=== PATIENT | female | born 1965 | race Hispanic/Latino ===

== ENCOUNTER 2016-10-19 06:14 | Day surgery (SDC) | payer MEDICARE, MEDICAID ==
[2016-10-13 07:22] VITALS: BMI 37.2
[2016-10-19 06:38] LABS: ADD MANUAL DIFF? NO
[2016-10-19 06:52] LABS: INR 1.01 (0.93-1.08); PARTIAL THROMBOPLASTIN TIME 30.6 Seconds (23.7-30.8)
[2016-10-19 06:56] LABS: CALCIUM 9.5 mg/dL (8.4-10.5); POTASSIUM 4.2 mmol/L (3.6-5.0)
[2016-10-19 07:03] LABS: BASO # 0.11 K/mm3 (0.0-2.0); BASO % 0.7 % (0.0-3.0); EOS # 0.4 (0.0-0.7); EOS % 2.7 % (1.5-5.0); GRAN # 8.74 (1.4-6.5); GRAN % 58.5 % (50.0-68.0); HEMATOCRIT 36.3 % (36.0-48.0); LYMPH # 4.7 (1.2-3.4); LYMPH % 31.7 % (22.0-35.0); MEAN CELL VOLUME 91.9 fL (80.0-105.0); MEAN CORPUSCULAR HEMOGLOBIN 30.9 pg (25.0-35.0); MEAN CORPUSCULAR HGB CONC 33.6 g/dl (31.0-37.0); MEAN PLATELET VOLUME 10.4 fl (7.0-11.0); MONO % 6.4 % (1.0-6.0); PLATELET COUNT 351 10^3/uL (120.0-450.0); RED CELL DISTRIBUTION WIDTH 14.1 % (11.5-14.5); WHITE BLOOD COUNT 14.9 10^3/ul (4.5-11.0)
[2016-10-19] MEDS ORDERED: Midazolam 2 MG/2 ML VIAL ONE (08:14)
[2016-10-19] MEDS ORDERED: Propofol 10 mg/ml Inj (20 ML) ONE ×3 (08:14→08:54)
[2016-10-19] MEDS ORDERED: Morphine 4 mg/ml ISec ONE ×2 (08:15→08:31)
[2016-10-19] MEDS ORDERED: Succinylcholine 200 mg/10 ml Inj IV ONE (08:15)
[2016-10-19] MEDS ORDERED: Rocuronium 10 mg/ml (5 ml) ONE (08:15)
[2016-10-19] MEDS ORDERED: Phenylephrine 10 mg/ml Inj ONE (08:28)
[2016-10-19] MEDS ORDERED: HYDROmorphone 2 mg/ml ISec ONE (08:46)
[2016-10-19] MEDS ORDERED: Metoprolol 1 mg/ml Inj IVP ONE (08:51)
[2016-10-19] MEDS ORDERED: Labetalol 5 mg/ml Inj 20ML ONE (09:04)
[2016-10-19] MEDS ORDERED: Neostigmine Methylsulfate 3mg/3ml Syringe IV ONE (09:30)
[2016-10-19] MEDS ORDERED: metroNIDAZOLE IV 500 mg/100 ml 100 ML ONE (09:30)
[2016-10-19] MEDS ORDERED: Ciprofloxacin 400mg/200ml D5W 200 ML IVPB ONE (09:31)
[2016-10-19] MEDS ORDERED: Naloxone 0.4 mg/ml Inj (Adult) ONE (09:46)
[2016-10-19] MEDS ORDERED: HYDROmorphone 0.5 mg/0.5 ml ISec IVP PRN (09:59)
[2016-10-19] MEDS ORDERED: Lactated Ringer's 1,000 ML IV SCH (10:00)
--- NOTE | 2016-10-19 10:13 | PCM.SURG1 ---
Surgeon's Initial Post Op Note - Surgeon's Notes Surgeon: Tez Twister Hand: Sushma PGY2 Type of Anesthesia: General Endo, Local Pre-Operative Diagnosis: Incisional hernia Operative Findings: incarcerated hernia Post-Operative Diagnosis: same Operation Performed: laparoscopic incisional hernia w. mesh Specimen/Specimens Removed: none Estimated Blood Loss: EBL {In ML}: 5 Blood Products Given: N/A Drains Used: No Drains Post-Op Condition: Good Date of Surgery/Procedure: 10/19/16 Time of Surgery/Procedure: 10:22
[2016-10-19 11:14] VITALS: RESP 18; TEMP 97.3
[2016-10-19 11:57] VITALS: BP 122/69; PULSE 84; O2SAT 97
--- NOTE | 2016-10-20 09:11 | OP ---
PROCEDURE DATE: 10/19/2016 PREOPERATIVE DIAGNOSIS: Incarcerated incisional hernia. POSTOPERATIVE DIAGNOSES: Incarcerated incisional hernia and dense intraabdominal adhesions. PROCEDURES PERFORMED: 1. Laparoscopic repair of the incarcerated incisional hernia. 2. Laparoscopic lysis of dense intraabdominal adhesions. SURGEON: Dr. Reagan BUTCHER APPRENTICE: ODETTE Aronld, and Dr. Ordaz. ANESTHESIOLOGIST: Dr. Driver. ANESTHESIA: General endotracheal anesthesia. ESTIMATED BLOOD LOSS: Minimal. SPECIMEN: None. INDICATION: The patient is a 51-year-old female with multiple medical problems including obesity, hy pogammaglobulinemia, and hypertension. The patient had previous abdominal surgery with midline incis ion, and over the past year or so started complaining of a bulge in the midline associated with tende rness and discomfort, and after a few months they noted that the bulge would no longer reduce itself. The patient was examined in the office and was noted to have an incarcerated incisional hernia. Reveles d a CT scan confirming the findings, including the finding that the hernia contained bowel incarcerat ed within it, and was scheduled for the laparoscopic repair of the hernia. DESCRIPTION OF PROCEDURE: The patient was brought to the operating room and placed on the operating table in supine position. The patient was connected to EKG, blood pressure and pulse oximeter monito rs. The patient then underwent general endotracheal anesthesia, and was prepped and draped in the [facility] sterile fashion. First, a timeout procedure took place when everybody in the room agreed as to the patient's identity, diagnosis and procedure to be performed. Becca Enriquez, who was the surgical first assistant, was present during the entire procedure and was active ly involved in all the aspects of the surgery including the access to the abdominal cavity, assist wi th retraction and camera positioning as well as through the closure of the wounds. First, lidocaine with Marcaine was used in order to anesthetize an area inferior to the left costal m argin in the anterior axillary line. A 10-12 mm scope was placed through that incision under direct vision with the camera within the Visiport. Once access to the abdominal cavity was obtained, pneumo peritoneum was obtained and the trocar was now positioned in place. Careful evaluation of abdominal cavity revealed the presence of omentum adhering to the anterior abdominal wall as well as multiple l oops of small bowel attached to the abdominal wall as well. Two areas of opening were identified on the lateral aspect of the left abdomen and two 5 mm ports were placed through those incisions. Now, careful dissection began where, using one port for retraction and a second port for the Harmonic scal pel, the abdominal wall adhesions of the small bowel were carefully and tediously taken down. There was adhesion extending all the way down to the pelvis. Once all these adhesions were taken down, I ashwin gottlieb proceeded with clearing the adhesions of the omentum surrounding the area of the hernia defect. Once this was done, I then carefully teased down the omentum as well as the colon from the hernia def ect. It was noted the defect itself was about 3 cm in diameter, and adjacent to it was another defec t measuring about 2 cm as well. Both of those were cleared from the fat tissue within it. Once the fascia surrounding the defect was clean, I then proceeded with placing a 12 cm patch and attached a s titch to the center of this patch. Next, a closure needle was used in order to grab the stitch and p ull the patch against the abdominal wall. The rough portion of the patch was turned towards the abdo julito wall, and the smooth covered nonadherent side of the patch was turned towards the bowel. Once this was in place, I then proceeded with placing AbsorbaTacks in order to affix the patch to the abdo julito wall. Two rows of tacks were used in order to keep the patch stretched out nicely. Once this was completed, I then carefully reevaluated the abdominal cavity. I looked at the exit sites of all the trocars and noted no evidence of any bleeding. I next proceeded with removal of the 5 mm trocars , releasing the pneumoperitoneum, and eventually taking out the 12 mm trocar under direct visualizati on. Once this was done, the wounds were closed using 0 Vicryl for the fascia, 3-0 Vicryl for subcuta neous tissue and 4-0 Monocryl for skin. A sterile Dermabond dressing was applied to the wound. The patient was awakened, extubated and transferred to the recovery room for further observation. In add ition, I would like to note that the lysis of adhesions, both the pelvic and the abdominal, took abou t 65 minutes in its entirety prior to be able to expose the hernia defect. Tee Reagan MD cc: [id number] TT: 10/20/2016 09:11:05 mn
== END 2016-10-19 13:25 | disposition home or self-care (01) ==
LOC: SDS 06:14
PROVIDERS: ATTEND General Practice
DX: K43.0 Incisional hernia with obstruction, without gangrene (principal); K66.0 Peritoneal adhesions (postprocedural) (postinfection); I10 Essential (primary) hypertension; I25.10 Atherosclerotic heart disease of native coronary artery without angina pectoris; E11.9 Type 2 diabetes mellitus without complications; E78.5 Hyperlipidemia, unspecified; G40.909 Epilepsy, unspecified, not intractable, without status epilepticus
CPT/HCPCS: 36415; 49329; 49655; 80048; 85025; 85610; 85730; C1781; J0330; J0744; J1170 ×2; J2250; J2270; J2310; J2370; J2405; J2704; J2710; J3010; J7120 ×2

== ENCOUNTER 2016-10-25 08:31 | Inpatient (IN) | payer MEDICARE, MEDICAID ==
[2016-10-25 08:43] VITALS: BMI 29.0
--- NOTE | 2016-10-25 08:46 | ED PDOC ---
Arrival/HPI - General Time Seen by Provider: 10/25/16 08:43 Historian: Patient, EMS - History of Present Illness Narrative History of Present Illness (Text): 10/25/16 12:13 A 51 year old female, whose past medical history includes diabetes, is presented to the Emergency department by EMS because of AMS and respiratory distress earlier today. EMS reported that patient was alert to name and place, but is currently only alert to name. HPI limited due to patient's condition. Time/Duration: 1-3 hours Symptom Onset: Sudden Symptom Course: Unchanged Activities at Onset: Rest Modifying Factors (Text): none Context: Home Past Medical History - Provider Review Nursing Documentation Reviewed: Yes - Infectious Disease Hx of Infectious Diseases: None - Tetanus Immunization Tetanus Immunization: Unknown - Cardiac Hx Pacemaker: No - Pulmonary Hx Asthma: Yes - Neurological Hx Paralysis: No - Hematological/Oncological Hx Blood Transfusions: No Hx Blood Transfusion Reaction: No - Musculoskeletal/Rheumatological Hx Musculoskeletal Disorders: Yes - Gastrointestinal Other/Comment: Colon CA - Psychiatric Hx Emotional Abuse: No Hx Physical Abuse: No Hx Substance Use: No - Surgical History Other/Comment: multiple nose couterization, ovary surgery, breast surgery ( tumor removal), stent. - Anesthesia Hx Anesthesia Reactions: Yes (HEADACHES) Hx Malignant Hyperthermia: No - Suicidal Assessment Feels Threatened In Home Enviroment: No Family/Social History - Physician Review Nursing Documentation Reviewed: Yes Family/Social History: No Known Family HX Smoking Status: Current Some Days Smoker Hx Alcohol Use: No Hx Substance Use: No Allergies/Home Meds Allergies/Adverse Reactions: Allergies diazepam [From Valium] Allergy (Intermediate, Verified 10/25/16 08:43) AGITATION diphenhydramine HCl [From Benadryl] Allergy (Intermediate, Verified 10/25/16 08: 43) AGITATION meperidine HCl [From Demerol] Allergy (Intermediate, Verified 10/25/16 08:43) AGITATION Sulfa (Sulfonamide Antibiotics) Allergy (Intermediate, Verified 10/25/16 08:43) RASH fentanyl Adverse Reaction (Severe, Verified 10/25/16 08:43) HEADACHE Home Medications: Home Meds Medication Instructions Recorded Confirmed Aspirin 81 mg PO QAM 02/01/13 10/13/16 Ranitidine HCl 300 mg PO QAM 02/01/13 10/19/16 Atorvastatin [Lipitor] 10 mg PO QAM 10/31/13 10/19/16 Meclizine [Meclizine*] 25 mg PO QAM PRN 10/01/14 10/19/16 Gabapentin [Neurontin] 800 mg PO TID 07/29/15 10/19/16 Immun Glob G/Sorb/Gly/Iga 0-50 5 gm IV Q21D 07/29/15 10/19/16 [Gammaplex] Levetiracetam [Keppra] 1,000 mg PO BID 07/29/15 10/19/16 Metoprolol Tartrate [Lopressor] 100 mg PO QAM 07/29/15 10/19/16 Nortriptyline HCl [Nortriptyline] 75 mg PO HS 07/29/15 10/19/16 Prochlorperazine Maleate 10 mg PO QAM PRN 07/29/15 10/19/16 [Compazine] Spironolactone [Aldactone] 100 mg PO QPM 07/29/15 10/19/16 Topiramate [Topamax] 50 mg PO QOTHERDAY 07/29/15 10/19/16 metFORMIN [glucOPHAGE] 500 mg PO BID 07/29/15 10/19/16 oxyCODONE [oxyCONTIN] 30 mg PO TID PRN 07/29/15 10/19/16 Acetaminophen/Butalbital/Caf 1 tab PO PRN PRN 09/08/16 10/19/16 [Fioricet] Alogliptin Benzoate [Alogliptin] 25 mg PO DAILY 09/08/16 10/19/16 Ibuprofen [Motrin Tab] 800 mg PO PRN PRN 09/08/16 10/19/16 Lorazepam [Ativan] 0.5 mg PO HS 09/08/16 10/19/16 Methocarbamol [Robaxin] 500 mg PO BID 09/08/16 10/19/16 Oxycodone HCl/Acetaminophen 1 tab PO Q12 09/08/16 10/19/16 [Percocet 10-325 mg Tablet] Review of Systems - Review of Systems Systems not reviewed;Unavailable: Altered Mental Status Physical Exam - Physical Exam Narrative Physical Exam (Text): 10/25/16 12:27 - Physical exam Patient appears age appropriate - Systems Exam Head: Present: Atraumatic, Normocephalic Pupils: Present: PERRL Extraocular Muscles: Present: EOMI Conjunctiva: Present: Normal Mouth: Present: Dry oral mucosa Neck: Present: Normal Range of Motion. No: MIDLINE TENDERNESS, Paraspinal Tenderness Respiratory/Chest: Present: Tachypneic, shallow respiration No: Accessory Muscle Use Cardiovascular: Present: Tachycardic Abdomen: Present: Normal Bowel Sounds, No: Tenderness, Peritoneal Signs, Rebound, Guarding, Distention Back: Present: Normal Inspection. No: Midline Tenderness, Paraspinal Tenderness Upper Extremity: Present: Normal Inspection. No: Cyanosis, Edema Lower Extremity: Present: Normal Inspection. No: Edema Neurological: Present: GCS=15, Speech Normal, cranial nerves II through XII fully intact with no cerebellar abnormality, neuro-sensory fully intact. No focal neurological deficits. Skin: Present: Warm, Dry, Normal Color. No: Rashes Lymphatic: Present: OX3, NI, NC Psychiatric: Present: Alert, Responsive, following commands Vital Signs Reviewed: Yes Vital Signs Temp Pulse Resp BP Pulse Ox 10/25/16 12:58 101.0 F H 129 H 26 H 132/72 91 L 10/25/16 12:30 130 H 26 H 144/87 94 L 10/25/16 12:18 131 H 18 169/56 H 95 10/25/16 12:15 130 H 26 H 169/96 H 92 L 10/25/16 12:00 126 H 36 H 167/91 H 89 L 10/25/16 11:45 98 H 36 H 135/114 H 90 L 10/25/16 11:30 85 36 H 141/87 93 L 10/25/16 11:19 99.2 F 10/25/16 10:43 92 H 26 H 141/87 93 L 10/25/16 08:53 98.6 F 130 H 45 H 162/88 H 97 Temperature: Afebrile Blood Pressure: Hypertensive Pulse: Tachycardic Respiratory Rate: Tachypneic Appearance: Positive for: Well-Appearing, Non-Toxic, Comfortable Pain Distress: None Mental Status: Positive for: Confused, Lethargic Finger Stick Blood Glucose: 480 Medical Decision Making ED Course and Treatment: Impression: 51 year old female with AMS and respiratory distress. Patient was alert to name only, responsive, and following commands. On physical exam, patient has dry oral mucosa, tachycardic, tachypneic and shallow respiration. Differential Diagnosis include but are not limited to: DKA, sepsis, dehydration Plan: -- CT head wo contrast -- Chest xray -- Labs -- Urinalysis -- IV fluids -- Reassess and disposition Progress Notes: Chest xray: Creator : Abel Cox MD IMPRESSION: Right basilar opacity, infiltrate versus atelectasis. Followup advised. CT head: Creator : Kalia Cannon MD IMPRESSION: No acute findings new chest xray: Creator : Kalia Cannon MD IMPRESSION: Moderate vascular and interstitial congestion increased from earlier study 10/25/16 12:[address] Mckeon, agrees with intubation dw , agrees with admission to his service pt's family aware of and agree with plan report pt had advance directives after the intubation, they were informed about the procedure but did not tell myself, the nursing staff or Dr. Mckeon PROCEDURE: INTUBATION Performed by the emergency provider Consent: emergent. consent was precluded by the urgency of the procedure and the patient condition. Timeout: A timeout to verify the correct patient, procedure, and site was performed. Indication: Pre-oxygenation: [id number], passive oxygenation via NC Medications: ketamine, rocuronium. See MAR for details. ETT Size: 7.5 Confirmation: Cords directly visualized as tube passed, good bilateral breath sounds, positive CO2 detector color change, tube fogging, adequate chest rise, improving pulse oximetry reading, improved skin color, and absence of gastric sounds,. ETT Secured: The cuff was inflated and the tube was secured appropriately at a distance of 21 cm at the lip. Post-Procedure: There were no immediate complications. Pt's o2 sat remained >90 during the procedure. CXR Confirmation: YES OGT performed by me Consent: emergent. consent was precluded by the urgency of the procedure and the patient condition. Timeout: A timeout to verify the correct patient, procedure, and site was performed. confirmed via aspiration of gastric contents post procedure CXR confirms placement Patient's EKG shows sinus tachycardia, 120 bpm, no ST segment elevations, normal intervals. Interpreted by me. - Critical Care Critical Care Minutes: 30 minutes - Lab Interpretations Lab Results: 10/25/16 09:10 10/25/16 09:10 Lab Results 10/25/16 12:00: Urine Color Yellow, Urine Appearance Clear, Urine pH 6.0, Ur Specific Piggott >= 1.030, Urine Protein 100 H, Urine Glucose (UA) 250 H, Urine Ketones Trace H, Urine Blood Small H, Urine Nitrate Negative, Urine Bilirubin Negative, Urine Urobilinogen 1.0 H, Ur Leukocyte Esterase Negative, Urine RBC 0 - 2, Urine WBC 0 - 2, Ur Epithelial Cells 0 - 2, Urine Bacteria Mod, Coarse Granular Casts Trace H 10/25/16 09:10: WBC 22.8 H D, RBC 4.68, Hgb 14.7, Hct 42.7, MCV 91.2, MCH 31.4, MCHC 34.4, RDW 13.8, Plt Count 525 H, MPV 10.7, Neutrophils % (Manual) 78 H, Band Neutrophils % 6 H, Lymphocytes % (Manual) 10 L, Monocytes % (Manual) 6, Platelet Evaluation High, Poikilocytosis (manual Slight, Anisocytosis (manual) 1 +, Tear Drop Cells Slight, Ovalocytes Slight, PT 13.0 H, INR 1.20 H, APTT 26.7, pO2 71 H, VBG pH 7.15 L*, VBG pCO2 28.0 L, VBG HCO3 9.8 L, VBG Total CO2 10.7 L , VBG O2 Sat (Calc) 92.6 H, VBG Base Excess -17.6 L, VBG Potassium 4.9, Glucose 538 H*, Lactate 7.0 H*, FiO2 21.0, Sodium 132.0, Potassium 4.8, Chloride 96.0 L , Carbon Dioxide 10 L D, Anion Gap 30 H, BUN 37 H, Creatinine 2.7 H, Est GFR ( Amer) 23, Est GFR (Non-Af Amer) 19, Random Glucose 499 H* D, Calcium 9.3 , Phosphorus 4.7 H, Magnesium 1.2 L, Total Bilirubin 0.5, AST 26, ALT 19, Alkaline Phosphatase 78, Lactate Dehydrogenase 503, Total Creatine Kinase 24 L, Troponin I 0.01, Total Protein 7.5, Albumin 4.0, Globulin 3.5, Albumin/Globulin Ratio 1.1, Venous Blood Potassium 4.9 I have reviewed the lab results: Yes - RAD Interpretation Radiology Orders: 10/25/16 08:49 HEAD W/O CONTRAST [CT] Stat CHEST PORTABLE [RAD] Stat 10/25/16 11:26 DUPLEX LOWER EXTRM VEIN BILAT [US] Routine 10/25/16 11:49 ABD & PELVIS W/O PO OR IV CONT [CT] Stat 10/25/16 11:50 CXR [CHEST PORTABLE] [RAD] Stat - Medication Orders Current Medication Orders: Insulin Human Regular 100 (units/ Sodium Chloride) 100 mls @ 8 mls/hr IV .[id number] STA; 8 UNITS/HR PRN Reason: Protocol Stop: 10/25/16 23:35 Last Admin: 10/25/16 13:54 Dose: 6 MLS/HR MAR Blood Glucose Document 10/25/16 13:54 JC (Rec: 10/25/16 13:55 [id number] Blood Glucose Finger Stick Blood Glucose (70-120) 366 Titration Intervention Document 10/25/16 13:54 JCL (Rec: 10/25/16 13:55 [id number]) Titration Intake Container Volume 100 Titration Dosing Titration Dose 6 IV Rate 6 Intake/Decrease Start eMAR Start Stop Document 10/25/16 13:54 JCL (Rec: 10/25/16 13:55 [id number][facility] Intravenous Solution Start Date 10/25/16 Start Time 13:55 Sodium Chloride (Sodium Chloride 0.9%) 1,000 mls @ 200 mls/hr IV .Q5H JOSH Piperacillin Sod/Tazobactam Sod (Zosyn 2.25 Gm In 0.9% 100 Ml) 100 mls @ 100 mls/hr IVPB Q6 JOSH PRN Reason: Protocol Propofol (Diprivan) 100 mls @ 2.449 mls/hr IV .Q24H PRN; Protocol; 5 MCG/KG/MIN PRN Reason: TITRATE PER MD ORDER Discontinued Medications Sodium Chloride (Sodium Chloride 0.9%) 2,000 mls @ 1,000 mls/hr IV .Q2H STA Stop: 10/25/16 10:48 Last Admin: 10/25/16 10:10 Dose: 1,000 MLS/HR eMAR Start Stop Document 10/25/16 10:10 JOL (Rec: 10/25/16 10:38 JOL [id number]) Intravenous Solution Start Date 10/25/16 Start Time 10:10 End Date 10/25/16 End time 10:50 Total Infusion Time 40 Sodium Chloride 1,000 ml/ IV (SUPPLIES) 1,000 mls @ 4,898.82 mls/hr IV ONCE ONE PRN Reason: 60 ML/KG/HR Stop: 10/25/16 10:14 Last Admin: 10/25/16 11:05 Dose: 4,898.82 MLS/HR eMAR Start Stop Document 10/25/16 11:05 JOL (Rec: 10/25/16 11:06 [facility] [id number]) Intravenous Solution Start Date 10/25/16 Start Time 11:05 End Date 10/25/16 End time 11:18 Total Infusion Time 13 Piperacillin Sod/Tazobactam Sod (Zosyn 4.5 Gm In Ns 100ml) 100 mls @ 200 mls/ hr IVPB STAT STA PRN Reason: Protocol Stop: 10/25/16 10:45 Last Admin: 10/25/16 10:25 Dose: 200 MLS/HR eMAR Start Stop Document 10/25/16 10:25 JOL (Rec: 10/25/16 10:38 JOL [facility] [id number]) Intravenous Solution Start Date 10/25/16 Start Time 10:25 End Date 10/25/16 End time 10:55 Total Infusion Time 30 Vancomycin HCl (Vancomycin 1gm) 250 mls @ 133.333 mls/hr IVPB STAT STA PRN Reason: Protocol Stop: 10/25/16 12:08 Last Admin: 10/25/16 11:05 Dose: 133.333 MLS/HR eMAR Start Stop Document 10/25/16 11:05 JOL (Rec: 10/25/16 11:05 JOL [facility] [id number]) Intravenous Solution Start Date 10/25/16 Start Time 11:05 End Date 10/25/16 End time 12:35 Total Infusion Time 90 Propofol (Diprivan) Confirm Administered Dose 100 mls @ ud .ROUTE .STK-MED ONE Stop: 10/25/16 12:22 Ketamine HCl (Ketalar) 120 mg IV ONCE ONE Stop: 10/25/16 11:02 Last Admin: 10/25/16 11:35 Dose: 120 MG eMAR Start Stop Document 10/25/16 11:35 JOL (Rec: 10/25/16 12:28 JOL [id number]) Intravenous Solution Start Date 10/25/16 Start Time 11:35 End Date 10/25/16 End time 11:36 Total Infusion Time 1 Rocuronium [place] (Zemuron) 80 mg IVP ONCE ONE Stop: 10/25/16 11:02 Last Admin: 10/25/16 11:35 Dose: 80 MG IVP Administration Document 10/25/16 11:35 JO (Rec: 10/25/16 12:28 [id number]) Charges for Administration # of IVP Administrations 1 Rocuronium [place] ([place]) Confirm Administered Dose 100 mg .ROUTE .STK-MED ONE Stop: 10/25/16 11:10 Last Admin: 10/25/16 12:30 Dose: - Scribe Statement The provider has reviewed the documentation as recorded by the Scribe Maverick Vicente All medical record entries made by the Scribe were at my direction and personally dictated by me. I have reviewed the chart and agree that the record accurately reflects my personal performance of the history, physical exam, medical decision making, and the department course for this patient. I have also personally directed, reviewed, and agree with the discharge instructions and disposition. Disposition/Present on Arrival - Present on Arrival Any Indicators Present on Arrival: No History of DVT/PE: No History of Uncontrolled Diabetes: No Urinary Catheter: No History Surgical Site Infection Following: None - Disposition Have Diagnosis and Disposition been Completed?: Yes Diagnosis: DKA (diabetic ketoacidoses) Disposition: HOSPITALIZED Disposition Time: 12:09 Patient Plan: Admission Patient Problems: Current Active Problems Problem Status Diagnosed DKA (diabetic ketoacidoses) Acute Condition: CRITICAL
[2016-10-25] MEDS ORDERED: Sodium Chloride 0.9% 2,000 ML IV STA (08:49)
[2016-10-25 09:42] LABS: HEMATOCRIT 42.7 % (36.0-48.0); MEAN CELL VOLUME 91.2 fL (80.0-105.0); MEAN CORPUSCULAR HEMOGLOBIN 31.4 pg (25.0-35.0); MEAN CORPUSCULAR HGB CONC 34.4 g/dl (31.0-37.0); MEAN PLATELET VOLUME 10.7 fl (7.0-11.0); PLATELET COUNT 525 10^3/uL (120.0-450.0); RED CELL DISTRIBUTION WIDTH 13.8 % (11.5-14.5); WHITE BLOOD COUNT 22.8 10^3/ul (4.5-11.0)
[2016-10-25 09:43] LABS: VENOUS BLOOD GAS BASE EXCESS -17.6 mmol/L (0.0-2.0)
[2016-10-25 09:45] LABS: ADD MANUAL DIFF? YES
[2016-10-25 09:50] LABS: INR 1.2 (0.93-1.08); PARTIAL THROMBOPLASTIN TIME 26.7 Seconds (23.7-30.8)
[2016-10-25 09:52] LABS: ALB/GLOB RATIO 1.1 (1.1-1.8); BILIRUBIN,TOTAL 0.5 mg/dL (0.2-1.3); CALCIUM 9.3 mg/dL (8.4-10.5); POTASSIUM 4.8 mmol/L (3.6-5.0); TOTAL PROTEIN 7.5 g/dL (5.8-8.3)
[2016-10-25 09:53] LABS: VENOUS BLOOD PH 7.15 (7.32-7.43)
--- NOTE | 2016-10-25 09:57 | CT ---
PROCEDURE: CT HEAD WITHOUT CONTRAST. HISTORY: AMS COMPARISON: 05/11/2016 TECHNIQUE: Axial computed tomography images were obtained through the head/brain without intravenous contrast. Radiation dose: Total exam DLP = 779 mGy-cm. This CT exam was performed using one or more of the following dose reduction techniques: Automated exposure control, adjustment of the mA and/or kV according to patient size, and/or use of iterative reconstruction technique. FINDINGS: HEMORRHAGE: No intracranial hemorrhage. BRAIN: No mass effect or edema. No atrophy or chronic microvascular ischemic changes. VENTRICLES: Unremarkable. No hydrocephalus. CALVARIUM: Unremarkable. PARANASAL SINUSES: Unremarkable as visualized. No significant inflammatory changes. MASTOID AIR CELLS: Unremarkable as visualized. No inflammatory changes. OTHER FINDINGS: None. IMPRESSION: No acute findings
--- NOTE | 2016-10-25 10:09 | RAD ---
HISTORY: AMS COMPARISON: 05/05/2016 FINDINGS: LUNGS: Opacity at right lung base, infiltrate versus atelectasis. PLEURA: No significant pleural effusion identified, no pneumothorax apparent. CARDIOVASCULAR: Normal heart size. Right central venous infusion port, grossly unchanged. OSSEOUS STRUCTURES: No significant abnormalities. VISUALIZED UPPER ABDOMEN: Normal. OTHER FINDINGS: None. IMPRESSION: Right basilar opacity, infiltrate versus atelectasis. Followup advised.
[2016-10-25] MEDS ORDERED: Vancomycin 1gm in NS 250ml 250 ML IVPB STA (10:16)
[2016-10-25] MEDS ORDERED: Piperacill/Tazo 4.5gm in NS 100 ML IVPB STA (10:16)
[2016-10-25 10:35] LABS: ANISOCYTOSIS 1+; BAND 6 % (0-2); NEUTROPHIL 78 % (50.0-70.0); PLATELET ESTIMATE HIGH (NORMAL); POIKILOCYTOSIS SLIGHT
[2016-10-25 10:36] LABS: OVALOCYTES SLIGHT; TEAR DROP CELLS SLIGHT
[2016-10-25 10:42] LABS: TROPONIN I 0.01 ng/mL
[2016-10-25] MEDS ORDERED: Rocuronium 10 mg/ml (5 ml) IVP ONE (11:01)
[2016-10-25] MEDS ORDERED: Ketamine 10 mg/ml Inj (20 ml) IV ONE (11:01)
[2016-10-25] MEDS ORDERED: Insulin Regular 100 UNITS in Sodium Chloride 0.9% 99 ML IV STA ×3 (11:06→22:40)
[2016-10-25] MEDS ORDERED: Rocuronium 10 mg/ml (5 ml) ONE (11:09)
[2016-10-25] MEDS ORDERED: Sodium Chloride 0.9% 1,000 ML IV SCH (11:30)
[2016-10-25 11:43] LABS: MAGNESIUM 1.2 mg/dL (1.7-2.2); PHOSPHOROUS 4.7 mg/dL (2.5-4.5)
--- NOTE | 2016-10-25 12:15 | RAD ---
HISTORY: pneumonia COMPARISON: 10/25/2016 FINDINGS: LUNGS: There is moderate vascular and interstitial congestion. The endotracheal and nasogastric tube are in satisfactory position. A right-sided Port-A-Cath is present PLEURA: No significant pleural effusion identified, no pneumothorax apparent. CARDIOVASCULAR: Normal. OSSEOUS STRUCTURES: No significant abnormalities. VISUALIZED UPPER ABDOMEN: Normal. OTHER FINDINGS: None. IMPRESSION: Moderate vascular and interstitial congestion increased from earlier study
[2016-10-25 12:17] LABS: URINE BILIRUBIN NEGATIVE (NEGATIVE); URINE BLOOD SMALL (NEGATIVE); URINE GLUCOSE (UA) 250 mg/dL (NEGATIVE); URINE KETONE TRACE mg/dL (NEGATIVE); URINE LEUKOCYTE ESTERASE NEGATIVE Leu/uL (NEGATIVE); URINE PROTEIN 100 mg/dL (<30 mg/dL)
[2016-10-25] MEDS ORDERED: PROPOFOL 10 MG/ML ONE (12:21)
[2016-10-25 12:27] LABS: URINE APPEARANCE CLEAR (CLEAR); URINE COLOR YELLOW (YELLOW)
--- NOTE | 2016-10-25 12:32 | CARD ---
APPROVED REPORT EKG Measurement Heart [id number] FL [id number] <Conclusion> Sinus tachycardia Left posterior fascicular block Possible Anterior infarct, age undetermined Abnormal ECG
[2016-10-25 12:34] LABS: URINE BACTERIA MOD (NEG); URINE EPITHELIAL CELLS 0 - 2 /hpf (0-5); URINE RBC 0 - 2 /hpf (0-2); URINE WBC 0 - 2 /hpf (0-6)
[2016-10-25 12:47] LABS: ABG MECHANICAL RATE 18; ARTERIAL BLOOD GAS HCO3 15.1 mmol/L (21-28); ATERIAL BLOOD GAS PEEP 8
[2016-10-25 13:10] LABS: ARTERIAL BLOOD GAS PH 7.03 (7.35-7.45)
--- NOTE | 2016-10-25 13:33 | CT ---
PROCEDURE: CT Abdomen and Pelvis without intravenous contrast HISTORY: unexplained severe lactic acidosis COMPARISON: 10/02/2016 TECHNIQUE: Without contrast. Contrast Dose: Radiation dose: Total exam DLP = 1888 mGy-cm. This CT exam was performed using one or more of the following dose reduction techniques: Automated exposure control, adjustment of the mA and/or kV according to patient size, and/or use of iterative reconstruction technique. FINDINGS: LOWER THORAX: Dense alveolar consolidation is seen in both lung bases consistent with pneumonia. LIVER: Unremarkable. No gross lesion or ductal dilatation. GALLBLADDER AND BILE DUCTS: Unremarkable. PANCREAS: Unremarkable. No gross lesion or ductal dilatation. SPLEEN: Unremarkable. ADRENALS: Unremarkable. No mass. KIDNEYS AND URETERS: Unremarkable. No hydronephrosis. No solid mass. VASCULATURE: Unremarkable. No aortic aneurysm. BOWEL: Dilated loops of small bowel are seen primarily in the left upper quadrant and mid abdomen. The distal small bowel is normal in caliber. The exact transition point is not visualized. There is no evidence of pneumatosis or free air. Findings are consistent with partial small bowel obstruction The previous study showed a ventral hernia containing a portion of the colon. This finding is no longer seen. APPENDIX: Unremarkable. Normal appendix. PERITONEUM: Unremarkable. No free fluid. No free air. LYMPH NODES: Unremarkable. No enlarged lymph nodes. BLADDER: Unremarkable. REPRODUCTIVE: Unremarkable. BONES: No acute fracture. OTHER FINDINGS: None. IMPRESSION: Bilateral lower lobe pneumonia. Partial small bowel obstruction
--- NOTE | 2016-10-25 13:42 | CON ---
DATE: 10/25/2016 This is a 51-year-old lady with diabetes mellitus type 2, who is on DPP-4 inhibitor therapy and metformin, who presented with fatigue, tiredness, severe shortness of breath and was found to be in severe metabolic acidosis and struggling to compensate. The patient is very poor historian and unable to provide even a slight detail for current episode. The patient is in the process of being intubated by ER physician. The patient denies nausea, vomiting , diarrhea, constipation, chest pain. PAST MEDICAL HISTORY: Diabetes, severe depression, seizure disorder, hypogammaglobulinemia, hypercholesterolemia. ALLERGIES: DIAZEPAM, BENADRYL, MEPERIDINE, SULFA DRUG. OF NOTE, ALLERGY TO VALIUM, BENADRYL, DEMEROL, AND FENTANYL LISTED HAVING AGITATION AND HEADACHE REACTION AND ONLY SULFA DRUGS CAUSING RASH. FAMILY HISTORY: Noncontributory. SOCIAL HISTORY: No alcohol or illicit drug abuse. No tobacco smoking. HOME MEDICATIONS: Tramadol, OxyContin, metformin, Topamax, Aldactone, ranitidine, Compazine, Percocet, nortriptyline, metoprolol, Robaxin, meclizine, Ativan, Keppra, immunoglobulin once every month, ibuprofen p.r.n., Neurontin, Lipitor, aspirin, alogliptin, Fioricet. REVIEW OF SYSTEMS: Revealed 12 organ system other than mentioned in history of present illness is negative. PHYSICAL EXAMINATION: VITAL SIGNS: Respiratory rate 40, blood pressure 162/88, temperature 98.6, , oxygen saturation 93% on room air. HEAD AND NECK: Atraumatic. LUNGS: Clear to auscultation bilaterally. HEART: Regular rate and rhythm. S1, S2 normal. ABDOMEN: Soft, nontender, nondistended. MUSCULOSKELETAL: No C/C/E. NEUROLOGIC: The patient moves all extremities spontaneously. SKIN: Moist. PSYCHIATRIC: The patient is alert, confused and in severe respiratory distress. LABORATORY DATA: WBC 22.8, hemoglobin 14.7, platelet count 525 with neutrophils predominance. Sodium 132, potassium 4.8, chloride 97, BUN 37, creatinine 2.7, glucose 499, AST 26, ALT 19. CPK 24, troponin 0.01. VBG showed 7.15/71. Potassium 4.1. INR 1.2. ASSESSMENT AND PLAN: This is a 51-year-old lady with history of diabetes, psychiatric disorder and hypogammaglobulinemia, who presented with severe shortness of breath, severe metabolic acidosis with significantly elevated lactic acid and inability to compensate respiratorily. I agree with intubation as patient is in impending respiratory failure. I would continue with insulin drip, IV fluids, antibiotics, BMP every 4 hours, Accu-Chek every 1 hour. I would obtain CAT scan of the abdomen and pelvis to rule out intra-abdominal catastrophe as an etiology for severe lactic acidosis. I would also avoid alogliptin as this medication may potentially put patient at higher risk for diabetic ketoacidosis. I would get endocrinology consult after initial stabilization. Chest x-ray will be obtained after intubation as well. Once patient is intubated for airway protection in light of impending respiratory failure, Rodríguez catheter will be placed and the urine output will be monitored. I agree with septic workup and empiric broad spectrum antibiotics at present time. I would avoid linezolid, however, as patient is on a bunch of medications which may have drug-drug interaction with linezolid. Addendum: CT A/P: SBO, b/l consolidations-->NGT on suction, Dr. Reagan was requested to consult, Abx and ID service consult--aspiration pneumonia?/ pneumonitis, no steroids as it may worsen DKA, protective lung ventilation strategy, permissive hypercapnea if needed and higher PEEP/fi02 to avoid VILI. May benefit from IVIG in the setting of CVID. Insulin drip until AG closed, avod hypoglycemia. DVT/GI prophylaxis ccm time 40 min Jordy Mckeon MD cc: [id number] TT: 10/25/2016 13:01:01 Confirmation # [id number] Dictation # [id number] sn PENA
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
[2016-10-25 13:59] LABS: VENOUS BLOOD GAS BASE EXCESS -14.9 mmol/L (0.0-2.0)
[2016-10-25 14:05] LABS: VENOUS BLOOD PH 7.06 (7.32-7.43)
[2016-10-25 14:08] LABS: CALCIUM 8.2 mg/dL (8.4-10.5); POTASSIUM 4.8 mmol/L (3.6-5.0)
--- NOTE | 2016-10-25 14:21 | CP.PCM.CON ---
<Maged Ordaz - Last Filed: 10/25/16 15:06> History of Present Illness - History of Present Illness History of Present Illness: Surgery: Dr. Reagan CC: s/p ventral hernia repair, now w. partial SBO HPI: Pt intubated and unresponsive. Hx gathered from review of chart. 51F w. pmh of Seizure, colon CA, Non-IDDM2, Asthma, and hypoglobumenia who recently underwent laparoscopic ventral hernia repair w. Dr. Reagan on 10/19/16, presented to ED with AMS. Pt was found to have DKA w. severe lactic acidosis. Pt was ultimately intubated and brought to the ICU. CT scan in ED showed partial. NGT was placed and appears to have feculent output at this time. PMH: As above PSH: Colectomy, cholecystectomy, breast bx, incisional hernia repair Meds: MAR reviewed ALL: diazepam, benadryl, meperidine, sulfa, fentanyl Social: +Tobacco, no ETOH/drugs Fhx: non-contributory Review of Systems - Review of Systems Systems not reviewed;Unavailable: Intubated Past Patient History - Infectious Disease Hx of Infectious Diseases: None - Tetanus Immunizations Tetanus Immunization: Unknown - Past Social History Smoking Status: Current Some Days Smoker - CARDIAC Hx Pacemaker: No - PULMONARY Hx Asthma: Yes - NEUROLOGICAL Hx Paralysis: No - HEMATOLOGICAL/ONCOLOGICAL Hx Blood Transfusions: No Hx Blood Transfusion Reaction: No - MUSCULOSKELETAL/RHEUMATOLOGICAL Hx Musculoskeletal Disorders: Yes - GASTROINTESTINAL Other/Comment: Colon CA - PSYCHIATRIC Hx Emotional Abuse: No Hx Physical Abuse: No Hx Substance Use: No - SURGICAL HISTORY Other/Comment: multiple nose couterization, ovary surgery, breast surgery ( tumor removal), stent. - ANESTHESIA Hx Anesthesia Reactions: Yes (HEADACHES) Hx Malignant Hyperthermia: No Meds Allergies/Adverse Reactions: Allergies Allergy/AdvReac Type Severity Reaction Status Date / Time diazepam [From Valium] Allergy Intermediate AGITATION Verified 10/25/16 08:43 diphenhydramine HCl Allergy Intermediate AGITATION Verified 10/25/16 08:43 [From Benadryl] meperidine HCl [From Demerol] Allergy Intermediate AGITATION Verified 10/25/16 08:43 Sulfa (Sulfonamide Allergy Intermediate RASH Verified 10/25/16 08:43 Antibiotics) fentanyl AdvReac Severe HEADACHE Verified 10/25/16 08:43 - Medications Medications: Current Medications Insulin Human Regular 100 (units/ Sodium Chloride) 100 mls @ 8 mls/hr IV .[id number] STA; 8 UNITS/HR PRN Reason: Protocol Stop: 10/25/16 23:35 Last Admin: 10/25/16 13:54 Dose: 6 mls/hr Sodium Chloride (Sodium Chloride 0.9%) 1,000 mls @ 200 mls/hr IV .Q5H JOSH Last Admin: 10/25/16 13:56 Dose: 200 mls/hr Piperacillin Sod/Tazobactam Sod (Zosyn 2.25 Gm In 0.9% 100 Ml) 100 mls @ 100 mls/hr IVPB Q6 JOSH PRN Reason: Protocol Propofol (Diprivan) 100 mls @ 2.449 mls/hr IV .Q24H PRN; Protocol; 5 MCG/KG/MIN PRN Reason: TITRATE PER MD ORDER Last Admin: 10/25/16 14:04 Dose: 2.449 mls/hr Physical Exam - Constitutional Appears: Toxic, No Acute Distress - Head Exam Head Exam: ATRAUMATIC, NORMOCEPHALIC - ENT Exam ENT Exam: Mucous Membranes Dry, Normal External Ear Exam Additional comments: NGT in place - Respiratory Exam Additional comments: intubated - GI/Abdominal Exam GI & Abdominal Exam: Distended (mild), Soft. absent: Guarding, Hernia, Rebound , Tenderness Additional comments: old midline ex lap scar and RUQ arti incision scar - Extremities Exam Extremities exam: Negative for: calf tenderness, pedal edema Results - Vital Signs Recent Vital Signs: Last Vital Signs Temp 99.6 F 10/25/16 13:49 Pulse 128 H 10/25/16 13:49 Resp 43 H 10/25/16 13:49 BP 159/60 H 10/25/16 13:49 Pulse Ox 91 L 10/25/16 12:58 - Labs Result Diagrams: 10/25/16 09:10 10/25/16 13:50 Labs: Laboratory Results - last 24 hr 10/25/16 10/25/16 12:40 13:50 pCO2 57 H pO2 71.0 L 49 HCO3 15.1 L ABG pH 7.03 L* ABG Total CO2 16.8 L ABG O2 Saturation 89.4 L ABG Base Excess -16.0 L ABG Potassium 4.4 VBG pH 7.06 L* VBG pCO2 55.0 VBG HCO3 15.6 L VBG Total CO2 17.3 L VBG O2 Sat (Calc) 76.8 H VBG Base Excess -14.9 L VBG Potassium 4.9 Sodium 133.0 135 Chloride 105.0 100 Glucose 439 H* 457 H* Lactate 1.7 3.3 H Mechanical Rate 18 FiO2 50.0 21.0 Tidal Volume 350 PEEP 8 Potassium 4.8 Carbon Dioxide 16 L Anion Gap 24 H BUN 40 H Creatinine 2.5 H Est GFR ( Amer) 25 Est GFR (Non-Af Amer) 20 Random Glucose 451 H* D Calcium 8.2 L Arterial Blood Potassium 4.4 Venous Blood Potassium 4.9 - Imaging and Cardiology CT scan - abdomen Status: Image reviewed by me, Report reviewed by me Assessment & Plan - Assessment and Plan (Free Text) Assessment: 51F s/p laparoscopic ventral hernia repair on 10/19/16 in ICU w. DKA, sepsis, and SBO -DKA management per ICU -Strict Is:Os -NGT to low intermittent suction -serial abd exams -abx per ID -d/w attending Sushma PGY2 <Tee Reagan - Last Filed: 02/01/17 22:50> Results - Vital Signs Recent Vital Signs: Last Vital Signs Temp 97.7 F 11/01/16 06:00 Pulse 93 H 11/01/16 08:15 Resp 17 11/01/16 06:00 BP 116/60 11/01/16 08:15 Pulse Ox 93 L 11/01/16 06:00 - Labs Result Diagrams: 11/01/16 06:00 11/01/16 06:00 Assessment & Plan - Assessment and Plan (Free Text) Plan: Patient was seen and examined by me. I agree with assessment and plan as per resident's note. - Date & Time Date: 10/25/16 Time: 16:10
[2016-10-25] MEDS: Linezolid 600 mg in D5W 300 ml 300 ML IVPB SCH ×2 (15:31→22:40)
[2016-10-25] MEDS ORDERED: Piperacillin/Tazobact 2.25gm 100 ML IVPB SCH (16:00)
[2016-10-25 16:40] LABS: ARTERIAL BLOOD GAS HCO3 13.3 mmol/L (21-28); ARTERIAL BLOOD GAS O2 CAPACITY 16.6 mL/dl (16-24); ARTERIAL BLOOD GAS O2 CONTENT 16.3 ML/dl (15-23); ARTERIAL BLOOD HGB O2 SAT 96.5 % (95.0-98.0); CARBOXYHEMOGLOBIN 0.7 % (0.5-1.5); HHB 1.7 % (0-5)
--- NOTE | 2016-10-25 17:44 | CP.PCM.CON ---
History of Present Illness - History of Present Illness History of Present Illness: 51 year old female with PMH of HTN, dyslipidemia, CAD S/P PCI, common variable immune deficiency, asthma, seizure disorder, depression, COPD, chronic venous insufficiency, DM S/P laparoscopic ventral hernia repair 2016, S/P cholecystectomy was brought in to [facility] because of lethargy and increasing shortness of breath even at rest. Because of the severe respiratory distress, she was immediately intubated in the ED and put on the ventilator and she is now in the ICU for continued critical care management. In the ED, CXR was done which showed bilateral lower lobe pneumonia and Infectious Diseases consult is requested to further evaluate and manage. Full review of systems in unobtainable due to the patient being intubated and lethargic. Review of Systems - Review of Systems All systems: reviewed and no additional remarkable complaints except (as per HPI ) Past Patient History - Infectious Disease Hx of Infectious Diseases: None - Tetanus Immunizations Tetanus Immunization: Unknown - Past Social History Smoking Status: Current Some Days Smoker - CARDIAC Hx Pacemaker: No - PULMONARY Hx Asthma: Yes - NEUROLOGICAL Hx Paralysis: No - HEMATOLOGICAL/ONCOLOGICAL Hx Blood Transfusions: No Hx Blood Transfusion Reaction: No - MUSCULOSKELETAL/RHEUMATOLOGICAL Hx Musculoskeletal Disorders: Yes - GASTROINTESTINAL Other/Comment: Colon CA - PSYCHIATRIC Hx Emotional Abuse: No Hx Physical Abuse: No Hx Substance Use: No - SURGICAL HISTORY Other/Comment: multiple nose couterization, ovary surgery, breast surgery ( tumor removal), stent. - ANESTHESIA Hx Anesthesia Reactions: Yes (HEADACHES) Hx Malignant Hyperthermia: No Meds Allergies/Adverse Reactions: Allergies Allergy/AdvReac Type Severity Reaction Status Date / Time diazepam [From Valium] Allergy Intermediate AGITATION Verified 10/25/16 08:43 diphenhydramine HCl Allergy Intermediate AGITATION Verified 10/25/16 08:43 [From Benadryl] meperidine HCl [From Demerol] Allergy Intermediate AGITATION Verified 10/25/16 08:43 Sulfa (Sulfonamide Allergy Intermediate RASH Verified 10/25/16 08:43 Antibiotics) fentanyl AdvReac Severe HEADACHE Verified 10/25/16 08:43 - Medications Medications: Current Medications Sodium Chloride (Sodium Chloride 0.9%) 1,000 mls @ 200 mls/hr IV .Q5H JOSH Last Admin: 10/25/16 13:56 Dose: 200 mls/hr Propofol (Diprivan) 100 mls @ 2.449 mls/hr IV .Q24H PRN; Protocol; 5 MCG/KG/MIN PRN Reason: TITRATE PER MD ORDER Last Titration: 10/25/16 14:30 Dose: 30 mcg/kg/min Linezolid (Zyvox 600mg/300ml D5w) 300 mls @ 200 mls/hr IVPB Q12 JOSH PRN Reason: Protocol Stop: 11/01/16 15:31 Last Admin: 10/25/16 15:31 Dose: 200 mls/hr Meropenem 1g/NS 100mL IVPB (Meropenem 1g/Ns 100ml Ivpb) 100 mls @ 100 mls/hr IVPB Q12 JOSH PRN Reason: Protocol Stop: 11/01/16 22:01 Insulin Human Regular 100 (units/ Sodium Chloride) 100 mls @ 8 mls/hr IV .[id number] STA; 8 UNITS/HR PRN Reason: Protocol Stop: 10/25/16 23:35 Last Admin: 10/25/16 17:23 Dose: 16 mls/hr Physical Exam - Constitutional Appears: Other (Intubated, lethargic, in some distress) - Head Exam Head Exam: NORMAL INSPECTION - ENT Exam Additional comments: ET tube in place - Neck Exam Neck exam: Negative for: Lymphadenopathy, Meningismus - Respiratory Exam Respiratory Exam: Rhonchi (scattered, with harsh breath sounds bilaterally) - Cardiovascular Exam Cardiovascular Exam: Tachycardia, +S1, +S2 Additional comments: right anterior chest wall port site clean and intact - GI/Abdominal Exam GI & Abdominal Exam: Soft. absent: Tenderness Results - Vital Signs Recent Vital Signs: Last Vital Signs Temp 100.4 F H 10/25/16 16:17 Pulse 87 10/25/16 16:17 Resp 45 H 10/25/16 16:17 BP 139/77 10/25/16 16:17 Pulse Ox 95 10/25/16 16:17 - Labs Result Diagrams: 10/25/16 09:10 10/25/16 13:50 Labs: Laboratory Results - last 24 hr 10/25/16 10/25/16 10/25/16 12:40 13:50 16:25 pCO2 57 H 27 L pO2 71.0 L 49 163.0 H HCO3 15.1 L 13.3 L ABG pH 7.03 L* 7.30 L ABG Total CO2 16.8 L 14.1 L ABG O2 Saturation 89.4 L 98.3 H ABG O2 Content 16.3 ABG Base Excess -16.0 L -11.7 L ABG Hemoglobin 11.8 ABG Carboxyhemoglobin 0.7 POC ABG HHb (Measured) 1.7 ABG Methemoglobin 1.0 ABG O2 Capacity 16.6 ABG Potassium 4.4 VBG pH 7.06 L* VBG pCO2 55.0 VBG HCO3 15.6 L VBG Total CO2 17.3 L VBG O2 Sat (Calc) 76.8 H VBG Base Excess -14.9 L VBG Potassium 4.9 Hgb O2 Saturation 96.5 Sodium 133.0 135 Chloride 105.0 100 Glucose 439 H* 457 H* Lactate 1.7 3.3 H Mechanical Rate 18 FiO2 50.0 21.0 50.0 Tidal Volume 350 PEEP 8 Potassium 4.8 Carbon Dioxide 16 L Anion Gap 24 H BUN 40 H Creatinine 2.5 H Est GFR ( Amer) 25 Est GFR (Non-Af Amer) 20 Random Glucose 451 H* D Serum Osmolality 314 H Calcium 8.2 L Arterial Blood Potassium 4.4 Venous Blood Potassium 4.9 Assessment & Plan - Assessment and Plan (Free Text) Plan: Assessment Severe sepsis with hypoxic and ventilator-dependent respiratory failure and acute renal failure due to bilateral lower lobe healthcare-associated pneumonia with possible gram positive cocci and/or gram negative bacilli HTN dyslipidemia CAD S/P PCI common variable immune deficiency asthma seizure disorder depression COPD chronic venous insufficiency DM S/P laparoscopic ventral hernia repair 2016 S/P cholecystectomy Plan Started the patient on Zyvox and Meropenem and the patient has been given doses of Vancomycin and Zosyn pending blood, sputum cx, urine cx, PCT; reviewed CXR Will monitor clinically
[2016-10-25 18:10] LABS: CALCIUM 8.1 mg/dL (8.4-10.5); POTASSIUM 4.4 mmol/L (3.6-5.0)
[2016-10-25 21:01] LABS: MEAN CELL VOLUME 89.6 fL (80.0-105.0); MEAN CORPUSCULAR HEMOGLOBIN 30.8 pg (25.0-35.0); MEAN CORPUSCULAR HGB CONC 34.4 g/dl (31.0-37.0); MEAN PLATELET VOLUME 10.3 fl (7.0-11.0); PLATELET COUNT 466 10^3/uL (120.0-450.0); RED CELL DISTRIBUTION WIDTH 13.7 % (11.5-14.5); WHITE BLOOD COUNT 19.1 10^3/ul (4.5-11.0)
[2016-10-25 21:05] LABS: ADD MANUAL DIFF? YES
[2016-10-25] MEDS ORDERED: Pneumococcal 23-Valent Vaccine IM ONE (21:13)
[2016-10-25] MEDS ORDERED: Dextrose 5%/0.45% NS 1,000 ML IV SCH (21:30)
[2016-10-25 22:18] LABS: BAND 5 % (0-2); EOSINOPHIL 1 % (0.0-3.0)
[2016-10-25 22:19] LABS: ANISOCYTOSIS 1+; PLATELET ESTIMATE HIGH (NORMAL); POIKILOCYTOSIS 1+
[2016-10-25 22:21] LABS: NEUTROPHIL 71 % (50.0-70.0)
[2016-10-25] MEDS: Meropenem 1g/NS 100mL IVPB 100 ML IVPB SCH (22:39)
--- NOTE | 2016-10-25 23:49 | HP ---
LOCATION: The patient is in ICU bed 3. HISTORY OF PRESENT ILLNESS: This is one of the several admissions for this 51-year-old female with a history of common variant hypogammaglobulinemia on IVIgG every 3 weeks, history of diabetes mellitus , orally controlled with alogliptin 25 mg daily along with metformin 500 b.i.d., history of hypertens ion, history of coronary artery disease, history of chronic obstructive pulmonary disease, history of discogenic disease of the back, history of progressive neuropathy, history of multiple falls seconda ry to the neuropathy including fracture of the metatarsal, left foot. Status post fall and injury an d trauma to the right lower extremity and right knee, slowly improving without any evidence of fractu re, history of seizure disorder, on Lamictal and Topamax under the care of Dr. Leyva, history of hyp ercholesterolemia. He is now admitted through the Emergency Room with fatigue, tiredness and severe shortness of breath, found to be in severe metabolic acidosis, struggling to compensate. The patient apparently had been progressively worsening over the last 2 days. The patient was intubated promptl y in the Emergency Room. PAST MEDICAL HISTORY: Significant for diabetes mellitus, coronary artery disease, seizure disorder, hypogammaglobulinemia common variant, had recent repair of ventral hernia last week, was seen in the office 2 days after the surgery and was at her baseline. ALLERGIES: THE PATIENT HAS MULTIPLE ALLERGIES TO DIAZEPAM, VENTOLIN, MEPERIDINE, SULFA DRUG, ALLERGY TO VALIUM, BENADRYL, DEMEROL. IS HAVING AGITATION, HEADACHES REACTION AND BELIEVE THE SULFA D RUGS CAUSING A RASH. FAMILY HISTORY: Noncontributory. Both mother and father and and one of her sisters also has di ed. HOME MEDICATIONS: Include tramadol, OxyContin, metformin, Topamax, aldosterone, Ranitidine, Compazin e, Percocet, nortriptyline, metoprolol, Robaxin, meclizine, Ativan and Keppra, IVIgG once a month, ib uprofen p.r.n., Neurontin, Lipitor, aspirin, alogliptin and Fioricet. REVIEW OF SYSTEMS: Twelve organ system other than mentioned in HPI is negative. PHYSICAL EXAMINATION: GENERAL: The patient is examined in bed. VITAL SIGNS: Respirations are 22 per minute. Blood pressure is 162/88, T-max is 98.4, O2 sat is 93% on room air. HEENT: Head is normocephalic, atraumatic. The patient is intubated and vented. There is no blood i n the ET tube. NECK: Supple. LUNGS: Reveal them to be clear to percussion bilaterally and auscultation. HEART: Reveals S1 and S2 to be normal. No gallop or murmur is heard. ABDOMEN: Soft, nontender, nondistended. The patient has a recent scar of the ventral hernia repair. MUSCULOSKELETAL: Reveals no cyanosis, clubbing or edema. NEUROLOGIC: Higher functions, the patient moving well and extremities spontaneously without an y focal deficits PSYCHIATRIC: The patient is awake, alert, and confused in severe respiratory distress. LABORATORY DATA: Reveals a white count of 22.8, hemoglobin 14.7, platelet count 525 with neutrophili c . Sodium is 132, K is 4.8, chloride 97, BUN is 37, creatinine 2.7, glucose 199, AST 26, ALT o f 19, CPK 24. Troponin is . ABG showed pH of 7.51/71. K is 4.1. INR is 1.2. ASSESSMENT NOTES AND PLAN: A 51-year-old female with history of common variant hypogammaglobulinemia , anxiety disorder who now presents to the ER with progressive shortness of breath, severe metabolic acidosis with severely elevated lactic acid, anemia, inability to compensate respiratory-poon. The p atient has been intubated for the same. CAT scan of the abdomen shows small bowel ileus or small-bow el obstruction, for which she has had a nasogastric tube put in and is draining yellowish fluid. On a CAT scan of the abdomen, both lower lungs and the lung bases revealed bilateral dense infiltrates c onsistent with pneumonia. The patient had a Rodríguez catheter placed for urinary output. Septic workup has been done and has been started on broad spectrum antibiotics and spoke to Dr. Jordy Mckeon, consult with ID, consult with Dr. Guillen and Dr. Hernandez because of her coronary artery disease, and wit h Dr. Silva and Dr. Mason because of her lung infections would be most appropriate. We will f ollow the patient very carefully over the next 24-48 hours and see which direction the patient is goi ng. MEDICATIONS: The patient's medications were reviewed. The patient is on meropenem 1 gram IV q. 12 h ours, Protonix 40 daily, sodium chloride IV fluids q. 5 hours 1,000 mL. The patient is on Zyvox 300 mg at bedtime, Zyvox 600 mg IV piggyback q. 12 hours. Continue to monitor the blood work and see how the patient does. Have spoken to the healthcare proxy as well and will try to be as aggressive as [place]. Reuben Campa MD cc: [id number] TT: 10/25/2016 23:49:01 mn
[2016-10-26 00:42] LABS: POTASSIUM 5.4 mmol/L (3.6-5.0)
[2016-10-26 00:49] LABS: CALCIUM 6.9 mg/dL (8.4-10.5)
[2016-10-26 03:31] LABS: CALCIUM 7.5 mg/dL (8.4-10.5); POTASSIUM 4.1 mmol/L (3.6-5.0)
[2016-10-26 03:41] LABS: BASO # 0.03 K/mm3 (0.0-2.0); BASO % 0.2 % (0.0-3.0); EOS # 0.1 (0.0-0.7); EOS % 0.5 % (1.5-5.0); GRAN # 9.71 (1.4-6.5); HEMATOCRIT 35.3 % (36.0-48.0); LYMPH # 2.7 (1.2-3.4); LYMPH % 19.6 % (22.0-35.0); MEAN CELL VOLUME 90.1 fL (80.0-105.0); MEAN CORPUSCULAR HEMOGLOBIN 31.1 pg (25.0-35.0); MEAN CORPUSCULAR HGB CONC 34.6 g/dl (31.0-37.0); MEAN PLATELET VOLUME 10.7 fl (7.0-11.0); MONO # 1.2 (0.1-0.6); MONO % 8.7 % (1.0-6.0); PLATELET COUNT 362 10^3/uL (120.0-450.0); RED CELL DISTRIBUTION WIDTH 13.9 % (11.5-14.5); WHITE BLOOD COUNT 13.7 10^3/ul (4.5-11.0)
[2016-10-26 04:08] LABS: ADD MANUAL DIFF? NO
[2016-10-26 07:39] LABS: ARTERIAL BLOOD GAS HCO3 14.2 mmol/L (21-28); ARTERIAL BLOOD GAS O2 CAPACITY 19.7 mL/dl (16-24); ARTERIAL BLOOD GAS O2 CONTENT 19.5 ML/dl (15-23); ARTERIAL BLOOD GAS PH 7.38 (7.35-7.45); ARTERIAL BLOOD HGB O2 SAT 97.4 % (95.0-98.0); CARBOXYHEMOGLOBIN 0.8 % (0.5-1.5); HHB 1.1 % (0-5); METHEMOGLOBIN 0.7 % (0.0-3.0)
--- NOTE | 2016-10-26 08:20 | CP.CCUPN ---
<Cindy Castañeda - Last Filed: 10/26/16 12:45> CCU Subjective - Physician Review Subjective (Free Text): 10/26/16 08:17 - No acute event overnight - gap at 15 at 11AM. Accuck Sugar 200s last 3 hours - OG output 1200 on insertion; 950cc overnight - intubated on propofol 35 - HR remains at 110/RR 50-> mid 40s CCU Objective - Vital Signs / Intake & Output Vital Signs (Last 4 hours): Vital Signs Resp Pulse Ox 10/26/16 08:00 42 H 98 Intake and Output (Last 8hrs): Intake & Output 10/25/16 10/26/16 10/26/16 22:59 06:59 14:59 Intake Total 3966 909 Output Total 2022 222 Balance 1944 687 Weight 180 lb Intake: IV 616 909 Left Hand 550 510 Right Antecubital 0 300 Right Hand 51 85 Right Subclavian 15 14 Oral 0 0 Tube Feeding 0 0 TPN/PPN 0 0 Blood Product 0 0 Lipid 0 0 Albumin 0 0 Other 3350 0 Output: Gastric Drainage 1500 Urethral (Rodríguez) 1500 Urine 222 222 Urethral (Rodríguez) 222 222 Stool 0 0 Urine/Stool Mix 0 0 Emesis 0 0 Oral Regurgitation 0 0 Other 300 0 Urethral (Rodríguez) 300 Other: Voiding Method Indwelling Catheter Indwelling Catheter # Voids Urethral (Rodríguez) 0 0 # Bowel Movements 0 0 - Physical Exam Head: Positive for: Atraumatic, Normocephalic Pupils: Positive for: Sluggish Mouth: Positive for: Moist Mucous Membranes Respiratory/Chest: Positive for: Respiratory Distress, Rales, Rhonchi Cardiovascular: Positive for: Tachycardic Abdomen: Positive for: Distention. Negative for: Normal Bowel Sounds ( hypoactive) Lower Extremity: Positive for: Edema Neurological: Positive for: Other (sedated) Skin: Positive for: Warm, Other (clammy) Psychiatric: Positive for: Other (sedated) - Medications Active Medications: Active Medications Generic Name Dose Route Start Last Admin Trade Name Freq PRN Reason Stop Dose Admin Propofol 100 mls @ 2.449 mls/hr 10/25/16 13:47 10/26/16 00:25 Diprivan IV 35 mcg/kg/min .Q24H PRN 17.146 mls/hr TITRATE PER MD ORDER Administration Protocol 5 MCG/KG/MIN Linezolid 300 mls @ 200 mls/hr 10/25/16 15:30 10/25/16 22:40 Zyvox 600mg/300ml D5w IVPB 11/01/16 15:31 200 mls/hr Q12 JOSH Administration Protocol Meropenem 1g/NS 100mL IVPB 100 mls @ 100 mls/hr 10/25/16 22:00 10/25/16 22:39 Meropenem 1g/Ns 100ml Ivpb IVPB 11/01/16 22:01 100 mls/hr Q12 JOSH Administration Protocol Dextrose/Sodium Chloride 1,000 mls @ 100 mls/hr 10/25/16 21:30 10/25/16 21:30 Dextrose 5%/0.45% Ns 1000 Ml IV 100 mls/hr .Q10H JOSH Administration Insulin Human Regular 100 100 mls @ 8 mls/hr 10/26/16 00:49 10/26/16 03:06 units/ Sodium Chloride IV 3 units/hr .[id number] PRN 3 mls/hr TITRATE PER PROTOCOL Titration Protocol Acetaminophen 100 mls @ 400 mls/hr 10/26/16 00:49 10/26/16 01:06 Ofirmev IVPB 10/28/16 00:50 400 mls/hr Q6H PRN Administration Fever >100.4 F Pantoprazole Sodium 40 mg 10/26/16 10:00 Protonix Inj IVP DAILY JOSH - Patient Studies Lab Studies: Lab Studies 10/26/16 10/26/16 10/26/16 Range/Units 05:55 03:30 03:15 WBC 13.7 H D (4.5-11.0) 10^3/ul RBC 3.92 (3.5-6.1) 10^6/uL Hgb 12.2 (12.0-16.0) gm/dL Hct 35.3 L (36.0-48.0) % MCV 90.1 (80.0-105.0) fL MCH 31.1 (25.0-35.0) pg MCHC 34.6 (31.0-37.0) g/dl RDW 13.9 (11.5-14.5) % Plt Count 362 (120.0-450.0) 10^3/uL MPV 10.7 (7.0-11.0) fl Gran % 71.0 H (50.0-68.0) % Lymph % (Auto) 19.6 L (22.0-35.0) % [place]alier % (Auto) 8.7 H (1.0-6.0) % Eos % (Auto) 0.5 L (1.5-5.0) % Baso % (Auto) 0.2 (0.0-3.0) % Gran # 9.71 H (1.4-6.5) Lymph # 2.7 (1.2-3.4) Cavalier # 1.2 H (0.1-0.6) Eos # 0.1 (0.0-0.7) Baso # 0.03 (0.0-2.0) K/mm3 Neutrophils % (Manual) (50.0-70.0) % Band Neutrophils % (0-2) % Lymphocytes % (Manual) (22.0-35.0) % Monocytes % (Manual) (1.0-6.0) % Eosinophils % (Manual) (0.0-3.0) % Platelet Evaluation (NORMAL) Poikilocytosis (manual Anisocytosis (manual) pCO2 24 L (35-45) mm/Hg pO2 181.0 H (80-100) mm/Hg HCO3 14.2 L (21-28) mmol/L ABG pH 7.38 (7.35-7.45) ABG Total CO2 14.9 L (22-28) mmol.L ABG O2 Saturation 98.9 H (95-98) % ABG O2 Content 19.5 (15-23) ML/dl ABG Base Excess -9.0 L (-2.0-3.0) mmol/L ABG Hemoglobin 14.0 (11.7-17.4) g/dL ABG Carboxyhemoglobin 0.8 (0.5-1.5) % POC ABG HHb (Measured) 1.1 (0-5) % ABG Methemoglobin 0.7 (0.0-3.0) % ABG O2 Capacity 19.7 (16-24) mL/dl ABG Potassium (3.6-5.2) mmol/L VBG pH (7.32-7.43) VBG pCO2 (40-60) VBG HCO3 (21-28) mmol/l VBG Total CO2 (22-28) mmol.L VBG O2 Sat (Calc) (40-65) % VBG Base Excess (0.0-2.0) mmol/L VBG Potassium (3.6-5.2) mmol/L Hgb O2 Saturation 97.4 (95.0-98.0) % Sodium 126 L (132-148) mmol/L Chloride 98 (98-107) mmol/L Glucose (65-105) mg/dl Lactate (0.7-2.1) mmol/L Mechanical Rate FiO2 50.0 % Tidal Volume PEEP Potassium 4.1 (3.6-5.0) mmol/L Carbon Dioxide 13 L (21-33) mmol/L Anion Gap 19 (10-20) BUN 44 H (7-21) mg/dL Creatinine 2.2 H (0.5-1.4) mg/dL Est GFR ( Amer) 29 Est GFR (Non-Af Amer) 24 POC Glucose (mg/dL) (65-110) mg/dL Random Glucose 234 H (70-110) mg/dL Serum Osmolality (271-296) mosm/kg Lactic Acid (0.7-2.1) mmol/L Calcium 7.5 L (8.4-10.5) mg/dL Arterial Blood Potassium (3.6-5.2) mmol/L Venous Blood Potassium (3.6-5.2) mmol/L Blood Type Antibody Screen BBK History Checked 10/26/16 10/26/16 10/26/16 Range/Units 01:53 00:55 00:05 WBC (4.5-11.0) 10^3/ul RBC (3.5-6.1) 10^6/uL Hgb (12.0-16.0) gm/dL Hct (36.0-48.0) % MCV (80.0-105.0) fL MCH (25.0-35.0) pg MCHC (31.0-37.0) g/dl RDW (11.5-14.5) % Plt Count (120.0-450.0) 10^3/uL MPV (7.0-11.0) fl Gran % (50.0-68.0) % Lymph % (Auto) (22.0-35.0) % Cavalier % (Auto) (1.0-6.0) % Eos % (Auto) (1.5-5.0) % Baso % (Auto) (0.0-3.0) % Gran # (1.4-6.5) Lymph # (1.2-3.4) Cavalier # (0.1-0.6) Eos # (0.0-0.7) Baso # (0.0-2.0) K/mm3 Neutrophils % (Manual) (50.0-70.0) % Band Neutrophils % (0-2) % Lymphocytes % (Manual) (22.0-35.0) % Monocytes % (Manual) (1.0-6.0) % Eosinophils % (Manual) (0.0-3.0) % Platelet Evaluation (NORMAL) Poikilocytosis (manual Anisocytosis (manual) pCO2 (35-45) mm/Hg pO2 (80-100) mm/Hg HCO3 (21-28) mmol/L ABG pH (7.35-7.45) ABG Total CO2 (22-28) mmol.L ABG O2 Saturation (95-98) % ABG O2 Content (15-23) ML/dl ABG Base Excess (-2.0-3.0) mmol/L ABG Hemoglobin (11.7-17.4) g/dL ABG Carboxyhemoglobin (0.5-1.5) % POC ABG HHb (Measured) (0-5) % ABG Methemoglobin (0.0-3.0) % ABG O2 Capacity (16-24) mL/dl ABG Potassium (3.6-5.2) mmol/L VBG pH (7.32-7.43) VBG pCO2 (40-60) VBG HCO3 (21-28) mmol/l VBG Total CO2 (22-28) mmol.L VBG O2 Sat (Calc) (40-65) % VBG Base Excess (0.0-2.0) mmol/L VBG Potassium (3.6-5.2) mmol/L Hgb O2 Saturation (95.0-98.0) % Sodium (132-148) mmol/L Chloride (98-107) mmol/L Glucose (65-105) mg/dl Lactate (0.7-2.1) mmol/L Mechanical Rate FiO2 % Tidal Volume PEEP Potassium (3.6-5.0) mmol/L Carbon Dioxide (21-33) mmol/L Anion Gap (10-20) BUN (7-21) mg/dL Creatinine (0.5-1.4) mg/dL Est GFR ( Amer) Est GFR (Non-Af Amer) POC Glucose (mg/dL) 247 H 247 H 192 H (65-110) mg/dL Random Glucose (70-110) mg/dL Serum Osmolality (271-296) mosm/kg Lactic Acid (0.7-2.1) mmol/L Calcium (8.4-10.5) mg/dL Arterial Blood Potassium (3.6-5.2) mmol/L Venous Blood Potassium (3.6-5.2) mmol/L Blood Type Antibody Screen BBK History Checked 10/25/16 10/25/16 10/25/16 Range/Units 23:31 22:50 21:36 WBC (4.5-11.0) 10^3/ul RBC (3.5-6.1) 10^6/uL Hgb (12.0-16.0) gm/dL Hct (36.0-48.0) % MCV (80.0-105.0) fL MCH (25.0-35.0) pg MCHC (31.0-37.0) g/dl RDW (11.5-14.5) % Plt Count (120.0-450.0) 10^3/uL MPV (7.0-11.0) fl Gran % (50.0-68.0) % Lymph % (Auto) (22.0-35.0) % [place]alier % (Auto) (1.0-6.0) % Eos % (Auto) (1.5-5.0) % Baso % (Auto) (0.0-3.0) % Gran # (1.4-6.5) Lymph # (1.2-3.4) Cavalier # (0.1-0.6) Eos # (0.0-0.7) Baso # (0.0-2.0) K/mm3 Neutrophils % (Manual) (50.0-70.0) % Band Neutrophils % (0-2) % Lymphocytes % (Manual) (22.0-35.0) % Monocytes % (Manual) (1.0-6.0) % Eosinophils % (Manual) (0.0-3.0) % Platelet Evaluation (NORMAL) Poikilocytosis (manual Anisocytosis (manual) pCO2 (35-45) mm/Hg pO2 (80-100) mm/Hg HCO3 (21-28) mmol/L ABG pH (7.35-7.45) ABG Total CO2 (22-28) mmol.L ABG O2 Saturation (95-98) % ABG O2 Content (15-23) ML/dl ABG Base Excess (-2.0-3.0) mmol/L ABG Hemoglobin (11.7-17.4) g/dL ABG Carboxyhemoglobin (0.5-1.5) % POC ABG HHb (Measured) (0-5) % ABG Methemoglobin (0.0-3.0) % ABG O2 Capacity (16-24) mL/dl ABG Potassium (3.6-5.2) mmol/L VBG pH (7.32-7.43) VBG pCO2 (40-60) VBG HCO3 (21-28) mmol/l VBG Total CO2 (22-28) mmol.L VBG O2 Sat (Calc) (40-65) % VBG Base Excess (0.0-2.0) mmol/L VBG Potassium (3.6-5.2) mmol/L Hgb O2 Saturation (95.0-98.0) % Sodium 124 L (132-148) mmol/L Chloride 95 L (98-107) mmol/L Glucose (65-105) mg/dl Lactate (0.7-2.1) mmol/L Mechanical Rate FiO2 % Tidal Volume PEEP Potassium 5.4 H (3.6-5.0) mmol/L Carbon Dioxide 11 L (21-33) mmol/L Anion Gap 23 H (10-20) BUN 40 H (7-21) mg/dL Creatinine 2.1 H (0.5-1.4) mg/dL Est GFR ( Amer) 30 Est GFR (Non-Af Amer) 25 POC Glucose (mg/dL) 192 H 160 H (65-110) mg/dL Random Glucose 167 H (70-110) mg/dL Serum Osmolality (271-296) mosm/kg Lactic Acid (0.7-2.1) mmol/L Calcium 6.9 L* (8.4-10.5) mg/dL Arterial Blood Potassium (3.6-5.2) mmol/L Venous Blood Potassium (3.6-5.2) mmol/L Blood Type Antibody Screen BBK History Checked 10/25/16 10/25/16 10/25/16 Range/Units 21:02 20:47 20:25 WBC 19.1 H (4.5-11.0) 10^3/ul RBC 4.02 (3.5-6.1) 10^6/uL Hgb 12.4 (12.0-16.0) gm/dL Hct 36.0 (36.0-48.0) % MCV 89.6 (80.0-105.0) fL MCH 30.8 (25.0-35.0) pg MCHC 34.4 (31.0-37.0) g/dl RDW 13.7 (11.5-14.5) % Plt Count 466 H (120.0-450.0) 10^3/uL MPV 10.3 (7.0-11.0) fl Gran % (50.0-68.0) % Lymph % (Auto) (22.0-35.0) % [place]alier % (Auto) (1.0-6.0) % Eos % (Auto) (1.5-5.0) % Baso % (Auto) (0.0-3.0) % Gran # (1.4-6.5) Lymph # (1.2-3.4) Cavalier # (0.1-0.6) Eos # (0.0-0.7) Baso # (0.0-2.0) K/mm3 Neutrophils % (Manual) 71 H (50.0-70.0) % Band Neutrophils % 5 H (0-2) % Lymphocytes % (Manual) 16 L (22.0-35.0) % Monocytes % (Manual) 7 H (1.0-6.0) % Eosinophils % (Manual) 1 (0.0-3.0) % Platelet Evaluation High (NORMAL) Poikilocytosis (manual 1+ Anisocytosis (manual) 1+ pCO2 (35-45) mm/Hg pO2 (80-100) mm/Hg HCO3 (21-28) mmol/L ABG pH (7.35-7.45) ABG Total CO2 (22-28) mmol.L ABG O2 Saturation (95-98) % ABG O2 Content (15-23) ML/dl ABG Base Excess (-2.0-3.0) mmol/L ABG Hemoglobin (11.7-17.4) g/dL ABG Carboxyhemoglobin (0.5-1.5) % POC ABG HHb (Measured) (0-5) % ABG Methemoglobin (0.0-3.0) % ABG O2 Capacity (16-24) mL/dl ABG Potassium (3.6-5.2) mmol/L VBG pH (7.32-7.43) VBG pCO2 (40-60) VBG HCO3 (21-28) mmol/l VBG Total CO2 (22-28) mmol.L VBG O2 Sat (Calc) (40-65) % VBG Base Excess (0.0-2.0) mmol/L VBG Potassium (3.6-5.2) mmol/L Hgb O2 Saturation (95.0-98.0) % Sodium (132-148) mmol/L Chloride (98-107) mmol/L Glucose (65-105) mg/dl Lactate (0.7-2.1) mmol/L Mechanical Rate FiO2 % Tidal Volume PEEP Potassium (3.6-5.0) mmol/L Carbon Dioxide (21-33) mmol/L Anion Gap (10-20) BUN (7-21) mg/dL Creatinine (0.5-1.4) mg/dL Est GFR ( Amer) Est GFR (Non-Af Amer) POC Glucose (mg/dL) 154 H 155 H (65-110) mg/dL Random Glucose (70-110) mg/dL Serum Osmolality (271-296) mosm/kg Lactic Acid (0.7-2.1) mmol/L Calcium (8.4-10.5) mg/dL Arterial Blood Potassium (3.6-5.2) mmol/L Venous Blood Potassium (3.6-5.2) mmol/L Blood Type Antibody Screen BBK History Checked 10/25/16 10/25/16 10/25/16 Range/Units 19:12 18:12 17:54 WBC (4.5-11.0) 10^3/ul RBC (3.5-6.1) 10^6/uL Hgb (12.0-16.0) gm/dL Hct (36.0-48.0) % MCV (80.0-105.0) fL MCH (25.0-35.0) pg MCHC (31.0-37.0) g/dl RDW (11.5-14.5) % Plt Count (120.0-450.0) 10^3/uL MPV (7.0-11.0) fl Gran % (50.0-68.0) % Lymph % (Auto) (22.0-35.0) % [place]ier % (Auto) (1.0-6.0) % Eos % (Auto) (1.5-5.0) % Baso % (Auto) (0.0-3.0) % Gran # (1.4-6.5) Lymph # (1.2-3.4) Cavalier # (0.1-0.6) Eos # (0.0-0.7) Baso # (0.0-2.0) K/mm3 Neutrophils % (Manual) (50.0-70.0) % Band Neutrophils % (0-2) % Lymphocytes % (Manual) (22.0-35.0) % Monocytes % (Manual) (1.0-6.0) % Eosinophils % (Manual) (0.0-3.0) % Platelet Evaluation (NORMAL) Poikilocytosis (manual Anisocytosis (manual) pCO2 (35-45) mm/Hg pO2 (80-100) mm/Hg HCO3 (21-28) mmol/L ABG pH (7.35-7.45) ABG Total CO2 (22-28) mmol.L ABG O2 Saturation (95-98) % ABG O2 Content (15-23) ML/dl ABG Base Excess (-2.0-3.0) mmol/L ABG Hemoglobin (11.7-17.4) g/dL ABG Carboxyhemoglobin (0.5-1.5) % POC ABG HHb (Measured) (0-5) % ABG Methemoglobin (0.0-3.0) % ABG O2 Capacity (16-24) mL/dl ABG Potassium (3.6-5.2) mmol/L VBG pH (7.32-7.43) VBG pCO2 (40-60) VBG HCO3 (21-28) mmol/l VBG Total CO2 (22-28) mmol.L VBG O2 Sat (Calc) (40-65) % VBG Base Excess (0.0-2.0) mmol/L VBG Potassium (3.6-5.2) mmol/L Hgb O2 Saturation (95.0-98.0) % Sodium (132-148) mmol/L Chloride (98-107) mmol/L Glucose (65-105) mg/dl Lactate (0.7-2.1) mmol/L Mechanical Rate FiO2 % Tidal Volume PEEP Potassium (3.6-5.0) mmol/L Carbon Dioxide (21-33) mmol/L Anion Gap (10-20) BUN (7-21) mg/dL Creatinine (0.5-1.4) mg/dL Est GFR ( Amer) Est GFR (Non-Af Amer) POC Glucose (mg/dL) 265 H 264 H (65-110) mg/dL Random Glucose (70-110) mg/dL Serum Osmolality (271-296) mosm/kg Lactic Acid 3.2 H (0.7-2.1) mmol/L Calcium (8.4-10.5) mg/dL Arterial Blood Potassium (3.6-5.2) mmol/L Venous Blood Potassium (3.6-5.2) mmol/L Blood Type Antibody Screen BBK History Checked 10/25/16 10/25/16 10/25/16 Range/Units 17:54 17:54 17:19 WBC (4.5-11.0) 10^3/ul RBC (3.5-6.1) 10^6/uL Hgb (12.0-16.0) gm/dL Hct (36.0-48.0) % MCV (80.0-105.0) fL MCH (25.0-35.0) pg MCHC (31.0-37.0) g/dl RDW (11.5-14.5) % Plt Count (120.0-450.0) 10^3/uL MPV (7.0-11.0) fl Gran % (50.0-68.0) % Lymph % (Auto) (22.0-35.0) % [place]ier % (Auto) (1.0-6.0) % Eos % (Auto) (1.5-5.0) % Baso % (Auto) (0.0-3.0) % Gran # (1.4-6.5) Lymph # (1.2-3.4) [place]alier # (0.1-0.6) Eos # (0.0-0.7) Baso # (0.0-2.0) K/mm3 Neutrophils % (Manual) (50.0-70.0) % Band Neutrophils % (0-2) % Lymphocytes % (Manual) (22.0-35.0) % Monocytes % (Manual) (1.0-6.0) % Eosinophils % (Manual) (0.0-3.0) % Platelet Evaluation (NORMAL) Poikilocytosis (manual Anisocytosis (manual) pCO2 (35-45) mm/Hg pO2 (80-100) mm/Hg HCO3 (21-28) mmol/L ABG pH (7.35-7.45) ABG Total CO2 (22-28) mmol.L ABG O2 Saturation (95-98) % ABG O2 Content (15-23) ML/dl ABG Base Excess (-2.0-3.0) mmol/L ABG Hemoglobin (11.7-17.4) g/dL ABG Carboxyhemoglobin (0.5-1.5) % POC ABG HHb (Measured) (0-5) % ABG Methemoglobin (0.0-3.0) % ABG O2 Capacity (16-24) mL/dl ABG Potassium (3.6-5.2) mmol/L VBG pH (7.32-7.43) VBG pCO2 (40-60) VBG HCO3 (21-28) mmol/l VBG Total CO2 (22-28) mmol.L VBG O2 Sat (Calc) (40-65) % VBG Base Excess (0.0-2.0) mmol/L VBG Potassium (3.6-5.2) mmol/L Hgb O2 Saturation (95.0-98.0) % Sodium 134 (132-148) mmol/L Chloride 101 (98-107) mmol/L Glucose (65-105) mg/dl Lactate (0.7-2.1) mmol/L Mechanical Rate FiO2 % Tidal Volume PEEP Potassium 4.4 (3.6-5.0) mmol/L Carbon Dioxide 15 L (21-33) mmol/L Anion Gap 22 H (10-20) BUN 42 H (7-21) mg/dL Creatinine 2.4 H (0.5-1.4) mg/dL Est GFR ( Amer) 26 Est GFR (Non-Af Amer) 21 POC Glucose (mg/dL) 392 H (65-110) mg/dL Random Glucose 326 H* D (70-110) mg/dL Serum Osmolality (271-296) mosm/kg Lactic Acid (0.7-2.1) mmol/L Calcium 8.1 L (8.4-10.5) mg/dL Arterial Blood Potassium (3.6-5.2) mmol/L Venous Blood Potassium (3.6-5.2) mmol/L Blood Type A POSITIVE Antibody Screen Negative BBK History Checked Patient has bt 10/25/16 10/25/16 10/25/16 Range/Units 16:25 16:01 14:57 WBC (4.5-11.0) 10^3/ul RBC (3.5-6.1) 10^6/uL Hgb (12.0-16.0) gm/dL Hct (36.0-48.0) % MCV (80.0-105.0) fL MCH (25.0-35.0) pg MCHC (31.0-37.0) g/dl RDW (11.5-14.5) % Plt Count (120.0-450.0) 10^3/uL MPV (7.0-11.0) fl Gran % (50.0-68.0) % Lymph % (Auto) (22.0-35.0) % [place] % (Auto) (1.0-6.0) % Eos % (Auto) (1.5-5.0) % Baso % (Auto) (0.0-3.0) % Gran # (1.4-6.5) Lymph # (1.2-3.4) [place]alier # (0.1-0.6) Eos # (0.0-0.7) Baso # (0.0-2.0) K/mm3 Neutrophils % (Manual) (50.0-70.0) % Band Neutrophils % (0-2) % Lymphocytes % (Manual) (22.0-35.0) % Monocytes % (Manual) (1.0-6.0) % Eosinophils % (Manual) (0.0-3.0) % Platelet Evaluation (NORMAL) Poikilocytosis (manual Anisocytosis (manual) pCO2 27 L (35-45) mm/Hg pO2 163.0 H (80-100) mm/Hg HCO3 13.3 L (21-28) mmol/L ABG pH 7.30 L (7.35-7.45) ABG Total CO2 14.1 L (22-28) mmol.L ABG O2 Saturation 98.3 H (95-98) % ABG O2 Content 16.3 (15-23) ML/dl ABG Base Excess -11.7 L (-2.0-3.0) mmol/L ABG Hemoglobin 11.8 (11.7-17.4) g/dL ABG Carboxyhemoglobin 0.7 (0.5-1.5) % POC ABG HHb (Measured) 1.7 (0-5) % ABG Methemoglobin 1.0 (0.0-3.0) % ABG O2 Capacity 16.6 (16-24) mL/dl ABG Potassium (3.6-5.2) mmol/L VBG pH (7.32-7.43) VBG pCO2 (40-60) VBG HCO3 (21-28) mmol/l VBG Total CO2 (22-28) mmol.L VBG O2 Sat (Calc) (40-65) % VBG Base Excess (0.0-2.0) mmol/L VBG Potassium (3.6-5.2) mmol/L Hgb O2 Saturation 96.5 (95.0-98.0) % Sodium (132-148) mmol/L Chloride (98-107) mmol/L Glucose (65-105) mg/dl Lactate (0.7-2.1) mmol/L Mechanical Rate FiO2 50.0 % Tidal Volume PEEP Potassium (3.6-5.0) mmol/L Carbon Dioxide (21-33) mmol/L Anion Gap (10-20) BUN (7-21) mg/dL Creatinine (0.5-1.4) mg/dL Est GFR ( Amer) Est GFR (Non-Af Amer) POC Glucose (mg/dL) 378 H 396 H (65-110) mg/dL Random Glucose (70-110) mg/dL Serum Osmolality (271-296) mosm/kg Lactic Acid (0.7-2.1) mmol/L Calcium (8.4-10.5) mg/dL Arterial Blood Potassium (3.6-5.2) mmol/L Venous Blood Potassium (3.6-5.2) mmol/L Blood Type Antibody Screen BBK History Checked 10/25/16 10/25/16 10/25/16 Range/Units 13:51 13:50 13:50 WBC (4.5-11.0) 10^3/ul RBC (3.5-6.1) 10^6/uL Hgb (12.0-16.0) gm/dL Hct (36.0-48.0) % MCV (80.0-105.0) fL MCH (25.0-35.0) pg MCHC (31.0-37.0) g/dl RDW (11.5-14.5) % Plt Count (120.0-450.0) 10^3/uL MPV (7.0-11.0) fl Gran % (50.0-68.0) % Lymph % (Auto) (22.0-35.0) % Cavalier % (Auto) (1.0-6.0) % Eos % (Auto) (1.5-5.0) % Baso % (Auto) (0.0-3.0) % Gran # (1.4-6.5) Lymph # (1.2-3.4) Cavalier # (0.1-0.6) Eos # (0.0-0.7) Baso # (0.0-2.0) K/mm3 Neutrophils % (Manual) (50.0-70.0) % Band Neutrophils % (0-2) % Lymphocytes % (Manual) (22.0-35.0) % Monocytes % (Manual) (1.0-6.0) % Eosinophils % (Manual) (0.0-3.0) % Platelet Evaluation (NORMAL) Poikilocytosis (manual Anisocytosis (manual) pCO2 (35-45) mm/Hg pO2 49 (80-100) mm/Hg HCO3 (21-28) mmol/L ABG pH (7.35-7.45) ABG Total CO2 (22-28) mmol.L ABG O2 Saturation (95-98) % ABG O2 Content (15-23) ML/dl ABG Base Excess (-2.0-3.0) mmol/L ABG Hemoglobin (11.7-17.4) g/dL ABG Carboxyhemoglobin (0.5-1.5) % POC ABG HHb (Measured) (0-5) % ABG Methemoglobin (0.0-3.0) % ABG O2 Capacity (16-24) mL/dl ABG Potassium (3.6-5.2) mmol/L VBG pH 7.06 L* (7.32-7.43) VBG pCO2 55.0 (40-60) VBG HCO3 15.6 L (21-28) mmol/l VBG Total CO2 17.3 L (22-28) mmol.L VBG O2 Sat (Calc) 76.8 H (40-65) % VBG Base Excess -14.9 L (0.0-2.0) mmol/L VBG Potassium 4.9 (3.6-5.2) mmol/L Hgb O2 Saturation (95.0-98.0) % Sodium 133.0 (132-148) mmol/L Chloride 104.0 (98-107) mmol/L Glucose 457 H* (65-105) mg/dl Lactate 3.3 H (0.7-2.1) mmol/L Mechanical Rate FiO2 21.0 % Tidal Volume PEEP Potassium (3.6-5.0) mmol/L Carbon Dioxide (21-33) mmol/L Anion Gap (10-20) BUN (7-21) mg/dL Creatinine (0.5-1.4) mg/dL Est GFR ( Amer) Est GFR (Non-Af Amer) POC Glucose (mg/dL) 366 H (65-110) mg/dL Random Glucose (70-110) mg/dL Serum Osmolality 314 H (271-296) mosm/kg Lactic Acid (0.7-2.1) mmol/L Calcium (8.4-10.5) mg/dL Arterial Blood Potassium (3.6-5.2) mmol/L Venous Blood Potassium 4.9 (3.6-5.2) mmol/L Blood Type Antibody Screen BBK History Checked 10/25/16 10/25/16 Range/Units 13:50 12:40 WBC (4.5-11.0) 10^3/ul RBC (3.5-6.1) 10^6/uL Hgb (12.0-16.0) gm/dL Hct (36.0-48.0) % MCV (80.0-105.0) fL MCH (25.0-35.0) pg MCHC (31.0-37.0) g/dl RDW (11.5-14.5) % Plt Count (120.0-450.0) 10^3/uL MPV (7.0-11.0) fl Gran % (50.0-68.0) % Lymph % (Auto) (22.0-35.0) % [place]alier % (Auto) (1.0-6.0) % Eos % (Auto) (1.5-5.0) % Baso % (Auto) (0.0-3.0) % Gran # (1.4-6.5) Lymph # (1.2-3.4) Cavalier # (0.1-0.6) Eos # (0.0-0.7) Baso # (0.0-2.0) K/mm3 Neutrophils % (Manual) (50.0-70.0) % Band Neutrophils % (0-2) % Lymphocytes % (Manual) (22.0-35.0) % Monocytes % (Manual) (1.0-6.0) % Eosinophils % (Manual) (0.0-3.0) % Platelet Evaluation (NORMAL) Poikilocytosis (manual Anisocytosis (manual) pCO2 57 H (35-45) mm/Hg pO2 71.0 L (80-100) mm/Hg HCO3 15.1 L (21-28) mmol/L ABG pH 7.03 L* (7.35-7.45) ABG Total CO2 16.8 L (22-28) mmol.L ABG O2 Saturation 89.4 L (95-98) % ABG O2 Content (15-23) ML/dl ABG Base Excess -16.0 L (-2.0-3.0) mmol/L ABG Hemoglobin (11.7-17.4) g/dL ABG Carboxyhemoglobin (0.5-1.5) % POC ABG HHb (Measured) (0-5) % ABG Methemoglobin (0.0-3.0) % ABG O2 Capacity (16-24) mL/dl ABG Potassium 4.4 (3.6-5.2) mmol/L VBG pH (7.32-7.43) VBG pCO2 (40-60) VBG HCO3 (21-28) mmol/l VBG Total CO2 (22-28) mmol.L VBG O2 Sat (Calc) (40-65) % VBG Base Excess (0.0-2.0) mmol/L VBG Potassium (3.6-5.2) mmol/L Hgb O2 Saturation (95.0-98.0) % Sodium 135 133.0 (132-148) mmol/L Chloride 100 105.0 (98-107) mmol/L Glucose 439 H* (65-105) mg/dl Lactate 1.7 (0.7-2.1) mmol/L Mechanical Rate 18 FiO2 50.0 % Tidal Volume 350 PEEP 8 Potassium 4.8 (3.6-5.0) mmol/L Carbon Dioxide 16 L (21-33) mmol/L Anion Gap 24 H (10-20) BUN 40 H (7-21) mg/dL Creatinine 2.5 H (0.5-1.4) mg/dL Est GFR ( Amer) 25 Est GFR (Non-Af Amer) 20 POC Glucose (mg/dL) (65-110) mg/dL Random Glucose 451 H* D (70-110) mg/dL Serum Osmolality (271-296) mosm/kg Lactic Acid (0.7-2.1) mmol/L Calcium 8.2 L (8.4-10.5) mg/dL Arterial Blood Potassium 4.4 (3.6-5.2) mmol/L Venous Blood Potassium (3.6-5.2) mmol/L Blood Type Antibody Screen BBK History Checked Laboratory Results - last 24 hr 10/25/16 10/25/16 10/25/16 12:40 13:50 13:50 WBC RBC Hgb Hct MCV MCH MCHC RDW Plt Count MPV Gran % Lymph % (Auto) [place]alier % (Auto) Eos % (Auto) Baso % (Auto) Gran # Lymph # [place]alier # Eos # Baso # Neutrophils % (Manual) Band Neutrophils % Lymphocytes % (Manual) Monocytes % (Manual) Eosinophils % (Manual) Platelet Evaluation Poikilocytosis (manual Anisocytosis (manual) pCO2 57 H pO2 71.0 L 49 HCO3 15.1 L ABG pH 7.03 L* ABG Total CO2 16.8 L ABG O2 Saturation 89.4 L ABG O2 Content ABG Base Excess -16.0 L ABG Hemoglobin ABG Carboxyhemoglobin POC ABG HHb (Measured) ABG Methemoglobin ABG O2 Capacity ABG Potassium 4.4 VBG pH 7.06 L* VBG pCO2 55.0 VBG HCO3 15.6 L VBG Total CO2 17.3 L VBG O2 Sat (Calc) 76.8 H VBG Base Excess -14.9 L VBG Potassium 4.9 Hgb O2 Saturation Sodium 133.0 135 133.0 Chloride 105.0 100 104.0 Glucose 439 H* 457 H* Lactate 1.7 3.3 H Mechanical Rate 18 FiO2 50.0 21.0 Tidal Volume 350 PEEP 8 Potassium 4.8 Carbon Dioxide 16 L Anion Gap 24 H BUN 40 H Creatinine 2.5 H Est GFR ( Amer) 25 Est GFR (Non-Af Amer) 20 POC Glucose (mg/dL) Random Glucose 451 H* D Serum Osmolality Lactic Acid Calcium 8.2 L Arterial Blood Potassium 4.4 Venous Blood Potassium 4.9 Blood Type Antibody Screen BBK History Checked 10/25/16 10/25/16 10/25/16 13:50 13:51 14:57 WBC RBC Hgb Hct MCV MCH MCHC RDW Plt Count MPV Gran % Lymph % (Auto) [place]ier % (Auto) Eos % (Auto) Baso % (Auto) Gran # Lymph # [place]alier # Eos # Baso # Neutrophils % (Manual) Band Neutrophils % Lymphocytes % (Manual) Monocytes % (Manual) Eosinophils % (Manual) Platelet Evaluation Poikilocytosis (manual Anisocytosis (manual) pCO2 pO2 HCO3 ABG pH ABG Total CO2 ABG O2 Saturation ABG O2 Content ABG Base Excess ABG Hemoglobin ABG Carboxyhemoglobin POC ABG HHb (Measured) ABG Methemoglobin ABG O2 Capacity ABG Potassium VBG pH VBG pCO2 VBG HCO3 VBG Total CO2 VBG O2 Sat (Calc) VBG Base Excess VBG Potassium Hgb O2 Saturation Sodium Chloride Glucose Lactate Mechanical Rate FiO2 Tidal Volume PEEP Potassium Carbon Dioxide Anion Gap BUN Creatinine Est GFR ( Amer) Est GFR (Non-Af Amer) POC Glucose (mg/dL) 366 H 396 H Random Glucose Serum Osmolality 314 H Lactic Acid Calcium Arterial Blood Potassium Venous Blood Potassium Blood Type Antibody Screen BBK History Checked 10/25/16 10/25/16 10/25/16 16:01 16:25 17:19 WBC RBC Hgb Hct MCV MCH MCHC RDW Plt Count MPV Gran % Lymph % (Auto) [place]ier % (Auto) Eos % (Auto) Baso % (Auto) Gran # Lymph # [place]ier # Eos # Baso # Neutrophils % (Manual) Band Neutrophils % Lymphocytes % (Manual) Monocytes % (Manual) Eosinophils % (Manual) Platelet Evaluation Poikilocytosis (manual Anisocytosis (manual) pCO2 27 L pO2 163.0 H HCO3 13.3 L ABG pH 7.30 L ABG Total CO2 14.1 L ABG O2 Saturation 98.3 H ABG O2 Content 16.3 ABG Base Excess -11.7 L ABG Hemoglobin 11.8 ABG Carboxyhemoglobin 0.7 POC ABG HHb (Measured) 1.7 ABG Methemoglobin 1.0 ABG O2 Capacity 16.6 ABG Potassium VBG pH VBG pCO2 VBG HCO3 VBG Total CO2 VBG O2 Sat (Calc) VBG Base Excess VBG Potassium Hgb O2 Saturation 96.5 Sodium Chloride Glucose Lactate Mechanical Rate FiO2 50.0 Tidal Volume PEEP Potassium Carbon Dioxide Anion Gap BUN Creatinine Est GFR ( Amer) Est GFR (Non-Af Amer) POC Glucose (mg/dL) 378 H 392 H Random Glucose Serum Osmolality Lactic Acid Calcium Arterial Blood Potassium Venous Blood Potassium Blood Type Antibody Screen BBK History Checked 10/25/16 10/25/16 10/25/16 17:54 17:54 17:54 WBC RBC Hgb Hct MCV MCH MCHC RDW Plt Count MPV Gran % Lymph % (Auto) Cavalier % (Auto) Eos % (Auto) Baso % (Auto) Gran # Lymph # Cavalier # Eos # Baso # Neutrophils % (Manual) Band Neutrophils % Lymphocytes % (Manual) Monocytes % (Manual) Eosinophils % (Manual) Platelet Evaluation Poikilocytosis (manual Anisocytosis (manual) pCO2 pO2 HCO3 ABG pH ABG Total CO2 ABG O2 Saturation ABG O2 Content ABG Base Excess ABG Hemoglobin ABG Carboxyhemoglobin POC ABG HHb (Measured) ABG Methemoglobin ABG O2 Capacity ABG Potassium VBG pH VBG pCO2 VBG HCO3 VBG Total CO2 VBG O2 Sat (Calc) VBG Base Excess VBG Potassium Hgb O2 Saturation Sodium 134 Chloride 101 Glucose Lactate Mechanical Rate FiO2 Tidal Volume PEEP Potassium 4.4 Carbon Dioxide 15 L Anion Gap 22 H BUN 42 H Creatinine 2.4 H Est GFR ( Amer) 26 Est GFR (Non-Af Amer) 21 POC Glucose (mg/dL) Random Glucose 326 H* D Serum Osmolality Lactic Acid 3.2 H Calcium 8.1 L Arterial Blood Potassium Venous Blood Potassium Blood Type A POSITIVE Antibody Screen Negative BBK History Checked Patient has bt 10/25/16 10/25/16 10/25/16 18:12 19:12 20:25 WBC RBC Hgb Hct MCV MCH MCHC RDW Plt Count MPV Gran % Lymph % (Auto) [place]ier % (Auto) Eos % (Auto) Baso % (Auto) Gran # Lymph # [place]ier # Eos # Baso # Neutrophils % (Manual) Band Neutrophils % Lymphocytes % (Manual) Monocytes % (Manual) Eosinophils % (Manual) Platelet Evaluation Poikilocytosis (manual Anisocytosis (manual) pCO2 pO2 HCO3 ABG pH ABG Total CO2 ABG O2 Saturation ABG O2 Content ABG Base Excess ABG Hemoglobin ABG Carboxyhemoglobin POC ABG HHb (Measured) ABG Methemoglobin ABG O2 Capacity ABG Potassium VBG pH VBG pCO2 VBG HCO3 VBG Total CO2 VBG O2 Sat (Calc) VBG Base Excess VBG Potassium Hgb O2 Saturation Sodium Chloride Glucose Lactate Mechanical Rate FiO2 Tidal Volume PEEP Potassium Carbon Dioxide Anion Gap BUN Creatinine Est GFR ( Amer) Est GFR (Non-Af Amer) POC Glucose (mg/dL) 264 H 265 H 155 H Random Glucose Serum Osmolality Lactic Acid Calcium Arterial Blood Potassium Venous Blood Potassium Blood Type Antibody Screen BBK History Checked 10/25/16 10/25/16 10/25/16 20:47 21:02 21:36 WBC 19.1 H RBC 4.02 Hgb 12.4 Hct 36.0 MCV 89.6 MCH 30.8 MCHC 34.4 RDW 13.7 Plt Count 466 H MPV 10.3 Gran % Lymph % (Auto) [place]alier % (Auto) Eos % (Auto) Baso % (Auto) Gran # Lymph # [place]alier # Eos # Baso # Neutrophils % (Manual) 71 H Band Neutrophils % 5 H Lymphocytes % (Manual) 16 L Monocytes % (Manual) 7 H Eosinophils % (Manual) 1 Platelet Evaluation High Poikilocytosis (manual 1+ Anisocytosis (manual) 1+ pCO2 pO2 HCO3 ABG pH ABG Total CO2 ABG O2 Saturation ABG O2 Content ABG Base Excess ABG Hemoglobin ABG Carboxyhemoglobin POC ABG HHb (Measured) ABG Methemoglobin ABG O2 Capacity ABG Potassium VBG pH VBG pCO2 VBG HCO3 VBG Total CO2 VBG O2 Sat (Calc) VBG Base Excess VBG Potassium Hgb O2 Saturation Sodium Chloride Glucose Lactate Mechanical Rate FiO2 Tidal Volume PEEP Potassium Carbon Dioxide Anion Gap BUN Creatinine Est GFR ( Amer) Est GFR (Non-Af Amer) POC Glucose (mg/dL) 154 H 160 H Random Glucose Serum Osmolality Lactic Acid Calcium Arterial Blood Potassium Venous Blood Potassium Blood Type Antibody Screen BBK History Checked 10/25/16 10/25/16 10/26/16 22:50 23:31 00:05 WBC RBC Hgb Hct MCV MCH MCHC RDW Plt Count MPV Gran % Lymph % (Auto) [place]alier % (Auto) Eos % (Auto) Baso % (Auto) Gran # Lymph # [place]ier # Eos # Baso # Neutrophils % (Manual) Band Neutrophils % Lymphocytes % (Manual) Monocytes % (Manual) Eosinophils % (Manual) Platelet Evaluation Poikilocytosis (manual Anisocytosis (manual) pCO2 pO2 HCO3 ABG pH ABG Total CO2 ABG O2 Saturation ABG O2 Content ABG Base Excess ABG Hemoglobin ABG Carboxyhemoglobin POC ABG HHb (Measured) ABG Methemoglobin ABG O2 Capacity ABG Potassium VBG pH VBG pCO2 VBG HCO3 VBG Total CO2 VBG O2 Sat (Calc) VBG Base Excess VBG Potassium Hgb O2 Saturation Sodium 124 L Chloride 95 L Glucose Lactate Mechanical Rate FiO2 Tidal Volume PEEP Potassium 5.4 H Carbon Dioxide 11 L Anion Gap 23 H BUN 40 H Creatinine 2.1 H Est GFR ( Amer) 30 Est GFR (Non-Af Amer) 25 POC Glucose (mg/dL) 192 H 192 H Random Glucose 167 H Serum Osmolality Lactic Acid Calcium 6.9 L* Arterial Blood Potassium Venous Blood Potassium Blood Type Antibody Screen BBK History Checked 10/26/16 10/26/16 10/26/16 00:55 01:53 03:15 WBC RBC Hgb Hct MCV MCH MCHC RDW Plt Count MPV Gran % Lymph % (Auto) [place]alier % (Auto) Eos % (Auto) Baso % (Auto) Gran # Lymph # [place]ier # Eos # Baso # Neutrophils % (Manual) Band Neutrophils % Lymphocytes % (Manual) Monocytes % (Manual) Eosinophils % (Manual) Platelet Evaluation Poikilocytosis (manual Anisocytosis (manual) pCO2 pO2 HCO3 ABG pH ABG Total CO2 ABG O2 Saturation ABG O2 Content ABG Base Excess ABG Hemoglobin ABG Carboxyhemoglobin POC ABG HHb (Measured) ABG Methemoglobin ABG O2 Capacity ABG Potassium VBG pH VBG pCO2 VBG HCO3 VBG Total CO2 VBG O2 Sat (Calc) VBG Base Excess VBG Potassium Hgb O2 Saturation Sodium 126 L Chloride 98 Glucose Lactate Mechanical Rate FiO2 Tidal Volume PEEP Potassium 4.1 Carbon Dioxide 13 L Anion Gap 19 BUN 44 H Creatinine 2.2 H Est GFR ( Amer) 29 Est GFR (Non-Af Amer) 24 POC Glucose (mg/dL) 247 H 247 H Random Glucose 234 H Serum Osmolality Lactic Acid Calcium 7.5 L Arterial Blood Potassium Venous Blood Potassium Blood Type Antibody Screen BBK History Checked 10/26/16 10/26/16 03:30 05:55 WBC 13.7 H D RBC 3.92 Hgb 12.2 Hct 35.3 L MCV 90.1 MCH 31.1 MCHC 34.6 RDW 13.9 Plt Count 362 MPV 10.7 Gran % 71.0 H Lymph % (Auto) 19.6 L Cavalier % (Auto) 8.7 H Eos % (Auto) 0.5 L Baso % (Auto) 0.2 Gran # 9.71 H Lymph # 2.7 Cavalier # 1.2 H Eos # 0.1 Baso # 0.03 Neutrophils % (Manual) Band Neutrophils % Lymphocytes % (Manual) Monocytes % (Manual) Eosinophils % (Manual) Platelet Evaluation Poikilocytosis (manual Anisocytosis (manual) pCO2 24 L pO2 181.0 H HCO3 14.2 L ABG pH 7.38 ABG Total CO2 14.9 L ABG O2 Saturation 98.9 H ABG O2 Content 19.5 ABG Base Excess -9.0 L ABG Hemoglobin 14.0 ABG Carboxyhemoglobin 0.8 POC ABG HHb (Measured) 1.1 ABG Methemoglobin 0.7 ABG O2 Capacity 19.7 ABG Potassium VBG pH VBG pCO2 VBG HCO3 VBG Total CO2 VBG O2 Sat (Calc) VBG Base Excess VBG Potassium Hgb O2 Saturation 97.4 Sodium Chloride Glucose Lactate Mechanical Rate FiO2 50.0 Tidal Volume PEEP Potassium Carbon Dioxide Anion Gap BUN Creatinine Est GFR ( Amer) Est GFR (Non-Af Amer) POC Glucose (mg/dL) Random Glucose Serum Osmolality Lactic Acid Calcium Arterial Blood Potassium Venous Blood Potassium Blood Type Antibody Screen BBK History Checked Fingerstick Blood Sugar Results: 266 Assessment/Plan - Assessment and Plan (Free Text) Plan: 51 y/o Female POD #7 with lap ventral hernia repair, with PMHx colon Ca s/p colectomy reversal, Hx seizure, Non-IDDM, hypogammaglobulinemia, Hx Asthma/COPD , admitted to ICU for decompensating respiration requiring intubation. Pt has a small bowel obstruction and b/l lower lobe pneumonia, sepsis, severe high anion gap metabolic acidosis with severe lactic acidosis and DKA. Too soon for scar tissue in abdomen, no other hernia/intusseception/tumors/pt of transition/ileus on CT. Neuro - Pending drug screen. No gap in serum osmolarity - Sedated on propofol gtt - seizure prophylaxis Cardio - Sinus tachcardia at 110s-120s - Hx CAD Pulm - PRVC 350, 50%, PEEP 8, RR 25. Pt RR 40s - CXR: R basilar opacity, infiltrate vs atelactasis - CT: b/l lower lobe pneumonia GI - CT: Partial small bowel obstruction - NGT on Low intermittent suction Renal - Metabolic acidosis with respiratory alkalosis. - Corrected Na 129. Likely hypervolemic from MEHRAN, Pending FeNa. Urine electrolytes - MEHRAN on CKD - not improved, Cre 2.2. U/O > 30cc/hr. - Strict I/O Endo - Humulin R gtt per protocol #1 --> #3 --> #1 // Plan to transit to long-term and short term insulin after gap closes - D5/NS@200 - BMP q4 - Accu-check q1 - Pending b-hydroxybutyrate - Hold metformin and gliptin Heme - Hx hypoglobunemia - B/l LE doppler ID - Tmax 100.3 overnight. WBC 19 --> 13.7 - Lactate 7 --> 3.3 - Linezolid and meropenem (day 2); Got 1 dose vanco and zosyn in ED - septic work up: Pending blood, urine, sputum culture, procalcitonin; MRSA screen sent - Watch linezolid for potential drug-drug interaction - Acetaminopen IV q6 PRN Prophyalxis - SCD - Protonix Access - R port-a-cath - NG - Rodríguez Consult - Surgery: Dr. Reagan, for ventral hernia - Nephrology: Christoph Nash, for MEHRAN on CKD - ID: Dr. Cardona for CVID, severe sepsis - Heme.Onc/Primary: Dinorah Huerta, for Common variable immune deficiency (CVID) - Card: Dr. Hernandez - Neuro: Dr. Leyva - Pulm: Dr. Silva - GI: Dr. eWston S/R/D/w Dr. Mckeon - Date & Time Date: 10/26/16 Time: 08:20 <Jordy Mckeon - Last Filed: 10/27/16 15:12> CCU Objective - Vital Signs / Intake & Output Vital Signs (Last 4 hours): Vital Signs Pulse BP 10/27/16 11:21 77 115/61 Intake and Output (Last 8hrs): Intake & Output 10/27/16 10/27/16 10/27/16 06:59 14:59 22:59 Intake Total 3893.9 1045.1 Output Total 1200 Balance 2693.9 1045.1 Intake: IV 3593.9 1045.1 Right Hand 24 Right Subclavian 2400 Albumin 300 Output: Gastric Amount 500 Stomach 500 Urine 700 Urethral (Rodríguez) 700 Other: Voiding Method Indwelling Catheter - Medications Active Medications: Active Medications Generic Name Dose Route Start Last Admin Trade Name Freq PRN Reason Stop Dose Admin Heparin Sodium (Porcine) 5,000 units 10/27/16 10:00 10/27/16 09:07 Heparin SC 5,000 units Q12 JOSH Administration Protocol Propofol 100 mls @ 2.449 mls/hr 10/25/16 13:47 10/26/16 16:05 Diprivan IV 0 mcg/kg/min .Q24H PRN 0 mls/hr TITRATE PER MD ORDER Titration Protocol 5 MCG/KG/MIN Linezolid 300 mls @ 200 mls/hr 10/25/16 15:30 10/27/16 09:04 Zyvox 600mg/300ml D5w IVPB 11/01/16 15:31 200 mls/hr Q12 JOSH Administration Protocol Meropenem 1g/NS 100mL IVPB 100 mls @ 100 mls/hr 10/25/16 22:00 10/27/16 09:05 Meropenem 1g/Ns 100ml Ivpb IVPB 11/01/16 22:01 100 mls/hr Q12 JOSH Administration Protocol Acetaminophen 100 mls @ 400 mls/hr 10/26/16 00:49 10/26/16 01:06 Ofirmev IVPB 10/28/16 00:50 400 mls/hr Q6H PRN Administration Fever >100.4 F Dexmedetomidine HCl 400 mcg in 100 mls @ 5.216 mls/hr 10/26/16 15:36 08:40 Precedex 4 Mcg/Ml (100 Ml) IV 0.5 mcg/kg/hr .[id number] PRN 13.041 mls/hr Agitation Administration Protocol 0.2 MCG/KG/HR Potassium Chloride 20 meq/ 1,010 mls @ 200 mls/hr 10/26/16 19:29 10/27/16 11: 04 Sodium Chloride IV 200 mls/hr .[id number] JOSH Administration Insulin Human Lispro 0 units 10/27/16 16:30 Humalog High SC ACHS REPLACED BY [facility] Protocol Metoprolol Tartrate 5 mg 10/26/16 11:15 10/27/16 11:21 Lopressor IVP 5 mg Q6H JOSH Administration Morphine Sulfate 2 mg 10/27/16 13:36 10/27/16 14:08 Morphine IVP 2 mg Q4H PRN Administration Pain, moderate (4-7) Pantoprazole Sodium 40 mg 10/26/16 10:00 10/27/16 09:04 Protonix Inj IVP 40 mg DAILY JOSH Administration - Patient Studies Lab Studies: Microbiology Studies 10/26/16 03:25 Gram Stain - Final Trachasp Sputum Culture - Preliminary Gram Negative Jose Juan 10/25/16 13:45 MRSA Culture (Admit) - Final Nose MRSA NOT DETECTED 10/25/16 13:50 Urine Culture - Final Urine No Growth (<1,000 CFU/ML) Lab Studies 10/27/16 10/27/16 10/27/16 Range/Units 11:53 09:41 05:30 WBC (4.5-11.0) 10^3/ul RBC (3.5-6.1) 10^6/uL Hgb (12.0-16.0) gm/dL Hct (36.0-48.0) % MCV (80.0-105.0) fL MCH (25.0-35.0) pg MCHC (31.0-37.0) g/dl RDW (11.5-14.5) % Plt Count (120.0-450.0) 10^3/uL MPV (7.0-11.0) fl Neutrophils % (Manual) (50.0-70.0) % Band Neutrophils % (0-2) % Lymphocytes % (Manual) (22.0-35.0) % Monocytes % (Manual) (1.0-6.0) % Metamyelocytes % % Myelocytes % % Platelet Evaluation (NORMAL) pCO2 (35-45) mm/Hg pO2 (80-100) mm/Hg HCO3 (21-28) mmol/L ABG pH (7.35-7.45) ABG Total CO2 (22-28) mmol.L ABG O2 Saturation (95-98) % ABG O2 Content (15-23) ML/dl ABG Base Excess (-2.0-3.0) mmol/L ABG Hemoglobin (11.7-17.4) g/dL ABG Carboxyhemoglobin (0.5-1.5) % POC ABG HHb (Measured) (0-5) % ABG Methemoglobin (0.0-3.0) % ABG O2 Capacity (16-24) mL/dl Hgb O2 Saturation (95.0-98.0) % FiO2 % Sodium 139 139 (132-148) mmol/L Potassium 3.5 L 4.1 (3.6-5.0) mmol/L Chloride 111 H 113 H (98-107) mmol/L Carbon Dioxide 18 L 14 L (21-33) mmol/L Anion Gap 14 16 (10-20) BUN 28 H 29 H (7-21) mg/dL Creatinine 1.4 1.4 (0.5-1.4) mg/dL Est GFR ( Amer) 48 48 Est GFR (Non-Af Amer) 40 40 Random Glucose 176 H 161 H (70-110) mg/dL Hemoglobin A1c (4.2-6.5) % Calcium 7.6 L 6.6 L* (8.4-10.5) mg/dL Phosphorus (2.5-4.5) mg/dL Magnesium (1.7-2.2) mg/dL Triglycerides (35-160) mg/dL Cholesterol (130-200) mg/dL LDL Cholesterol Direct (0-129) mg/dL HDL Cholesterol (29-60) mg/dL TSH 3rd Generation 2.5 (0.46-4.68) MIU/ml Urine Osmolality (50-645) mosm/kg Ur Random Sodium meq/L Ur Random Potassium meq/L 10/27/16 10/27/16 10/27/16 Range/Units 05:30 05:30 05:30 WBC 13.5 H (4.5-11.0) 10^3/ul RBC 3.40 L (3.5-6.1) 10^6/uL Hgb 10.5 L (12.0-16.0) gm/dL Hct 30.9 L (36.0-48.0) % MCV 90.9 (80.0-105.0) fL MCH 30.9 (25.0-35.0) pg MCHC 34.0 (31.0-37.0) g/dl RDW 13.8 (11.5-14.5) % Plt Count 268 (120.0-450.0) 10^3/uL MPV 10.4 (7.0-11.0) fl Neutrophils % (Manual) 57 (50.0-70.0) % Band Neutrophils % 5 H (0-2) % Lymphocytes % (Manual) 26 (22.0-35.0) % Monocytes % (Manual) 7 H (1.0-6.0) % Metamyelocytes % 1 % Myelocytes % 4 % Platelet Evaluation Normal (NORMAL) pCO2 (35-45) mm/Hg pO2 (80-100) mm/Hg HCO3 (21-28) mmol/L ABG pH (7.35-7.45) ABG Total CO2 (22-28) mmol.L ABG O2 Saturation (95-98) % ABG O2 Content (15-23) ML/dl ABG Base Excess (-2.0-3.0) mmol/L ABG Hemoglobin (11.7-17.4) g/dL ABG Carboxyhemoglobin (0.5-1.5) % POC ABG HHb (Measured) (0-5) % ABG Methemoglobin (0.0-3.0) % ABG O2 Capacity (16-24) mL/dl Hgb O2 Saturation (95.0-98.0) % FiO2 % Sodium 138 (132-148) mmol/L Potassium 4.0 (3.6-5.0) mmol/L Chloride 112 H (98-107) mmol/L Carbon Dioxide 15 L (21-33) mmol/L Anion Gap 15 (10-20) BUN 31 H (7-21) mg/dL Creatinine 1.6 H (0.5-1.4) mg/dL Est GFR ( Amer) 41 Est GFR (Non-Af Amer) 34 Random Glucose 146 H (70-110) mg/dL Hemoglobin A1c 7.5 H (4.2-6.5) % Calcium 6.7 L* (8.4-10.5) mg/dL Phosphorus 2.2 L (2.5-4.5) mg/dL Magnesium 1.5 L (1.7-2.2) mg/dL Triglycerides 483 H (35-160) mg/dL Cholesterol 133 (130-200) mg/dL LDL Cholesterol Direct 19 (0-129) mg/dL HDL Cholesterol 17 L (29-60) mg/dL TSH 3rd Generation (0.46-4.68) MIU/ml Urine Osmolality (50-645) mosm/kg Ur Random Sodium meq/L Ur Random Potassium meq/L 10/27/16 10/27/16 10/26/16 Range/Units 05:00 00:30 22:14 WBC (4.5-11.0) 10^3/ul RBC (3.5-6.1) 10^6/uL Hgb (12.0-16.0) gm/dL Hct (36.0-48.0) % MCV (80.0-105.0) fL MCH (25.0-35.0) pg MCHC (31.0-37.0) g/dl RDW (11.5-14.5) % Plt Count (120.0-450.0) 10^3/uL MPV (7.0-11.0) fl Neutrophils % (Manual) (50.0-70.0) % Band Neutrophils % (0-2) % Lymphocytes % (Manual) (22.0-35.0) % Monocytes % (Manual) (1.0-6.0) % Metamyelocytes % % Myelocytes % % Platelet Evaluation (NORMAL) pCO2 21 L (35-45) mm/Hg pO2 114.0 H (80-100) mm/Hg HCO3 12.1 L (21-28) mmol/L ABG pH 7.37 (7.35-7.45) ABG Total CO2 12.7 L (22-28) mmol.L ABG O2 Saturation 97.9 (95-98) % ABG O2 Content 13.9 L (15-23) ML/dl ABG Base Excess -11.5 L (-2.0-3.0) mmol/L ABG Hemoglobin 10.1 L (11.7-17.4) g/dL ABG Carboxyhemoglobin 0.7 (0.5-1.5) % POC ABG HHb (Measured) 2.1 (0-5) % ABG Methemoglobin 0.7 (0.0-3.0) % ABG O2 Capacity 14.2 L (16-24) mL/dl Hgb O2 Saturation 96.5 (95.0-98.0) % FiO2 40.0 % Sodium 135 (132-148) mmol/L Potassium 3.6 (3.6-5.0) mmol/L Chloride 107 (98-107) mmol/L Carbon Dioxide 17 L (21-33) mmol/L Anion Gap 15 (10-20) BUN 33 H (7-21) mg/dL Creatinine 1.7 H (0.5-1.4) mg/dL Est GFR ( Amer) 38 Est GFR (Non-Af Amer) 32 Random Glucose 209 H (70-110) mg/dL Hemoglobin A1c (4.2-6.5) % Calcium 6.9 L* (8.4-10.5) mg/dL Phosphorus (2.5-4.5) mg/dL Magnesium (1.7-2.2) mg/dL Triglycerides (35-160) mg/dL Cholesterol (130-200) mg/dL LDL Cholesterol Direct (0-129) mg/dL HDL Cholesterol (29-60) mg/dL TSH 3rd Generation (0.46-4.68) MIU/ml Urine Osmolality 544 (50-645) mosm/kg Ur Random Sodium 58 meq/L Ur Random Potassium 30.8 meq/L 10/26/16 10/26/16 10/26/16 Range/Units 21:54 18:00 15:30 WBC (4.5-11.0) 10^3/ul RBC (3.5-6.1) 10^6/uL Hgb (12.0-16.0) gm/dL Hct (36.0-48.0) % MCV (80.0-105.0) fL MCH (25.0-35.0) pg MCHC (31.0-37.0) g/dl RDW (11.5-14.5) % Plt Count (120.0-450.0) 10^3/uL MPV (7.0-11.0) fl Neutrophils % (Manual) (50.0-70.0) % Band Neutrophils % (0-2) % Lymphocytes % (Manual) (22.0-35.0) % Monocytes % (Manual) (1.0-6.0) % Metamyelocytes % % Myelocytes % % Platelet Evaluation (NORMAL) pCO2 24 L (35-45) mm/Hg pO2 118.0 H (80-100) mm/Hg HCO3 13.6 L (21-28) mmol/L ABG pH 7.36 (7.35-7.45) ABG Total CO2 14.3 L (22-28) mmol.L ABG O2 Saturation 98.7 H (95-98) % ABG O2 Content 14.8 L (15-23) ML/dl ABG Base Excess -10.3 L (-2.0-3.0) mmol/L ABG Hemoglobin 10.7 L (11.7-17.4) g/dL ABG Carboxyhemoglobin 1.2 (0.5-1.5) % POC ABG HHb (Measured) 1.3 (0-5) % ABG Methemoglobin 0.6 (0.0-3.0) % ABG O2 Capacity 15.0 L (16-24) mL/dl Hgb O2 Saturation 96.9 (95.0-98.0) % FiO2 40.0 % Sodium 135 134 (132-148) mmol/L Potassium 3.5 L 3.1 L (3.6-5.0) mmol/L Chloride 107 105 (98-107) mmol/L Carbon Dioxide 16 L 16 L (21-33) mmol/L Anion Gap 16 16 (10-20) BUN 36 H 38 H (7-21) mg/dL Creatinine 1.8 H 2.0 H (0.5-1.4) mg/dL Est GFR ( Amer) 36 32 Est GFR (Non-Af Amer) 30 26 Random Glucose 177 H 208 H (70-110) mg/dL Hemoglobin A1c (4.2-6.5) % Calcium 7.0 L 7.1 L (8.4-10.5) mg/dL Phosphorus (2.5-4.5) mg/dL Magnesium (1.7-2.2) mg/dL Triglycerides (35-160) mg/dL Cholesterol (130-200) mg/dL LDL Cholesterol Direct (0-129) mg/dL HDL Cholesterol (29-60) mg/dL TSH 3rd Generation (0.46-4.68) MIU/ml Urine Osmolality (50-645) mosm/kg Ur Random Sodium meq/L Ur Random Potassium meq/L 10/26/16 Range/Units 14:40 WBC (4.5-11.0) 10^3/ul RBC (3.5-6.1) 10^6/uL Hgb (12.0-16.0) gm/dL Hct (36.0-48.0) % MCV (80.0-105.0) fL MCH (25.0-35.0) pg MCHC (31.0-37.0) g/dl RDW (11.5-14.5) % Plt Count (120.0-450.0) 10^3/uL MPV (7.0-11.0) fl Neutrophils % (Manual) (50.0-70.0) % Band Neutrophils % (0-2) % Lymphocytes % (Manual) (22.0-35.0) % Monocytes % (Manual) (1.0-6.0) % Metamyelocytes % % Myelocytes % % Platelet Evaluation (NORMAL) pCO2 (35-45) mm/Hg pO2 (80-100) mm/Hg HCO3 (21-28) mmol/L ABG pH (7.35-7.45) ABG Total CO2 (22-28) mmol.L ABG O2 Saturation (95-98) % ABG O2 Content (15-23) ML/dl ABG Base Excess (-2.0-3.0) mmol/L ABG Hemoglobin (11.7-17.4) g/dL ABG Carboxyhemoglobin (0.5-1.5) % POC ABG HHb (Measured) (0-5) % ABG Methemoglobin (0.0-3.0) % ABG O2 Capacity (16-24) mL/dl Hgb O2 Saturation (95.0-98.0) % FiO2 % Sodium 132 (132-148) mmol/L Potassium 3.4 L (3.6-5.0) mmol/L Chloride 102 (98-107) mmol/L Carbon Dioxide 15 L (21-33) mmol/L Anion Gap 18 (10-20) BUN 40 H (7-21) mg/dL Creatinine 2.0 H (0.5-1.4) mg/dL Est GFR ( Amer) 32 Est GFR (Non-Af Amer) 26 Random Glucose 297 H (70-110) mg/dL Hemoglobin A1c (4.2-6.5) % Calcium 7.3 L (8.4-10.5) mg/dL Phosphorus (2.5-4.5) mg/dL Magnesium (1.7-2.2) mg/dL Triglycerides (35-160) mg/dL Cholesterol (130-200) mg/dL LDL Cholesterol Direct (0-129) mg/dL HDL Cholesterol (29-60) mg/dL TSH 3rd Generation (0.46-4.68) MIU/ml Urine Osmolality (50-645) mosm/kg Ur Random Sodium meq/L Ur Random Potassium meq/L Laboratory Results - last 24 hr 10/26/16 10/26/16 10/26/16 14:40 15:30 18:00 WBC RBC Hgb Hct MCV MCH MCHC RDW Plt Count MPV Neutrophils % (Manual) Band Neutrophils % Lymphocytes % (Manual) Monocytes % (Manual) Metamyelocytes % Myelocytes % Platelet Evaluation pCO2 24 L pO2 118.0 H HCO3 13.6 L ABG pH 7.36 ABG Total CO2 14.3 L ABG O2 Saturation 98.7 H ABG O2 Content 14.8 L ABG Base Excess -10.3 L ABG Hemoglobin 10.7 L ABG Carboxyhemoglobin 1.2 POC ABG HHb (Measured) 1.3 ABG Methemoglobin 0.6 ABG O2 Capacity 15.0 L Hgb O2 Saturation 96.9 FiO2 40.0 Sodium 132 134 Potassium 3.4 L 3.1 L Chloride 102 105 Carbon Dioxide 15 L 16 L Anion Gap 18 16 BUN 40 H 38 H Creatinine 2.0 H 2.0 H Est GFR ( Amer) 32 32 Est GFR (Non-Af Amer) 26 26 Random Glucose 297 H 208 H Hemoglobin A1c Calcium 7.3 L 7.1 L Phosphorus Magnesium Triglycerides Cholesterol LDL Cholesterol Direct HDL Cholesterol TSH 3rd Generation Urine Osmolality Ur Random Sodium Ur Random Potassium 10/26/16 10/26/16 10/27/16 21:54 22:14 00:30 WBC RBC Hgb Hct MCV MCH MCHC RDW Plt Count MPV Neutrophils % (Manual) Band Neutrophils % Lymphocytes % (Manual) Monocytes % (Manual) Metamyelocytes % Myelocytes % Platelet Evaluation pCO2 pO2 HCO3 ABG pH ABG Total CO2 ABG O2 Saturation ABG O2 Content ABG Base Excess ABG Hemoglobin ABG Carboxyhemoglobin POC ABG HHb (Measured) ABG Methemoglobin ABG O2 Capacity Hgb O2 Saturation FiO2 Sodium 135 135 Potassium 3.5 L 3.6 Chloride 107 107 Carbon Dioxide 16 L 17 L Anion Gap 16 15 BUN 36 H 33 H Creatinine 1.8 H 1.7 H Est GFR ( Amer) 36 38 Est GFR (Non-Af Amer) 30 32 Random Glucose 177 H 209 H Hemoglobin A1c Calcium 7.0 L 6.9 L* Phosphorus Magnesium Triglycerides Cholesterol LDL Cholesterol Direct HDL Cholesterol TSH 3rd Generation Urine Osmolality 544 Ur Random Sodium 58 Ur Random Potassium 30.8 10/27/16 10/27/16 10/27/16 05:00 05:30 05:30 WBC 13.5 H RBC 3.40 L Hgb 10.5 L Hct 30.9 L MCV 90.9 MCH 30.9 MCHC 34.0 RDW 13.8 Plt Count 268 MPV 10.4 Neutrophils % (Manual) 57 Band Neutrophils % 5 H Lymphocytes % (Manual) 26 Monocytes % (Manual) 7 H Metamyelocytes % 1 Myelocytes % 4 Platelet Evaluation Normal pCO2 21 L pO2 114.0 H HCO3 12.1 L ABG pH 7.37 ABG Total CO2 12.7 L ABG O2 Saturation 97.9 ABG O2 Content 13.9 L ABG Base Excess -11.5 L ABG Hemoglobin 10.1 L ABG Carboxyhemoglobin 0.7 POC ABG HHb (Measured) 2.1 ABG Methemoglobin 0.7 ABG O2 Capacity 14.2 L Hgb O2 Saturation 96.5 FiO2 40.0 Sodium 138 Potassium 4.0 Chloride 112 H Carbon Dioxide 15 L Anion Gap 15 BUN 31 H Creatinine 1.6 H Est GFR ( Amer) 41 Est GFR (Non-Af Amer) 34 Random Glucose 146 H Hemoglobin A1c Calcium 6.7 L* Phosphorus 2.2 L Magnesium 1.5 L Triglycerides 483 H Cholesterol 133 LDL Cholesterol Direct 19 HDL Cholesterol 17 L TSH 3rd Generation Urine Osmolality Ur Random Sodium Ur Random Potassium 10/27/16 10/27/16 10/27/16 05:30 05:30 09:41 WBC RBC Hgb Hct MCV MCH MCHC RDW Plt Count MPV Neutrophils % (Manual) Band Neutrophils % Lymphocytes % (Manual) Monocytes % (Manual) Metamyelocytes % Myelocytes % Platelet Evaluation pCO2 pO2 HCO3 ABG pH ABG Total CO2 ABG O2 Saturation ABG O2 Content ABG Base Excess ABG Hemoglobin ABG Carboxyhemoglobin POC ABG HHb (Measured) ABG Methemoglobin ABG O2 Capacity Hgb O2 Saturation FiO2 Sodium 139 Potassium 4.1 Chloride 113 H Carbon Dioxide 14 L Anion Gap 16 BUN 29 H Creatinine 1.4 Est GFR ( Amer) 48 Est GFR (Non-Af Amer) 40 Random Glucose 161 H Hemoglobin A1c 7.5 H Calcium 6.6 L* Phosphorus Magnesium Triglycerides Cholesterol LDL Cholesterol Direct HDL Cholesterol TSH 3rd Generation 2.5 Urine Osmolality Ur Random Sodium Ur Random Potassium 10/27/16 11:53 WBC RBC Hgb Hct MCV MCH MCHC RDW Plt Count MPV Neutrophils % (Manual) Band Neutrophils % Lymphocytes % (Manual) Monocytes % (Manual) Metamyelocytes % Myelocytes % Platelet Evaluation pCO2 pO2 HCO3 ABG pH ABG Total CO2 ABG O2 Saturation ABG O2 Content ABG Base Excess ABG Hemoglobin ABG Carboxyhemoglobin POC ABG HHb (Measured) ABG Methemoglobin ABG O2 Capacity Hgb O2 Saturation FiO2 Sodium 139 Potassium 3.5 L Chloride 111 H Carbon Dioxide 18 L Anion Gap 14 BUN 28 H Creatinine 1.4 Est GFR ( Amer) 48 Est GFR (Non-Af Amer) 40 Random Glucose 176 H Hemoglobin A1c Calcium 7.6 L Phosphorus Magnesium Triglycerides Cholesterol LDL Cholesterol Direct HDL Cholesterol TSH 3rd Generation Urine Osmolality Ur Random Sodium Ur Random Potassium Addendum Addendum: 10/27/16 15:[address] Mckeon note
--- NOTE | 2016-10-26 08:32 | RAD ---
HISTORY: intubated COMPARISON: 10/25/2016 FINDINGS: LUNGS: There is improvement in the bilateral infiltrates. There is a minimal infiltrate at the right lung base. PLEURA: No significant pleural effusion identified, no pneumothorax apparent. CARDIOVASCULAR: Normal. OSSEOUS STRUCTURES: No significant abnormalities. VISUALIZED UPPER ABDOMEN: Normal. OTHER FINDINGS: Central lines and tubes unchanged. IMPRESSION: Improved bilateral infiltrates
[2016-10-26] MEDS: Meropenem 1g/NS 100mL IVPB 100 ML IVPB SCH ×2 (09:52→22:20)
[2016-10-26] MEDS: Linezolid 600 mg in D5W 300 ml 300 ML IVPB SCH ×2 (09:53→22:22)
[2016-10-26 10:13] LABS: CALCIUM 7.8 mg/dL (8.4-10.5); POTASSIUM 3.6 mmol/L (3.6-5.0)
[2016-10-26] MEDS ORDERED: Dextrose 5%/0.9% NS 1,000 ML IV SCH (11:00)
--- NOTE | 2016-10-26 11:04 | US ---
HISTORY: Leg pain and swelling. Evaluate for DVT PHYSICIAN(S): Abel Schneider MD. TECHNIQUE: Duplex sonography and color-flow Doppler with graded compression were used to evaluate the deep venous systems of both lower extremities. FINDINGS: The visualized deep venous systems of both lower extremities are sonographically normal and compressible. Normal wave forms and augmentation are seen. There is no sonographic evidence for deep venous thrombosis in the visualized segments of both lower extremities. IMPRESSION: No sonographic evidence for deep venous thrombosis in the visualized segments of both lower extremities.
[2016-10-26] MEDS ORDERED: Enoxaparin 30 mg Syringe SC SCH (11:15)
[2016-10-26] MEDS ORDERED: Immune Globulin 100 MG/ML 30 GM in Premixed IV 1 EA IV ONE (11:27)
[2016-10-26] MEDS: Metoprolol 1 mg/ml Inj IVP SCH ×3 (11:45→23:33)
--- NOTE | 2016-10-26 12:41 | CON ---
DATE: 10/26/2016 REASON FOR CONSULTATION: Cardiac evaluation, status post respiratory failure, intubated, history of coronary artery disease, stent in the past. BRIEF CLINICAL HISTORY: This is a 51-year-old morbidly obese female with a past medical history of c oronary artery disease, status post stent in LAD in 2008, history of hypertension, hyperlipidemia, di abetes mellitus, seizure disorder; hypogammaglobulinemia, common variant, and on IV maintenance gamma globulin every 3 weeks, who had recently ventral hernia repair done a week ago, brought by the EMS fr om home because of altered mental status, was disoriented. At home patient was only alert to person, but in the ER the patient was only alert to her name and found to be in severe metabolic acidosis, p H 7, requiring intubation. Now patient is currently being intubated in ICU. Information obtained fr the chart. PAST MEDICAL HISTORY: Significant for diabetes; coronary artery disease, status post stent by me in 2008; seizure disorder; hypogammaglobulinemia variant, on IV gammaglobulin, maintenance IVIG every 3 weeks; diabetes, hypertension, hyperlipidemia, morbid obesity, asthma history. 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 Last catheterization, 01/24/2014: Patent stent, only distal limited disease, mild LAD disease, but patent stent, preserved left ventri cular function, ejection fraction 55-60%. PAST SURGICAL HISTORY: Significant for laparoscopic ventral hernia repair a week ago, cholecystectom y in the past, breast biopsy in the past, history of rotator cuff repair in the past, history of tons illectomy. SOCIAL HISTORY: Active tobacco abuse. ALLERGIES: VALIUM, BENADRYL, MEPERIDINE, SULFA AND FENTANYL - GETS HEADACHE. CURRENT MEDICATIONS: The patient was at home taking metformin, metoprolol, ranitidine, Keppra for se izure, history of gabapentin, history of ____ hydroxyzine, loperamide, OxyContin and IV gammaglobulin every [address] Campa. CARDIAC WORKUP: The patient had a stent in 2008 of LAD. Most recent catheterization 01/24/2014. Wh en stress test shows abnormal stress test, underwent cardiac catheterization that revealed nonobstruc tive coronary artery disease, patent stent in LAD, distal LAD diffusely diseased, no focal stenosis n oted. Mid LAD patent stent. Ejection fraction 55-60%. EDP was in the range of 20, dated 01/24/2014 . The patient had last echocardiography done on 11/01/2013 that shows ejection fraction 60-65%, norm al diastolic function as well, trace mitral regurgitation, trace tricuspid regurgitation, dated 11/01. REVIEW OF SYSTEMS: As per HPI. PHYSICAL EXAMINATION: VITAL SIGNS: Temperature afebrile, respiratory rate 42, heart rate 114, blood pressure 130/79. HEENT: PERRLA. Extraocular muscles intact. NECK: Supple. No carotid bruits. No thyromegaly. CHEST: Clear to auscultation. HEART: S1, S2 regular. ABDOMEN: Soft. EXTREMITIES: Clubbing and cyanosis negative. BLOOD WORKUP: WBC 13.7, hemoglobin 12.2, hematocrit 35.3, platelet count 362. Chemistry shows sodiu m 130, potassium 3.6, chloride 103, carbon dioxide 40, anion gap of 19, BUN 44, creatinine 2.2. IMPRESSION: Acute respiratory failure, severe metabolic acidosis, on admission pH was 7 with a pCO2 of 71, status post respiratory failure, status post recent ventral hernia repair, status post stent i n 2008, status post repeat catheterization on 01/24/2014, patent stent in left anterior descending mi d, distal left anterior descending mild diffuse disease, preserved left ventricular function, ejectio n fraction 55%. Last echocardiogram of 2013 shows ejection fraction 55-60%, trace mitral regurgitati on, trace tricuspid regurgitation. Severe metabolic acidosis, rule out sepsis, respiratory failure, gammaglobulin deficiencies, on gammaglobulin. RECOMMENDATIONS: Continue IV Lasix. Will do echo to assess LV function. Will start low-dose beta-b locker for tachycardia. Tachycardia is multifactorial, probably secondary to underlying sepsis and s evere metabolic acidosis. Continue broad-spectrum antibiotic as per ID. Continue IV fluid. We will start low-dose IV beta jennifer and echo to assess LV function. Will get TSH, lipid profile and hemo globin A1c. Will follow with you. Thank you, Dr. Campa, for providing this opportunity in taking care of this patient. EKG showed si nus tachycardia, left posterior hemiblock, poor RR progression. Thank you, Dr. Campa, for providing this opportunity in taking care of this patient. Shasta Guillen MD cc: [id number] TT: 10/26/2016 12:14:32 Confirmation # [id number] Dictation # [id number] mn
--- NOTE | 2016-10-26 13:01 | CP.PCM.PN ---
<Maged Ordaz - Last Filed: 10/26/16 13:01> Subjective - Date & Time of Evaluation Date of Evaluation: 10/26/16 Time of Evaluation: 12:58 - Subjective Subjective: Surgery: Dr. Reagan Pt seen and examined. Per nursing no acute events overnight. Pt remains intubated. Unresponsive. Objective - Vital Signs/Intake and Output Vital Signs (last 24 hours): Temp Pulse Resp BP Pulse Ox 100.3 F H 114 H 42 H 130/79 98 10/25/16 23:58 10/26/16 03:00 10/26/16 08:00 10/26/16 03:00 10/26/16 08:00 Intake and Output: 10/26/16 10/26/16 06:59 18:59 Intake Total 1525 26 Output Total 444 150 Balance 1081 -124 - Medications Medications: Current Medications Enoxaparin Sodium (Lovenox) 30 mg SC DAILY JOSH PRN Reason: Protocol Last Admin: 10/26/16 11:46 Dose: 30 mg Propofol (Diprivan) 100 mls @ 2.449 mls/hr IV .Q24H PRN; Protocol; 5 MCG/KG/MIN PRN Reason: TITRATE PER MD ORDER Last Admin: 10/26/16 12:10 Dose: 35 mcg/kg/min, 17.146 mls/hr Linezolid (Zyvox 600mg/300ml D5w) 300 mls @ 200 mls/hr IVPB Q12 JOSH PRN Reason: Protocol Stop: 11/01/16 15:31 Last Admin: 10/26/16 09:53 Dose: 200 mls/hr Meropenem 1g/NS 100mL IVPB (Meropenem 1g/Ns 100ml Ivpb) 100 mls @ 100 mls/hr IVPB Q12 JOSH PRN Reason: Protocol Stop: 11/01/16 22:01 Last Admin: 10/26/16 09:52 Dose: 100 mls/hr Insulin Human Regular 100 (units/ Sodium Chloride) 100 mls @ 8 mls/hr IV .[id number] PRN; Protocol PRN Reason: TITRATE PER PROTOCOL Last Titration: 10/26/16 12:28 Dose: 3 units/hr, 3 mls/hr Acetaminophen (Ofirmev) 100 mls @ 400 mls/hr IVPB Q6H PRN PRN Reason: Fever >100.4 F Stop: 10/28/16 00:50 Last Admin: 10/26/16 01:06 Dose: 400 mls/hr Dextrose/Sodium Chloride (Dextrose 5%/0.9% Ns 1000 Ml) 1,000 mls @ 200 mls/hr IV .Q5H [facility] Last Admin: 10/26/16 11:39 Dose: 200 mls/hr Immune Globulin 30 gm/ (Miscellaneous) 300 mls @ 80 mls/hr IV ONCE ONE Stop: 10/26/16 15:11 Last Admin: 10/26/16 12:42 Dose: 80 mls/hr Metoprolol Tartrate (Lopressor) 5 mg IVP Q6H [facility] Last Admin: 10/26/16 11:45 Dose: 5 mg Pantoprazole Sodium (Protonix Inj) 40 mg IVP DAILY [facility] Last Admin: 10/26/16 09:53 Dose: 40 mg - Labs Labs: 10/26/16 03:30 10/26/16 09:30 PT 13.0 Seconds (9.9-11.8) H 10/25/16 09:10 INR 1.20 (0.93-1.08) H 10/25/16 09:10 APTT 26.7 Seconds (23.7-30.8) 10/25/16 09:10 - Constitutional Appears: Non-toxic, No Acute Distress - Head Exam Head Exam: ATRAUMATIC, NORMOCEPHALIC - ENT Exam Additional comments: NGT in place - Respiratory Exam Additional comments: intubated - GI/Abdominal Exam GI & Abdominal Exam: Distended, Soft. absent: Firm, Guarding, Rigid, Tenderness , Rebound - Extremities Exam Extremities Exam: absent: Calf Tenderness, Pedal Edema - Neurological Exam Neurological Exam: absent: Alert, Awake Assessment and Plan - Assessment and Plan (Free Text) Assessment: 51F s/p laparoscopic ventral hernia repair on 10/19/16 in ICU w. DKA, sepsis, and SBO -DKA management per ICU -c/w strict Is:Os -Rodríguez 664cc/12hr -NGT 950cc/12hr bilious/feculent -Keep NGT to low intermittent suction -serial abd exams -c/w abx per ID -will continue to follow closely -d/w attending Zemaitis PGY2 <Tee Reagan - Last Filed: 02/01/17 22:52> Objective - Vital Signs/Intake and Output Vital Signs (last 24 hours): Temp Pulse Resp BP Pulse Ox 97.7 F 93 H 17 116/60 93 L 11/01/16 06:00 11/01/16 08:15 11/01/16 06:00 11/01/16 08:15 11/01/16 06:00 - Labs Labs: 11/01/16 06:00 11/01/16 06:00 PT 13.0 Seconds (9.9-11.8) H 10/25/16 09:10 INR 1.20 (0.93-1.08) H 10/25/16 09:10 APTT 26.7 Seconds (23.7-30.8) 10/25/16 09:10 Assessment and Plan - Assessment and Plan (Free Text) Plan: Patient was seen and examined by me. I agree with assessment and plan as per resident's note.
--- NOTE | 2016-10-26 13:05 | CP.PCM.PN ---
Subjective - Date & Time of Evaluation Date of Evaluation: 10/26/16 Time of Evaluation: 10:20 - Subjective Subjective: Patient continues to be on the ventilator and sedated. Still with low grade fevers overnight. Objective - Vital Signs/Intake and Output Vital Signs (last 24 hours): Temp Pulse Resp BP Pulse Ox 100.3 F H 114 H 42 H 130/79 98 10/25/16 23:58 10/26/16 03:00 10/26/16 08:00 10/26/16 03:00 10/26/16 08:00 Intake and Output: 10/26/16 10/26/16 06:59 18:59 Intake Total 1525 26 Output Total 444 150 Balance 1081 -124 - Medications Medications: Current Medications Enoxaparin Sodium (Lovenox) 30 mg SC DAILY JOSH PRN Reason: Protocol Last Admin: 10/26/16 11:46 Dose: 30 mg Propofol (Diprivan) 100 mls @ 2.449 mls/hr IV .Q24H PRN; Protocol; 5 MCG/KG/MIN PRN Reason: TITRATE PER MD ORDER Last Admin: 10/26/16 12:10 Dose: 35 mcg/kg/min, 17.146 mls/hr Linezolid (Zyvox 600mg/300ml D5w) 300 mls @ 200 mls/hr IVPB Q12 JOSH PRN Reason: Protocol Stop: 11/01/16 15:31 Last Admin: 10/26/16 09:53 Dose: 200 mls/hr Meropenem 1g/NS 100mL IVPB (Meropenem 1g/Ns 100ml Ivpb) 100 mls @ 100 mls/hr IVPB Q12 JOSH PRN Reason: Protocol Stop: 11/01/16 22:01 Last Admin: 10/26/16 09:52 Dose: 100 mls/hr Insulin Human Regular 100 (units/ Sodium Chloride) 100 mls @ 8 mls/hr IV .[id number] PRN; Protocol PRN Reason: TITRATE PER PROTOCOL Last Titration: 10/26/16 12:28 Dose: 3 units/hr, 3 mls/hr Acetaminophen (Ofirmev) 100 mls @ 400 mls/hr IVPB Q6H PRN PRN Reason: Fever >100.4 F Stop: 10/28/16 00:50 Last Admin: 10/26/16 01:06 Dose: 400 mls/hr Dextrose/Sodium Chloride (Dextrose 5%/0.9% Ns 1000 Ml) 1,000 mls @ 200 mls/hr IV .Q5H [facility] Last Admin: 10/26/16 11:39 Dose: 200 mls/hr Immune Globulin 30 gm/ (Miscellaneous) 300 mls @ 80 mls/hr IV ONCE ONE Stop: 10/26/16 15:11 Last Admin: 10/26/16 12:42 Dose: 80 mls/hr Metoprolol Tartrate (Lopressor) 5 mg IVP Q6H [facility] Last Admin: 10/26/16 11:45 Dose: 5 mg Pantoprazole Sodium (Protonix Inj) 40 mg IVP DAILY [facility] Last Admin: 10/26/16 09:53 Dose: 40 mg - Labs Labs: 10/26/16 03:30 10/26/16 09:30 PT 13.0 Seconds (9.9-11.8) H 10/25/16 09:10 INR 1.20 (0.93-1.08) H 10/25/16 09:10 APTT 26.7 Seconds (23.7-30.8) 10/25/16 09:10 - Constitutional Appears: Other (Intubated and sedated) - ENT Exam Additional comments: ET tube in place - Neck Exam Neck Exam: absent: Lymphadenopathy, Meningismus - Respiratory Exam Respiratory Exam: Decreased Breath Sounds - Cardiovascular Exam Cardiovascular Exam: +S1, +S2 - GI/Abdominal Exam GI & Abdominal Exam: Soft. absent: Tenderness Assessment and Plan - Assessment and Plan (Free Text) Plan: Assessment Severe sepsis with hypoxic and ventilator-dependent respiratory failure and acute renal failure due to bilateral lower lobe healthcare-associated pneumonia with possible gram positive cocci and/or gram negative bacilli HTN dyslipidemia CAD S/P PCI common variable immune deficiency asthma seizure disorder depression COPD chronic venous insufficiency DM S/P laparoscopic ventral hernia repair 2016 S/P cholecystectomy Plan continue Zyvox and Meropenem day 2 pending final blood, sputum cx, urine cx, PCT results; reviewed CXR and CT abdomen and pelvis which showed the bilateral lower lobe dense consolidations Will continue to monitor clinically
[2016-10-26 15:17] LABS: CALCIUM 7.3 mg/dL (8.4-10.5); POTASSIUM 3.4 mmol/L (3.6-5.0)
[2016-10-26] MEDS ORDERED: Sodium Chloride 0.9% 1,000 ML IV SCH (15:30)
[2016-10-26 15:32] LABS: ARTERIAL BLOOD GAS HCO3 13.6 mmol/L (21-28); ARTERIAL BLOOD GAS O2 CONTENT 14.8 ML/dl (15-23); ARTERIAL BLOOD GAS PH 7.36 (7.35-7.45); ARTERIAL BLOOD HGB O2 SAT 96.9 % (95.0-98.0); CARBOXYHEMOGLOBIN 1.2 % (0.5-1.5); HHB 1.3 % (0-5); METHEMOGLOBIN 0.6 % (0.0-3.0)
--- NOTE | 2016-10-26 15:47 | RAD ---
HISTORY: f/u, possible SBO COMPARISON: No prior. FINDINGS: BOWEL: Normal. No obstruction. No free air. The patient is rotated in a left posterior oblique orientation. This is the best film possible. The bowel gas pattern is unremarkable BONES: Normal. OTHER FINDINGS: None. IMPRESSION: No active disease.
[2016-10-26] MEDS: Dexmedetomidine HCl 4mcg/ml 400 MCG/100 ML BOTTLE IV PRN (16:04)
--- NOTE | 2016-10-26 16:13 | PN ---
DATE: 10/26/2016 The patient is seen and examined at bedside. She is off of sedation. PHYSICAL EXAMINATION: GENERAL: She is completely alert and awake and following commands. She is comfortable. VITAL SIGNS: She is breathing about 40 times per minute; however, it is rather habitual because she is easily able to take a deep breath with tidal volume up to 500 mL. ABG is pending. Heart rate is 101, oxygen saturation 97% on 40% FiO2, respiratory rate varies between 37-40, blood pressure 138/89. The patient is still on normal saline 200 mL per hour and insulin drip. HEAD AND NECK: Atraumatic. LUNGS: Crackles bibasilar. HEART: Regular rate and rhythm. S1, S2 normal. ABDOMEN: Soft, nontender, nondistended. MUSCULOSKELETAL: Trace bilateral pedal and ankle edema. NEUROLOGIC: The patient moves all extremities spontaneously. SKIN: Moist. PSYCHIATRIC: The patient is alert and oriented. LABORATORY DATA: Sodium 132, potassium 3.4, chloride 102, carbon dioxide 15, BUN 40, creatinine 2.0, glucose 297. WBC 13.7, hemoglobin 12.2, platelet count 362. MEDICATIONS: Tylenol IV, Lovenox 30 mg subQ daily, normal saline 200 cc/hr, meropenem, IVIG, Protonix, normal saline at 200 mL per hour, Linezolid. Chest x-ray unchanged. Echocardiogram was done and official report is pending. However, preliminary review suggests no severe left ventricular systolic dysfunction. ASSESSMENT AND PLAN: This is a 51-year-old lady with diabetic ketoacidosis which substantially improved since admission and inability to compensate for severe metabolic acidosis which led to impending respiratory failure which required intubation. At present time, patient substantially improved. ABG is pending. However, she is alert and awake and following commands. We will continue with insulin drip until anion gap is closed. ABG just arrived and showed pH 7.36 and pCO2 24 which suggests that she still has significant workload on her respiratory muscles to compensate for metabolic acidosis and her RR 40 is not mere habitual. Thus, will continue with mechanical ventilatory support. Will proceed with Precedex for sedation. Will continue with protective lung ventilation strategy and repeat weaning trial tomorrow. We will continue with antibiotic therapy for her pneumonia and NG tube on suction for small bowel obstruction. Will continue with deep venous thrombosis and gastrointestinal prophylaxis. The patient will receive her monthly dose of IVIG for CVID and Abx for pneumonia. Her renal function is substantially improved. Her urine output picked up. Will continue to target euvolemia, euglycemia, normothermia and oxygen saturation more than 90%. ccm time 40 min Jordy Mckeon MD cc: [id number] TT: 10/26/2016 16:12:45 Confirmation # [id number] Dictation # [id number] mn BECKY
[2016-10-26 18:18] LABS: CALCIUM 7.1 mg/dL (8.4-10.5); POTASSIUM 3.1 mmol/L (3.6-5.0)
--- NOTE | 2016-10-26 19:10 | CON ---
DATE: 10/26/2016 HISTORY OF PRESENT ILLNESS: This is a 51-year-old white female with past medical history of diabetes , coronary artery disease, seizure disorder, and hypogammaglobulinemia, admitted to hospital with fat igue, tiredness, and extreme shortness of breath. The patient was intubated and brought to the ICU. Called to evaluate the patient. The patient on ventilatory support. PAST MEDICAL HISTORY: Diabetes, coronary artery disease, seizure disorder, hypoglobulinemia. ALLERGIES: DIAZEPAM, VENTOLIN, SULFA, VALIUM, BENADRYL, DEMEROL. HOME MEDICATIONS: Tramadol, OxyContin, metformin, Topamax, nortriptyline, metoprolol, meclizine, Ati van, and Keppra. REVIEW OF SYSTEMS: A 10-point review of system was negative. PHYSICAL EXAMINATION: HEENT: Normocephalic, atraumatic. NECK: Supple. NEUROLOGIC: The patient on ventilatory support and on sedation, so limited exams can be performed. Spontaneous movement of extremity noted. Deep tendon reflexes 1+. Both plantars downgoing. Sensory appears intact. Cerebellar/gait deferred. IMPRESSION: A 51-year-old with diabetic ketoacidosis and respiratory failure, intubated, and workup in progress. CAT scan of the head was done, which was reported negative. PLAN: Continue present management. Will follow up. Nazario Leyva MD cc: [id number] TT: 10/26/2016 19:10:03 Confirmation # [id number] Dictation # [id number] dn
[2016-10-26 22:10] LABS: POTASSIUM 3.5 mmol/L (3.6-5.0)
[2016-10-27] MEDS: Dexmedetomidine HCl 4mcg/ml 400 MCG/100 ML BOTTLE IV PRN ×4 (00:40→21:08)
[2016-10-27 00:59] LABS: POTASSIUM 3.6 mmol/L (3.6-5.0)
[2016-10-27 01:16] LABS: CALCIUM 6.9 mg/dL (8.4-10.5)
[2016-10-27] MEDS: Metoprolol 1 mg/ml Inj IVP SCH ×4 (05:26→22:59)
[2016-10-27 05:39] LABS: ARTERIAL BLOOD GAS HCO3 12.1 mmol/L (21-28); ARTERIAL BLOOD GAS O2 CAPACITY 14.2 mL/dl (16-24); ARTERIAL BLOOD GAS O2 CONTENT 13.9 ML/dl (15-23); ARTERIAL BLOOD GAS PH 7.37 (7.35-7.45); ARTERIAL BLOOD HGB O2 SAT 96.5 % (95.0-98.0); CARBOXYHEMOGLOBIN 0.7 % (0.5-1.5); HHB 2.1 % (0-5); METHEMOGLOBIN 0.7 % (0.0-3.0)
[2016-10-27 05:56] LABS: HEMATOCRIT 30.9 % (36.0-48.0); MEAN CELL VOLUME 90.9 fL (80.0-105.0); MEAN CORPUSCULAR HEMOGLOBIN 30.9 pg (25.0-35.0); MEAN PLATELET VOLUME 10.4 fl (7.0-11.0); PLATELET COUNT 268 10^3/uL (120.0-450.0); RED CELL DISTRIBUTION WIDTH 13.8 % (11.5-14.5); WHITE BLOOD COUNT 13.5 10^3/ul (4.5-11.0)
[2016-10-27 06:10] LABS: MAGNESIUM 1.5 mg/dL (1.7-2.2); PHOSPHOROUS 2.2 mg/dL (2.5-4.5)
[2016-10-27 06:11] LABS: ADD MANUAL DIFF? YES
[2016-10-27 07:12] LABS: NEUTROPHIL 57 % (50.0-70.0)
[2016-10-27 07:13] LABS: BAND 5 % (0-2); METAMYELOCYTE 1 %; MYELOCYTE 4 %; PLATELET ESTIMATE NORMAL (NORMAL)
[2016-10-27 07:33] LABS: CALCIUM 6.7 mg/dL (8.4-10.5)
--- NOTE | 2016-10-27 08:34 | RAD ---
HISTORY: intubated COMPARISON: 10/26/2016 FINDINGS: LUNGS: No active pulmonary disease. PLEURA: No significant pleural effusion identified, no pneumothorax apparent. CARDIOVASCULAR: Mild cardiomegaly OSSEOUS STRUCTURES: No significant abnormalities. VISUALIZED UPPER ABDOMEN: Normal. OTHER FINDINGS: Central lines and tubes are unchanged IMPRESSION: No active disease.
[2016-10-27] MEDS: Linezolid 600 mg in D5W 300 ml 300 ML IVPB SCH ×2 (09:04→21:22)
[2016-10-27] MEDS: Meropenem 1g/NS 100mL IVPB 100 ML IVPB SCH ×2 (09:05→21:21)
--- NOTE | 2016-10-27 09:23 | CON ---
DATE: 10/26/2016 REFERRING PHYSICIAN: Manfred Torres MD. REASON FOR EVALUATION: Hypokalemia, acute kidney injury with CKD. CHIEF COMPLAINT AND HISTORY OF PRESENT ILLNESS: This is a 51-year-old female who is coming in to the hospital that is known to me as an outpatient. She does have history of diabetes, diabetic nephropa thy. She has a history of hypogammaglobulinemia and has been receiving IVIG fairly ____regularly. T he patient has a history of hypokalemia that is chronic. She has neuropathy. She has a very significant past medical history. She has a horseshoe kidney. The patient has a hist ory of seizures and has been Lamictal and Topamax, and is being followed by Dr. Leyva. The patient is intubated and in the ICU. She is not able to give history, so I am not able to get in formation. I was able to get information from reading the patient's chart, and in speaking with the staff including Dr. Mckeon, the ICU hand cooper helper. REVIEW OF SYMPTOMS: Limited. PAST MEDICAL HISTORY: 1. Diabetes type 2. 2. Coronary artery disease. 3. Seizure disorder. 4. Common variant hypogammaglobulinemia. 5. Chronic obstructive pulmonary disease. 6. Obese. 7. Left foot fracture. 8. Neuropathy. 9. Seizure disorder. FAMILY HISTORY: Noncontributory. ALLERGIES: DIAZEPAM, VENTOLIN, MEPERIDINE, SULFA, VALIUM, BENADRYL, DEMEROL. HOME MEDICATIONS: Have been reviewed, including metformin, Topamax, Keppra, ibuprofen, Lipitor, Mary Jo icet, Aldactone. PHYSICAL EXAMINATION: VITAL SIGNS: Temperature is 101 T-max yesterday. Today, it is 98.5. Blood pressure is 139/82, puls e of 113. O2 saturation is 97%. Height is 5 feet 6 inches. Weight is 230 pounds. The BMI is 37.1. GENERAL: The patient is lying in bed, flat, and in no apparent distress. HEAD AND NECK EXAM: Atraumatic, normocephalic. Throat clear and mouth with moist mucosa. Orophary nx benign. EYES: Unable to do a full eye exam because the patient is intubated. NECK: Supple. No JVD, thyromegaly, or adenopathy. No bruits. HEART: S1 and S2 regular rate and rhythm. No murmurs, rubs, or gallops. LUNGS: Clear to auscultation bilaterally. No wheezing rales or rhonchi appreciated. No retraction s on exam. ABDOMEN: Soft, nontender, nondistended. Bowel sounds are positive in all quadrants. No rebound. No hepatosplenomegaly. EXTREMITIES: No cyanosis, clubbing, or edema. PSYCHIATRIC: Unable to assess because the patient is intubated. NEUROLOGIC: Unable to assess because the patient is intubated. GENITOURINARY: No CVA tenderness VASCULAR: 2+ pulses in carotid and pedal pulses. SKIN: No erythema or abnormal nodules noted. SPINE: Normal curvature. LYMPHADENOPATHY: No anterior cervical or posterior cervical adenopathy. No inguinal adenopathy. LABORATORY DATA: White count of 22.8. Repeat was 13.7 this morning. She had initial potassium that was 3.1 this morning, bicarb of 16. She has a creatinine of 2.0. Her calcium is 7.1. Abdominal x-ray done shows no active disease. Chest x-ray done shows improvement in the bilateral infiltrates. ASSESSMENT: 1. Respiratory failure on ventilator. 2. Hypokalemia. 3. Horseshoe kidney. 4. Sepsis. 5. Acute kidney injury with a baseline creatinine of 1.2. 6. Diabetic ketoacidosis. 7. Hyponatremia, improved. I have ordered urine studies. She is going to get repeat blood work tomorrow. The patient did have a significant acid base disturbance, mostly with a metabolic acidosis that is anion gap along with a respiratory alkalosis. Vent settings will be deferred to Dr. Mckeon. The patient also had a signi ficant lactate that was elevated, most likely secondary to sepsis. She did have a fever. Her blood cultures and urine cultures have been gram-negative. The patient's bicarb remains mildly low. I clarita l not place her on a bicarb drip given that she becomes significantly hypokalemic. Currently, her ac id base status was also labile, and has now improved. She was severely acidotic when she was initial ly admitted. Her acidosis has improved. She remains critically ill in the ICU. She is on an insulin drip. She had a laparoscopic ventral he rnia repair on 10/19. The patient's diabetic ketoacidosis is improving as well. She is on broad-spec trum antibiotics. She does have a port that is being evaluated to see if this is infected. She is o n meropenem for antibiotics. She is on Lovenox for deep venous thrombosis prophylaxis, although with acute kidney injury, I will change that to heparin. Most likely, her acute kidney injury is related to the sepsis the patient has. Christoph Zhang MD cc: [id number] TT: 10/27/2016 09:22:45 Confirmation # [id number] Dictation # [id number] jn
[2016-10-27 10:07] LABS: POTASSIUM 4.1 mmol/L (3.6-5.0)
--- NOTE | 2016-10-27 10:07 | CON ---
DATE: 10/26/2016 This patient was seen and evaluated earlier and discussed with Dr. Campa and also with the intensiv ist and the resident. 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 The patient was intubated and NG tube was placed. The patient was found to have fecule nt drainage. CT was done, showed multiple dilated loops of the bowel suggestive of small bowel obstr uction. No bleeding per rectum or melena. OTHER PAST MEDICAL HISTORY: Positive as above, history of ventral hernia repair done, postoperative day 7, history of seizure disorder, diabetes mellitus, asthma, hypogammaglobulinemia. Significant fo r seizure disorder, status post cholecystectomy, history of breast lump biopsy, status post right hem icolectomy. SOCIAL HISTORY: Positive for smoking. No alcohol. REVIEW OF SYSTEMS: Positive as above. Other systems reviewed, limited. PHYSICAL EXAMINATION: GENERAL: The patient is lying on the bed, not in acute distress. WBC 13.7, hemoglobin 12.2, hematocrit 35.3, platelets 362. Chemistry: Showed BUN 16, creatinine 1.[address] scan of the abdomen and pelvis was reviewed, multiple dilated loops of the small bowel suggest benoit of small bowel obstruction. IMPRESSION: A 51-year-old patient with diabetes mellitus, history of status post right hemicolectom y for possible cecal volvulus, history of anemia, admitted with change of mental status, diabetic ket oacidosis. This 51-year-old patient with variable gamma globulinemia on 3 weekly injection of gammaglobulin, gail betes mellitus, chronic obstructive pulmonary disease, status post right hemicolectomy for cecal volv ulus 25 years ago, had a severe change in mental status, on ventilator now. Nasogastric tube was tanesha ining a feculent material. CAT scan shows dilated loops of small bowel suggestive of partial small b owel obstruction. RECOMMEND: IV hydration, followup of the electrolytes, abdominal flat plate x-ray, surgical followup . The patient did have a ventral hernia repair done, postoperative day #7. We will continue to clos sarah follow up her care and suggest further management based on the clinical course. Berhane Weston MD cc: [id number] TT: 10/27/2016 10:06:44 Confirmation # [id number] Dictation # [id number] en
[2016-10-27 10:10] LABS: CALCIUM 6.6 mg/dL (8.4-10.5)
--- NOTE | 2016-10-27 10:18 | PN ---
DATE: 10/27/2016 SUBJECTIVE: The patient is intubated. She does open her eyes. PHYSICAL EXAMINATION: VITAL SIGNS: Temperature is 98.2, pulse is 77, blood pressure 100/52, respirations 36. GENERAL: The patient comfortable, in no acute distress. HEENT: Anicteric sclerae. Moist mucosa. NECK: No JVD or adenopathy. CARDIAC: S1/S2. No murmurs. No rubs. Regular. RESPIRATORY: Clear to auscultation bilaterally. No wheezes, rales, or rhonchi. Good air entry. ABDOMEN: Bowel sounds are positive, soft, nontender, and nondistended. EXTREMITIES: No edema. Has 1+ pulses. LABS: Creatinine is 1.6, bicarb is 15, white count is 13.5. ASSESSMENT: 1. Respiratory failure, on ventilator. 2. Hypomagnesemia. 3. Hypophosphatemia. 4. Hyperlipidemia. 5. Acute kidney injury. 6. Horseshoe kidney. 7. Diabetic ketoacidosis. 8. Hypogammaglobulinemia. PLAN: The patient is currently on acetaminophen IV. Is going to continue with heparin. The patient is on Lopressor. The patient is going to continue with Protonix daily. The patient is on IV fluids with normal saline. Is on linezolid. We will continue repeating blood work tomorrow. She remains critically ill. Christoph Zhang MD cc: [id number] TT: 10/27/2016 10:18:22 Confirmation # [id number] Dictation # [id number] kyle
[2016-10-27] MEDS ORDERED: Calcium Chloride 1000 mg/10 ml Syringe IV ONE (10:36)
--- NOTE | 2016-10-27 10:45 | PN ---
DATE: 10/27/2016 Seen and examined at the bedside this morning. The patient remains intubated, but is awake and responsive. The patient is being weaned off Precedex. The patient still remains with OG tube, which drained about 500 mL, appears bile color. Denies abdominal discomfort. No acute overnight events reported. VITAL SIGNS: Temperature is 98.3, blood pressure is 102/64, pulse is 78, 100% O2 saturation. LABORATORIES: WBC is 13.5, H and H is 10.5 and 30.9, platelets is 268. Sodium 138, K is 4.0, BUN 31, creatinine is 1.6, magnesium is 1.5. The patient had a chest x-ray this morning, which was negative for any active pulmonary disease, no pleural effusion or pneumothorax, did show mild cardiomegaly. Abdominal x-ray was done yesterday afternoon, which was negative for obstruction or free air, no active disease. PHYSICAL EXAMINATION: HEENT: Sclera is anicteric. NECK: Supple. CARDIAC: S1, S2. LUNG SOUNDS: Clear. No rales or wheeze. ABDOMEN: With bowel sounds, sounds hypoactive. It is soft, not distended, minimal tenderness. The patient had a mild facial grimace. No rebound or guarding. EXTREMITIES: The patient's bilateral hands are swollen and trace lower extremity edema. NEUROLOGIC: The patient is awake, responds to voice. She is being weaned off the Precedex. ASSESSMENT: This is a 51-year-old female with a past medical history of diabetes, diabetic neuropathy, history of hypogammaglobulinemia, receiving immunoglobulins yesterday, in ICU with diabetic ketoacidosis, sepsis and small bowel obstruction. The patient is status post recent laparoscopic ventral hernia repair. The patient has gone into severe metabolic acidosis and was intubated for impending respiratory failure. PLAN: The patient is attempting to be weaned off of the ventilator. Continue nasogastric tube to low intermittent suction. She is being weaned off the Precedex. Continue deep venous thrombosis prophylaxis, on heparin q. 12, is on IV antibiotics of Zyvox and meropenem. She is also on insulin drip. Continue gastrointestinal prophylaxis, Protonix, and IV fluids for hydration. When status optimal and prior to DC of NGT, consider ct scan with oral contrast abdomen and pelvis. As per renal, ID, hematology, cardiology and ICU medical team. The patient was seen and case discussed with Dr. Weston. Nina ARORA cc: [id number] TT: 10/27/2016 10:44:34 Confirmation # [id number] Dictation # [id number] en [email or web address]
[2016-10-27] MEDS ORDERED: Sodium Bicarbonate (8.4%) 50 Meq Syringe IVP ONE (10:46)
[2016-10-27] MEDS ORDERED: Insulin Detemir 100 units/ml Vial (Levemir) SC ONE (11:00)
[2016-10-27 12:13] LABS: CALCIUM 7.6 mg/dL (8.4-10.5); POTASSIUM 3.5 mmol/L (3.6-5.0)
[2016-10-27] MEDS ORDERED: Morphine 2 mg/ml ISec IVP PRN (13:36)
--- NOTE | 2016-10-27 14:29 | CP.PCM.PN ---
Subjective - Date & Time of Evaluation Date of Evaluation: 10/27/16 Time of Evaluation: 10:30 - Subjective Subjective: Patient is still on the ventilator but not in distress, more awake today as well , no fevers overnight. Objective - Vital Signs/Intake and Output Vital Signs (last 24 hours): Temp Pulse Resp BP Pulse Ox 98.3 F 77 36 H 115/61 100 10/27/16 08:09 10/27/16 11:21 10/27/16 07:47 10/27/16 11:21 10/27/16 11:00 Intake and Output: 10/27/16 10/27/16 06:59 18:59 Intake Total 3925.9 1045.1 Output Total 1270 Balance 2655.9 1045.1 - Medications Medications: Current Medications Heparin Sodium (Porcine) (Heparin) 5,000 units SC Q12 JOSH PRN Reason: Protocol Last Admin: 10/27/16 09:07 Dose: 5,000 units Propofol (Diprivan) 100 mls @ 2.449 mls/hr IV .Q24H PRN; Protocol; 5 MCG/KG/MIN PRN Reason: TITRATE PER MD ORDER Last Titration: 10/26/16 16:05 Dose: 0 mcg/kg/min, 0 mls/hr Linezolid (Zyvox 600mg/300ml D5w) 300 mls @ 200 mls/hr IVPB Q12 JOSH PRN Reason: Protocol Stop: 11/01/16 15:31 Last Admin: 10/27/16 09:04 Dose: 200 mls/hr Meropenem 1g/NS 100mL IVPB (Meropenem 1g/Ns 100ml Ivpb) 100 mls @ 100 mls/hr IVPB Q12 JOSH PRN Reason: Protocol Stop: 11/01/16 22:01 Last Admin: 10/27/16 09:05 Dose: 100 mls/hr Insulin Human Regular 100 (units/ Sodium Chloride) 100 mls @ 8 mls/hr IV .[id number] PRN; Protocol PRN Reason: TITRATE PER PROTOCOL Last Titration: 10/27/16 07:37 Dose: 2 units/hr, 2 mls/hr Acetaminophen (Ofirmev) 100 mls @ 400 mls/hr IVPB Q6H PRN PRN Reason: Fever >100.4 F Stop: 10/28/16 00:50 Last Admin: 10/26/16 01:06 Dose: 400 mls/hr Dexmedetomidine HCl (Precedex 4 Mcg/Ml (100 Ml)) 400 mcg in 100 mls @ 5.216 mls /hr IV .[id number] PRN; Protocol; 0.2 MCG/KG/HR PRN Reason: Agitation Last Admin: 10/27/16 08:40 Dose: 0.5 mcg/kg/hr, 13.041 mls/hr Potassium Chloride 20 meq/ (Sodium Chloride) 1,010 mls @ 200 mls/hr IV .Q5H3M JOSH Last Admin: 10/27/16 11:04 Dose: 200 mls/hr Insulin Human Lispro (Humalog High) 0 units SC ACHS JOSH PRN Reason: Protocol Metoprolol Tartrate (Lopressor) 5 mg IVP Q6H [facility] Last Admin: 10/27/16 11:21 Dose: 5 mg Morphine Sulfate (Morphine) 2 mg IVP Q4H PRN PRN Reason: Pain, moderate (4-7) Last Admin: 10/27/16 14:08 Dose: 2 mg Pantoprazole Sodium (Protonix Inj) 40 mg IVP DAILY [facility] Last Admin: 10/27/16 09:04 Dose: 40 mg - Labs Labs: 10/27/16 05:30 10/27/16 11:53 PT 13.0 Seconds (9.9-11.8) H 10/25/16 09:10 INR 1.20 (0.93-1.08) H 10/25/16 09:10 APTT 26.7 Seconds (23.7-30.8) 10/25/16 09:10 - Constitutional Appears: Other (Intubated) - ENT Exam Additional comments: ET tube in place - Neck Exam Neck Exam: absent: Lymphadenopathy, Meningismus - Respiratory Exam Respiratory Exam: Decreased Breath Sounds - Cardiovascular Exam Cardiovascular Exam: +S1, +S2 - GI/Abdominal Exam GI & Abdominal Exam: Soft. absent: Tenderness Assessment and Plan - Assessment and Plan (Free Text) Plan: Assessment Severe sepsis with hypoxic and ventilator-dependent respiratory failure and acute renal failure due to bilateral lower lobe healthcare-associated pneumonia - sputum cx showing gram negative bacilli on gram stain; slowly improving - patient also presented with diabetic ketoacidosis HTN dyslipidemia CAD S/P PCI common variable immune deficiency asthma seizure disorder depression COPD chronic venous insufficiency DM S/P laparoscopic ventral hernia repair 2016 S/P cholecystectomy Plan will keep Zyvox and Meropenem day 3 until final sputum cx results are available ; reviewed CXR and CT abdomen and pelvis which showed the bilateral lower lobe dense consolidations Will continue to monitor clinically
--- NOTE | 2016-10-27 14:51 | CP.PCM.PN ---
<Maged Ordaz - Last Filed: 10/27/16 14:51> Subjective - Date & Time of Evaluation Date of Evaluation: 10/27/16 Time of Evaluation: 14:49 - Subjective Subjective: Surgery: Dr. Reagan Pt seen and examined. Per nursing, no acute events over night. Pt remains intubated. Pt is awake and alert, follows commands. Objective - Vital Signs/Intake and Output Vital Signs (last 24 hours): Temp Pulse Resp BP Pulse Ox 98.3 F 77 36 H 115/61 100 10/27/16 08:09 10/27/16 11:21 10/27/16 07:47 10/27/16 11:21 10/27/16 11:00 Intake and Output: 10/27/16 10/27/16 06:59 18:59 Intake Total 3925.9 1045.1 Output Total 1270 Balance 2655.9 1045.1 - Medications Medications: Current Medications Heparin Sodium (Porcine) (Heparin) 5,000 units SC Q12 JOSH PRN Reason: Protocol Last Admin: 10/27/16 09:07 Dose: 5,000 units Propofol (Diprivan) 100 mls @ 2.449 mls/hr IV .Q24H PRN; Protocol; 5 MCG/KG/MIN PRN Reason: TITRATE PER MD ORDER Last Titration: 10/26/16 16:05 Dose: 0 mcg/kg/min, 0 mls/hr Linezolid (Zyvox 600mg/300ml D5w) 300 mls @ 200 mls/hr IVPB Q12 JOSH PRN Reason: Protocol Stop: 11/01/16 15:31 Last Admin: 10/27/16 09:04 Dose: 200 mls/hr Meropenem 1g/NS 100mL IVPB (Meropenem 1g/Ns 100ml Ivpb) 100 mls @ 100 mls/hr IVPB Q12 JOSH PRN Reason: Protocol Stop: 11/01/16 22:01 Last Admin: 10/27/16 09:05 Dose: 100 mls/hr Insulin Human Regular 100 (units/ Sodium Chloride) 100 mls @ 8 mls/hr IV .[id number] PRN; Protocol PRN Reason: TITRATE PER PROTOCOL Last Titration: 10/27/16 07:37 Dose: 2 units/hr, 2 mls/hr Acetaminophen (Ofirmev) 100 mls @ 400 mls/hr IVPB Q6H PRN PRN Reason: Fever >100.4 F Stop: 10/28/16 00:50 Last Admin: 10/26/16 01:06 Dose: 400 mls/hr Dexmedetomidine HCl (Precedex 4 Mcg/Ml (100 Ml)) 400 mcg in 100 mls @ 5.216 mls /hr IV .[id number] PRN; Protocol; 0.2 MCG/KG/HR PRN Reason: Agitation Last Admin: 10/27/16 08:40 Dose: 0.5 mcg/kg/hr, 13.041 mls/hr Potassium Chloride 20 meq/ (Sodium Chloride) 1,010 mls @ 200 mls/hr IV .Q5H3M JOSH Last Admin: 10/27/16 11:04 Dose: 200 mls/hr Insulin Human Lispro (Humalog High) 0 units SC ACHS JOSH PRN Reason: Protocol Metoprolol Tartrate (Lopressor) 5 mg IVP Q6H [facility] Last Admin: 10/27/16 11:21 Dose: 5 mg Morphine Sulfate (Morphine) 2 mg IVP Q4H PRN PRN Reason: Pain, moderate (4-7) Last Admin: 10/27/16 14:08 Dose: 2 mg Pantoprazole Sodium (Protonix Inj) 40 mg IVP DAILY [facility] Last Admin: 10/27/16 09:04 Dose: 40 mg - Labs Labs: 10/27/16 05:30 10/27/16 11:53 PT 13.0 Seconds (9.9-11.8) H 10/25/16 09:10 INR 1.20 (0.93-1.08) H 10/25/16 09:10 APTT 26.7 Seconds (23.7-30.8) 10/25/16 09:10 - Constitutional Appears: Non-toxic, No Acute Distress - Head Exam Head Exam: ATRAUMATIC, NORMOCEPHALIC - Eye Exam Eye Exam: EOMI. absent: Scleral icterus - ENT Exam Additional comments: OGT in place - Respiratory Exam Additional comments: intubated - GI/Abdominal Exam GI & Abdominal Exam: Soft. absent: Distended, Firm, Guarding, Rigid, Tenderness , Rebound - Extremities Exam Extremities Exam: Pedal Edema (trace). absent: Calf Tenderness - Neurological Exam Neurological Exam: Alert, Awake Assessment and Plan - Assessment and Plan (Free Text) Assessment: 51F s/p laparoscopic ventral hernia repair on 10/19/16 in ICU w. DKA, sepsis, and SBO -DKA management per ICU -c/w strict Is:Os -Rodríguez 700cc/12hr -OGT 500cc/12hr bilious -Keep OGT to low intermittent suction -AXR: no acute findings -serial abd exams -c/w abx per ID -wean off vent -will continue to follow closely -d/w attending Sushma PGY2 <Tee Reagan - Last Filed: 02/01/17 22:53> Objective - Vital Signs/Intake and Output Vital Signs (last 24 hours): Temp Pulse Resp BP Pulse Ox 97.7 F 93 H 17 116/60 93 L 11/01/16 06:00 11/01/16 08:15 11/01/16 06:00 11/01/16 08:15 11/01/16 06:00 - Labs Labs: 11/01/16 06:00 11/01/16 06:00 PT 13.0 Seconds (9.9-11.8) H 10/25/16 09:10 INR 1.20 (0.93-1.08) H 10/25/16 09:10 APTT 26.7 Seconds (23.7-30.8) 10/25/16 09:10 Assessment and Plan - Assessment and Plan (Free Text) Plan: Patient was seen and examined by me. I agree with assessment and plan as per resident's note.
--- NOTE | 2016-10-27 16:38 | CP.CCUPN ---
<Cindy Castañeda - Last Filed: 10/27/16 16:44> CCU Subjective - Physician Review Subjective (Free Text): 10/26/16 08:17 - No acute event overnight - gap at 15 at 11AM. Accuck Sugar 200s last 3 hours - OG output 1200 on insertion; 950cc overnight - intubated on propofol 35 - HR remains at 110/RR 50-> mid 40s 10/27/16 16:30 - No acute event overnight - RR 30s - bicarb in teens in AM CCU Objective - Vital Signs / Intake & Output Vital Signs (Last 4 hours): Vital Signs Temp 10/27/16 16:20 98.5 F Intake and Output (Last 8hrs): Intake & Output 10/27/16 10/27/16 10/27/16 06:59 14:59 22:59 Intake Total 3893.9 1045.1 6 Output Total 1200 Balance 2693.9 1045.1 6 Intake: IV 3593.9 1045.1 6 Right Hand 24 Right Subclavian 2400 Albumin 300 Output: Gastric Amount 500 Stomach 500 Urine 700 Urethral (Rodríguez) 700 Other: Voiding Method Indwelling Catheter - Physical Exam Head: Positive for: Atraumatic, Normocephalic Pupils: Positive for: Sluggish Mouth: Positive for: Moist Mucous Membranes Respiratory/Chest: Positive for: Respiratory Distress, Rales, Rhonchi Cardiovascular: Positive for: Tachycardic Abdomen: Positive for: Distention. Negative for: Normal Bowel Sounds ( hypoactive) Lower Extremity: Positive for: Edema Neurological: Positive for: Other (sedated) Skin: Positive for: Warm, Other (clammy) Psychiatric: Positive for: Other (sedated) - Medications Active Medications: Active Medications Generic Name Dose Route Start Last Admin Trade Name Freq PRN Reason Stop Dose Admin Heparin Sodium (Porcine) 5,000 units 10/27/16 10:00 10/27/16 09:07 Heparin SC 5,000 units Q12 JOSH Administration Protocol Propofol 100 mls @ 2.449 mls/hr 10/25/16 13:47 10/26/16 16:05 Diprivan IV 0 mcg/kg/min .Q24H PRN 0 mls/hr TITRATE PER MD ORDER Titration Protocol 5 MCG/KG/MIN Linezolid 300 mls @ 200 mls/hr 10/25/16 15:30 10/27/16 09:04 Zyvox 600mg/300ml D5w IVPB 11/01/16 15:31 200 mls/hr Q12 JOSH Administration Protocol Meropenem 1g/NS 100mL IVPB 100 mls @ 100 mls/hr 10/25/16 22:00 10/27/16 09:05 Meropenem 1g/Ns 100ml Ivpb IVPB 11/01/16 22:01 100 mls/hr Q12 JOSH Administration Protocol Acetaminophen 100 mls @ 400 mls/hr 10/26/16 00:49 10/26/16 01:06 Ofirmev IVPB 10/28/16 00:50 400 mls/hr Q6H PRN Administration Fever >100.4 F Dexmedetomidine HCl 400 mcg in 100 mls @ 5.216 mls/hr 10/26/16 15:36 15:45 Precedex 4 Mcg/Ml (100 Ml) IV 0.7 mcg/kg/hr .[id number] PRN 18.257 mls/hr Agitation Titration Protocol 0.2 MCG/KG/HR Potassium Chloride 20 meq/ 1,010 mls @ 200 mls/hr 10/26/16 19:29 10/27/16 11: 04 Sodium Chloride IV 200 mls/hr .Q5H3M JOSH Administration Insulin Human Lispro 0 units 10/27/16 16:30 Humalog High SC ACHS JOSH Protocol Metoprolol Tartrate 5 mg 10/26/16 11:15 10/27/16 11:21 Lopressor IVP 5 mg Q6H JOSH Administration Morphine Sulfate 4 mg 10/27/16 15:27 Morphine IM Q6H PRN Pain, severe (8-10) Morphine Sulfate 2 mg 10/27/16 15:29 Morphine IVP Q3H PRN Pain, moderate (4-7) Pantoprazole Sodium 40 mg 10/26/16 10:00 10/27/16 09:04 Protonix Inj IVP 40 mg DAILY JOSH Administration - Patient Studies Lab Studies: Microbiology Studies 10/26/16 03:25 Gram Stain - Final Trachasp Sputum Culture - Preliminary Gram Negative Jose Juan 10/25/16 13:45 MRSA Culture (Admit) - Final Nose MRSA NOT DETECTED Lab Studies 04/26/17 04/26/17 04/26/17 Range/Units 11:53 09:41 05:30 WBC (4.5-11.0) 10^3/ul RBC (3.5-6.1) 10^6/uL Hgb (12.0-16.0) gm/dL Hct (36.0-48.0) % MCV (80.0-105.0) fL MCH (25.0-35.0) pg MCHC (31.0-37.0) g/dl RDW (11.5-14.5) % Plt Count (120.0-450.0) 10^3/uL MPV (7.0-11.0) fl Neutrophils % (Manual) (50.0-70.0) % Band Neutrophils % (0-2) % Lymphocytes % (Manual) (22.0-35.0) % Monocytes % (Manual) (1.0-6.0) % Metamyelocytes % % Myelocytes % % Platelet Evaluation (NORMAL) pCO2 (35-45) mm/Hg pO2 (80-100) mm/Hg HCO3 (21-28) mmol/L ABG pH (7.35-7.45) ABG Total CO2 (22-28) mmol.L ABG O2 Saturation (95-98) % ABG O2 Content (15-23) ML/dl ABG Base Excess (-2.0-3.0) mmol/L ABG Hemoglobin (11.7-17.4) g/dL ABG Carboxyhemoglobin (0.5-1.5) % POC ABG HHb (Measured) (0-5) % ABG Methemoglobin (0.0-3.0) % ABG O2 Capacity (16-24) mL/dl Hgb O2 Saturation (95.0-98.0) % FiO2 % Sodium 139 139 (132-148) mmol/L Potassium 3.5 L 4.1 (3.6-5.0) mmol/L Chloride 111 H 113 H (98-107) mmol/L Carbon Dioxide 18 L 14 L (21-33) mmol/L Anion Gap 14 16 (10-20) BUN 28 H 29 H (7-21) mg/dL Creatinine 1.4 1.4 (0.5-1.4) mg/dL Est GFR ( Amer) 48 48 Est GFR (Non-Af Amer) 40 40 Random Glucose 176 H 161 H (70-110) mg/dL Hemoglobin A1c (4.2-6.5) % Calcium 7.6 L 6.6 L* (8.4-10.5) mg/dL Phosphorus (2.5-4.5) mg/dL Magnesium (1.7-2.2) mg/dL Triglycerides (35-160) mg/dL Cholesterol (130-200) mg/dL LDL Cholesterol Direct (0-129) mg/dL HDL Cholesterol (29-60) mg/dL TSH 3rd Generation 2.5 (0.46-4.68) MIU/ml Urine Osmolality (50-645) mosm/kg Ur Random Sodium meq/L Ur Random Potassium meq/L 10/27/16 10/27/16 10/27/16 Range/Units 05:30 05:30 05:30 WBC 13.5 H (4.5-11.0) 10^3/ul RBC 3.40 L (3.5-6.1) 10^6/uL Hgb 10.5 L (12.0-16.0) gm/dL Hct 30.9 L (36.0-48.0) % MCV 90.9 (80.0-105.0) fL MCH 30.9 (25.0-35.0) pg MCHC 34.0 (31.0-37.0) g/dl RDW 13.8 (11.5-14.5) % Plt Count 268 (120.0-450.0) 10^3/uL MPV 10.4 (7.0-11.0) fl Neutrophils % (Manual) 57 (50.0-70.0) % Band Neutrophils % 5 H (0-2) % Lymphocytes % (Manual) 26 (22.0-35.0) % Monocytes % (Manual) 7 H (1.0-6.0) % Metamyelocytes % 1 % Myelocytes % 4 % Platelet Evaluation Normal (NORMAL) pCO2 (35-45) mm/Hg pO2 (80-100) mm/Hg HCO3 (21-28) mmol/L ABG pH (7.35-7.45) ABG Total CO2 (22-28) mmol.L ABG O2 Saturation (95-98) % ABG O2 Content (15-23) ML/dl ABG Base Excess (-2.0-3.0) mmol/L ABG Hemoglobin (11.7-17.4) g/dL ABG Carboxyhemoglobin (0.5-1.5) % POC ABG HHb (Measured) (0-5) % ABG Methemoglobin (0.0-3.0) % ABG O2 Capacity (16-24) mL/dl Hgb O2 Saturation (95.0-98.0) % FiO2 % Sodium 138 (132-148) mmol/L Potassium 4.0 (3.6-5.0) mmol/L Chloride 112 H (98-107) mmol/L Carbon Dioxide 15 L (21-33) mmol/L Anion Gap 15 (10-20) BUN 31 H (7-21) mg/dL Creatinine 1.6 H (0.5-1.4) mg/dL Est GFR ( Amer) 41 Est GFR (Non-Af Amer) 34 Random Glucose 146 H (70-110) mg/dL Hemoglobin A1c 7.5 H (4.2-6.5) % Calcium 6.7 L* (8.4-10.5) mg/dL Phosphorus 2.2 L (2.5-4.5) mg/dL Magnesium 1.5 L (1.7-2.2) mg/dL Triglycerides 483 H (35-160) mg/dL Cholesterol 133 (130-200) mg/dL LDL Cholesterol Direct 19 (0-129) mg/dL HDL Cholesterol 17 L (29-60) mg/dL TSH 3rd Generation (0.46-4.68) MIU/ml Urine Osmolality (50-645) mosm/kg Ur Random Sodium meq/L Ur Random Potassium meq/L 10/27/16 10/27/16 10/26/16 Range/Units 05:00 00:30 22:14 WBC (4.5-11.0) 10^3/ul RBC (3.5-6.1) 10^6/uL Hgb (12.0-16.0) gm/dL Hct (36.0-48.0) % MCV (80.0-105.0) fL MCH (25.0-35.0) pg MCHC (31.0-37.0) g/dl RDW (11.5-14.5) % Plt Count (120.0-450.0) 10^3/uL MPV (7.0-11.0) fl Neutrophils % (Manual) (50.0-70.0) % Band Neutrophils % (0-2) % Lymphocytes % (Manual) (22.0-35.0) % Monocytes % (Manual) (1.0-6.0) % Metamyelocytes % % Myelocytes % % Platelet Evaluation (NORMAL) pCO2 21 L (35-45) mm/Hg pO2 114.0 H (80-100) mm/Hg HCO3 12.1 L (21-28) mmol/L ABG pH 7.37 (7.35-7.45) ABG Total CO2 12.7 L (22-28) mmol.L ABG O2 Saturation 97.9 (95-98) % ABG O2 Content 13.9 L (15-23) ML/dl ABG Base Excess -11.5 L (-2.0-3.0) mmol/L ABG Hemoglobin 10.1 L (11.7-17.4) g/dL ABG Carboxyhemoglobin 0.7 (0.5-1.5) % POC ABG HHb (Measured) 2.1 (0-5) % ABG Methemoglobin 0.7 (0.0-3.0) % ABG O2 Capacity 14.2 L (16-24) mL/dl Hgb O2 Saturation 96.5 (95.0-98.0) % FiO2 40.0 % Sodium 135 (132-148) mmol/L Potassium 3.6 (3.6-5.0) mmol/L Chloride 107 (98-107) mmol/L Carbon Dioxide 17 L (21-33) mmol/L Anion Gap 15 (10-20) BUN 33 H (7-21) mg/dL Creatinine 1.7 H (0.5-1.4) mg/dL Est GFR ( Amer) 38 Est GFR (Non-Af Amer) 32 Random Glucose 209 H (70-110) mg/dL Hemoglobin A1c (4.2-6.5) % Calcium 6.9 L* (8.4-10.5) mg/dL Phosphorus (2.5-4.5) mg/dL Magnesium (1.7-2.2) mg/dL Triglycerides (35-160) mg/dL Cholesterol (130-200) mg/dL LDL Cholesterol Direct (0-129) mg/dL HDL Cholesterol (29-60) mg/dL TSH 3rd Generation (0.46-4.68) MIU/ml Urine Osmolality 544 (50-645) mosm/kg Ur Random Sodium 58 meq/L Ur Random Potassium 30.8 meq/L 10/26/16 10/26/16 Range/Units 21:54 18:00 WBC (4.5-11.0) 10^3/ul RBC (3.5-6.1) 10^6/uL Hgb (12.0-16.0) gm/dL Hct (36.0-48.0) % MCV (80.0-105.0) fL MCH (25.0-35.0) pg MCHC (31.0-37.0) g/dl RDW (11.5-14.5) % Plt Count (120.0-450.0) 10^3/uL MPV (7.0-11.0) fl Neutrophils % (Manual) (50.0-70.0) % Band Neutrophils % (0-2) % Lymphocytes % (Manual) (22.0-35.0) % Monocytes % (Manual) (1.0-6.0) % Metamyelocytes % % Myelocytes % % Platelet Evaluation (NORMAL) pCO2 (35-45) mm/Hg pO2 (80-100) mm/Hg HCO3 (21-28) mmol/L ABG pH (7.35-7.45) ABG Total CO2 (22-28) mmol.L ABG O2 Saturation (95-98) % ABG O2 Content (15-23) ML/dl ABG Base Excess (-2.0-3.0) mmol/L ABG Hemoglobin (11.7-17.4) g/dL ABG Carboxyhemoglobin (0.5-1.5) % POC ABG HHb (Measured) (0-5) % ABG Methemoglobin (0.0-3.0) % ABG O2 Capacity (16-24) mL/dl Hgb O2 Saturation (95.0-98.0) % FiO2 % Sodium 135 134 (132-148) mmol/L Potassium 3.5 L 3.1 L (3.6-5.0) mmol/L Chloride 107 105 (98-107) mmol/L Carbon Dioxide 16 L 16 L (21-33) mmol/L Anion Gap 16 16 (10-20) BUN 36 H 38 H (7-21) mg/dL Creatinine 1.8 H 2.0 H (0.5-1.4) mg/dL Est GFR ( Amer) 36 32 Est GFR (Non-Af Amer) 30 26 Random Glucose 177 H 208 H (70-110) mg/dL Hemoglobin A1c (4.2-6.5) % Calcium 7.0 L 7.1 L (8.4-10.5) mg/dL Phosphorus (2.5-4.5) mg/dL Magnesium (1.7-2.2) mg/dL Triglycerides (35-160) mg/dL Cholesterol (130-200) mg/dL LDL Cholesterol Direct (0-129) mg/dL HDL Cholesterol (29-60) mg/dL TSH 3rd Generation (0.46-4.68) MIU/ml Urine Osmolality (50-645) mosm/kg Ur Random Sodium meq/L Ur Random Potassium meq/L Laboratory Results - last 24 hr 10/26/16 10/26/16 10/26/16 18:00 21:54 22:14 WBC RBC Hgb Hct MCV MCH MCHC RDW Plt Count MPV Neutrophils % (Manual) Band Neutrophils % Lymphocytes % (Manual) Monocytes % (Manual) Metamyelocytes % Myelocytes % Platelet Evaluation pCO2 pO2 HCO3 ABG pH ABG Total CO2 ABG O2 Saturation ABG O2 Content ABG Base Excess ABG Hemoglobin ABG Carboxyhemoglobin POC ABG HHb (Measured) ABG Methemoglobin ABG O2 Capacity Hgb O2 Saturation FiO2 Sodium 134 135 Potassium 3.1 L 3.5 L Chloride 105 107 Carbon Dioxide 16 L 16 L Anion Gap 16 16 BUN 38 H 36 H Creatinine 2.0 H 1.8 H Est GFR ( Amer) 32 36 Est GFR (Non-Af Amer) 26 30 Random Glucose 208 H 177 H Hemoglobin A1c Calcium 7.1 L 7.0 L Phosphorus Magnesium Triglycerides Cholesterol LDL Cholesterol Direct HDL Cholesterol TSH 3rd Generation Urine Osmolality 544 Ur Random Sodium 58 Ur Random Potassium 30.8 10/27/16 10/27/16 10/27/16 00:30 05:00 05:30 WBC 13.5 H RBC 3.40 L Hgb 10.5 L Hct 30.9 L MCV 90.9 MCH 30.9 MCHC 34.0 RDW 13.8 Plt Count 268 MPV 10.4 Neutrophils % (Manual) 57 Band Neutrophils % 5 H Lymphocytes % (Manual) 26 Monocytes % (Manual) 7 H Metamyelocytes % 1 Myelocytes % 4 Platelet Evaluation Normal pCO2 21 L pO2 114.0 H HCO3 12.1 L ABG pH 7.37 ABG Total CO2 12.7 L ABG O2 Saturation 97.9 ABG O2 Content 13.9 L ABG Base Excess -11.5 L ABG Hemoglobin 10.1 L ABG Carboxyhemoglobin 0.7 POC ABG HHb (Measured) 2.1 ABG Methemoglobin 0.7 ABG O2 Capacity 14.2 L Hgb O2 Saturation 96.5 FiO2 40.0 Sodium 135 Potassium 3.6 Chloride 107 Carbon Dioxide 17 L Anion Gap 15 BUN 33 H Creatinine 1.7 H Est GFR ( Amer) 38 Est GFR (Non-Af Amer) 32 Random Glucose 209 H Hemoglobin A1c Calcium 6.9 L* Phosphorus Magnesium Triglycerides Cholesterol LDL Cholesterol Direct HDL Cholesterol TSH 3rd Generation Urine Osmolality Ur Random Sodium Ur Random Potassium 10/27/16 10/27/16 10/27/16 05:30 05:30 05:30 WBC RBC Hgb Hct MCV MCH MCHC RDW Plt Count MPV Neutrophils % (Manual) Band Neutrophils % Lymphocytes % (Manual) Monocytes % (Manual) Metamyelocytes % Myelocytes % Platelet Evaluation pCO2 pO2 HCO3 ABG pH ABG Total CO2 ABG O2 Saturation ABG O2 Content ABG Base Excess ABG Hemoglobin ABG Carboxyhemoglobin POC ABG HHb (Measured) ABG Methemoglobin ABG O2 Capacity Hgb O2 Saturation FiO2 Sodium 138 Potassium 4.0 Chloride 112 H Carbon Dioxide 15 L Anion Gap 15 BUN 31 H Creatinine 1.6 H Est GFR ( Amer) 41 Est GFR (Non-Af Amer) 34 Random Glucose 146 H Hemoglobin A1c 7.5 H Calcium 6.7 L* Phosphorus 2.2 L Magnesium 1.5 L Triglycerides 483 H Cholesterol 133 LDL Cholesterol Direct 19 HDL Cholesterol 17 L TSH 3rd Generation 2.5 Urine Osmolality Ur Random Sodium Ur Random Potassium 10/27/16 10/27/16 09:41 11:53 WBC RBC Hgb Hct MCV MCH MCHC RDW Plt Count MPV Neutrophils % (Manual) Band Neutrophils % Lymphocytes % (Manual) Monocytes % (Manual) Metamyelocytes % Myelocytes % Platelet Evaluation pCO2 pO2 HCO3 ABG pH ABG Total CO2 ABG O2 Saturation ABG O2 Content ABG Base Excess ABG Hemoglobin ABG Carboxyhemoglobin POC ABG HHb (Measured) ABG Methemoglobin ABG O2 Capacity Hgb O2 Saturation FiO2 Sodium 139 139 Potassium 4.1 3.5 L Chloride 113 H 111 H Carbon Dioxide 14 L 18 L Anion Gap 16 14 BUN 29 H 28 H Creatinine 1.4 1.4 Est GFR ( Amer) 48 48 Est GFR (Non-Af Amer) 40 40 Random Glucose 161 H 176 H Hemoglobin A1c Calcium 6.6 L* 7.6 L Phosphorus Magnesium Triglycerides Cholesterol LDL Cholesterol Direct HDL Cholesterol TSH 3rd Generation Urine Osmolality Ur Random Sodium Ur Random Potassium Fingerstick Blood Sugar Results: 150 Assessment/Plan - Assessment and Plan (Free Text) Plan: 51 F, POD #8 lap ventral hernia repair, with PMHx colon ca, s/p colectomy reversal, Hx seizure, non-iddm, [id number], Hx Asthma/COPD, admitted to ICU for decompensating respiration intubation. Pt has a small bowel obstruction and b/l lower lobe pneuminia, sepsis, severe high anion gap metabolic acidosis due to DKA and severe lactic acidosis. Neuro - Sedated on precedex - seizure prophylaxis - Pt indicated pain over abdomen and dorsum of R hand. Morphin PRN Cardio - sinus 110-120s - Hx CAD Pulm - PRVC - Still has increase RR, and increase work of breathing - b/l lower lobe PNA GI - When pt respiratory status more stable, while she is on OG, will conduct barium contrast study to check point of transition - No BM Renal - severe metabolic acidosis, given 2 amps bicarb - MEHRAN on CKD, improving, not oliguric Endo - Gap closed. Levemir 40 x 1. ISSS-high - accucheck achs - hold metformin/glipton - repleted Ca, Mg, Phos - recheck lab in PM Heme - s/p octagam 30g x 1 Extremities - RUE swollen. Doppler negative for clot - Likely from slow lymphatic s/p rotator cuff surgery and R port-a-cath ID - 100.5 last night - Meropenem and Linezolid Prophylaxis - Heparin SC bid and protonix daily S/R/D/w Dr. Courtney Coy - Date & Time Date: 10/27/16 Time: 16:32 <Anneliese SKINNER,Inaarie H - Last Filed: 10/27/16 17:31> CCU Objective - Vital Signs / Intake & Output Vital Signs (Last 4 hours): Vital Signs Temp 10/27/16 16:20 98.5 F Intake and Output (Last 8hrs): Intake & Output 10/27/16 10/27/16 10/27/16 06:59 14:59 22:59 Intake Total 3893.9 1045.1 1110 Output Total 1200 Balance 2693.9 1045.1 1110 Intake: IV 3593.9 1045.1 1110 Right Hand 24 Right Subclavian 2400 Albumin 300 Output: Gastric Amount 500 Stomach 500 Urine 700 Urethral (Rodríguez) 700 Other: Voiding Method Indwelling Catheter - Medications Active Medications: Active Medications Generic Name Dose Route Start Last Admin Trade Name Freq PRN Reason Stop Dose Admin Heparin Sodium (Porcine) 5,000 units 10/27/16 10:00 10/27/16 09:07 Heparin SC 5,000 units Q12 JOSH Administration Protocol Propofol 100 mls @ 2.449 mls/hr 10/25/16 13:47 10/26/16 16:05 Diprivan IV 0 mcg/kg/min .Q24H PRN 0 mls/hr TITRATE PER MD ORDER Titration Protocol 5 MCG/KG/MIN Linezolid 300 mls @ 200 mls/hr 10/25/16 15:30 10/27/16 09:04 Zyvox 600mg/300ml D5w IVPB 11/01/16 15:31 200 mls/hr Q12 JOSH Administration Protocol Meropenem 1g/NS 100mL IVPB 100 mls @ 100 mls/hr 10/25/16 22:00 10/27/16 09:05 Meropenem 1g/Ns 100ml Ivpb IVPB 11/01/16 22:01 100 mls/hr Q12 JOSH Administration Protocol Acetaminophen 100 mls @ 400 mls/hr 10/26/16 00:49 10/26/16 01:06 Ofirmev IVPB 10/28/16 00:50 400 mls/hr Q6H PRN Administration Fever >100.4 F Dexmedetomidine HCl 400 mcg in 100 mls @ 5.216 mls/hr 10/26/16 15:36 16:51 Precedex 4 Mcg/Ml (100 Ml) IV 0.7 mcg/kg/hr .[id number] PRN 18.257 mls/hr Agitation Administration Protocol 0.2 MCG/KG/HR Potassium Chloride 20 meq/ 1,010 mls @ 200 mls/hr 10/26/16 19:29 10/27/16 16: 50 Sodium Chloride IV 200 mls/hr .Q5H3M JOSH Administration Insulin Human Lispro 0 units 10/27/16 16:30 Humalog High SC ACHS JOSH Protocol Metoprolol Tartrate 5 mg 10/26/16 11:15 10/27/16 11:21 Lopressor IVP 5 mg Q6H JOSH Administration Morphine Sulfate 4 mg 10/27/16 15:27 Morphine IM Q6H PRN Pain, severe (8-10) Morphine Sulfate 2 mg 10/27/16 15:29 Morphine IVP Q3H PRN Pain, moderate (4-7) Pantoprazole Sodium 40 mg 10/26/16 10:00 10/27/16 09:04 Protonix Inj IVP 40 mg DAILY JOSH Administration - Patient Studies Lab Studies: Microbiology Studies 10/26/16 03:25 Gram Stain - Final Trachasp Sputum Culture - Preliminary Gram Negative Jose Juan 10/25/16 13:45 MRSA Culture (Admit) - Final Nose MRSA NOT DETECTED Lab Studies 10/27/16 10/27/16 10/27/16 Range/Units 11:53 09:41 05:30 WBC (4.5-11.0) 10^3/ul RBC (3.5-6.1) 10^6/uL Hgb (12.0-16.0) gm/dL Hct (36.0-48.0) % MCV (80.0-105.0) fL MCH (25.0-35.0) pg MCHC (31.0-37.0) g/dl RDW (11.5-14.5) % Plt Count (120.0-450.0) 10^3/uL MPV (7.0-11.0) fl Neutrophils % (Manual) (50.0-70.0) % Band Neutrophils % (0-2) % Lymphocytes % (Manual) (22.0-35.0) % Monocytes % (Manual) (1.0-6.0) % Metamyelocytes % % Myelocytes % % Platelet Evaluation (NORMAL) pCO2 (35-45) mm/Hg pO2 (80-100) mm/Hg HCO3 (21-28) mmol/L ABG pH (7.35-7.45) ABG Total CO2 (22-28) mmol.L ABG O2 Saturation (95-98) % ABG O2 Content (15-23) ML/dl ABG Base Excess (-2.0-3.0) mmol/L ABG Hemoglobin (11.7-17.4) g/dL ABG Carboxyhemoglobin (0.5-1.5) % POC ABG HHb (Measured) (0-5) % ABG Methemoglobin (0.0-3.0) % ABG O2 Capacity (16-24) mL/dl Hgb O2 Saturation (95.0-98.0) % FiO2 % Sodium 139 139 (132-148) mmol/L Potassium 3.5 L 4.1 (3.6-5.0) mmol/L Chloride 111 H 113 H (98-107) mmol/L Carbon Dioxide 18 L 14 L (21-33) mmol/L Anion Gap 14 16 (10-20) BUN 28 H 29 H (7-21) mg/dL Creatinine 1.4 1.4 (0.5-1.4) mg/dL Est GFR ( Amer) 48 48 Est GFR (Non-Af Amer) 40 40 Random Glucose 176 H 161 H (70-110) mg/dL Hemoglobin A1c (4.2-6.5) % Calcium 7.6 L 6.6 L* (8.4-10.5) mg/dL Phosphorus (2.5-4.5) mg/dL Magnesium (1.7-2.2) mg/dL Triglycerides (35-160) mg/dL Cholesterol (130-200) mg/dL LDL Cholesterol Direct (0-129) mg/dL HDL Cholesterol (29-60) mg/dL TSH 3rd Generation 2.5 (0.46-4.68) MIU/ml Urine Osmolality (50-645) mosm/kg Ur Random Sodium meq/L Ur Random Potassium meq/L 10/27/16 10/27/16 10/27/16 Range/Units 05:30 05:30 05:30 WBC 13.5 H (4.5-11.0) 10^3/ul RBC 3.40 L (3.5-6.1) 10^6/uL Hgb 10.5 L (12.0-16.0) gm/dL Hct 30.9 L (36.0-48.0) % MCV 90.9 (80.0-105.0) fL MCH 30.9 (25.0-35.0) pg MCHC 34.0 (31.0-37.0) g/dl RDW 13.8 (11.5-14.5) % Plt Count 268 (120.0-450.0) 10^3/uL MPV 10.4 (7.0-11.0) fl Neutrophils % (Manual) 57 (50.0-70.0) % Band Neutrophils % 5 H (0-2) % Lymphocytes % (Manual) 26 (22.0-35.0) % Monocytes % (Manual) 7 H (1.0-6.0) % Metamyelocytes % 1 % Myelocytes % 4 % Platelet Evaluation Normal (NORMAL) pCO2 (35-45) mm/Hg pO2 (80-100) mm/Hg HCO3 (21-28) mmol/L ABG pH (7.35-7.45) ABG Total CO2 (22-28) mmol.L ABG O2 Saturation (95-98) % ABG O2 Content (15-23) ML/dl ABG Base Excess (-2.0-3.0) mmol/L ABG Hemoglobin (11.7-17.4) g/dL ABG Carboxyhemoglobin (0.5-1.5) % POC ABG HHb (Measured) (0-5) % ABG Methemoglobin (0.0-3.0) % ABG O2 Capacity (16-24) mL/dl Hgb O2 Saturation (95.0-98.0) % FiO2 % Sodium 138 (132-148) mmol/L Potassium 4.0 (3.6-5.0) mmol/L Chloride 112 H (98-107) mmol/L Carbon Dioxide 15 L (21-33) mmol/L Anion Gap 15 (10-20) BUN 31 H (7-21) mg/dL Creatinine 1.6 H (0.5-1.4) mg/dL Est GFR ( Amer) 41 Est GFR (Non-Af Amer) 34 Random Glucose 146 H (70-110) mg/dL Hemoglobin A1c 7.5 H (4.2-6.5) % Calcium 6.7 L* (8.4-10.5) mg/dL Phosphorus 2.2 L (2.5-4.5) mg/dL Magnesium 1.5 L (1.7-2.2) mg/dL Triglycerides 483 H (35-160) mg/dL Cholesterol 133 (130-200) mg/dL LDL Cholesterol Direct 19 (0-129) mg/dL HDL Cholesterol 17 L (29-60) mg/dL TSH 3rd Generation (0.46-4.68) MIU/ml Urine Osmolality (50-645) mosm/kg Ur Random Sodium meq/L Ur Random Potassium meq/L 10/27/16 10/27/16 10/26/16 Range/Units 05:00 00:30 22:14 WBC (4.5-11.0) 10^3/ul RBC (3.5-6.1) 10^6/uL Hgb (12.0-16.0) gm/dL Hct (36.0-48.0) % MCV (80.0-105.0) fL MCH (25.0-35.0) pg MCHC (31.0-37.0) g/dl RDW (11.5-14.5) % Plt Count (120.0-450.0) 10^3/uL MPV (7.0-11.0) fl Neutrophils % (Manual) (50.0-70.0) % Band Neutrophils % (0-2) % Lymphocytes % (Manual) (22.0-35.0) % Monocytes % (Manual) (1.0-6.0) % Metamyelocytes % % Myelocytes % % Platelet Evaluation (NORMAL) pCO2 21 L (35-45) mm/Hg pO2 114.0 H (80-100) mm/Hg HCO3 12.1 L (21-28) mmol/L ABG pH 7.37 (7.35-7.45) ABG Total CO2 12.7 L (22-28) mmol.L ABG O2 Saturation 97.9 (95-98) % ABG O2 Content 13.9 L (15-23) ML/dl ABG Base Excess -11.5 L (-2.0-3.0) mmol/L ABG Hemoglobin 10.1 L (11.7-17.4) g/dL ABG Carboxyhemoglobin 0.7 (0.5-1.5) % POC ABG HHb (Measured) 2.1 (0-5) % ABG Methemoglobin 0.7 (0.0-3.0) % ABG O2 Capacity 14.2 L (16-24) mL/dl Hgb O2 Saturation 96.5 (95.0-98.0) % FiO2 40.0 % Sodium 135 (132-148) mmol/L Potassium 3.6 (3.6-5.0) mmol/L Chloride 107 (98-107) mmol/L Carbon Dioxide 17 L (21-33) mmol/L Anion Gap 15 (10-20) BUN 33 H (7-21) mg/dL Creatinine 1.7 H (0.5-1.4) mg/dL Est GFR ( Amer) 38 Est GFR (Non-Af Amer) 32 Random Glucose 209 H (70-110) mg/dL Hemoglobin A1c (4.2-6.5) % Calcium 6.9 L* (8.4-10.5) mg/dL Phosphorus (2.5-4.5) mg/dL Magnesium (1.7-2.2) mg/dL Triglycerides (35-160) mg/dL Cholesterol (130-200) mg/dL LDL Cholesterol Direct (0-129) mg/dL HDL Cholesterol (29-60) mg/dL TSH 3rd Generation (0.46-4.68) MIU/ml Urine Osmolality 544 (50-645) mosm/kg Ur Random Sodium 58 meq/L Ur Random Potassium 30.8 meq/L 10/26/16 10/26/16 Range/Units 21:54 18:00 WBC (4.5-11.0) 10^3/ul RBC (3.5-6.1) 10^6/uL Hgb (12.0-16.0) gm/dL Hct (36.0-48.0) % MCV (80.0-105.0) fL MCH (25.0-35.0) pg MCHC (31.0-37.0) g/dl RDW (11.5-14.5) % Plt Count (120.0-450.0) 10^3/uL MPV (7.0-11.0) fl Neutrophils % (Manual) (50.0-70.0) % Band Neutrophils % (0-2) % Lymphocytes % (Manual) (22.0-35.0) % Monocytes % (Manual) (1.0-6.0) % Metamyelocytes % % Myelocytes % % Platelet Evaluation (NORMAL) pCO2 (35-45) mm/Hg pO2 (80-100) mm/Hg HCO3 (21-28) mmol/L ABG pH (7.35-7.45) ABG Total CO2 (22-28) mmol.L ABG O2 Saturation (95-98) % ABG O2 Content (15-23) ML/dl ABG Base Excess (-2.0-3.0) mmol/L ABG Hemoglobin (11.7-17.4) g/dL ABG Carboxyhemoglobin (0.5-1.5) % POC ABG HHb (Measured) (0-5) % ABG Methemoglobin (0.0-3.0) % ABG O2 Capacity (16-24) mL/dl Hgb O2 Saturation (95.0-98.0) % FiO2 % Sodium 135 134 (132-148) mmol/L Potassium 3.5 L 3.1 L (3.6-5.0) mmol/L Chloride 107 105 (98-107) mmol/L Carbon Dioxide 16 L 16 L (21-33) mmol/L Anion Gap 16 16 (10-20) BUN 36 H 38 H (7-21) mg/dL Creatinine 1.8 H 2.0 H (0.5-1.4) mg/dL Est GFR ( Amer) 36 32 Est GFR (Non-Af Amer) 30 26 Random Glucose 177 H 208 H (70-110) mg/dL Hemoglobin A1c (4.2-6.5) % Calcium 7.0 L 7.1 L (8.4-10.5) mg/dL Phosphorus (2.5-4.5) mg/dL Magnesium (1.7-2.2) mg/dL Triglycerides (35-160) mg/dL Cholesterol (130-200) mg/dL LDL Cholesterol Direct (0-129) mg/dL HDL Cholesterol (29-60) mg/dL TSH 3rd Generation (0.46-4.68) MIU/ml Urine Osmolality (50-645) mosm/kg Ur Random Sodium meq/L Ur Random Potassium meq/L Laboratory Results - last 24 hr 10/26/16 10/26/16 10/26/16 18:00 21:54 22:14 WBC RBC Hgb Hct MCV MCH MCHC RDW Plt Count MPV Neutrophils % (Manual) Band Neutrophils % Lymphocytes % (Manual) Monocytes % (Manual) Metamyelocytes % Myelocytes % Platelet Evaluation pCO2 pO2 HCO3 ABG pH ABG Total CO2 ABG O2 Saturation ABG O2 Content ABG Base Excess ABG Hemoglobin ABG Carboxyhemoglobin POC ABG HHb (Measured) ABG Methemoglobin ABG O2 Capacity Hgb O2 Saturation FiO2 Sodium 134 135 Potassium 3.1 L 3.5 L Chloride 105 107 Carbon Dioxide 16 L 16 L Anion Gap 16 16 BUN 38 H 36 H Creatinine 2.0 H 1.8 H Est GFR ( Amer) 32 36 Est GFR (Non-Af Amer) 26 30 Random Glucose 208 H 177 H Hemoglobin A1c Calcium 7.1 L 7.0 L Phosphorus Magnesium Triglycerides Cholesterol LDL Cholesterol Direct HDL Cholesterol TSH 3rd Generation Urine Osmolality 544 Ur Random Sodium 58 Ur Random Potassium 30.8 10/27/16 10/27/16 10/27/16 00:30 05:00 05:30 WBC 13.5 H RBC 3.40 L Hgb 10.5 L Hct 30.9 L MCV 90.9 MCH 30.9 MCHC 34.0 RDW 13.8 Plt Count 268 MPV 10.4 Neutrophils % (Manual) 57 Band Neutrophils % 5 H Lymphocytes % (Manual) 26 Monocytes % (Manual) 7 H Metamyelocytes % 1 Myelocytes % 4 Platelet Evaluation Normal pCO2 21 L pO2 114.0 H HCO3 12.1 L ABG pH 7.37 ABG Total CO2 12.7 L ABG O2 Saturation 97.9 ABG O2 Content 13.9 L ABG Base Excess -11.5 L ABG Hemoglobin 10.1 L ABG Carboxyhemoglobin 0.7 POC ABG HHb (Measured) 2.1 ABG Methemoglobin 0.7 ABG O2 Capacity 14.2 L Hgb O2 Saturation 96.5 FiO2 40.0 Sodium 135 Potassium 3.6 Chloride 107 Carbon Dioxide 17 L Anion Gap 15 BUN 33 H Creatinine 1.7 H Est GFR ( Amer) 38 Est GFR (Non-Af Amer) 32 Random Glucose 209 H Hemoglobin A1c Calcium 6.9 L* Phosphorus Magnesium Triglycerides Cholesterol LDL Cholesterol Direct HDL Cholesterol TSH 3rd Generation Urine Osmolality Ur Random Sodium Ur Random Potassium 10/27/16 10/27/16 10/27/16 05:30 05:30 05:30 WBC RBC Hgb Hct MCV MCH MCHC RDW Plt Count MPV Neutrophils % (Manual) Band Neutrophils % Lymphocytes % (Manual) Monocytes % (Manual) Metamyelocytes % Myelocytes % Platelet Evaluation pCO2 pO2 HCO3 ABG pH ABG Total CO2 ABG O2 Saturation ABG O2 Content ABG Base Excess ABG Hemoglobin ABG Carboxyhemoglobin POC ABG HHb (Measured) ABG Methemoglobin ABG O2 Capacity Hgb O2 Saturation FiO2 Sodium 138 Potassium 4.0 Chloride 112 H Carbon Dioxide 15 L Anion Gap 15 BUN 31 H Creatinine 1.6 H Est GFR ( Amer) 41 Est GFR (Non-Af Amer) 34 Random Glucose 146 H Hemoglobin A1c 7.5 H Calcium 6.7 L* Phosphorus 2.2 L Magnesium 1.5 L Triglycerides 483 H Cholesterol 133 LDL Cholesterol Direct 19 HDL Cholesterol 17 L TSH 3rd Generation 2.5 Urine Osmolality Ur Random Sodium Ur Random Potassium 10/27/16 10/27/16 09:41 11:53 WBC RBC Hgb Hct MCV MCH MCHC RDW Plt Count MPV Neutrophils % (Manual) Band Neutrophils % Lymphocytes % (Manual) Monocytes % (Manual) Metamyelocytes % Myelocytes % Platelet Evaluation pCO2 pO2 HCO3 ABG pH ABG Total CO2 ABG O2 Saturation ABG O2 Content ABG Base Excess ABG Hemoglobin ABG Carboxyhemoglobin POC ABG HHb (Measured) ABG Methemoglobin ABG O2 Capacity Hgb O2 Saturation FiO2 Sodium 139 139 Potassium 4.1 3.5 L Chloride 113 H 111 H Carbon Dioxide 14 L 18 L Anion Gap 16 14 BUN 29 H 28 H Creatinine 1.4 1.4 Est GFR ( Amer) 48 48 Est GFR (Non-Af Amer) 40 40 Random Glucose 161 H 176 H Hemoglobin A1c Calcium 6.6 L* 7.6 L Phosphorus Magnesium Triglycerides Cholesterol LDL Cholesterol Direct HDL Cholesterol TSH 3rd Generation Urine Osmolality Ur Random Sodium Ur Random Potassium Attending/Attestation - Attestation I have personally seen and examined this patient.: Yes I have fully participated in the care of the patient.: Yes I have reviewed all pertinent clinical information: Yes Notes (Text): 10/27/16 17:29 51 y/o F S/P hernia repair DKA Mehran on CKD Intubated due to failure of compensation of acute met acidosis Bicarb x 2 amp given today urine output trended > 40cc/ hr Intubated on [place]S [place] today , rr>35 Mental status improved. On empiric abx w/o source or bacteria . high output NGT return. Need surgical follow up or G.I to do EGD dvt p Heparin sq tid PPI cc time 65 min
--- NOTE | 2016-10-27 16:42 | US ---
PROCEDURE: Right upper extremity venous US CLINICAL HISTORY: Arm pain and swelling Evaluate for deep venous thrombosis. PHYSICIAN(S): Abel Schneider M.D FINDINGS: The visualized rightinternal jugular vein is sonographically normal and compressible. No evidence of obstruction or thrombus is seen. The visualized segments of the right subclavian vein are patent with normal waveforms. No sonographic evidence of obstruction or thrombosis is seen. The visualized deep venous system of the proximal right upper extremity is sonographically normal and compressible. IMPRESSION: 1. No sonographic evidence for deep venous thrombosis in the visualized segments of the right upper extremity.
[2016-10-27 17:35] LABS: ALB/GLOB RATIO 0.8 (1.1-1.8); BILIRUBIN,TOTAL 0.2 mg/dL (0.2-1.3); CALCIUM 7.5 mg/dL (8.4-10.5); MAGNESIUM 1.5 mg/dL (1.7-2.2); PHOSPHOROUS 2.1 mg/dL (2.5-4.5); POTASSIUM 3.7 mmol/L (3.6-5.0); TOTAL PROTEIN 5.8 g/dL (5.8-8.3)
[2016-10-27] MEDS: Insulin Lispro (HUMAlog) HIGH Coverage SC SCH ×2 (17:37→21:36)
[2016-10-27] MEDS ORDERED: Potassium Phosphate 15 MMOLE in Sodium Chloride 0.9% 250 ML IVPB ONE (17:48)
[2016-10-27] MEDS ORDERED: Magnesium Sulfate 2 GM in Sodium Chloride 0.9% 100 ML IVPB ONE (17:49)
--- NOTE | 2016-10-27 18:45 | PN ---
DATE: 10/27/2016 REASON FOR CONSULTATION: Cardiac evaluation, status post respiratory failure, intubated, history of coronary artery disease, stent in the past, admitted with diabetic ketoacidosis, lactic acidosis and respiratory failure. BRIEF CLINICAL HISTORY: A 51-year-old morbidly obese female with past medical history significant fo r coronary artery disease, status post a stent in 2008, repeat cardiac catheterization 01/24/2014, pat ent stent in the distal LAD, mildly preserved left ventricular function, history of gammaglobulin ins ufficiency, on maintenance gammaglobulin, admitted after ventral hernia repair with DKA, lactic acido sis, still being intubated. The patient is on the vent. PHYSICAL EXAMINATION: VITAL SIGNS: Temperature afebrile, heart rate 77, blood pressure 116/61. HEENT: PERRLA. Extraocular muscles intact. NECK: Supple. No carotid bruits. No thyromegaly. CHEST: Clear to auscultation. HEART: S1, S2 regular. ABDOMEN: Soft. EXTREMITIES: Clubbing and cyanosis negative. LABORATORY DATA: Blood workup as follows: WBC 13.5, hemoglobin 10.5, hematocrit 30.9, platelet coun t 268. Chemistry shows sodium 140, potassium 3.0, chloride 113, carbon dioxide 20, anion gap of 13, BUN 26, creatinine 1.3, magnesium 1.5. IMPRESSION: Multiple electrolyte imbalance, lactic acidosis, diabetic ketoacidosis, coronary artery disease, status post a stent in 2008, status post repeat catheterization on 01/24/2014, patent stent, status post respiratory failure, intubated, multiple electrolyte abnormalities, diabetic ketoacidosis . RECOMMENDATION: Follow up the echo. Continue aggressive treatment for COPD. So far, no evidence of acute myocardial infarction. Troponin remains negative. We will follow with you. Thank you, Dr. Torres, for providing the opportunity in taking care of this patient. Shasta Guillen MD cc: [id number] TT: 10/27/2016 18:44:22 Confirmation # [id number] Dictation # [id number] kyle
[2016-10-27] MEDS: Morphine 4 mg/ml ISec IM PRN (19:23)
--- NOTE | 2016-10-27 19:55 | CARD ---
APPROVED REPORT EXAM: Two-dimensional and M-mode echocardiogram with Doppler and color Doppler. 2D DIMENSIONS IVSd1.2 (0.7-1.1cm)LVDd4.0 (3.9-5.9cm) PWd1.4 (0.7-1.1cm)LVDs2.8 (2.5-4.0cm) FS (%) 30.7 %LVEF (%)58.9 (>50%) M-Mode DIMENSIONS Left Atrium (MM)3.20 (2.5-4.0cm)Aortic Root3.50 (2.2-3.7cm) Aortic Cusp Exc.2.00 (1.5-2.0cm) Aortic Valve AoV Peak Sxlbmhma398.0cm/sAoV VTI19.1cmAO Peak GR.8mmHg LVOT Peak Crfcniwn644.0cm/sLVOT VTI15.40cmAO Mean GR.5mmHg Mitral Valve MV E Brvxavnp62.1cm/sMV A Rdzaaxwj09.8cm/sE/A ratio0.8 TDI Lateral E' Peak V6.24cm/sMedial E' Peak V4.58cm/sE/Lateral E'11.6 E/Medial E'15.7 Tricuspid Valve TR Peak Rjwdedrx928wj/sTR Peak Gr.11mmHg LEFT VENTRICLE The left ventricle is normal size. There is mild to moderate concentric left ventricular hypertrophy. The left ventricular function is normal.EF-55-60% There is normal LV segmental wall motion. Transmitral Doppler flow pattern is Grade III-reversible restrictive diastolic dysfunction. No left ventricle thrombus noted on this study. There is no ventricular septal defect visualized. There is no left ventricular aneurysm. There is no mass noted in the left ventricle. RIGHT VENTRICLE The right ventricle is normal size. There is normal right ventricular wall thickness. The right ventricular systolic function is normal. ATRIA The left atrium size is normal. The right atrium size is normal. The interatrial septum is intact with no evidence for an atrial septal defect. AORTIC VALVE The aortic valve is thickened but opens well. No aortic regurgitation is present. There is no aortic valvular stenosis. There is no aortic valvular vegetation. MITRAL VALVE The mitral valve is thickened but opens well. Mitral regurgitation is trace. There is no mitral valve stenosis. There is no evidence of mitral valve prolapse. TRICUSPID VALVE The tricuspid valve leaflets are thickened , but open well. There is trace tricuspid regurgitation.RVSP-11 mmof Hg. There is no tricuspid valve stenosis. PULMONIC VALVE The pulmonic valve is not well visualized. GREAT VESSELS The aortic root is normal in size. The ascending aorta is normal in size. The pulmonary artery is normal. The IVC is normal in size and collapses >50% with inspiration. PERICARDIAL EFFUSION There is no pleural effusion. There is no pericardial effusion. <Conclusion> TDS poor sonic Window, Pt was intubated at the time of SDtudy. normal Chamber Size. Ef-55-60% trace MR/Tr RVSP-11 mmof hg
--- NOTE | 2016-10-27 21:43 | PN ---
DATE: 10/27/2016 ADDENDUM This is an addendum to the GI progress report dictated by Nina Moreno NP. Discussed with the patient's power of tax associate attorney earlier today. The patient's orogastric tube was drai donald bilious fluid. More alert. Abdomen is soft. Would recommend considering CT scan with oral con trast via the orogastric tube. extubation. We will discuss with the surgical team. The previous CT was done and reviewed. It was done with no oral contrast. Thank you very much for allowing us to participate in the care of the patient. Berhane Weston MD cc: [phone] TT: 10/27/2016 21:43:34 Confirmation # [id number] Dictation # [id number] tn
--- NOTE | 2016-10-27 22:44 | PN ---
DATE: 10/27/2016 This is the patient's hospital visit in the intensive care unit. For Dr. Capma. SUBJECTIVE: The patient is a 51-year-old female, seen lying, intubated, awake, in the intensive care unit, resting comfortably in no acute distress. She was admitted for severe shortness of breath, fo und to be in severe metabolic acidosis, DKA, which has been treated. She is also status post injury to her right knee along with being postop incisional hernia repair by Dr. Reagan done on 017. PHYSICAL EXAMINATION: VITAL SIGNS: Temperature 98.5, pulse 77, respirations on a vent with 40% FIO2, 100% oxygen saturatio n, blood pressure 115/61. GENERAL: She is intubated, eyes open, awake, alert. HEENT: Otherwise unremarkable. NECK: Supple. HEART: Tachy rate, regular rhythm. LUNGS: Bibasilar crackles. ABDOMEN: Obese, soft, and nontender. EXTREMITIES: No edema. SKIN: Warm and dry. NEUROLOGIC: Awake and alert. LABORATORY DATA: The patient's labs were done. White blood cell count of 13.5, hemoglobin 10.5, hem atocrit of 30.9, platelet count of 268,000 with a chem metabolic panel showing a normal chem metaboli c panel with a nonfasting glucose of 108, calcium 7.5, BUN 26, creatinine 1.3. TSH of 2.5. On admis fausto, patient's nonfasting glucose was 499 with a repeat of 451 with procalcitonin level of 53.2. The patient's ABG showed a pO2 of 114, pCO2 of 21 with a bicarbonate of 12.1, pH of 7.37. The patient's tracheal aspirate grew out gram-negative rods and moderate growth. ASSESSMENT: Respiratory failure status post intubation, diabetic ketoacidosis improved, recent ventr al hernia repair postop day #9, history of seizure disorder, diabetes mellitus, chronic obstructive p ulmonary disease, hypogammaglobulinemia, pneumonia, sepsis, lactic acidosis, diabetic ketoacidosis. PLAN: The patient is to continue present medical regimen. We will monitor clinically and with labs as per full time with the prognosis for this patient guarded. Manfred Melissa SKINNER cc: [phone] TT: 10/27/2016 22:44:12 Confirmation # [id number] Dictation # [id number] ln
[2016-10-27] MEDS ORDERED: Dextrose 50% SYRINGE Inj (50 ml) IVP ONE (22:47)
[2016-10-28] MEDS: Morphine 4 mg/ml ISec IM PRN ×2 (00:13→05:29)
[2016-10-28] MEDS: Morphine 2 mg/ml ISec IVP PRN ×4 (01:49→21:12)
[2016-10-28] MEDS: Dexmedetomidine HCl 4mcg/ml 400 MCG/100 ML BOTTLE IV PRN ×4 (02:00→15:47)
[2016-10-28] MEDS: Metoprolol 1 mg/ml Inj IVP SCH ×4 (05:58→23:22)
[2016-10-28 06:17] LABS: HEMATOCRIT 30.8 % (36.0-48.0); MEAN CELL VOLUME 91.4 fL (80.0-105.0); MEAN CORPUSCULAR HGB CONC 32.8 g/dl (31.0-37.0); MEAN PLATELET VOLUME 10.7 fl (7.0-11.0); PLATELET COUNT 216 10^3/uL (120.0-450.0); RED CELL DISTRIBUTION WIDTH 13.9 % (11.5-14.5); WHITE BLOOD COUNT 11.6 10^3/ul (4.5-11.0)
[2016-10-28 06:23] LABS: ADD MANUAL DIFF? YES
[2016-10-28 06:41] LABS: ALB/GLOB RATIO 0.8 (1.1-1.8); ALKALINE PHOSPHATASE 49 U/L (38-133); ALT/SGPT 25 U/L (7-56); AST/SGOT 17 U/L (15-39); BILIRUBIN,TOTAL 0.3 mg/dL (0.2-1.3); BLOOD UREA NITROGEN 22 mg/dL (7-21); CALCIUM 7.2 mg/dL (8.4-10.5); CARBON DIOXIDE 17 mmol/L (21-33); CHLORIDE 119 mmol/L (98-107); GFR AFRICAN-AMERICAN > 60; GLUCOSE,RANDOM 61 mg/dL (70-110); POTASSIUM 3.9 mmol/L (3.6-5.0); SODIUM 143 mmol/L (132-148)
[2016-10-28 06:49] LABS: ARTERIAL BLOOD GAS O2 CAPACITY 18.5 mL/dl (16-24); ARTERIAL BLOOD GAS O2 CONTENT 18.2 ML/dl (15-23); ARTERIAL BLOOD GAS PH 7.37 (7.35-7.45); ARTERIAL BLOOD HGB O2 SAT 96.8 % (95.0-98.0); CARBOXYHEMOGLOBIN 0.8 % (0.5-1.5); HHB 1.7 % (0-5); METHEMOGLOBIN 0.7 % (0.0-3.0)
[2016-10-28 07:55] LABS: ANISOCYTOSIS 1+; HYPOCHROMIA 1+; NEUTROPHIL 72 % (50.0-70.0); PLATELET ESTIMATE NORMAL (NORMAL)
[2016-10-28] MEDS ORDERED: Dextrose 50% SYRINGE Inj (50 ml) IVP ONE (07:58)
[2016-10-28] MEDS ORDERED: Sodium Bicarbonate (8.4%) 50 Meq Syringe IVP ONE ×2 (08:02)
[2016-10-28] MEDS: Insulin Lispro (HUMAlog) HIGH Coverage SC SCH ×3 (08:07→16:31)
[2016-10-28] MEDS: Linezolid 600 mg in D5W 300 ml 300 ML IVPB SCH ×2 (09:16→22:33)
[2016-10-28] MEDS: Meropenem 1g/NS 100mL IVPB 100 ML IVPB SCH ×2 (09:20→22:31)
--- NOTE | 2016-10-28 09:28 | RAD ---
HISTORY: intubated COMPARISON: 10/27/2016 FINDINGS: LUNGS: No active pulmonary disease. PLEURA: Slight blunting of both costophrenic angles may reflect pleural thickening or small pleural effusions. CARDIOVASCULAR: Grossly normal heart size. ET tube, right IJ central venous catheter grossly unchanged. Nasogastric tube is seen terminating at the level of the clavicular heads and should be repositioned or replaced. OSSEOUS STRUCTURES: No significant abnormalities. VISUALIZED UPPER ABDOMEN: Normal. OTHER FINDINGS: None. IMPRESSION: Possible small bilateral pleural effusion versus chronic pleural thickening. Endotracheal tube and a central venous catheter are in appropriate position. Nasogastric tube terminates in the upper thorax and should be replaced or repositioned. This finding was discussed by telephone with Dr. Castañeda at at 9:20 a.m. on 10/28/2016.
--- NOTE | 2016-10-28 09:37 | PN ---
DATE: 10/28/2016 The patient is in bed in no acute distress, nontoxic. The patient was seen early this morning in 128 , bed 3. PHYSICAL EXAMINATION: VITAL SIGNS: The patient is intubated on a ventilator with a temperature of 98, T-max was 100.4 on and blood pressure is 139/90, respiratory rate on the vent, a heart rate of 79. HEENT: ET tube in place. NECK: Supple. LUNGS: Decreased breath sounds. HEART: Normal S1, S2. ABDOMEN: Soft, nontender. LABORATORY EXAMINATION: Reveals a white count of 11,600, hemoglobin of 10, platelets of 216. The ch emistries are noted. BUN of 22, creatinine of 1.1. The patient's procalcitonin is 36 which is down from 53. Urinalysis is noted. Microbiology reveals a gram-negative sushila from the trach cultures. Th e blood cultures are no growth at 48 hours. The urine culture is no growth. Nasal MRSA is negative. Review of the orders reveals the patient to be on meropenem and Zyvox. Dr. Manfred Torres's note is reviewed. Dr. Weston's note is reviewed. Dr. Guillen's note is reviewed. The patient also had a n ultrasound of the extremities which revealed no evidence of a DVT in the visualized segment of the right upper extremity. That was read by Dr. Abel Schneider. ASSESSMENT AND PLAN: A 51-year-old female with severe sepsis with hypoxia and ventilatory-dependent respiratory failure, acute renal failure due to bilateral lower lobe healthcare-associated pneumonia with gram-negative sushila pneumonia in a patient with diabetic ketoacidosis, hypertensive, dyslipidemia, coronary artery disease, history of percutaneous coronary intervention, chronic obstructive lung dis ease. depression, venous insufficiency, history of laparoscopic ventral hernia repair recently and cu rrently on Zyvox and meropenem day #4 Awaiting for identification of gram-negative sushila in the sputum. We will make further recommendations. The patient's condition is guarded. Tobin Lott MD cc: [phone] TT: 10/28/2016 09:36:00 Confirmation # [id number] Dictation # [id number] tn
--- NOTE | 2016-10-28 10:25 | PN ---
DATE: 10/28/2016 REASON FOR CONSULTATION AND FOLLOWUP: Cardiac evaluation, status post respiratory failure, intubated , history of coronary artery disease, stent in the past, admitted with diabetic ketoacidosis, lactic acidosis, respiratory failure. BRIEF CLINICAL HISTORY: A 51-year-old morbidly obese female with a past medical history significant for coronary artery disease, status post a stent in 2008, repeat catheterization 01/24/2014, patent st ent in LAD, preserved LV function, history of gammaglobulin deficiency on maintenance gammaglobulin e very 3 weeks, who had recently ventral hernia repair, admitted with DKA, lactic acidosis, still being intubated on vent, awake and alert. PHYSICAL EXAMINATION: VITAL SIGNS: Temperature afebrile, heart rate 65, blood pressure 101/63. HEENT: PERRLA. Extraocular muscles intact. NECK: Supple. No carotid bruits. No thyromegaly. CHEST: Clear to auscultation. HEART: S1, S2 regular. ABDOMEN: Soft. EXTREMITIES: Clubbing and cyanosis negative. LABORATORY DATA: Blood workup as follows: WBC 11.6, hemoglobin 10.9, hematocrit 30.8, platelet coun t 216. Chemistry shows sodium 143, potassium 3.9, chloride 119, carbon dioxide 17, anion gap of 11, BUN 22, creatinine 1.1. IMPRESSION: Diabetic ketoacidosis, respiratory failure, lactic acidosis, coronary artery disease, st atus post a stent in left anterior descending 2008, repeat catheterization in 2013, patent stent. Hi story of gammaglobulin deficiency, status post on IV infusion. Last catheterization 01/24/2014, paten t stent. Multiple electrolyte abnormalities, diabetic ketoacidosis. RECOMMENDATION: Supplement electrolytes as needed. Monitor electrolytes. Continue IV Lasix, to mon itor the heart rate. Continue antibiotic. Repeat the lab in the morning. We will get echo to asses s LV function. We will follow with you. Thank you, Dr. Torres, for providing the opportunity in taking care of the patient. The patient had echocardiography done yesterday that shows a technically difficult study. The patient is intuba hima, but normal chamber size, ejection fraction 55-60%, trace mitral regurgitation, trace tricuspid r egurg, RV systolic pressure of 11. No evidence of acute coronary syndrome, no evidence of coronary i schemia or [place] at this time. We will follow with you. Shasta Guillen MD cc: [id number] TT: 10/28/2016 10:25:03 Confirmation # [id number] Dictation # [id number] tn
[2016-10-28] MEDS ORDERED: Saliva Substitute 44.3 ML PO PRN (12:30)
--- NOTE | 2016-10-28 12:40 | RAD ---
HISTORY: New NG placement COMPARISON: 10/28/2016 at 5:17 a.m. FINDINGS: LUNGS: Bibasilar subsegmental atelectasis. This is not evident on earlier examination of the same date. PLEURA: No significant pleural effusion identified, no pneumothorax apparent. CARDIOVASCULAR: Endotracheal tube unchanged. Right central venous infusion port unchanged. Nasogastric tube repositioned extending into the central abdomen. OSSEOUS STRUCTURES: No significant abnormalities. VISUALIZED UPPER ABDOMEN: Normal. OTHER FINDINGS: None. IMPRESSION: Repositioned nasogastric tube extends to central abdomen. Bibasilar subsegmental atelectasis.
--- NOTE | 2016-10-28 12:58 | PN ---
DATE: 10/28/2016 SUBJECTIVE: The patient opens eyes, follows simple commands. PHYSICAL EXAMINATION: VITAL SIGNS: Temperature is 98.5, pulse of 69, blood pressure 130/78, respiration is 28. GENERAL: The patient comfortable, in no acute distress. HEENT: Anicteric sclerae. Moist mucosa. NECK: No JVD or adenopathy. CARDIAC: S1/S2. No murmurs. No rubs. Regular. RESPIRATORY: Clear to auscultation bilaterally. No wheezes, rales, or rhonchi. Good air entry. ABDOMEN: Bowel sounds are positive, soft, nontender, and nondistended. EXTREMITIES: No edema. Has 1+ pulses. LABS: Creatinine is 1.1, white count 11.6, hemoglobin 10.1, bicarbonate 17. ASSESSMENT: 1. Respiratory failure. 2. Hypomagnesemia. 3. Hypophosphatemia. 4. Dyslipidemia. 5. Acute kidney injury. 6. Diabetic ketoacidosis. 7. Horseshoe kidney. 8. Hypogammaglobulinemia. 9. Obesity with a body mass index of 38. PLAN: The patient is currently comfortable. Her creatinine has improved. We will repeat chemistry for the phosphorus and magnesium ____ has been ordered. The patient is receiving Ativan. She is on heparin for DVT prophylaxis. She is on Levemir for diabetes. She is clinically improving. Christoph Zhang MD cc: [id number] TT: 10/28/2016 12:57:59 Confirmation # [id number] Dictation # [id number] mn
[2016-10-28 13:25] LABS: ALB/GLOB RATIO 0.8 (1.1-1.8); BILIRUBIN,TOTAL 0.5 mg/dL (0.2-1.3); CALCIUM 7.4 mg/dL (8.4-10.5); MAGNESIUM 1.6 mg/dL (1.7-2.2); PHOSPHOROUS 2.8 mg/dL (2.5-4.5); POTASSIUM 3.8 mmol/L (3.6-5.0); TOTAL PROTEIN 6.4 g/dL (5.8-8.3)
--- NOTE | 2016-10-28 13:54 | CP.CCUPN ---
<Cindy Castañeda - Last Filed: 10/28/16 16:30> CCU Subjective - Physician Review Subjective (Free Text): 10/26/16 08:17 - No acute event overnight - gap at 15 at 11AM. Accuck Sugar 200s last 3 hours - OG output 1200 on insertion; 950cc overnight - intubated on propofol 35 - HR remains at 110/RR 50-> mid 40s 10/27/16 16:30 - No acute event overnight - RR 30s - bicarb in teens in AM 10/28/16 13:53 Pt self extubated during pressure support trial Now on OK CCU Objective - Vital Signs / Intake & Output Vital Signs (Last 4 hours): Vital Signs Temp Pulse Resp BP Pulse Ox 10/28/16 13:27 97.9 F 10/28/16 13:00 54 L 31 H 147/68 100 10/28/16 12:09 107 H 10/28/16 12:08 109 H 10/28/16 12:07 107 H 10/28/16 12:00 89 164/83 H 86 L 10/28/16 11:00 69 130/78 100 10/28/16 10:00 65 119/68 100 10/28/16 09:54 70 Intake and Output (Last 8hrs): Intake & Output 10/27/16 10/28/16 10/28/16 22:59 06:59 14:59 Intake Total 4188.0 4186 100 Output Total 1050 520 Balance 3138.0 3666 100 Weight 238 lb 2 oz Intake: IV 1210.0 3786 100 Right Subclavian 2676 Other 2978 400 Output: Gastric Amount 500 20 Stomach 500 20 Urine 550 500 Urethral (Rodríguez) 550 500 Other: Voiding Method Indwelling Catheter Indwelling Catheter - Physical Exam Head: Positive for: Atraumatic, Normocephalic Pupils: Positive for: PERRL Extroacular Muscles: Positive for: EOMI Mouth: Positive for: Moist Mucous Membranes Respiratory/Chest: Positive for: Rales, Rhonchi Cardiovascular: Positive for: Regular Rate and Rhythm, Normal S1, S2 Abdomen: Positive for: Distention. Negative for: Normal Bowel Sounds ( hypoactive) Lower Extremity: Positive for: Edema Neurological: Positive for: CN II-XII Intact, Speech Normal Skin: Positive for: Warm, Dry Psychiatric: Positive for: Alert, Oriented x 3 - Medications Active Medications: Active Medications Generic Name Dose Route Start Last Admin Trade Name Freq PRN Reason Stop Dose Admin Heparin Sodium (Porcine) 5,000 units 10/27/16 10:00 10/28/16 09:20 Heparin SC 5,000 units Q12 JOSH Administration Protocol Propofol 100 mls @ 2.449 mls/hr 10/25/16 13:47 10/26/16 16:05 Diprivan IV 0 mcg/kg/min .Q24H PRN 0 mls/hr TITRATE PER MD ORDER Titration Protocol 5 MCG/KG/MIN Linezolid 300 mls @ 200 mls/hr 10/25/16 15:30 10/28/16 09:16 Zyvox 600mg/300ml D5w IVPB 11/01/16 15:31 200 mls/hr Q12 JOSH Administration Protocol Meropenem 1g/NS 100mL IVPB 100 mls @ 100 mls/hr 10/25/16 22:00 10/28/16 09:20 Meropenem 1g/Ns 100ml Ivpb IVPB 11/01/16 22:01 100 mls/hr Q12 JOSH Administration Protocol Dexmedetomidine HCl 400 mcg in 100 mls @ 5.216 mls/hr 10/26/16 15:36 13:05 Precedex 4 Mcg/Ml (100 Ml) IV 1.5 mcg/kg/hr .[id number] PRN 39.122 mls/hr Agitation Administration Protocol 0.2 MCG/KG/HR Potassium Chloride 20 meq/ 1,010 mls @ 200 mls/hr 10/26/16 19:29 10/28/16 04: 56 Sodium Chloride IV 200 mls/hr .Q5H3M JOSH Administration Insulin Human Lispro 0 units 10/27/16 16:30 10/28/16 11:30 Humalog High SC Not Given ACHS JOSH Protocol Lorazepam 0.5 mg 10/28/16 12:12 Ativan IVP Q6H PRN Anxiety Protocol Metoprolol Tartrate 5 mg 10/26/16 11:15 10/28/16 05:58 Lopressor IVP 5 mg Q6H JOSH Administration Morphine Sulfate 4 mg 10/27/16 15:27 10/28/16 05:29 Morphine IM 4 mg Q6H PRN Administration Pain, severe (8-10) Morphine Sulfate 2 mg 10/27/16 15:29 10/28/16 08:36 Morphine IVP 2 mg Q3H PRN Administration Pain, moderate (4-7) Pantoprazole Sodium 40 mg 10/26/16 10:00 10/28/16 09:00 Protonix Inj IVP 40 mg DAILY JOSH Administration Saliva Substitute 0 ml 10/28/16 12:30 Saliva Substitute PO Q2 PRN Dry mouth - Patient Studies Lab Studies: Microbiology Studies 10/26/16 03:25 Gram Stain - Final Trachasp Sputum Culture - Final Klebsiella Pneumoniae Ssp Pneu Lab Studies 10/28/16 10/28/16 10/28/16 Range/Units 13:07 07:50 06:00 WBC (4.5-11.0) 10^3/ul RBC (3.5-6.1) 10^6/uL Hgb (12.0-16.0) gm/dL Hct (36.0-48.0) % MCV (80.0-105.0) fL MCH (25.0-35.0) pg MCHC (31.0-37.0) g/dl RDW (11.5-14.5) % Plt Count (120.0-450.0) 10^3/uL MPV (7.0-11.0) fl Neutrophils % (Manual) (50.0-70.0) % Lymphocytes % (Manual) (22.0-35.0) % Monocytes % (Manual) (1.0-6.0) % Platelet Evaluation (NORMAL) Hypochromasia Anisocytosis (manual) pCO2 26 L (35-45) mm/Hg pO2 124.0 H (80-100) mm/Hg HCO3 15.0 L (21-28) mmol/L ABG pH 7.37 (7.35-7.45) ABG Total CO2 15.8 L (22-28) mmol.L ABG O2 Saturation 98.3 H (95-98) % ABG O2 Content 18.2 (15-23) ML/dl ABG Base Excess -8.6 L (-2.0-3.0) mmol/L ABG Hemoglobin 13.2 (11.7-17.4) g/dL ABG Carboxyhemoglobin 0.8 (0.5-1.5) % POC ABG HHb (Measured) 1.7 (0-5) % ABG Methemoglobin 0.7 (0.0-3.0) % ABG O2 Capacity 18.5 (16-24) mL/dl Hgb O2 Saturation 96.8 (95.0-98.0) % FiO2 40.0 % Sodium 142 (132-148) mmol/L Potassium 3.8 (3.6-5.0) mmol/L Chloride 111 H (98-107) mmol/L Carbon Dioxide 20 L (21-33) mmol/L Anion Gap 15 (10-20) BUN 22 H (7-21) mg/dL Creatinine 1.2 (0.5-1.4) mg/dL Est GFR ( Amer) 58 Est GFR (Non-Af Amer) 48 POC Glucose (mg/dL) 64 L (65-110) mg/dL Random Glucose 120 H (70-110) mg/dL Calcium 7.4 L (8.4-10.5) mg/dL Phosphorus 2.8 (2.5-4.5) mg/dL Magnesium 1.6 L (1.7-2.2) mg/dL Total Bilirubin 0.5 (0.2-1.3) mg/dL AST 17 (15-39) U/L ALT 21 (7-56) U/L Alkaline Phosphatase 56 (38-133) U/L Total Protein 6.4 (5.8-8.3) g/dL Albumin 2.9 L (3.0-4.8) g/dL Globulin 3.5 gm/dL Albumin/Globulin Ratio 0.8 L (1.1-1.8) 10/28/16 10/28/16 10/28/16 Range/Units 05:58 05:58 00:00 WBC 11.6 H (4.5-11.0) 10^3/ul RBC 3.37 L (3.5-6.1) 10^6/uL Hgb 10.1 L (12.0-16.0) gm/dL Hct 30.8 L (36.0-48.0) % MCV 91.4 (80.0-105.0) fL MCH 30.0 (25.0-35.0) pg MCHC 32.8 (31.0-37.0) g/dl RDW 13.9 (11.5-14.5) % Plt Count 216 (120.0-450.0) 10^3/uL MPV 10.7 (7.0-11.0) fl Neutrophils % (Manual) 72 H (50.0-70.0) % Lymphocytes % (Manual) 23 (22.0-35.0) % Monocytes % (Manual) 2 (1.0-6.0) % Platelet Evaluation Normal (NORMAL) Hypochromasia 1+ Anisocytosis (manual) 1+ pCO2 (35-45) mm/Hg pO2 (80-100) mm/Hg HCO3 (21-28) mmol/L ABG pH (7.35-7.45) ABG Total CO2 (22-28) mmol.L ABG O2 Saturation (95-98) % ABG O2 Content (15-23) ML/dl ABG Base Excess (-2.0-3.0) mmol/L ABG Hemoglobin (11.7-17.4) g/dL ABG Carboxyhemoglobin (0.5-1.5) % POC ABG HHb (Measured) (0-5) % ABG Methemoglobin (0.0-3.0) % ABG O2 Capacity (16-24) mL/dl Hgb O2 Saturation (95.0-98.0) % FiO2 % Sodium 143 (132-148) mmol/L Potassium 3.9 (3.6-5.0) mmol/L Chloride 119 H (98-107) mmol/L Carbon Dioxide 17 L (21-33) mmol/L Anion Gap 11 (10-20) BUN 22 H (7-21) mg/dL Creatinine 1.1 (0.5-1.4) mg/dL Est GFR ( Amer) > 60 Est GFR (Non-Af Amer) 53 POC Glucose (mg/dL) 131 H (65-110) mg/dL Random Glucose 61 L (70-110) mg/dL Calcium 7.2 L (8.4-10.5) mg/dL Phosphorus (2.5-4.5) mg/dL Magnesium (1.7-2.2) mg/dL Total Bilirubin 0.3 (0.2-1.3) mg/dL AST 17 (15-39) U/L ALT 25 (7-56) U/L Alkaline Phosphatase 49 (38-133) U/L Total Protein 6.0 (5.8-8.3) g/dL Albumin 2.6 L (3.0-4.8) g/dL Globulin 3.3 gm/dL Albumin/Globulin Ratio 0.8 L (1.1-1.8) 10/27/16 10/27/16 10/27/16 Range/Units 21:35 17:20 15:41 WBC (4.5-11.0) 10^3/ul RBC (3.5-6.1) 10^6/uL Hgb (12.0-16.0) gm/dL Hct (36.0-48.0) % MCV (80.0-105.0) fL MCH (25.0-35.0) pg MCHC (31.0-37.0) g/dl RDW (11.5-14.5) % Plt Count (120.0-450.0) 10^3/uL MPV (7.0-11.0) fl Neutrophils % (Manual) (50.0-70.0) % Lymphocytes % (Manual) (22.0-35.0) % Monocytes % (Manual) (1.0-6.0) % Platelet Evaluation (NORMAL) Hypochromasia Anisocytosis (manual) pCO2 (35-45) mm/Hg pO2 (80-100) mm/Hg HCO3 (21-28) mmol/L ABG pH (7.35-7.45) ABG Total CO2 (22-28) mmol.L ABG O2 Saturation (95-98) % ABG O2 Content (15-23) ML/dl ABG Base Excess (-2.0-3.0) mmol/L ABG Hemoglobin (11.7-17.4) g/dL ABG Carboxyhemoglobin (0.5-1.5) % POC ABG HHb (Measured) (0-5) % ABG Methemoglobin (0.0-3.0) % ABG O2 Capacity (16-24) mL/dl Hgb O2 Saturation (95.0-98.0) % FiO2 % Sodium 142 (132-148) mmol/L Potassium 3.7 (3.6-5.0) mmol/L Chloride 113 H (98-107) mmol/L Carbon Dioxide 20 L (21-33) mmol/L Anion Gap 13 (10-20) BUN 26 H (7-21) mg/dL Creatinine 1.3 (0.5-1.4) mg/dL Est GFR ( Amer) 52 Est GFR (Non-Af Amer) 43 POC Glucose (mg/dL) 77 127 H (65-110) mg/dL Random Glucose 108 (70-110) mg/dL Calcium 7.5 L (8.4-10.5) mg/dL Phosphorus 2.1 L (2.5-4.5) mg/dL Magnesium 1.5 L (1.7-2.2) mg/dL Total Bilirubin 0.2 (0.2-1.3) mg/dL AST 19 (15-39) U/L ALT 23 (7-56) U/L Alkaline Phosphatase 50 (38-133) U/L Total Protein 5.8 (5.8-8.3) g/dL Albumin 2.5 L (3.0-4.8) g/dL Globulin 3.3 gm/dL Albumin/Globulin Ratio 0.8 L (1.1-1.8) 10/27/16 10/27/16 10/27/16 Range/Units 14:18 11:57 11:03 WBC (4.5-11.0) 10^3/ul RBC (3.5-6.1) 10^6/uL Hgb (12.0-16.0) gm/dL Hct (36.0-48.0) % MCV (80.0-105.0) fL MCH (25.0-35.0) pg MCHC (31.0-37.0) g/dl RDW (11.5-14.5) % Plt Count (120.0-450.0) 10^3/uL MPV (7.0-11.0) fl Neutrophils % (Manual) (50.0-70.0) % Lymphocytes % (Manual) (22.0-35.0) % Monocytes % (Manual) (1.0-6.0) % Platelet Evaluation (NORMAL) Hypochromasia Anisocytosis (manual) pCO2 (35-45) mm/Hg pO2 (80-100) mm/Hg HCO3 (21-28) mmol/L ABG pH (7.35-7.45) ABG Total CO2 (22-28) mmol.L ABG O2 Saturation (95-98) % ABG O2 Content (15-23) ML/dl ABG Base Excess (-2.0-3.0) mmol/L ABG Hemoglobin (11.7-17.4) g/dL ABG Carboxyhemoglobin (0.5-1.5) % POC ABG HHb (Measured) (0-5) % ABG Methemoglobin (0.0-3.0) % ABG O2 Capacity (16-24) mL/dl Hgb O2 Saturation (95.0-98.0) % FiO2 % Sodium (132-148) mmol/L Potassium (3.6-5.0) mmol/L Chloride (98-107) mmol/L Carbon Dioxide (21-33) mmol/L Anion Gap (10-20) BUN (7-21) mg/dL Creatinine (0.5-1.4) mg/dL Est GFR ( Amer) Est GFR (Non-Af Amer) POC Glucose (mg/dL) 150 H 174 H 235 H (65-110) mg/dL Random Glucose (70-110) mg/dL Calcium (8.4-10.5) mg/dL Phosphorus (2.5-4.5) mg/dL Magnesium (1.7-2.2) mg/dL Total Bilirubin (0.2-1.3) mg/dL AST (15-39) U/L ALT (7-56) U/L Alkaline Phosphatase (38-133) U/L Total Protein (5.8-8.3) g/dL Albumin (3.0-4.8) g/dL Globulin gm/dL Albumin/Globulin Ratio (1.1-1.8) 10/27/16 10/27/16 10/27/16 Range/Units 10:02 09:03 08:07 WBC (4.5-11.0) 10^3/ul RBC (3.5-6.1) 10^6/uL Hgb (12.0-16.0) gm/dL Hct (36.0-48.0) % MCV (80.0-105.0) fL MCH (25.0-35.0) pg MCHC (31.0-37.0) g/dl RDW (11.5-14.5) % Plt Count (120.0-450.0) 10^3/uL MPV (7.0-11.0) fl Neutrophils % (Manual) (50.0-70.0) % Lymphocytes % (Manual) (22.0-35.0) % Monocytes % (Manual) (1.0-6.0) % Platelet Evaluation (NORMAL) Hypochromasia Anisocytosis (manual) pCO2 (35-45) mm/Hg pO2 (80-100) mm/Hg HCO3 (21-28) mmol/L ABG pH (7.35-7.45) ABG Total CO2 (22-28) mmol.L ABG O2 Saturation (95-98) % ABG O2 Content (15-23) ML/dl ABG Base Excess (-2.0-3.0) mmol/L ABG Hemoglobin (11.7-17.4) g/dL ABG Carboxyhemoglobin (0.5-1.5) % POC ABG HHb (Measured) (0-5) % ABG Methemoglobin (0.0-3.0) % ABG O2 Capacity (16-24) mL/dl Hgb O2 Saturation (95.0-98.0) % FiO2 % Sodium (132-148) mmol/L Potassium (3.6-5.0) mmol/L Chloride (98-107) mmol/L Carbon Dioxide (21-33) mmol/L Anion Gap (10-20) BUN (7-21) mg/dL Creatinine (0.5-1.4) mg/dL Est GFR ( Amer) Est GFR (Non-Af Amer) POC Glucose (mg/dL) 232 H 186 H 182 H (65-110) mg/dL Random Glucose (70-110) mg/dL Calcium (8.4-10.5) mg/dL Phosphorus (2.5-4.5) mg/dL Magnesium (1.7-2.2) mg/dL Total Bilirubin (0.2-1.3) mg/dL AST (15-39) U/L ALT (7-56) U/L Alkaline Phosphatase (38-133) U/L Total Protein (5.8-8.3) g/dL Albumin (3.0-4.8) g/dL Globulin gm/dL Albumin/Globulin Ratio (1.1-1.8) 10/27/16 10/27/16 10/27/16 Range/Units 07:08 06:08 05:09 WBC (4.5-11.0) 10^3/ul RBC (3.5-6.1) 10^6/uL Hgb (12.0-16.0) gm/dL Hct (36.0-48.0) % MCV (80.0-105.0) fL MCH (25.0-35.0) pg MCHC (31.0-37.0) g/dl RDW (11.5-14.5) % Plt Count (120.0-450.0) 10^3/uL MPV (7.0-11.0) fl Neutrophils % (Manual) (50.0-70.0) % Lymphocytes % (Manual) (22.0-35.0) % Monocytes % (Manual) (1.0-6.0) % Platelet Evaluation (NORMAL) Hypochromasia Anisocytosis (manual) pCO2 (35-45) mm/Hg pO2 (80-100) mm/Hg HCO3 (21-28) mmol/L ABG pH (7.35-7.45) ABG Total CO2 (22-28) mmol.L ABG O2 Saturation (95-98) % ABG O2 Content (15-23) ML/dl ABG Base Excess (-2.0-3.0) mmol/L ABG Hemoglobin (11.7-17.4) g/dL ABG Carboxyhemoglobin (0.5-1.5) % POC ABG HHb (Measured) (0-5) % ABG Methemoglobin (0.0-3.0) % ABG O2 Capacity (16-24) mL/dl Hgb O2 Saturation (95.0-98.0) % FiO2 % Sodium (132-148) mmol/L Potassium (3.6-5.0) mmol/L Chloride (98-107) mmol/L Carbon Dioxide (21-33) mmol/L Anion Gap (10-20) BUN (7-21) mg/dL Creatinine (0.5-1.4) mg/dL Est GFR ( Amer) Est GFR (Non-Af Amer) POC Glucose (mg/dL) 186 H 164 H 153 H (65-110) mg/dL Random Glucose (70-110) mg/dL Calcium (8.4-10.5) mg/dL Phosphorus (2.5-4.5) mg/dL Magnesium (1.7-2.2) mg/dL Total Bilirubin (0.2-1.3) mg/dL AST (15-39) U/L ALT (7-56) U/L Alkaline Phosphatase (38-133) U/L Total Protein (5.8-8.3) g/dL Albumin (3.0-4.8) g/dL Globulin gm/dL Albumin/Globulin Ratio (1.1-1.8) 10/27/16 10/27/16 10/27/16 Range/Units 04:12 03:09 01:17 WBC (4.5-11.0) 10^3/ul RBC (3.5-6.1) 10^6/uL Hgb (12.0-16.0) gm/dL Hct (36.0-48.0) % MCV (80.0-105.0) fL MCH (25.0-35.0) pg MCHC (31.0-37.0) g/dl RDW (11.5-14.5) % Plt Count (120.0-450.0) 10^3/uL MPV (7.0-11.0) fl Neutrophils % (Manual) (50.0-70.0) % Lymphocytes % (Manual) (22.0-35.0) % Monocytes % (Manual) (1.0-6.0) % Platelet Evaluation (NORMAL) Hypochromasia Anisocytosis (manual) pCO2 (35-45) mm/Hg pO2 (80-100) mm/Hg HCO3 (21-28) mmol/L ABG pH (7.35-7.45) ABG Total CO2 (22-28) mmol.L ABG O2 Saturation (95-98) % ABG O2 Content (15-23) ML/dl ABG Base Excess (-2.0-3.0) mmol/L ABG Hemoglobin (11.7-17.4) g/dL ABG Carboxyhemoglobin (0.5-1.5) % POC ABG HHb (Measured) (0-5) % ABG Methemoglobin (0.0-3.0) % ABG O2 Capacity (16-24) mL/dl Hgb O2 Saturation (95.0-98.0) % FiO2 % Sodium (132-148) mmol/L Potassium (3.6-5.0) mmol/L Chloride (98-107) mmol/L Carbon Dioxide (21-33) mmol/L Anion Gap (10-20) BUN (7-21) mg/dL Creatinine (0.5-1.4) mg/dL Est GFR ( Amer) Est GFR (Non-Af Amer) POC Glucose (mg/dL) 162 H 181 H 184 H (65-110) mg/dL Random Glucose (70-110) mg/dL Calcium (8.4-10.5) mg/dL Phosphorus (2.5-4.5) mg/dL Magnesium (1.7-2.2) mg/dL Total Bilirubin (0.2-1.3) mg/dL AST (15-39) U/L ALT (7-56) U/L Alkaline Phosphatase (38-133) U/L Total Protein (5.8-8.3) g/dL Albumin (3.0-4.8) g/dL Globulin gm/dL Albumin/Globulin Ratio (1.1-1.8) 10/27/16 10/26/16 10/26/16 Range/Units 00:28 23:27 22:01 WBC (4.5-11.0) 10^3/ul RBC (3.5-6.1) 10^6/uL Hgb (12.0-16.0) gm/dL Hct (36.0-48.0) % MCV (80.0-105.0) fL MCH (25.0-35.0) pg MCHC (31.0-37.0) g/dl RDW (11.5-14.5) % Plt Count (120.0-450.0) 10^3/uL MPV (7.0-11.0) fl Neutrophils % (Manual) (50.0-70.0) % Lymphocytes % (Manual) (22.0-35.0) % Monocytes % (Manual) (1.0-6.0) % Platelet Evaluation (NORMAL) Hypochromasia Anisocytosis (manual) pCO2 (35-45) mm/Hg pO2 (80-100) mm/Hg HCO3 (21-28) mmol/L ABG pH (7.35-7.45) ABG Total CO2 (22-28) mmol.L ABG O2 Saturation (95-98) % ABG O2 Content (15-23) ML/dl ABG Base Excess (-2.0-3.0) mmol/L ABG Hemoglobin (11.7-17.4) g/dL ABG Carboxyhemoglobin (0.5-1.5) % POC ABG HHb (Measured) (0-5) % ABG Methemoglobin (0.0-3.0) % ABG O2 Capacity (16-24) mL/dl Hgb O2 Saturation (95.0-98.0) % FiO2 % Sodium (132-148) mmol/L Potassium (3.6-5.0) mmol/L Chloride (98-107) mmol/L Carbon Dioxide (21-33) mmol/L Anion Gap (10-20) BUN (7-21) mg/dL Creatinine (0.5-1.4) mg/dL Est GFR ( Amer) Est GFR (Non-Af Amer) POC Glucose (mg/dL) 224 H 203 H 186 H (65-110) mg/dL Random Glucose (70-110) mg/dL Calcium (8.4-10.5) mg/dL Phosphorus (2.5-4.5) mg/dL Magnesium (1.7-2.2) mg/dL Total Bilirubin (0.2-1.3) mg/dL AST (15-39) U/L ALT (7-56) U/L Alkaline Phosphatase (38-133) U/L Total Protein (5.8-8.3) g/dL Albumin (3.0-4.8) g/dL Globulin gm/dL Albumin/Globulin Ratio (1.1-1.8) 10/26/16 10/26/16 10/26/16 Range/Units 21:03 20:01 19:01 WBC (4.5-11.0) 10^3/ul RBC (3.5-6.1) 10^6/uL Hgb (12.0-16.0) gm/dL Hct (36.0-48.0) % MCV (80.0-105.0) fL MCH (25.0-35.0) pg MCHC (31.0-37.0) g/dl RDW (11.5-14.5) % Plt Count (120.0-450.0) 10^3/uL MPV (7.0-11.0) fl Neutrophils % (Manual) (50.0-70.0) % Lymphocytes % (Manual) (22.0-35.0) % Monocytes % (Manual) (1.0-6.0) % Platelet Evaluation (NORMAL) Hypochromasia Anisocytosis (manual) pCO2 (35-45) mm/Hg pO2 (80-100) mm/Hg HCO3 (21-28) mmol/L ABG pH (7.35-7.45) ABG Total CO2 (22-28) mmol.L ABG O2 Saturation (95-98) % ABG O2 Content (15-23) ML/dl ABG Base Excess (-2.0-3.0) mmol/L ABG Hemoglobin (11.7-17.4) g/dL ABG Carboxyhemoglobin (0.5-1.5) % POC ABG HHb (Measured) (0-5) % ABG Methemoglobin (0.0-3.0) % ABG O2 Capacity (16-24) mL/dl Hgb O2 Saturation (95.0-98.0) % FiO2 % Sodium (132-148) mmol/L Potassium (3.6-5.0) mmol/L Chloride (98-107) mmol/L Carbon Dioxide (21-33) mmol/L Anion Gap (10-20) BUN (7-21) mg/dL Creatinine (0.5-1.4) mg/dL Est GFR ( Amer) Est GFR (Non-Af Amer) POC Glucose (mg/dL) 187 H 196 H 213 H (65-110) mg/dL Random Glucose (70-110) mg/dL Calcium (8.4-10.5) mg/dL Phosphorus (2.5-4.5) mg/dL Magnesium (1.7-2.2) mg/dL Total Bilirubin (0.2-1.3) mg/dL AST (15-39) U/L ALT (7-56) U/L Alkaline Phosphatase (38-133) U/L Total Protein (5.8-8.3) g/dL Albumin (3.0-4.8) g/dL Globulin gm/dL Albumin/Globulin Ratio (1.1-1.8) 10/26/16 10/26/16 10/26/16 Range/Units 18:15 17:02 16:28 WBC (4.5-11.0) 10^3/ul RBC (3.5-6.1) 10^6/uL Hgb (12.0-16.0) gm/dL Hct (36.0-48.0) % MCV (80.0-105.0) fL MCH (25.0-35.0) pg MCHC (31.0-37.0) g/dl RDW (11.5-14.5) % Plt Count (120.0-450.0) 10^3/uL MPV (7.0-11.0) fl Neutrophils % (Manual) (50.0-70.0) % Lymphocytes % (Manual) (22.0-35.0) % Monocytes % (Manual) (1.0-6.0) % Platelet Evaluation (NORMAL) Hypochromasia Anisocytosis (manual) pCO2 (35-45) mm/Hg pO2 (80-100) mm/Hg HCO3 (21-28) mmol/L ABG pH (7.35-7.45) ABG Total CO2 (22-28) mmol.L ABG O2 Saturation (95-98) % ABG O2 Content (15-23) ML/dl ABG Base Excess (-2.0-3.0) mmol/L ABG Hemoglobin (11.7-17.4) g/dL ABG Carboxyhemoglobin (0.5-1.5) % POC ABG HHb (Measured) (0-5) % ABG Methemoglobin (0.0-3.0) % ABG O2 Capacity (16-24) mL/dl Hgb O2 Saturation (95.0-98.0) % FiO2 % Sodium (132-148) mmol/L Potassium (3.6-5.0) mmol/L Chloride (98-107) mmol/L Carbon Dioxide (21-33) mmol/L Anion Gap (10-20) BUN (7-21) mg/dL Creatinine (0.5-1.4) mg/dL Est GFR ( Amer) Est GFR (Non-Af Amer) POC Glucose (mg/dL) 201 H 227 H 224 H (65-110) mg/dL Random Glucose (70-110) mg/dL Calcium (8.4-10.5) mg/dL Phosphorus (2.5-4.5) mg/dL Magnesium (1.7-2.2) mg/dL Total Bilirubin (0.2-1.3) mg/dL AST (15-39) U/L ALT (7-56) U/L Alkaline Phosphatase (38-133) U/L Total Protein (5.8-8.3) g/dL Albumin (3.0-4.8) g/dL Globulin gm/dL Albumin/Globulin Ratio (1.1-1.8) 04/25/17 Range/Units 15:24 WBC (4.5-11.0) 10^3/ul RBC (3.5-6.1) 10^6/uL Hgb (12.0-16.0) gm/dL Hct (36.0-48.0) % MCV (80.0-105.0) fL MCH (25.0-35.0) pg MCHC (31.0-37.0) g/dl RDW (11.5-14.5) % Plt Count (120.0-450.0) 10^3/uL MPV (7.0-11.0) fl Neutrophils % (Manual) (50.0-70.0) % Lymphocytes % (Manual) (22.0-35.0) % Monocytes % (Manual) (1.0-6.0) % Platelet Evaluation (NORMAL) Hypochromasia Anisocytosis (manual) pCO2 (35-45) mm/Hg pO2 (80-100) mm/Hg HCO3 (21-28) mmol/L ABG pH (7.35-7.45) ABG Total CO2 (22-28) mmol.L ABG O2 Saturation (95-98) % ABG O2 Content (15-23) ML/dl ABG Base Excess (-2.0-3.0) mmol/L ABG Hemoglobin (11.7-17.4) g/dL ABG Carboxyhemoglobin (0.5-1.5) % POC ABG HHb (Measured) (0-5) % ABG Methemoglobin (0.0-3.0) % ABG O2 Capacity (16-24) mL/dl Hgb O2 Saturation (95.0-98.0) % FiO2 % Sodium (132-148) mmol/L Potassium (3.6-5.0) mmol/L Chloride (98-107) mmol/L Carbon Dioxide (21-33) mmol/L Anion Gap (10-20) BUN (7-21) mg/dL Creatinine (0.5-1.4) mg/dL Est GFR ( Amer) Est GFR (Non-Af Amer) POC Glucose (mg/dL) 171 H (65-110) mg/dL Random Glucose (70-110) mg/dL Calcium (8.4-10.5) mg/dL Phosphorus (2.5-4.5) mg/dL Magnesium (1.7-2.2) mg/dL Total Bilirubin (0.2-1.3) mg/dL AST (15-39) U/L ALT (7-56) U/L Alkaline Phosphatase (38-133) U/L Total Protein (5.8-8.3) g/dL Albumin (3.0-4.8) g/dL Globulin gm/dL Albumin/Globulin Ratio (1.1-1.8) Laboratory Results - last 24 hr 10/26/16 10/26/16 10/26/16 15:24 16:28 17:02 WBC RBC Hgb Hct MCV MCH MCHC RDW Plt Count MPV Neutrophils % (Manual) Lymphocytes % (Manual) Monocytes % (Manual) Platelet Evaluation Hypochromasia Anisocytosis (manual) pCO2 pO2 HCO3 ABG pH ABG Total CO2 ABG O2 Saturation ABG O2 Content ABG Base Excess ABG Hemoglobin ABG Carboxyhemoglobin POC ABG HHb (Measured) ABG Methemoglobin ABG O2 Capacity Hgb O2 Saturation FiO2 Sodium Potassium Chloride Carbon Dioxide Anion Gap BUN Creatinine Est GFR ( Amer) Est GFR (Non-Af Amer) POC Glucose (mg/dL) 171 H 224 H 227 H Random Glucose Calcium Phosphorus Magnesium Total Bilirubin AST ALT Alkaline Phosphatase Total Protein Albumin Globulin Albumin/Globulin Ratio 10/26/16 10/26/16 10/26/16 18:15 19:01 20:01 WBC RBC Hgb Hct MCV MCH MCHC RDW Plt Count MPV Neutrophils % (Manual) Lymphocytes % (Manual) Monocytes % (Manual) Platelet Evaluation Hypochromasia Anisocytosis (manual) pCO2 pO2 HCO3 ABG pH ABG Total CO2 ABG O2 Saturation ABG O2 Content ABG Base Excess ABG Hemoglobin ABG Carboxyhemoglobin POC ABG HHb (Measured) ABG Methemoglobin ABG O2 Capacity Hgb O2 Saturation FiO2 Sodium Potassium Chloride Carbon Dioxide Anion Gap BUN Creatinine Est GFR ( Amer) Est GFR (Non-Af Amer) POC Glucose (mg/dL) 201 H 213 H 196 H Random Glucose Calcium Phosphorus Magnesium Total Bilirubin AST ALT Alkaline Phosphatase Total Protein Albumin Globulin Albumin/Globulin Ratio 10/26/16 10/26/16 10/26/16 21:03 22:01 23:27 WBC RBC Hgb Hct MCV MCH MCHC RDW Plt Count MPV Neutrophils % (Manual) Lymphocytes % (Manual) Monocytes % (Manual) Platelet Evaluation Hypochromasia Anisocytosis (manual) pCO2 pO2 HCO3 ABG pH ABG Total CO2 ABG O2 Saturation ABG O2 Content ABG Base Excess ABG Hemoglobin ABG Carboxyhemoglobin POC ABG HHb (Measured) ABG Methemoglobin ABG O2 Capacity Hgb O2 Saturation FiO2 Sodium Potassium Chloride Carbon Dioxide Anion Gap BUN Creatinine Est GFR ( Amer) Est GFR (Non-Af Amer) POC Glucose (mg/dL) 187 H 186 H 203 H Random Glucose Calcium Phosphorus Magnesium Total Bilirubin AST ALT Alkaline Phosphatase Total Protein Albumin Globulin Albumin/Globulin Ratio 10/27/16 10/27/16 10/27/16 00:28 01:17 03:09 WBC RBC Hgb Hct MCV MCH MCHC RDW Plt Count MPV Neutrophils % (Manual) Lymphocytes % (Manual) Monocytes % (Manual) Platelet Evaluation Hypochromasia Anisocytosis (manual) pCO2 pO2 HCO3 ABG pH ABG Total CO2 ABG O2 Saturation ABG O2 Content ABG Base Excess ABG Hemoglobin ABG Carboxyhemoglobin POC ABG HHb (Measured) ABG Methemoglobin ABG O2 Capacity Hgb O2 Saturation FiO2 Sodium Potassium Chloride Carbon Dioxide Anion Gap BUN Creatinine Est GFR ( Amer) Est GFR (Non-Af Amer) POC Glucose (mg/dL) 224 H 184 H 181 H Random Glucose Calcium Phosphorus Magnesium Total Bilirubin AST ALT Alkaline Phosphatase Total Protein Albumin Globulin Albumin/Globulin Ratio 10/27/16 10/27/16 10/27/16 04:12 05:09 06:08 WBC RBC Hgb Hct MCV MCH MCHC RDW Plt Count MPV Neutrophils % (Manual) Lymphocytes % (Manual) Monocytes % (Manual) Platelet Evaluation Hypochromasia Anisocytosis (manual) pCO2 pO2 HCO3 ABG pH ABG Total CO2 ABG O2 Saturation ABG O2 Content ABG Base Excess ABG Hemoglobin ABG Carboxyhemoglobin POC ABG HHb (Measured) ABG Methemoglobin ABG O2 Capacity Hgb O2 Saturation FiO2 Sodium Potassium Chloride Carbon Dioxide Anion Gap BUN Creatinine Est GFR ( Amer) Est GFR (Non-Af Amer) POC Glucose (mg/dL) 162 H 153 H 164 H Random Glucose Calcium Phosphorus Magnesium Total Bilirubin AST ALT Alkaline Phosphatase Total Protein Albumin Globulin Albumin/Globulin Ratio 10/27/16 10/27/16 10/27/16 07:08 08:07 09:03 WBC RBC Hgb Hct MCV MCH MCHC RDW Plt Count MPV Neutrophils % (Manual) Lymphocytes % (Manual) Monocytes % (Manual) Platelet Evaluation Hypochromasia Anisocytosis (manual) pCO2 pO2 HCO3 ABG pH ABG Total CO2 ABG O2 Saturation ABG O2 Content ABG Base Excess ABG Hemoglobin ABG Carboxyhemoglobin POC ABG HHb (Measured) ABG Methemoglobin ABG O2 Capacity Hgb O2 Saturation FiO2 Sodium Potassium Chloride Carbon Dioxide Anion Gap BUN Creatinine Est GFR ( Amer) Est GFR (Non-Af Amer) POC Glucose (mg/dL) 186 H 182 H 186 H Random Glucose Calcium Phosphorus Magnesium Total Bilirubin AST ALT Alkaline Phosphatase Total Protein Albumin Globulin Albumin/Globulin Ratio 10/27/16 10/27/16 10/27/16 10:02 11:03 11:57 WBC RBC Hgb Hct MCV MCH MCHC RDW Plt Count MPV Neutrophils % (Manual) Lymphocytes % (Manual) Monocytes % (Manual) Platelet Evaluation Hypochromasia Anisocytosis (manual) pCO2 pO2 HCO3 ABG pH ABG Total CO2 ABG O2 Saturation ABG O2 Content ABG Base Excess ABG Hemoglobin ABG Carboxyhemoglobin POC ABG HHb (Measured) ABG Methemoglobin ABG O2 Capacity Hgb O2 Saturation FiO2 Sodium Potassium Chloride Carbon Dioxide Anion Gap BUN Creatinine Est GFR ( Amer) Est GFR (Non-Af Amer) POC Glucose (mg/dL) 232 H 235 H 174 H Random Glucose Calcium Phosphorus Magnesium Total Bilirubin AST ALT Alkaline Phosphatase Total Protein Albumin Globulin Albumin/Globulin Ratio 10/27/16 10/27/16 10/27/16 14:18 15:41 17:20 WBC RBC Hgb Hct MCV MCH MCHC RDW Plt Count MPV Neutrophils % (Manual) Lymphocytes % (Manual) Monocytes % (Manual) Platelet Evaluation Hypochromasia Anisocytosis (manual) pCO2 pO2 HCO3 ABG pH ABG Total CO2 ABG O2 Saturation ABG O2 Content ABG Base Excess ABG Hemoglobin ABG Carboxyhemoglobin POC ABG HHb (Measured) ABG Methemoglobin ABG O2 Capacity Hgb O2 Saturation FiO2 Sodium 142 Potassium 3.7 Chloride 113 H Carbon Dioxide 20 L Anion Gap 13 BUN 26 H Creatinine 1.3 Est GFR ( Amer) 52 Est GFR (Non-Af Amer) 43 POC Glucose (mg/dL) 150 H 127 H Random Glucose 108 Calcium 7.5 L Phosphorus 2.1 L Magnesium 1.5 L Total Bilirubin 0.2 AST 19 ALT 23 Alkaline Phosphatase 50 Total Protein 5.8 Albumin 2.5 L Globulin 3.3 Albumin/Globulin Ratio 0.8 L 10/27/16 10/28/16 10/28/16 21:35 00:00 05:58 WBC 11.6 H RBC 3.37 L Hgb 10.1 L Hct 30.8 L MCV 91.4 MCH 30.0 MCHC 32.8 RDW 13.9 Plt Count 216 MPV 10.7 Neutrophils % (Manual) 72 H Lymphocytes % (Manual) 23 Monocytes % (Manual) 2 Platelet Evaluation Normal Hypochromasia 1+ Anisocytosis (manual) 1+ pCO2 pO2 HCO3 ABG pH ABG Total CO2 ABG O2 Saturation ABG O2 Content ABG Base Excess ABG Hemoglobin ABG Carboxyhemoglobin POC ABG HHb (Measured) ABG Methemoglobin ABG O2 Capacity Hgb O2 Saturation FiO2 Sodium Potassium Chloride Carbon Dioxide Anion Gap BUN Creatinine Est GFR ( Amer) Est GFR (Non-Af Amer) POC Glucose (mg/dL) 77 131 H Random Glucose Calcium Phosphorus Magnesium Total Bilirubin AST ALT Alkaline Phosphatase Total Protein Albumin Globulin Albumin/Globulin Ratio 10/28/16 10/28/16 10/28/16 05:58 06:00 07:50 WBC RBC Hgb Hct MCV MCH MCHC RDW Plt Count MPV Neutrophils % (Manual) Lymphocytes % (Manual) Monocytes % (Manual) Platelet Evaluation Hypochromasia Anisocytosis (manual) pCO2 26 L pO2 124.0 H HCO3 15.0 L ABG pH 7.37 ABG Total CO2 15.8 L ABG O2 Saturation 98.3 H ABG O2 Content 18.2 ABG Base Excess -8.6 L ABG Hemoglobin 13.2 ABG Carboxyhemoglobin 0.8 POC ABG HHb (Measured) 1.7 ABG Methemoglobin 0.7 ABG O2 Capacity 18.5 Hgb O2 Saturation 96.8 FiO2 40.0 Sodium 143 Potassium 3.9 Chloride 119 H Carbon Dioxide 17 L Anion Gap 11 BUN 22 H Creatinine 1.1 Est GFR ( Amer) > 60 Est GFR (Non-Af Amer) 53 POC Glucose (mg/dL) 64 L Random Glucose 61 L Calcium 7.2 L Phosphorus Magnesium Total Bilirubin 0.3 AST 17 ALT 25 Alkaline Phosphatase 49 Total Protein 6.0 Albumin 2.6 L Globulin 3.3 Albumin/Globulin Ratio 0.8 L 10/28/16 13:07 WBC RBC Hgb Hct MCV MCH MCHC RDW Plt Count MPV Neutrophils % (Manual) Lymphocytes % (Manual) Monocytes % (Manual) Platelet Evaluation Hypochromasia Anisocytosis (manual) pCO2 pO2 HCO3 ABG pH ABG Total CO2 ABG O2 Saturation ABG O2 Content ABG Base Excess ABG Hemoglobin ABG Carboxyhemoglobin POC ABG HHb (Measured) ABG Methemoglobin ABG O2 Capacity Hgb O2 Saturation FiO2 Sodium 142 Potassium 3.8 Chloride 111 H Carbon Dioxide 20 L Anion Gap 15 BUN 22 H Creatinine 1.2 Est GFR ( Amer) 58 Est GFR (Non-Af Amer) 48 POC Glucose (mg/dL) Random Glucose 120 H Calcium 7.4 L Phosphorus 2.8 Magnesium 1.6 L Total Bilirubin 0.5 AST 17 ALT 21 Alkaline Phosphatase 56 Total Protein 6.4 Albumin 2.9 L Globulin 3.5 Albumin/Globulin Ratio 0.8 L Fingerstick Blood Sugar Results: 147 Assessment/Plan - Assessment and Plan (Free Text) Plan: 51 F, POD #9 lap ventral hernia repair, with PMHx colon ca, s/p colectomy reversal, Hx seizure, non-iddm, [id number], Hx Asthma/COPD, admitted to ICU for decompensating respiration intubation. Pt has a small bowel obstruction and b/l lower lobe pneuminia, sepsis, severe high anion gap metabolic acidosis due to DKA and severe lactic acidosis. Neuro - Ativan 1q3 PRN anxiety - seizure prophylaxis - Pt indicated pain over abdomen and dorsum of R hand. Morphin PRN Cardio - sinus 70s - Hx CAD Pulm - 3L NC - Still has increase RR 34, and increase work of breathing, but pt tolerated at this moment - b/l lower lobe PNA GI - When pt respiratory status more stable, will conduct barium contrast study to check point of transition - No BM Renal - severe metabolic acidosis, given 1 amps bicarb - MEHRAN on CKD, improving, not oliguric Endo - Levemir 30 HS, ISSS - low - accucheck achs - hold metformin/glipton - repleted Ca, Mg, Phos Heme - s/p octagam 30g x 1 Extremities - RUE swollen. Doppler negative for clot - Likely from slow lymphatic s/p rotator cuff surgery and R port-a-cath ID - Meropenem and Linezolid Prophylaxis - Heparin SC bid and protonix daily S/R/D/w Dr. Courtney Coy - Date & Time Date: 10/28/16 Time: 13:54 <Anneliese SKINNER,Alan H - Last Filed: 10/28/16 17:09> CCU Objective - Vital Signs / Intake & Output Vital Signs (Last 4 hours): Vital Signs Temp Pulse Resp BP Pulse Ox 10/28/16 16:01 98.3 F 10/28/16 15:00 64 25 H 142/73 100 10/28/16 14:00 67 32 H 143/65 100 10/28/16 13:27 97.9 F Intake and Output (Last 8hrs): Intake & Output 10/28/16 10/28/16 10/28/16 06:59 14:59 22:59 Intake Total 4186 100 100 Output Total 520 Balance 3666 100 100 Weight 238 lb 2 oz Intake: IV 3786 100 100 Right Subclavian 2676 Other 400 Output: Gastric Amount 20 Stomach 20 Urine 500 Urethral (Rodríguez) 500 Other: Voiding Method Indwelling Catheter - Medications Active Medications: Active Medications Generic Name Dose Route Start Last Admin Trade Name Freq PRN Reason Stop Dose Admin Heparin Sodium (Porcine) 5,000 units 10/27/16 10:00 10/28/16 09:20 Heparin SC 5,000 units Q12 JOSH Administration Protocol Linezolid 300 mls @ 200 mls/hr 10/25/16 15:30 10/28/16 09:16 Zyvox 600mg/300ml D5w IVPB 11/01/16 15:31 200 mls/hr Q12 JOSH Administration Protocol Meropenem 1g/NS 100mL IVPB 100 mls @ 100 mls/hr 10/25/16 22:00 10/28/16 09:20 Meropenem 1g/Ns 100ml Ivpb IVPB 11/01/16 22:01 100 mls/hr Q12 JOSH Administration Protocol Dexmedetomidine HCl 400 mcg in 100 mls @ 5.216 mls/hr 10/26/16 15:36 15:47 Precedex 4 Mcg/Ml (100 Ml) IV 1.5 mcg/kg/hr .[id number] PRN 39.122 mls/hr Agitation Administration Protocol 0.2 MCG/KG/HR Potassium Chloride 20 meq/ 1,010 mls @ 200 mls/hr 10/26/16 19:29 10/28/16 04: 56 Sodium Chloride IV 200 mls/hr .[id number] JOSH Administration Insulin Human Lispro 0 units 10/27/16 16:30 10/28/16 16:31 Humalog High SC Not Given ACHS JOSH Protocol Lorazepam 1 mg 10/28/16 16:25 10/28/16 16:27 Ativan IVP 1 mg Q3H PRN Administration Anxiety Protocol Metoprolol Tartrate 5 mg 10/26/16 11:15 10/28/16 05:58 Lopressor IVP 5 mg Q6H JOSH Administration Morphine Sulfate 4 mg 10/27/16 15:27 10/28/16 05:29 Morphine IM 4 mg Q6H PRN Administration Pain, severe (8-10) Morphine Sulfate 2 mg 10/27/16 15:29 10/28/16 14:02 Morphine IVP 2 mg Q3H PRN Administration Pain, moderate (4-7) Pantoprazole Sodium 40 mg 10/26/16 10:00 10/28/16 09:00 Protonix Inj IVP 40 mg DAILY JOSH Administration Saliva Substitute 0 ml 10/28/16 12:30 Saliva Substitute PO Q2 PRN Dry mouth - Patient Studies Lab Studies: Microbiology Studies 10/26/16 03:25 Gram Stain - Final Trachasp Sputum Culture - Final Klebsiella Pneumoniae Ssp Pneu Lab Studies 10/28/16 10/28/16 10/28/16 Range/Units 13:07 07:50 06:00 WBC (4.5-11.0) 10^3/ul RBC (3.5-6.1) 10^6/uL Hgb (12.0-16.0) gm/dL Hct (36.0-48.0) % MCV (80.0-105.0) fL MCH (25.0-35.0) pg MCHC (31.0-37.0) g/dl RDW (11.5-14.5) % Plt Count (120.0-450.0) 10^3/uL MPV (7.0-11.0) fl Neutrophils % (Manual) (50.0-70.0) % Lymphocytes % (Manual) (22.0-35.0) % Monocytes % (Manual) (1.0-6.0) % Platelet Evaluation (NORMAL) Hypochromasia Anisocytosis (manual) pCO2 26 L (35-45) mm/Hg pO2 124.0 H (80-100) mm/Hg HCO3 15.0 L (21-28) mmol/L ABG pH 7.37 (7.35-7.45) ABG Total CO2 15.8 L (22-28) mmol.L ABG O2 Saturation 98.3 H (95-98) % ABG O2 Content 18.2 (15-23) ML/dl ABG Base Excess -8.6 L (-2.0-3.0) mmol/L ABG Hemoglobin 13.2 (11.7-17.4) g/dL ABG Carboxyhemoglobin 0.8 (0.5-1.5) % POC ABG HHb (Measured) 1.7 (0-5) % ABG Methemoglobin 0.7 (0.0-3.0) % ABG O2 Capacity 18.5 (16-24) mL/dl Hgb O2 Saturation 96.8 (95.0-98.0) % FiO2 40.0 % Sodium 142 (132-148) mmol/L Potassium 3.8 (3.6-5.0) mmol/L Chloride 111 H (98-107) mmol/L Carbon Dioxide 20 L (21-33) mmol/L Anion Gap 15 (10-20) BUN 22 H (7-21) mg/dL Creatinine 1.2 (0.5-1.4) mg/dL Est GFR ( Amer) 58 Est GFR (Non-Af Amer) 48 POC Glucose (mg/dL) 64 L (65-110) mg/dL Random Glucose 120 H (70-110) mg/dL Calcium 7.4 L (8.4-10.5) mg/dL Phosphorus 2.8 (2.5-4.5) mg/dL Magnesium 1.6 L (1.7-2.2) mg/dL Total Bilirubin 0.5 (0.2-1.3) mg/dL AST 17 (15-39) U/L ALT 21 (7-56) U/L Alkaline Phosphatase 56 (38-133) U/L Total Protein 6.4 (5.8-8.3) g/dL Albumin 2.9 L (3.0-4.8) g/dL Globulin 3.5 gm/dL Albumin/Globulin Ratio 0.8 L (1.1-1.8) 10/28/16 10/28/16 10/28/16 Range/Units 05:58 05:58 00:00 WBC 11.6 H (4.5-11.0) 10^3/ul RBC 3.37 L (3.5-6.1) 10^6/uL Hgb 10.1 L (12.0-16.0) gm/dL Hct 30.8 L (36.0-48.0) % MCV 91.4 (80.0-105.0) fL MCH 30.0 (25.0-35.0) pg MCHC 32.8 (31.0-37.0) g/dl RDW 13.9 (11.5-14.5) % Plt Count 216 (120.0-450.0) 10^3/uL MPV 10.7 (7.0-11.0) fl Neutrophils % (Manual) 72 H (50.0-70.0) % Lymphocytes % (Manual) 23 (22.0-35.0) % Monocytes % (Manual) 2 (1.0-6.0) % Platelet Evaluation Normal (NORMAL) Hypochromasia 1+ Anisocytosis (manual) 1+ pCO2 (35-45) mm/Hg pO2 (80-100) mm/Hg HCO3 (21-28) mmol/L ABG pH (7.35-7.45) ABG Total CO2 (22-28) mmol.L ABG O2 Saturation (95-98) % ABG O2 Content (15-23) ML/dl ABG Base Excess (-2.0-3.0) mmol/L ABG Hemoglobin (11.7-17.4) g/dL ABG Carboxyhemoglobin (0.5-1.5) % POC ABG HHb (Measured) (0-5) % ABG Methemoglobin (0.0-3.0) % ABG O2 Capacity (16-24) mL/dl Hgb O2 Saturation (95.0-98.0) % FiO2 % Sodium 143 (132-148) mmol/L Potassium 3.9 (3.6-5.0) mmol/L Chloride 119 H (98-107) mmol/L Carbon Dioxide 17 L (21-33) mmol/L Anion Gap 11 (10-20) BUN 22 H (7-21) mg/dL Creatinine 1.1 (0.5-1.4) mg/dL Est GFR ( Amer) > 60 Est GFR (Non-Af Amer) 53 POC Glucose (mg/dL) 131 H (65-110) mg/dL Random Glucose 61 L (70-110) mg/dL Calcium 7.2 L (8.4-10.5) mg/dL Phosphorus (2.5-4.5) mg/dL Magnesium (1.7-2.2) mg/dL Total Bilirubin 0.3 (0.2-1.3) mg/dL AST 17 (15-39) U/L ALT 25 (7-56) U/L Alkaline Phosphatase 49 (38-133) U/L Total Protein 6.0 (5.8-8.3) g/dL Albumin 2.6 L (3.0-4.8) g/dL Globulin 3.3 gm/dL Albumin/Globulin Ratio 0.8 L (1.1-1.8) 04/10/27/16 10/27/16 Range/Units 21:35 17:20 15:41 WBC (4.5-11.0) 10^3/ul RBC (3.5-6.1) 10^6/uL Hgb (12.0-16.0) gm/dL Hct (36.0-48.0) % MCV (80.0-105.0) fL MCH (25.0-35.0) pg MCHC (31.0-37.0) g/dl RDW (11.5-14.5) % Plt Count (120.0-450.0) 10^3/uL MPV (7.0-11.0) fl Neutrophils % (Manual) (50.0-70.0) % Lymphocytes % (Manual) (22.0-35.0) % Monocytes % (Manual) (1.0-6.0) % Platelet Evaluation (NORMAL) Hypochromasia Anisocytosis (manual) pCO2 (35-45) mm/Hg pO2 (80-100) mm/Hg HCO3 (21-28) mmol/L ABG pH (7.35-7.45) ABG Total CO2 (22-28) mmol.L ABG O2 Saturation (95-98) % ABG O2 Content (15-23) ML/dl ABG Base Excess (-2.0-3.0) mmol/L ABG Hemoglobin (11.7-17.4) g/dL ABG Carboxyhemoglobin (0.5-1.5) % POC ABG HHb (Measured) (0-5) % ABG Methemoglobin (0.0-3.0) % ABG O2 Capacity (16-24) mL/dl Hgb O2 Saturation (95.0-98.0) % FiO2 % Sodium 142 (132-148) mmol/L Potassium 3.7 (3.6-5.0) mmol/L Chloride 113 H (98-107) mmol/L Carbon Dioxide 20 L (21-33) mmol/L Anion Gap 13 (10-20) BUN 26 H (7-21) mg/dL Creatinine 1.3 (0.5-1.4) mg/dL Est GFR ( Amer) 52 Est GFR (Non-Af Amer) 43 POC Glucose (mg/dL) 77 127 H (65-110) mg/dL Random Glucose 108 (70-110) mg/dL Calcium 7.5 L (8.4-10.5) mg/dL Phosphorus 2.1 L (2.5-4.5) mg/dL Magnesium 1.5 L (1.7-2.2) mg/dL Total Bilirubin 0.2 (0.2-1.3) mg/dL AST 19 (15-39) U/L ALT 23 (7-56) U/L Alkaline Phosphatase 50 (38-133) U/L Total Protein 5.8 (5.8-8.3) g/dL Albumin 2.5 L (3.0-4.8) g/dL Globulin 3.3 gm/dL Albumin/Globulin Ratio 0.8 L (1.1-1.8) 10/27/16 10/27/16 10/27/16 Range/Units 14:18 11:57 11:03 WBC (4.5-11.0) 10^3/ul RBC (3.5-6.1) 10^6/uL Hgb (12.0-16.0) gm/dL Hct (36.0-48.0) % MCV (80.0-105.0) fL MCH (25.0-35.0) pg MCHC (31.0-37.0) g/dl RDW (11.5-14.5) % Plt Count (120.0-450.0) 10^3/uL MPV (7.0-11.0) fl Neutrophils % (Manual) (50.0-70.0) % Lymphocytes % (Manual) (22.0-35.0) % Monocytes % (Manual) (1.0-6.0) % Platelet Evaluation (NORMAL) Hypochromasia Anisocytosis (manual) pCO2 (35-45) mm/Hg pO2 (80-100) mm/Hg HCO3 (21-28) mmol/L ABG pH (7.35-7.45) ABG Total CO2 (22-28) mmol.L ABG O2 Saturation (95-98) % ABG O2 Content (15-23) ML/dl ABG Base Excess (-2.0-3.0) mmol/L ABG Hemoglobin (11.7-17.4) g/dL ABG Carboxyhemoglobin (0.5-1.5) % POC ABG HHb (Measured) (0-5) % ABG Methemoglobin (0.0-3.0) % ABG O2 Capacity (16-24) mL/dl Hgb O2 Saturation (95.0-98.0) % FiO2 % Sodium (132-148) mmol/L Potassium (3.6-5.0) mmol/L Chloride (98-107) mmol/L Carbon Dioxide (21-33) mmol/L Anion Gap (10-20) BUN (7-21) mg/dL Creatinine (0.5-1.4) mg/dL Est GFR ( Amer) Est GFR (Non-Af Amer) POC Glucose (mg/dL) 150 H 174 H 235 H (65-110) mg/dL Random Glucose (70-110) mg/dL Calcium (8.4-10.5) mg/dL Phosphorus (2.5-4.5) mg/dL Magnesium (1.7-2.2) mg/dL Total Bilirubin (0.2-1.3) mg/dL AST (15-39) U/L ALT (7-56) U/L Alkaline Phosphatase (38-133) U/L Total Protein (5.8-8.3) g/dL Albumin (3.0-4.8) g/dL Globulin gm/dL Albumin/Globulin Ratio (1.1-1.8) 10/27/16 10/27/16 10/27/16 Range/Units 10:02 09:03 08:07 WBC (4.5-11.0) 10^3/ul RBC (3.5-6.1) 10^6/uL Hgb (12.0-16.0) gm/dL Hct (36.0-48.0) % MCV (80.0-105.0) fL MCH (25.0-35.0) pg MCHC (31.0-37.0) g/dl RDW (11.5-14.5) % Plt Count (120.0-450.0) 10^3/uL MPV (7.0-11.0) fl Neutrophils % (Manual) (50.0-70.0) % Lymphocytes % (Manual) (22.0-35.0) % Monocytes % (Manual) (1.0-6.0) % Platelet Evaluation (NORMAL) Hypochromasia Anisocytosis (manual) pCO2 (35-45) mm/Hg pO2 (80-100) mm/Hg HCO3 (21-28) mmol/L ABG pH (7.35-7.45) ABG Total CO2 (22-28) mmol.L ABG O2 Saturation (95-98) % ABG O2 Content (15-23) ML/dl ABG Base Excess (-2.0-3.0) mmol/L ABG Hemoglobin (11.7-17.4) g/dL ABG Carboxyhemoglobin (0.5-1.5) % POC ABG HHb (Measured) (0-5) % ABG Methemoglobin (0.0-3.0) % ABG O2 Capacity (16-24) mL/dl Hgb O2 Saturation (95.0-98.0) % FiO2 % Sodium (132-148) mmol/L Potassium (3.6-5.0) mmol/L Chloride (98-107) mmol/L Carbon Dioxide (21-33) mmol/L Anion Gap (10-20) BUN (7-21) mg/dL Creatinine (0.5-1.4) mg/dL Est GFR ( Amer) Est GFR (Non-Af Amer) POC Glucose (mg/dL) 232 H 186 H 182 H (65-110) mg/dL Random Glucose (70-110) mg/dL Calcium (8.4-10.5) mg/dL Phosphorus (2.5-4.5) mg/dL Magnesium (1.7-2.2) mg/dL Total Bilirubin (0.2-1.3) mg/dL AST (15-39) U/L ALT (7-56) U/L Alkaline Phosphatase (38-133) U/L Total Protein (5.8-8.3) g/dL Albumin (3.0-4.8) g/dL Globulin gm/dL Albumin/Globulin Ratio (1.1-1.8) 10/27/16 10/27/16 10/27/16 Range/Units 07:08 06:08 05:09 WBC (4.5-11.0) 10^3/ul RBC (3.5-6.1) 10^6/uL Hgb (12.0-16.0) gm/dL Hct (36.0-48.0) % MCV (80.0-105.0) fL MCH (25.0-35.0) pg MCHC (31.0-37.0) g/dl RDW (11.5-14.5) % Plt Count (120.0-450.0) 10^3/uL MPV (7.0-11.0) fl Neutrophils % (Manual) (50.0-70.0) % Lymphocytes % (Manual) (22.0-35.0) % Monocytes % (Manual) (1.0-6.0) % Platelet Evaluation (NORMAL) Hypochromasia Anisocytosis (manual) pCO2 (35-45) mm/Hg pO2 (80-100) mm/Hg HCO3 (21-28) mmol/L ABG pH (7.35-7.45) ABG Total CO2 (22-28) mmol.L ABG O2 Saturation (95-98) % ABG O2 Content (15-23) ML/dl ABG Base Excess (-2.0-3.0) mmol/L ABG Hemoglobin (11.7-17.4) g/dL ABG Carboxyhemoglobin (0.5-1.5) % POC ABG HHb (Measured) (0-5) % ABG Methemoglobin (0.0-3.0) % ABG O2 Capacity (16-24) mL/dl Hgb O2 Saturation (95.0-98.0) % FiO2 % Sodium (132-148) mmol/L Potassium (3.6-5.0) mmol/L Chloride (98-107) mmol/L Carbon Dioxide (21-33) mmol/L Anion Gap (10-20) BUN (7-21) mg/dL Creatinine (0.5-1.4) mg/dL Est GFR ( Amer) Est GFR (Non-Af Amer) POC Glucose (mg/dL) 186 H 164 H 153 H (65-110) mg/dL Random Glucose (70-110) mg/dL Calcium (8.4-10.5) mg/dL Phosphorus (2.5-4.5) mg/dL Magnesium (1.7-2.2) mg/dL Total Bilirubin (0.2-1.3) mg/dL AST (15-39) U/L ALT (7-56) U/L Alkaline Phosphatase (38-133) U/L Total Protein (5.8-8.3) g/dL Albumin (3.0-4.8) g/dL Globulin gm/dL Albumin/Globulin Ratio (1.1-1.8) 10/27/16 10/27/16 10/27/16 Range/Units 04:12 03:09 01:17 WBC (4.5-11.0) 10^3/ul RBC (3.5-6.1) 10^6/uL Hgb (12.0-16.0) gm/dL Hct (36.0-48.0) % MCV (80.0-105.0) fL MCH (25.0-35.0) pg MCHC (31.0-37.0) g/dl RDW (11.5-14.5) % Plt Count (120.0-450.0) 10^3/uL MPV (7.0-11.0) fl Neutrophils % (Manual) (50.0-70.0) % Lymphocytes % (Manual) (22.0-35.0) % Monocytes % (Manual) (1.0-6.0) % Platelet Evaluation (NORMAL) Hypochromasia Anisocytosis (manual) pCO2 (35-45) mm/Hg pO2 (80-100) mm/Hg HCO3 (21-28) mmol/L ABG pH (7.35-7.45) ABG Total CO2 (22-28) mmol.L ABG O2 Saturation (95-98) % ABG O2 Content (15-23) ML/dl ABG Base Excess (-2.0-3.0) mmol/L ABG Hemoglobin (11.7-17.4) g/dL ABG Carboxyhemoglobin (0.5-1.5) % POC ABG HHb (Measured) (0-5) % ABG Methemoglobin (0.0-3.0) % ABG O2 Capacity (16-24) mL/dl Hgb O2 Saturation (95.0-98.0) % FiO2 % Sodium (132-148) mmol/L Potassium (3.6-5.0) mmol/L Chloride (98-107) mmol/L Carbon Dioxide (21-33) mmol/L Anion Gap (10-20) BUN (7-21) mg/dL Creatinine (0.5-1.4) mg/dL Est GFR ( Amer) Est GFR (Non-Af Amer) POC Glucose (mg/dL) 162 H 181 H 184 H (65-110) mg/dL Random Glucose (70-110) mg/dL Calcium (8.4-10.5) mg/dL Phosphorus (2.5-4.5) mg/dL Magnesium (1.7-2.2) mg/dL Total Bilirubin (0.2-1.3) mg/dL AST (15-39) U/L ALT (7-56) U/L Alkaline Phosphatase (38-133) U/L Total Protein (5.8-8.3) g/dL Albumin (3.0-4.8) g/dL Globulin gm/dL Albumin/Globulin Ratio (1.1-1.8) 10/27/16 10/26/16 10/26/16 Range/Units 00:28 23:27 22:01 WBC (4.5-11.0) 10^3/ul RBC (3.5-6.1) 10^6/uL Hgb (12.0-16.0) gm/dL Hct (36.0-48.0) % MCV (80.0-105.0) fL MCH (25.0-35.0) pg MCHC (31.0-37.0) g/dl RDW (11.5-14.5) % Plt Count (120.0-450.0) 10^3/uL MPV (7.0-11.0) fl Neutrophils % (Manual) (50.0-70.0) % Lymphocytes % (Manual) (22.0-35.0) % Monocytes % (Manual) (1.0-6.0) % Platelet Evaluation (NORMAL) Hypochromasia Anisocytosis (manual) pCO2 (35-45) mm/Hg pO2 (80-100) mm/Hg HCO3 (21-28) mmol/L ABG pH (7.35-7.45) ABG Total CO2 (22-28) mmol.L ABG O2 Saturation (95-98) % ABG O2 Content (15-23) ML/dl ABG Base Excess (-2.0-3.0) mmol/L ABG Hemoglobin (11.7-17.4) g/dL ABG Carboxyhemoglobin (0.5-1.5) % POC ABG HHb (Measured) (0-5) % ABG Methemoglobin (0.0-3.0) % ABG O2 Capacity (16-24) mL/dl Hgb O2 Saturation (95.0-98.0) % FiO2 % Sodium (132-148) mmol/L Potassium (3.6-5.0) mmol/L Chloride (98-107) mmol/L Carbon Dioxide (21-33) mmol/L Anion Gap (10-20) BUN (7-21) mg/dL Creatinine (0.5-1.4) mg/dL Est GFR ( Amer) Est GFR (Non-Af Amer) POC Glucose (mg/dL) 224 H 203 H 186 H (65-110) mg/dL Random Glucose (70-110) mg/dL Calcium (8.4-10.5) mg/dL Phosphorus (2.5-4.5) mg/dL Magnesium (1.7-2.2) mg/dL Total Bilirubin (0.2-1.3) mg/dL AST (15-39) U/L ALT (7-56) U/L Alkaline Phosphatase (38-133) U/L Total Protein (5.8-8.3) g/dL Albumin (3.0-4.8) g/dL Globulin gm/dL Albumin/Globulin Ratio (1.1-1.8) 10/26/16 10/26/16 10/26/16 Range/Units 21:03 20:01 19:01 WBC (4.5-11.0) 10^3/ul RBC (3.5-6.1) 10^6/uL Hgb (12.0-16.0) gm/dL Hct (36.0-48.0) % MCV (80.0-105.0) fL MCH (25.0-35.0) pg MCHC (31.0-37.0) g/dl RDW (11.5-14.5) % Plt Count (120.0-450.0) 10^3/uL MPV (7.0-11.0) fl Neutrophils % (Manual) (50.0-70.0) % Lymphocytes % (Manual) (22.0-35.0) % Monocytes % (Manual) (1.0-6.0) % Platelet Evaluation (NORMAL) Hypochromasia Anisocytosis (manual) pCO2 (35-45) mm/Hg pO2 (80-100) mm/Hg HCO3 (21-28) mmol/L ABG pH (7.35-7.45) ABG Total CO2 (22-28) mmol.L ABG O2 Saturation (95-98) % ABG O2 Content (15-23) ML/dl ABG Base Excess (-2.0-3.0) mmol/L ABG Hemoglobin (11.7-17.4) g/dL ABG Carboxyhemoglobin (0.5-1.5) % POC ABG HHb (Measured) (0-5) % ABG Methemoglobin (0.0-3.0) % ABG O2 Capacity (16-24) mL/dl Hgb O2 Saturation (95.0-98.0) % FiO2 % Sodium (132-148) mmol/L Potassium (3.6-5.0) mmol/L Chloride (98-107) mmol/L Carbon Dioxide (21-33) mmol/L Anion Gap (10-20) BUN (7-21) mg/dL Creatinine (0.5-1.4) mg/dL Est GFR ( Amer) Est GFR (Non-Af Amer) POC Glucose (mg/dL) 187 H 196 H 213 H (65-110) mg/dL Random Glucose (70-110) mg/dL Calcium (8.4-10.5) mg/dL Phosphorus (2.5-4.5) mg/dL Magnesium (1.7-2.2) mg/dL Total Bilirubin (0.2-1.3) mg/dL AST (15-39) U/L ALT (7-56) U/L Alkaline Phosphatase (38-133) U/L Total Protein (5.8-8.3) g/dL Albumin (3.0-4.8) g/dL Globulin gm/dL Albumin/Globulin Ratio (1.1-1.8) 10/26/16 10/26/1617 Range/Units 18:15 17:02 16:28 WBC (4.5-11.0) 10^3/ul RBC (3.5-6.1) 10^6/uL Hgb (12.0-16.0) gm/dL Hct (36.0-48.0) % MCV (80.0-105.0) fL MCH (25.0-35.0) pg MCHC (31.0-37.0) g/dl RDW (11.5-14.5) % Plt Count (120.0-450.0) 10^3/uL MPV (7.0-11.0) fl Neutrophils % (Manual) (50.0-70.0) % Lymphocytes % (Manual) (22.0-35.0) % Monocytes % (Manual) (1.0-6.0) % Platelet Evaluation (NORMAL) Hypochromasia Anisocytosis (manual) pCO2 (35-45) mm/Hg pO2 (80-100) mm/Hg HCO3 (21-28) mmol/L ABG pH (7.35-7.45) ABG Total CO2 (22-28) mmol.L ABG O2 Saturation (95-98) % ABG O2 Content (15-23) ML/dl ABG Base Excess (-2.0-3.0) mmol/L ABG Hemoglobin (11.7-17.4) g/dL ABG Carboxyhemoglobin (0.5-1.5) % POC ABG HHb (Measured) (0-5) % ABG Methemoglobin (0.0-3.0) % ABG O2 Capacity (16-24) mL/dl Hgb O2 Saturation (95.0-98.0) % FiO2 % Sodium (132-148) mmol/L Potassium (3.6-5.0) mmol/L Chloride (98-107) mmol/L Carbon Dioxide (21-33) mmol/L Anion Gap (10-20) BUN (7-21) mg/dL Creatinine (0.5-1.4) mg/dL Est GFR ( Amer) Est GFR (Non-Af Amer) POC Glucose (mg/dL) 201 H 227 H 224 H (65-110) mg/dL Random Glucose (70-110) mg/dL Calcium (8.4-10.5) mg/dL Phosphorus (2.5-4.5) mg/dL Magnesium (1.7-2.2) mg/dL Total Bilirubin (0.2-1.3) mg/dL AST (15-39) U/L ALT (7-56) U/L Alkaline Phosphatase (38-133) U/L Total Protein (5.8-8.3) g/dL Albumin (3.0-4.8) g/dL Globulin gm/dL Albumin/Globulin Ratio (1.1-1.8) 10/26/16 Range/Units 15:24 WBC (4.5-11.0) 10^3/ul RBC (3.5-6.1) 10^6/uL Hgb (12.0-16.0) gm/dL Hct (36.0-48.0) % MCV (80.0-105.0) fL MCH (25.0-35.0) pg MCHC (31.0-37.0) g/dl RDW (11.5-14.5) % Plt Count (120.0-450.0) 10^3/uL MPV (7.0-11.0) fl Neutrophils % (Manual) (50.0-70.0) % Lymphocytes % (Manual) (22.0-35.0) % Monocytes % (Manual) (1.0-6.0) % Platelet Evaluation (NORMAL) Hypochromasia Anisocytosis (manual) pCO2 (35-45) mm/Hg pO2 (80-100) mm/Hg HCO3 (21-28) mmol/L ABG pH (7.35-7.45) ABG Total CO2 (22-28) mmol.L ABG O2 Saturation (95-98) % ABG O2 Content (15-23) ML/dl ABG Base Excess (-2.0-3.0) mmol/L ABG Hemoglobin (11.7-17.4) g/dL ABG Carboxyhemoglobin (0.5-1.5) % POC ABG HHb (Measured) (0-5) % ABG Methemoglobin (0.0-3.0) % ABG O2 Capacity (16-24) mL/dl Hgb O2 Saturation (95.0-98.0) % FiO2 % Sodium (132-148) mmol/L Potassium (3.6-5.0) mmol/L Chloride (98-107) mmol/L Carbon Dioxide (21-33) mmol/L Anion Gap (10-20) BUN (7-21) mg/dL Creatinine (0.5-1.4) mg/dL Est GFR ( Amer) Est GFR (Non-Af Amer) POC Glucose (mg/dL) 171 H (65-110) mg/dL Random Glucose (70-110) mg/dL Calcium (8.4-10.5) mg/dL Phosphorus (2.5-4.5) mg/dL Magnesium (1.7-2.2) mg/dL Total Bilirubin (0.2-1.3) mg/dL AST (15-39) U/L ALT (7-56) U/L Alkaline Phosphatase (38-133) U/L Total Protein (5.8-8.3) g/dL Albumin (3.0-4.8) g/dL Globulin gm/dL Albumin/Globulin Ratio (1.1-1.8) Laboratory Results - last 24 hr 10/26/16 10/26/16 10/26/16 15:24 16:28 17:02 WBC RBC Hgb Hct MCV MCH MCHC RDW Plt Count MPV Neutrophils % (Manual) Lymphocytes % (Manual) Monocytes % (Manual) Platelet Evaluation Hypochromasia Anisocytosis (manual) pCO2 pO2 HCO3 ABG pH ABG Total CO2 ABG O2 Saturation ABG O2 Content ABG Base Excess ABG Hemoglobin ABG Carboxyhemoglobin POC ABG HHb (Measured) ABG Methemoglobin ABG O2 Capacity Hgb O2 Saturation FiO2 Sodium Potassium Chloride Carbon Dioxide Anion Gap BUN Creatinine Est GFR ( Amer) Est GFR (Non-Af Amer) POC Glucose (mg/dL) 171 H 224 H 227 H Random Glucose Calcium Phosphorus Magnesium Total Bilirubin AST ALT Alkaline Phosphatase Total Protein Albumin Globulin Albumin/Globulin Ratio 10/26/16 10/26/16 10/26/16 18:15 19:01 20:01 WBC RBC Hgb Hct MCV MCH MCHC RDW Plt Count MPV Neutrophils % (Manual) Lymphocytes % (Manual) Monocytes % (Manual) Platelet Evaluation Hypochromasia Anisocytosis (manual) pCO2 pO2 HCO3 ABG pH ABG Total CO2 ABG O2 Saturation ABG O2 Content ABG Base Excess ABG Hemoglobin ABG Carboxyhemoglobin POC ABG HHb (Measured) ABG Methemoglobin ABG O2 Capacity Hgb O2 Saturation FiO2 Sodium Potassium Chloride Carbon Dioxide Anion Gap BUN Creatinine Est GFR ( Amer) Est GFR (Non-Af Amer) POC Glucose (mg/dL) 201 H 213 H 196 H Random Glucose Calcium Phosphorus Magnesium Total Bilirubin AST ALT Alkaline Phosphatase Total Protein Albumin Globulin Albumin/Globulin Ratio 10/26/16 10/26/16 10/26/16 21:03 22:01 23:27 WBC RBC Hgb Hct MCV MCH MCHC RDW Plt Count MPV Neutrophils % (Manual) Lymphocytes % (Manual) Monocytes % (Manual) Platelet Evaluation Hypochromasia Anisocytosis (manual) pCO2 pO2 HCO3 ABG pH ABG Total CO2 ABG O2 Saturation ABG O2 Content ABG Base Excess ABG Hemoglobin ABG Carboxyhemoglobin POC ABG HHb (Measured) ABG Methemoglobin ABG O2 Capacity Hgb O2 Saturation FiO2 Sodium Potassium Chloride Carbon Dioxide Anion Gap BUN Creatinine Est GFR ( Amer) Est GFR (Non-Af Amer) POC Glucose (mg/dL) 187 H 186 H 203 H Random Glucose Calcium Phosphorus Magnesium Total Bilirubin AST ALT Alkaline Phosphatase Total Protein Albumin Globulin Albumin/Globulin Ratio 10/27/16 10/27/16 10/27/16 00:28 01:17 03:09 WBC RBC Hgb Hct MCV MCH MCHC RDW Plt Count MPV Neutrophils % (Manual) Lymphocytes % (Manual) Monocytes % (Manual) Platelet Evaluation Hypochromasia Anisocytosis (manual) pCO2 pO2 HCO3 ABG pH ABG Total CO2 ABG O2 Saturation ABG O2 Content ABG Base Excess ABG Hemoglobin ABG Carboxyhemoglobin POC ABG HHb (Measured) ABG Methemoglobin ABG O2 Capacity Hgb O2 Saturation FiO2 Sodium Potassium Chloride Carbon Dioxide Anion Gap BUN Creatinine Est GFR ( Amer) Est GFR (Non-Af Amer) POC Glucose (mg/dL) 224 H 184 H 181 H Random Glucose Calcium Phosphorus Magnesium Total Bilirubin AST ALT Alkaline Phosphatase Total Protein Albumin Globulin Albumin/Globulin Ratio 10/27/16 10/27/16 10/27/16 04:12 05:09 06:08 WBC RBC Hgb Hct MCV MCH MCHC RDW Plt Count MPV Neutrophils % (Manual) Lymphocytes % (Manual) Monocytes % (Manual) Platelet Evaluation Hypochromasia Anisocytosis (manual) pCO2 pO2 HCO3 ABG pH ABG Total CO2 ABG O2 Saturation ABG O2 Content ABG Base Excess ABG Hemoglobin ABG Carboxyhemoglobin POC ABG HHb (Measured) ABG Methemoglobin ABG O2 Capacity Hgb O2 Saturation FiO2 Sodium Potassium Chloride Carbon Dioxide Anion Gap BUN Creatinine Est GFR ( Amer) Est GFR (Non-Af Amer) POC Glucose (mg/dL) 162 H 153 H 164 H Random Glucose Calcium Phosphorus Magnesium Total Bilirubin AST ALT Alkaline Phosphatase Total Protein Albumin Globulin Albumin/Globulin Ratio 10/27/16 10/27/16 10/27/16 07:08 08:07 09:03 WBC RBC Hgb Hct MCV MCH MCHC RDW Plt Count MPV Neutrophils % (Manual) Lymphocytes % (Manual) Monocytes % (Manual) Platelet Evaluation Hypochromasia Anisocytosis (manual) pCO2 pO2 HCO3 ABG pH ABG Total CO2 ABG O2 Saturation ABG O2 Content ABG Base Excess ABG Hemoglobin ABG Carboxyhemoglobin POC ABG HHb (Measured) ABG Methemoglobin ABG O2 Capacity Hgb O2 Saturation FiO2 Sodium Potassium Chloride Carbon Dioxide Anion Gap BUN Creatinine Est GFR ( Amer) Est GFR (Non-Af Amer) POC Glucose (mg/dL) 186 H 182 H 186 H Random Glucose Calcium Phosphorus Magnesium Total Bilirubin AST ALT Alkaline Phosphatase Total Protein Albumin Globulin Albumin/Globulin Ratio 10/27/16 10/27/16 10/27/16 10:02 11:03 11:57 WBC RBC Hgb Hct MCV MCH MCHC RDW Plt Count MPV Neutrophils % (Manual) Lymphocytes % (Manual) Monocytes % (Manual) Platelet Evaluation Hypochromasia Anisocytosis (manual) pCO2 pO2 HCO3 ABG pH ABG Total CO2 ABG O2 Saturation ABG O2 Content ABG Base Excess ABG Hemoglobin ABG Carboxyhemoglobin POC ABG HHb (Measured) ABG Methemoglobin ABG O2 Capacity Hgb O2 Saturation FiO2 Sodium Potassium Chloride Carbon Dioxide Anion Gap BUN Creatinine Est GFR ( Amer) Est GFR (Non-Af Amer) POC Glucose (mg/dL) 232 H 235 H 174 H Random Glucose Calcium Phosphorus Magnesium Total Bilirubin AST ALT Alkaline Phosphatase Total Protein Albumin Globulin Albumin/Globulin Ratio 10/27/16 10/27/16 10/27/16 14:18 15:41 17:20 WBC RBC Hgb Hct MCV MCH MCHC RDW Plt Count MPV Neutrophils % (Manual) Lymphocytes % (Manual) Monocytes % (Manual) Platelet Evaluation Hypochromasia Anisocytosis (manual) pCO2 pO2 HCO3 ABG pH ABG Total CO2 ABG O2 Saturation ABG O2 Content ABG Base Excess ABG Hemoglobin ABG Carboxyhemoglobin POC ABG HHb (Measured) ABG Methemoglobin ABG O2 Capacity Hgb O2 Saturation FiO2 Sodium 142 Potassium 3.7 Chloride 113 H Carbon Dioxide 20 L Anion Gap 13 BUN 26 H Creatinine 1.3 Est GFR ( Amer) 52 Est GFR (Non-Af Amer) 43 POC Glucose (mg/dL) 150 H 127 H Random Glucose 108 Calcium 7.5 L Phosphorus 2.1 L Magnesium 1.5 L Total Bilirubin 0.2 AST 19 ALT 23 Alkaline Phosphatase 50 Total Protein 5.8 Albumin 2.5 L Globulin 3.3 Albumin/Globulin Ratio 0.8 L 10/27/16 10/28/16 10/28/16 21:35 00:00 05:58 WBC 11.6 H RBC 3.37 L Hgb 10.1 L Hct 30.8 L MCV 91.4 MCH 30.0 MCHC 32.8 RDW 13.9 Plt Count 216 MPV 10.7 Neutrophils % (Manual) 72 H Lymphocytes % (Manual) 23 Monocytes % (Manual) 2 Platelet Evaluation Normal Hypochromasia 1+ Anisocytosis (manual) 1+ pCO2 pO2 HCO3 ABG pH ABG Total CO2 ABG O2 Saturation ABG O2 Content ABG Base Excess ABG Hemoglobin ABG Carboxyhemoglobin POC ABG HHb (Measured) ABG Methemoglobin ABG O2 Capacity Hgb O2 Saturation FiO2 Sodium Potassium Chloride Carbon Dioxide Anion Gap BUN Creatinine Est GFR ( Amer) Est GFR (Non-Af Amer) POC Glucose (mg/dL) 77 131 H Random Glucose Calcium Phosphorus Magnesium Total Bilirubin AST ALT Alkaline Phosphatase Total Protein Albumin Globulin Albumin/Globulin Ratio 10/28/16 10/28/16 10/28/16 05:58 06:00 07:50 WBC RBC Hgb Hct MCV MCH MCHC RDW Plt Count MPV Neutrophils % (Manual) Lymphocytes % (Manual) Monocytes % (Manual) Platelet Evaluation Hypochromasia Anisocytosis (manual) pCO2 26 L pO2 124.0 H HCO3 15.0 L ABG pH 7.37 ABG Total CO2 15.8 L ABG O2 Saturation 98.3 H ABG O2 Content 18.2 ABG Base Excess -8.6 L ABG Hemoglobin 13.2 ABG Carboxyhemoglobin 0.8 POC ABG HHb (Measured) 1.7 ABG Methemoglobin 0.7 ABG O2 Capacity 18.5 Hgb O2 Saturation 96.8 FiO2 40.0 Sodium 143 Potassium 3.9 Chloride 119 H Carbon Dioxide 17 L Anion Gap 11 BUN 22 H Creatinine 1.1 Est GFR ( Amer) > 60 Est GFR (Non-Af Amer) 53 POC Glucose (mg/dL) 64 L Random Glucose 61 L Calcium 7.2 L Phosphorus Magnesium Total Bilirubin 0.3 AST 17 ALT 25 Alkaline Phosphatase 49 Total Protein 6.0 Albumin 2.6 L Globulin 3.3 Albumin/Globulin Ratio 0.8 L 10/28/16 13:07 WBC RBC Hgb Hct MCV MCH MCHC RDW Plt Count MPV Neutrophils % (Manual) Lymphocytes % (Manual) Monocytes % (Manual) Platelet Evaluation Hypochromasia Anisocytosis (manual) pCO2 pO2 HCO3 ABG pH ABG Total CO2 ABG O2 Saturation ABG O2 Content ABG Base Excess ABG Hemoglobin ABG Carboxyhemoglobin POC ABG HHb (Measured) ABG Methemoglobin ABG O2 Capacity Hgb O2 Saturation FiO2 Sodium 142 Potassium 3.8 Chloride 111 H Carbon Dioxide 20 L Anion Gap 15 BUN 22 H Creatinine 1.2 Est GFR ( Amer) 58 Est GFR (Non-Af Amer) 48 POC Glucose (mg/dL) Random Glucose 120 H Calcium 7.4 L Phosphorus 2.8 Magnesium 1.6 L Total Bilirubin 0.5 AST 17 ALT 21 Alkaline Phosphatase 56 Total Protein 6.4 Albumin 2.9 L Globulin 3.5 Albumin/Globulin Ratio 0.8 L Critical Care Progress Note - Nutrition Nutrition: Nutrition Category Date Time Status NPO Diet [DIET] Diets 10/28/16 Dinner Ordered Attending/Attestation - Attestation I have personally seen and examined this patient.: Yes I have fully participated in the care of the patient.: Yes I have reviewed all pertinent clinical information: Yes Notes (Text): 10/28/16 17:06 51 y/o F s/p Hernia repair Intubated for Metabolic acidosis w/o compensation MEHRAN Chronic Pain Anxiety Passed SBT today . Extubated. Due to abdominal pain, the patient is taking shallow breaths w/ rapid breathing therefore high risk for re-intubation. On Precedex for anxiety, can be changed to PRN ativan. HIGH output NGT output. Surgery following in the case of SBO etc. NPO DVT P heparin sq tid. Fluid overload during ICU stay- Diuresis started. Continue to keep euvolemic. cc time 65 min
--- NOTE | 2016-10-28 15:28 | CP.PCM.PN ---
Subjective - Date & Time of Evaluation Date of Evaluation: 10/28/16 Time of Evaluation: 15:25 - Subjective Subjective: Patient remains in ICU. No acute events overnight. NGT drained 520cc/24hr. Urine output 1040cc/24hr. Patient has yet to have a BM. Objective - Vital Signs/Intake and Output Vital Signs (last 24 hours): Temp Pulse Resp BP Pulse Ox 97.9 F 54 L 31 H 147/68 100 10/28/16 13:27 10/28/16 13:00 10/28/16 13:00 10/28/16 13:00 10/28/16 13:00 Intake and Output: 10/28/16 10/28/16 06:59 18:59 Intake Total 4286.0 100 Output Total 520 Balance 3766.0 100 - Medications Medications: Current Medications Heparin Sodium (Porcine) (Heparin) 5,000 units SC Q12 JOSH PRN Reason: Protocol Last Admin: 10/28/16 09:20 Dose: 5,000 units Propofol (Diprivan) 100 mls @ 2.449 mls/hr IV .Q24H PRN; Protocol; 5 MCG/KG/MIN PRN Reason: TITRATE PER MD ORDER Last Titration: 10/26/16 16:05 Dose: 0 mcg/kg/min, 0 mls/hr Linezolid (Zyvox 600mg/300ml D5w) 300 mls @ 200 mls/hr IVPB Q12 JOSH PRN Reason: Protocol Stop: 11/01/16 15:31 Last Admin: 10/28/16 09:16 Dose: 200 mls/hr Meropenem 1g/NS 100mL IVPB (Meropenem 1g/Ns 100ml Ivpb) 100 mls @ 100 mls/hr IVPB Q12 JOSH PRN Reason: Protocol Stop: 11/01/16 22:01 Last Admin: 10/28/16 09:20 Dose: 100 mls/hr Dexmedetomidine HCl (Precedex 4 Mcg/Ml (100 Ml)) 400 mcg in 100 mls @ 5.216 mls /hr IV .[id number] PRN; Protocol; 0.2 MCG/KG/HR PRN Reason: Agitation Last Admin: 10/28/16 13:05 Dose: 1.5 mcg/kg/hr, 39.122 mls/hr Potassium Chloride 20 meq/ (Sodium Chloride) 1,010 mls @ 200 mls/hr IV .Q5H3M [facility] Last Admin: 10/28/16 04:56 Dose: 200 mls/hr Insulin Human Lispro (Humalog High) 0 units SC ACHS JOSH PRN Reason: Protocol Last Admin: 10/28/16 11:30 Dose: Not Given Lorazepam (Ativan) 0.5 mg IVP Q6H PRN; Protocol PRN Reason: Anxiety Metoprolol Tartrate (Lopressor) 5 mg IVP Q6H [facility] Last Admin: 10/28/16 05:58 Dose: 5 mg Morphine Sulfate (Morphine) 4 mg IM Q6H PRN PRN Reason: Pain, severe (8-10) Last Admin: 10/28/16 05:29 Dose: 4 mg Morphine Sulfate (Morphine) 2 mg IVP Q3H PRN PRN Reason: Pain, moderate (4-7) Last Admin: 10/28/16 14:02 Dose: 2 mg Pantoprazole Sodium (Protonix Inj) 40 mg IVP DAILY [facility] Last Admin: 10/28/16 09:00 Dose: 40 mg Saliva Substitute (Saliva Substitute) 0 ml PO Q2 PRN PRN Reason: Dry mouth - Labs Labs: 10/28/16 05:58 10/28/16 13:07 PT 13.0 Seconds (9.9-11.8) H 10/25/16 09:10 INR 1.20 (0.93-1.08) H 10/25/16 09:10 APTT 26.7 Seconds (23.7-30.8) 10/25/16 09:10 - Head Exam Head Exam: ATRAUMATIC, NORMOCEPHALIC - Eye Exam Eye Exam: EOMI, PERRL - ENT Exam ENT Exam: Mucous Membranes Dry - Neck Exam Neck Exam: Normal Inspection - Respiratory Exam Respiratory Exam: absent: Rales, Rhonchi, Wheezes - Cardiovascular Exam Cardiovascular Exam: REGULAR RHYTHM, +S1, +S2 - GI/Abdominal Exam GI & Abdominal Exam: Soft. absent: Guarding, Rigid - Extremities Exam Extremities Exam: absent: Calf Tenderness, Pedal Edema - Back Exam Back Exam: NORMAL INSPECTION - Skin Skin Exam: Dry, Intact, Normal Color, Warm Assessment and Plan - Assessment and Plan (Free Text) Assessment: 51F s/p laparoscopic ventral hernia repair on 10/19/16 in ICU w. DKA, sepsis, and SBO -DKA management per ICU -Keep OGT to low intermittent suction -serial abd exams - strict I/O's -c/w abx per ID -will continue to follow closely -d/w attending
--- NOTE | 2016-10-28 15:28 | CP.PCM.PN ---
Subjective - Date & Time of Evaluation Date of Evaluation: 10/27/16 Time of Evaluation: 06:00 - Subjective Subjective: 51F s/p laparoscopic ventral hernia repair on 10/19/16 in ICU w. DKA, sepsis, and SBO -DKA management per ICU -Keep OGT to low intermittent suctions -serial abd exams -c/w abx per ID -will continue to follow closely -d/w attending Objective - Vital Signs/Intake and Output Vital Signs (last 24 hours): Temp Pulse Resp BP Pulse Ox 97.9 F 54 L 31 H 147/68 100 10/28/16 13:27 10/28/16 13:00 10/28/16 13:00 10/28/16 13:00 10/28/16 13:00 Intake and Output: 10/28/16 10/28/16 06:59 18:59 Intake Total 4286.0 100 Output Total 520 Balance 3766.0 100 - Medications Medications: Current Medications Heparin Sodium (Porcine) (Heparin) 5,000 units SC Q12 JOSH PRN Reason: Protocol Last Admin: 10/28/16 09:20 Dose: 5,000 units Propofol (Diprivan) 100 mls @ 2.449 mls/hr IV .Q24H PRN; Protocol; 5 MCG/KG/MIN PRN Reason: TITRATE PER MD ORDER Last Titration: 10/26/16 16:05 Dose: 0 mcg/kg/min, 0 mls/hr Linezolid (Zyvox 600mg/300ml D5w) 300 mls @ 200 mls/hr IVPB Q12 JOSH PRN Reason: Protocol Stop: 11/01/16 15:31 Last Admin: 10/28/16 09:16 Dose: 200 mls/hr Meropenem 1g/NS 100mL IVPB (Meropenem 1g/Ns 100ml Ivpb) 100 mls @ 100 mls/hr IVPB Q12 JOSH PRN Reason: Protocol Stop: 11/01/16 22:01 Last Admin: 10/28/16 09:20 Dose: 100 mls/hr Dexmedetomidine HCl (Precedex 4 Mcg/Ml (100 Ml)) 400 mcg in 100 mls @ 5.216 mls /hr IV .[id number] PRN; Protocol; 0.2 MCG/KG/HR PRN Reason: Agitation Last Admin: 10/28/16 13:05 Dose: 1.5 mcg/kg/hr, 39.122 mls/hr Potassium Chloride 20 meq/ (Sodium Chloride) 1,010 mls @ 200 mls/hr IV .Q5H3M [facility] Last Admin: 10/28/16 04:56 Dose: 200 mls/hr Insulin Human Lispro (Humalog High) 0 units SC ACHS JOSH PRN Reason: Protocol Last Admin: 10/28/16 11:30 Dose: Not Given Lorazepam (Ativan) 0.5 mg IVP Q6H PRN; Protocol PRN Reason: Anxiety Metoprolol Tartrate (Lopressor) 5 mg IVP Q6H [facility] Last Admin: 10/28/16 05:58 Dose: 5 mg Morphine Sulfate (Morphine) 4 mg IM Q6H PRN PRN Reason: Pain, severe (8-10) Last Admin: 10/28/16 05:29 Dose: 4 mg Morphine Sulfate (Morphine) 2 mg IVP Q3H PRN PRN Reason: Pain, moderate (4-7) Last Admin: 10/28/16 14:02 Dose: 2 mg Pantoprazole Sodium (Protonix Inj) 40 mg IVP DAILY [facility] Last Admin: 10/28/16 09:00 Dose: 40 mg Saliva Substitute (Saliva Substitute) 0 ml PO Q2 PRN PRN Reason: Dry mouth - Labs Labs: 10/28/16 05:58 10/28/16 13:07 PT 13.0 Seconds (9.9-11.8) H 10/25/16 09:10 INR 1.20 (0.93-1.08) H 10/25/16 09:10 APTT 26.7 Seconds (23.7-30.8) 10/25/16 09:10
--- NOTE | 2016-10-28 16:22 | PN ---
DATE: 10/28/2016 Seen and examined at the bedside earlier this morning. The patient remains intubated, but is fully alert. Her orogastric tube is currently out. It is to be readjusted as per ICU team. No episodes of nausea, vomiting. No real complaints of abdominal discomfort. The patient motioning that she wants the ET tube out. VITAL SIGNS: Temperature is 98.5, blood pressure 111/63, pulse is 68, 100 O2 saturation. LABORATORY DATA: WBC is 11.6, H and H is 10.1 and 30.8, platelets are 216. Her sodium is 142, K 3.8, BUN 22, creatinine is 1.2, magnesium 1.6 and LFTs are within normal limits. Her trache sputum culture shows positive Klebseilla pneumoniae. Urine culture is negative. The patient went for chest x-ray this morning and that was negative for any active pulmonary disease, probable small bilateral pleural effusions versus chronic pleural thickening. ET tube and central venous catheter are in appropriate position. NG tube terminates in the upper thorax and should be replaced or positioned. PHYSICAL EXAMINATION: HEENT: Sclerae anicteric. NECK: Supple. CARDIAC: S1, S2. LUNGS: With decreased breath sounds but positive air entry with positive scattered rhonchi. ABDOMEN: Positive bowel sounds but hypoactive. It is distended. Nontender at this time. No rebound or guarding. EXTREMITIES: Lower extremities positive for edema. The patient had extremity Doppler done for right arm edema; it was negative for deep venous thrombosis. ASSESSMENT: This is a 51-year-old obese female with a history of diabetes mellitus, diabetic neuropathy, hypogammaglobulinemia here in intensive care unit , status post DKA. The patient also has sepsis and small bowel obstruction with recent laparoscopic ventral hernia repair. The patient intubated for impending respiratory failure as patient was in severe metabolic acidosis, also with history of asthma, chronic obstructive pulmonary disease, and also bilateral lower lobe pneumonia. PLAN: The patient is being weaned off ventilator. Discussed with the ICU team and spoke to surgical team regarding obtaining a GI series prior to removing OG- tube for further evaluation of abdomen to evaluate abdomen for point of transition. The patient is on IV antibiotics of meropenem and linezolid, on DVT prophylaxis of heparin as well as Protonix daily as per surgery and ICU team. The patient was seen and case discussed with Dr. Weston. Nina ARORA cc: [id number] TT: 10/28/2016 16:21:07 Confirmation # [id number] Dictation # [id number] mn [id number]
[2016-10-29] MEDS: Morphine 2 mg/ml ISec IVP PRN ×5 (00:05→22:20)
[2016-10-29] MEDS: Insulin Lispro (HUMAlog) HIGH Coverage SC SCH ×2 (00:38→07:30)
[2016-10-29] MEDS: Morphine 4 mg/ml ISec IM PRN (01:15)
[2016-10-29] MEDS: Metoprolol 1 mg/ml Inj IVP SCH ×4 (05:13→22:14)
[2016-10-29 06:10] LABS: ADD MANUAL DIFF? NO
[2016-10-29 06:15] LABS: BASO # 0.14 K/mm3 (0.0-2.0); BASO % 0.9 % (0.0-3.0); EOS # 0.2 (0.0-0.7); EOS % 1.2 % (1.5-5.0); GRAN # 10.95 (1.4-6.5); GRAN % 71.1 % (50.0-68.0); HEMATOCRIT 31.3 % (36.0-48.0); LYMPH # 3.1 (1.2-3.4); LYMPH % 20.3 % (22.0-35.0); MEAN CELL VOLUME 92.1 fL (80.0-105.0); MEAN CORPUSCULAR HGB CONC 32.6 g/dl (31.0-37.0); MEAN PLATELET VOLUME 11.1 fl (7.0-11.0); MONO % 6.5 % (1.0-6.0); PLATELET COUNT 271 10^3/uL (120.0-450.0); WHITE BLOOD COUNT 15.4 10^3/ul (4.5-11.0)
[2016-10-29 06:23] LABS: ARTERIAL BLOOD GAS O2 CONTENT 14.7 ML/dl (15-23); ARTERIAL BLOOD GAS PH 7.39 (7.35-7.45); ARTERIAL BLOOD HGB O2 SAT 80.6 % (95.0-98.0); CARBOXYHEMOGLOBIN 1.2 % (0.5-1.5); HHB 17.9 % (0-5); METHEMOGLOBIN 0.4 % (0.0-3.0)
[2016-10-29 06:43] LABS: ALB/GLOB RATIO 0.9 (1.1-1.8); ALKALINE PHOSPHATASE 58 U/L (38-133); ALT/SGPT 24 U/L (7-56); AST/SGOT 20 U/L (15-39); BILIRUBIN,TOTAL 0.4 mg/dL (0.2-1.3); BLOOD UREA NITROGEN 18 mg/dL (7-21); CALCIUM 7.6 mg/dL (8.4-10.5); CARBON DIOXIDE 19 mmol/L (21-33); CHLORIDE 110 mmol/L (98-107); GFR AFRICAN-AMERICAN > 60; GLUCOSE,RANDOM 95 mg/dL (70-110); MAGNESIUM 1.3 mg/dL (1.7-2.2); PHOSPHOROUS 2.9 mg/dL (2.5-4.5); POTASSIUM 3.6 mmol/L (3.6-5.0); SODIUM 142 mmol/L (132-148); TOTAL PROTEIN 6.2 g/dL (5.8-8.3)
--- NOTE | 2016-10-29 07:52 | PN ---
DATE: 10/29/2016 SUBJECTIVE: The patient with no complaints. PHYSICAL EXAMINATION: VITAL SIGNS: Temperature is 98.3, pulse of 106, blood pressure 145/71, respirations 20s. GENERAL: The patient comfortable, in no acute distress. HEENT: Anicteric sclerae. Moist mucosa. NECK: No JVD or adenopathy. CARDIAC: S1/S2. No murmurs. No rubs. Regular. RESPIRATORY: Clear to auscultation bilaterally. No wheezes, rales, or rhonchi. Good air entry. ABDOMEN: Bowel sounds are positive, soft, nontender, and nondistended. EXTREMITIES: No edema. Has 1+ pulses. 1+ edema in the legs and the arms. ASSESSMENT: 1. Hypomagnesemia. 2. Hypophosphatemia, improved. 3. Dyslipidemia. 4. Acute kidney injury, improving. 5. Diabetic ketoacidosis. 6. Horseshoe kidney. 7. Hypogammaglobulinemia. 8. Obesity with a body mass index of 38. PLAN: The patient's creatinine has returned back to normal. She does have a low magnesium. She clarita l need magnesium replacement. We will await blood work from this morning. The patient is receiving Ativan as needed. She is going to be on heparin for DVT prophylaxis. He is on morphine for pain. S he is on very high doses of IV fluids. She has received 9.4 liters of IV fluids. Urine output is 15 70. Christoph Zhang MD cc: [id number] TT: 10/29/2016 07:51:18 Confirmation # [id number] Dictation # [id number]
[2016-10-29] MEDS ORDERED: Magnesium Sulfate 2 GM in Sodium Chloride 0.9% 100 ML IV ONE (08:50)
--- NOTE | 2016-10-29 08:52 | CP.CCUPN ---
<Cindy Castañeda - Last Filed: 10/29/16 09:23> CCU Subjective - Physician Review Subjective (Free Text): 10/26/16 08:17 - No acute event overnight - gap at 15 at 11AM. Accuck Sugar 200s last 3 hours - OG output 1200 on insertion; 950cc overnight - intubated on propofol 35 - HR remains at 110/RR 50-> mid 40s 10/27/16 16:30 - No acute event overnight - RR 30s - bicarb in teens in AM 10/28/16 13:53 Pt self extubated during pressure support trial Now on NC 10/29/16 08:51 On 3L NC; RR 40. POx 100. Ventral hernia repair surgery POD # 10 Worsening of chronic leg pain b/l Sinus tachy at low 100s Pending doppler LE b/l CCU Objective - Vital Signs / Intake & Output Vital Signs (Last 4 hours): Vital Signs Pulse Resp BP Pulse Ox 10/29/16 08:00 105 H 10/29/16 07:00 105 H 27 H 177/97 H 92 L 10/29/16 06:00 102 H 29 H 154/84 H 98 10/29/16 05:13 106 H 145/71 10/29/16 05:00 112 H 43 H 159/121 H 97 Intake and Output (Last 8hrs): Intake & Output 10/28/16 10/29/16 10/29/16 22:59 06:59 14:59 Intake Total 3050 3810 Output Total 3950 1000 Balance -900 2810 Weight 235 lb 8 oz Intake: IV 100 3410 Right Subclavian 2400 Oral 200 Other 2750 400 Output: Gastric Amount 250 150 Stomach 250 150 Urine 3700 850 Urethral (Rodríguez) 3700 850 Other: Voiding Method Indwelling Catheter Indwelling Catheter # Bowel Movements 0 - Physical Exam Head: Positive for: Atraumatic, Normocephalic Pupils: Positive for: PERRL Extroacular Muscles: Positive for: EOMI Mouth: Positive for: Moist Mucous Membranes Respiratory/Chest: Positive for: Rales, Rhonchi Cardiovascular: Positive for: Regular Rate and Rhythm, Normal S1, S2 Abdomen: Positive for: Distention. Negative for: Normal Bowel Sounds ( hypoactive) Lower Extremity: Positive for: Edema Neurological: Positive for: CN II-XII Intact, Speech Normal Skin: Positive for: Warm, Dry Psychiatric: Positive for: Alert, Oriented x 3 - Medications Active Medications: Active Medications Generic Name Dose Route Start Last Admin Trade Name Freq PRN Reason Stop Dose Admin Heparin Sodium (Porcine) 5,000 units 10/27/16 10:00 10/28/16 22:35 Heparin SC 5,000 units Q12 JOSH Administration Protocol Linezolid 300 mls @ 200 mls/hr 10/25/16 15:30 10/28/16 22:33 Zyvox 600mg/300ml D5w IVPB 11/01/16 15:31 200 mls/hr Q12 JOSH Administration Protocol Meropenem 1g/NS 100mL IVPB 100 mls @ 100 mls/hr 10/25/16 22:00 10/28/16 22:31 Meropenem 1g/Ns 100ml Ivpb IVPB 11/01/16 22:01 100 mls/hr Q12 JOSH Administration Protocol Dexmedetomidine HCl 400 mcg in 100 mls @ 5.216 mls/hr 10/26/16 15:36 15:47 Precedex 4 Mcg/Ml (100 Ml) IV 1.5 mcg/kg/hr .[id number] PRN 39.122 mls/hr Agitation Administration Protocol 0.2 MCG/KG/HR Insulin Human Lispro 0 units 10/27/16 16:30 10/29/16 07:30 Humalog High SC Not Given ACHS JOSH Protocol Lorazepam 1 mg 10/28/16 16:25 10/29/16 08:45 Ativan IVP 1 mg Q3H PRN Administration Anxiety Protocol Metoprolol Tartrate 5 mg 10/26/16 11:15 10/29/16 05:13 Lopressor IVP 5 mg Q6H JOSH Administration Morphine Sulfate 4 mg 10/27/16 15:27 10/29/16 01:15 Morphine IM 4 mg Q6H PRN Administration Pain, severe (8-10) Morphine Sulfate 2 mg 10/27/16 15:29 10/29/16 07:23 Morphine IVP 2 mg Q3H PRN Administration Pain, moderate (4-7) Olanzapine 5 mg 10/29/16 10:00 Zyprexa Zydis PO DAILY JOSH Protocol Pantoprazole Sodium 40 mg 10/26/16 10:00 10/28/16 09:00 Protonix Inj IVP 40 mg DAILY JOSH Administration Saliva Substitute 0 ml 10/28/16 12:30 Saliva Substitute PO Q2 PRN Dry mouth - Patient Studies Lab Studies: Microbiology Studies 10/26/16 03:25 Gram Stain - Final Trachasp Sputum Culture - Final Klebsiella Pneumoniae Ssp Pneu Lab Studies 10/29/16 10/29/16 10/29/16 Range/Units 05:30 05:30 05:30 WBC 15.4 H D (4.5-11.0) 10^3/ul RBC 3.40 L (3.5-6.1) 10^6/uL Hgb 10.2 L (12.0-16.0) gm/dL Hct 31.3 L (36.0-48.0) % MCV 92.1 (80.0-105.0) fL MCH 30.0 (25.0-35.0) pg MCHC 32.6 (31.0-37.0) g/dl RDW 14.0 (11.5-14.5) % Plt Count 271 (120.0-450.0) 10^3/uL MPV 11.1 H (7.0-11.0) fl Gran % 71.1 H (50.0-68.0) % Lymph % (Auto) 20.3 L (22.0-35.0) % Teller % (Auto) 6.5 H (1.0-6.0) % Eos % (Auto) 1.2 L (1.5-5.0) % Baso % (Auto) 0.9 (0.0-3.0) % Gran # 10.95 H (1.4-6.5) Lymph # 3.1 (1.2-3.4) Teller # 1.0 H (0.1-0.6) Eos # 0.2 (0.0-0.7) Baso # 0.14 (0.0-2.0) K/mm3 pCO2 33 L (35-45) mm/Hg pO2 44.0 L* (80-100) mm/Hg HCO3 20.0 L (21-28) mmol/L ABG pH 7.39 (7.35-7.45) ABG Total CO2 21.0 L (22-28) mmol.L ABG O2 Saturation 81.8 L (95-98) % ABG O2 Content 14.7 L (15-23) ML/dl ABG Base Excess -4.1 L (-2.0-3.0) mmol/L ABG Hemoglobin 13.0 (11.7-17.4) g/dL ABG Carboxyhemoglobin 1.2 (0.5-1.5) % POC ABG HHb (Measured) 17.9 H (0-5) % ABG Methemoglobin 0.4 (0.0-3.0) % ABG O2 Capacity 18.0 (16-24) mL/dl Hgb O2 Saturation 80.6 L (95.0-98.0) % FiO2 28.0 % Sodium 142 (132-148) mmol/L Potassium 3.6 (3.6-5.0) mmol/L Chloride 110 H (98-107) mmol/L Carbon Dioxide 19 L (21-33) mmol/L Anion Gap 17 (10-20) BUN 18 (7-21) mg/dL Creatinine 1.0 (0.5-1.4) mg/dL Est GFR ( Amer) > 60 Est GFR (Non-Af Amer) 59 POC Glucose (mg/dL) (65-110) mg/dL Random Glucose 95 (70-110) mg/dL Calcium 7.6 L (8.4-10.5) mg/dL Phosphorus 2.9 (2.5-4.5) mg/dL Magnesium 1.3 L (1.7-2.2) mg/dL Total Bilirubin 0.4 (0.2-1.3) mg/dL AST 20 (15-39) U/L ALT 24 (7-56) U/L Alkaline Phosphatase 58 (38-133) U/L Total Protein 6.2 (5.8-8.3) g/dL Albumin 2.9 L (3.0-4.8) g/dL Globulin 3.4 gm/dL Albumin/Globulin Ratio 0.9 L (1.1-1.8) Beta-Hydroxybutyric Acd mcg/mL 10/29/16 10/28/16 10/28/16 Range/Units 00:23 16:31 13:07 WBC (4.5-11.0) 10^3/ul RBC (3.5-6.1) 10^6/uL Hgb (12.0-16.0) gm/dL Hct (36.0-48.0) % MCV (80.0-105.0) fL MCH (25.0-35.0) pg MCHC (31.0-37.0) g/dl RDW (11.5-14.5) % Plt Count (120.0-450.0) 10^3/uL MPV (7.0-11.0) fl Gran % (50.0-68.0) % Lymph % (Auto) (22.0-35.0) % Teller % (Auto) (1.0-6.0) % Eos % (Auto) (1.5-5.0) % Baso % (Auto) (0.0-3.0) % Gran # (1.4-6.5) Lymph # (1.2-3.4) Teller # (0.1-0.6) Eos # (0.0-0.7) Baso # (0.0-2.0) K/mm3 pCO2 (35-45) mm/Hg pO2 (80-100) mm/Hg HCO3 (21-28) mmol/L ABG pH (7.35-7.45) ABG Total CO2 (22-28) mmol.L ABG O2 Saturation (95-98) % ABG O2 Content (15-23) ML/dl ABG Base Excess (-2.0-3.0) mmol/L ABG Hemoglobin (11.7-17.4) g/dL ABG Carboxyhemoglobin (0.5-1.5) % POC ABG HHb (Measured) (0-5) % ABG Methemoglobin (0.0-3.0) % ABG O2 Capacity (16-24) mL/dl Hgb O2 Saturation (95.0-98.0) % FiO2 % Sodium 142 (132-148) mmol/L Potassium 3.8 (3.6-5.0) mmol/L Chloride 111 H (98-107) mmol/L Carbon Dioxide 20 L (21-33) mmol/L Anion Gap 15 (10-20) BUN 22 H (7-21) mg/dL Creatinine 1.2 (0.5-1.4) mg/dL Est GFR ( Amer) 58 Est GFR (Non-Af Amer) 48 POC Glucose (mg/dL) 113 H 135 H (65-110) mg/dL Random Glucose 120 H (70-110) mg/dL Calcium 7.4 L (8.4-10.5) mg/dL Phosphorus 2.8 (2.5-4.5) mg/dL Magnesium 1.6 L (1.7-2.2) mg/dL Total Bilirubin 0.5 (0.2-1.3) mg/dL AST 17 (15-39) U/L ALT 21 (7-56) U/L Alkaline Phosphatase 56 (38-133) U/L Total Protein 6.4 (5.8-8.3) g/dL Albumin 2.9 L (3.0-4.8) g/dL Globulin 3.5 gm/dL Albumin/Globulin Ratio 0.8 L (1.1-1.8) Beta-Hydroxybutyric Acd mcg/mL 10/25/16 Range/Units 13:50 WBC (4.5-11.0) 10^3/ul RBC (3.5-6.1) 10^6/uL Hgb (12.0-16.0) gm/dL Hct (36.0-48.0) % MCV (80.0-105.0) fL MCH (25.0-35.0) pg MCHC (31.0-37.0) g/dl RDW (11.5-14.5) % Plt Count (120.0-450.0) 10^3/uL MPV (7.0-11.0) fl Gran % (50.0-68.0) % Lymph % (Auto) (22.0-35.0) % Teller % (Auto) (1.0-6.0) % Eos % (Auto) (1.5-5.0) % Baso % (Auto) (0.0-3.0) % Gran # (1.4-6.5) Lymph # (1.2-3.4) Teller # (0.1-0.6) Eos # (0.0-0.7) Baso # (0.0-2.0) K/mm3 pCO2 (35-45) mm/Hg pO2 (80-100) mm/Hg HCO3 (21-28) mmol/L ABG pH (7.35-7.45) ABG Total CO2 (22-28) mmol.L ABG O2 Saturation (95-98) % ABG O2 Content (15-23) ML/dl ABG Base Excess (-2.0-3.0) mmol/L ABG Hemoglobin (11.7-17.4) g/dL ABG Carboxyhemoglobin (0.5-1.5) % POC ABG HHb (Measured) (0-5) % ABG Methemoglobin (0.0-3.0) % ABG O2 Capacity (16-24) mL/dl Hgb O2 Saturation (95.0-98.0) % FiO2 % Sodium (132-148) mmol/L Potassium (3.6-5.0) mmol/L Chloride (98-107) mmol/L Carbon Dioxide (21-33) mmol/L Anion Gap (10-20) BUN (7-21) mg/dL Creatinine (0.5-1.4) mg/dL Est GFR ( Amer) Est GFR (Non-Af Amer) POC Glucose (mg/dL) (65-110) mg/dL Random Glucose (70-110) mg/dL Calcium (8.4-10.5) mg/dL Phosphorus (2.5-4.5) mg/dL Magnesium (1.7-2.2) mg/dL Total Bilirubin (0.2-1.3) mg/dL AST (15-39) U/L ALT (7-56) U/L Alkaline Phosphatase (38-133) U/L Total Protein (5.8-8.3) g/dL Albumin (3.0-4.8) g/dL Globulin gm/dL Albumin/Globulin Ratio (1.1-1.8) Beta-Hydroxybutyric Acd 38 H mcg/mL Laboratory Results - last 24 hr 10/25/16 10/28/16 10/28/16 13:50 13:07 16:31 WBC RBC Hgb Hct MCV MCH MCHC RDW Plt Count MPV Gran % Lymph % (Auto) Teller % (Auto) Eos % (Auto) Baso % (Auto) Gran # Lymph # Teller # Eos # Baso # pCO2 pO2 HCO3 ABG pH ABG Total CO2 ABG O2 Saturation ABG O2 Content ABG Base Excess ABG Hemoglobin ABG Carboxyhemoglobin POC ABG HHb (Measured) ABG Methemoglobin ABG O2 Capacity Hgb O2 Saturation FiO2 Sodium 142 Potassium 3.8 Chloride 111 H Carbon Dioxide 20 L Anion Gap 15 BUN 22 H Creatinine 1.2 Est GFR ( Amer) 58 Est GFR (Non-Af Amer) 48 POC Glucose (mg/dL) 135 H Random Glucose 120 H Calcium 7.4 L Phosphorus 2.8 Magnesium 1.6 L Total Bilirubin 0.5 AST 17 ALT 21 Alkaline Phosphatase 56 Total Protein 6.4 Albumin 2.9 L Globulin 3.5 Albumin/Globulin Ratio 0.8 L Beta-Hydroxybutyric Acd 38 H 10/29/16 10/29/16 10/29/16 00:23 05:30 05:30 WBC 15.4 H D RBC 3.40 L Hgb 10.2 L Hct 31.3 L MCV 92.1 MCH 30.0 MCHC 32.6 RDW 14.0 Plt Count 271 MPV 11.1 H Gran % 71.1 H Lymph % (Auto) 20.3 L Teller % (Auto) 6.5 H Eos % (Auto) 1.2 L Baso % (Auto) 0.9 Gran # 10.95 H Lymph # 3.1 Teller # 1.0 H Eos # 0.2 Baso # 0.14 pCO2 33 L pO2 44.0 L* HCO3 20.0 L ABG pH 7.39 ABG Total CO2 21.0 L ABG O2 Saturation 81.8 L ABG O2 Content 14.7 L ABG Base Excess -4.1 L ABG Hemoglobin 13.0 ABG Carboxyhemoglobin 1.2 POC ABG HHb (Measured) 17.9 H ABG Methemoglobin 0.4 ABG O2 Capacity 18.0 Hgb O2 Saturation 80.6 L FiO2 28.0 Sodium Potassium Chloride Carbon Dioxide Anion Gap BUN Creatinine Est GFR ( Amer) Est GFR (Non-Af Amer) POC Glucose (mg/dL) 113 H Random Glucose Calcium Phosphorus Magnesium Total Bilirubin AST ALT Alkaline Phosphatase Total Protein Albumin Globulin Albumin/Globulin Ratio Beta-Hydroxybutyric Acd 10/29/16 05:30 WBC RBC Hgb Hct MCV MCH MCHC RDW Plt Count MPV Gran % Lymph % (Auto) Teller % (Auto) Eos % (Auto) Baso % (Auto) Gran # Lymph # Teller # Eos # Baso # pCO2 pO2 HCO3 ABG pH ABG Total CO2 ABG O2 Saturation ABG O2 Content ABG Base Excess ABG Hemoglobin ABG Carboxyhemoglobin POC ABG HHb (Measured) ABG Methemoglobin ABG O2 Capacity Hgb O2 Saturation FiO2 Sodium 142 Potassium 3.6 Chloride 110 H Carbon Dioxide 19 L Anion Gap 17 BUN 18 Creatinine 1.0 Est GFR ( Amer) > 60 Est GFR (Non-Af Amer) 59 POC Glucose (mg/dL) Random Glucose 95 Calcium 7.6 L Phosphorus 2.9 Magnesium 1.3 L Total Bilirubin 0.4 AST 20 ALT 24 Alkaline Phosphatase 58 Total Protein 6.2 Albumin 2.9 L Globulin 3.4 Albumin/Globulin Ratio 0.9 L Beta-Hydroxybutyric Acd Fingerstick Blood Sugar Results: 103 Critical Care Progress Note - Nutrition Nutrition: Nutrition Category Date Time Status NPO Diet [DIET] Diets 10/28/16 Dinner Ordered Assessment/Plan - Assessment and Plan (Free Text) Plan: 51 F, POD #10 lap ventral hernia repair, with PMHx colon ca, s/p colectomy reversal, Hx seizure, non-iddm, [id number], Hx Asthma/COPD, admitted to ICU for decompensating respiration intubation. Pt has a small bowel obstruction and b/l lower lobe pneuminia, sepsis, severe high anion gap metabolic acidosis due to DKA and severe lactic acidosis. Today issues: WBC up to 15.4. Hypoxic at night, which may require Bipap. 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 Neuro - Ativan 1q3 PRN anxiety - Add Zyprexa PO ODT daily - seizure prophylaxis - Pt indicated pain over abdomen and dorsum of R hand. Morphin PRN Cardio - Sinus tachycardiac low 100s - Hx CAD Pulm - 3L NC - Still has increase RR 30s to low 40s, and increase work of breathing, but pt tolerated at this moment - b/l lower lobe PNA - recent abdominal area surgery - Bipap PRN at night as tolerated GI - When pt respiratory status more stable, will conduct barium contrast study to check point of transition - No BM Renal - severe metabolic acidosis - improving - MEHRAN on CKD - resolved - U/O not oliguric - repleting electrolytes Endo - Levemir 15 HS, ISSS - low - accucheck achs - hold metformin/glipton - repleted Ca, Mg, Phos Heme - pending U/S r/o DVT - s/p octagam 30g x 1 - RUE swollen. Doppler negative for R upper extremity clot x1 - Likely from slow lymphatic s/p rotator cuff surgery and R port-a-cath ID - Meropenem and Linezolid Prophylaxis - Heparin SC bid and protonix daily Disposition - Plan to transfer to [facility] this afternoon S/R/D/w Dr. Courtney Coy - Date & Time Date: 10/29/16 Time: 09:23 <Anneliese SKINNER,Alan H - Last Filed: 10/29/16 09:47> CCU Objective - Vital Signs / Intake & Output Vital Signs (Last 4 hours): Vital Signs Pulse Resp BP Pulse Ox 10/29/16 08:00 105 H 10/29/16 07:00 105 H 27 H 177/97 H 92 L 10/29/16 06:00 102 H 29 H 154/84 H 98 Intake and Output (Last 8hrs): Intake & Output 10/28/16 10/29/16 10/29/16 22:59 06:59 14:59 Intake Total 3050 3810 Output Total 3950 1000 Balance -900 2810 Weight 235 lb 8 oz Intake: IV 100 3410 Right Subclavian 2400 Oral 200 Other 2750 400 Output: Gastric Amount 250 150 Stomach 250 150 Urine 3700 850 Urethral (Rodríguez) 3700 850 Other: Voiding Method Indwelling Catheter Indwelling Catheter # Bowel Movements 0 - Medications Active Medications: Active Medications Generic Name Dose Route Start Last Admin Trade Name Freq PRN Reason Stop Dose Admin Heparin Sodium (Porcine) 5,000 units 10/27/16 10:00 10/29/16 09:00 Heparin SC 5,000 units Q12 JOSH Administration Protocol Hydralazine HCl 10 mg 10/29/16 08:58 Apresoline IVP Q6 PRN For SBP>170 & Diastolic>100 Meropenem 1g/NS 100mL IVPB 100 mls @ 100 mls/hr 10/25/16 22:00 10/29/16 09:01 Meropenem 1g/Ns 100ml Ivpb IVPB 11/01/16 22:01 100 mls/hr Q12 JOSH Administration Protocol Dexmedetomidine HCl 400 mcg in 100 mls @ 5.216 mls/hr 10/26/16 15:36 15:47 Precedex 4 Mcg/Ml (100 Ml) IV 1.5 mcg/kg/hr .[id number] PRN 39.122 mls/hr Agitation Administration Protocol 0.2 MCG/KG/HR Magnesium Sulfate 2 gm/ Sodium 104 mls @ 102 mls/hr 10/29/16 08:50 Chloride IV 10/29/16 09:51 ONCE ONE Potassium Chloride 20 meq in 100 mls @ 50 mls/hr 10/29/16 08:57 Potassium Chloride 20 Meq/100 Ml IVPB 10/29/16 10:56 ONCE ONE Magnesium Sulfate 2 gm/ Sodium 104 mls @ 102 mls/hr 10/29/16 13:00 Chloride IVPB 10/29/16 14:01 ONCE ONE Insulin Detemir 15 unit 10/29/16 22:00 Levemir SC HS JOSH Insulin Human Lispro 0 units 10/29/16 11:30 Humalog Low SC ACHS JOSH Protocol Lorazepam 1 mg 10/28/16 16:25 10/29/16 08:45 Ativan IVP 1 mg Q3H PRN Administration Anxiety Protocol Metoprolol Tartrate 5 mg 10/26/16 11:15 10/29/16 05:13 Lopressor IVP 5 mg Q6H JOSH Administration Morphine Sulfate 4 mg 10/27/16 15:27 10/29/16 01:15 Morphine IM 4 mg Q6H PRN Administration Pain, severe (8-10) Morphine Sulfate 2 mg 10/27/16 15:29 10/29/16 07:23 Morphine IVP 2 mg Q3H PRN Administration Pain, moderate (4-7) Olanzapine 5 mg 10/29/16 10:00 10/29/16 09:01 Zyprexa Zydis PO 5 mg DAILY JOSH Administration Protocol Pantoprazole Sodium 40 mg 10/26/16 10:00 10/29/16 09:01 Protonix Inj IVP 40 mg DAILY JOSH Administration Saliva Substitute 0 ml 10/28/16 12:30 Saliva Substitute PO Q2 PRN Dry mouth - Patient Studies Lab Studies: Microbiology Studies 10/26/16 03:25 Gram Stain - Final Trachasp Sputum Culture - Final Klebsiella Pneumoniae Ssp Pneu Lab Studies 10/29/16 10/29/16 10/29/16 Range/Units 05:30 05:30 05:30 WBC 15.4 H D (4.5-11.0) 10^3/ul RBC 3.40 L (3.5-6.1) 10^6/uL Hgb 10.2 L (12.0-16.0) gm/dL Hct 31.3 L (36.0-48.0) % MCV 92.1 (80.0-105.0) fL MCH 30.0 (25.0-35.0) pg MCHC 32.6 (31.0-37.0) g/dl RDW 14.0 (11.5-14.5) % Plt Count 271 (120.0-450.0) 10^3/uL MPV 11.1 H (7.0-11.0) fl Gran % 71.1 H (50.0-68.0) % Lymph % (Auto) 20.3 L (22.0-35.0) % Teller % (Auto) 6.5 H (1.0-6.0) % Eos % (Auto) 1.2 L (1.5-5.0) % Baso % (Auto) 0.9 (0.0-3.0) % Gran # 10.95 H (1.4-6.5) Lymph # 3.1 (1.2-3.4) Teller # 1.0 H (0.1-0.6) Eos # 0.2 (0.0-0.7) Baso # 0.14 (0.0-2.0) K/mm3 pCO2 33 L (35-45) mm/Hg pO2 44.0 L* (80-100) mm/Hg HCO3 20.0 L (21-28) mmol/L ABG pH 7.39 (7.35-7.45) ABG Total CO2 21.0 L (22-28) mmol.L ABG O2 Saturation 81.8 L (95-98) % ABG O2 Content 14.7 L (15-23) ML/dl ABG Base Excess -4.1 L (-2.0-3.0) mmol/L ABG Hemoglobin 13.0 (11.7-17.4) g/dL ABG Carboxyhemoglobin 1.2 (0.5-1.5) % POC ABG HHb (Measured) 17.9 H (0-5) % ABG Methemoglobin 0.4 (0.0-3.0) % ABG O2 Capacity 18.0 (16-24) mL/dl Hgb O2 Saturation 80.6 L (95.0-98.0) % FiO2 28.0 % Sodium 142 (132-148) mmol/L Potassium 3.6 (3.6-5.0) mmol/L Chloride 110 H (98-107) mmol/L Carbon Dioxide 19 L (21-33) mmol/L Anion Gap 17 (10-20) BUN 18 (7-21) mg/dL Creatinine 1.0 (0.5-1.4) mg/dL Est GFR ( Amer) > 60 Est GFR (Non-Af Amer) 59 POC Glucose (mg/dL) (65-110) mg/dL Random Glucose 95 (70-110) mg/dL Calcium 7.6 L (8.4-10.5) mg/dL Phosphorus 2.9 (2.5-4.5) mg/dL Magnesium 1.3 L (1.7-2.2) mg/dL Total Bilirubin 0.4 (0.2-1.3) mg/dL AST 20 (15-39) U/L ALT 24 (7-56) U/L Alkaline Phosphatase 58 (38-133) U/L Total Protein 6.2 (5.8-8.3) g/dL Albumin 2.9 L (3.0-4.8) g/dL Globulin 3.4 gm/dL Albumin/Globulin Ratio 0.9 L (1.1-1.8) Beta-Hydroxybutyric Acd mcg/mL 10/29/16 10/28/16 10/28/16 Range/Units 00:23 16:31 13:07 WBC (4.5-11.0) 10^3/ul RBC (3.5-6.1) 10^6/uL Hgb (12.0-16.0) gm/dL Hct (36.0-48.0) % MCV (80.0-105.0) fL MCH (25.0-35.0) pg MCHC (31.0-37.0) g/dl RDW (11.5-14.5) % Plt Count (120.0-450.0) 10^3/uL MPV (7.0-11.0) fl Gran % (50.0-68.0) % Lymph % (Auto) (22.0-35.0) % Teller % (Auto) (1.0-6.0) % Eos % (Auto) (1.5-5.0) % Baso % (Auto) (0.0-3.0) % Gran # (1.4-6.5) Lymph # (1.2-3.4) Teller # (0.1-0.6) Eos # (0.0-0.7) Baso # (0.0-2.0) K/mm3 pCO2 (35-45) mm/Hg pO2 (80-100) mm/Hg HCO3 (21-28) mmol/L ABG pH (7.35-7.45) ABG Total CO2 (22-28) mmol.L ABG O2 Saturation (95-98) % ABG O2 Content (15-23) ML/dl ABG Base Excess (-2.0-3.0) mmol/L ABG Hemoglobin (11.7-17.4) g/dL ABG Carboxyhemoglobin (0.5-1.5) % POC ABG HHb (Measured) (0-5) % ABG Methemoglobin (0.0-3.0) % ABG O2 Capacity (16-24) mL/dl Hgb O2 Saturation (95.0-98.0) % FiO2 % Sodium 142 (132-148) mmol/L Potassium 3.8 (3.6-5.0) mmol/L Chloride 111 H (98-107) mmol/L Carbon Dioxide 20 L (21-33) mmol/L Anion Gap 15 (10-20) BUN 22 H (7-21) mg/dL Creatinine 1.2 (0.5-1.4) mg/dL Est GFR ( Amer) 58 Est GFR (Non-Af Amer) 48 POC Glucose (mg/dL) 113 H 135 H (65-110) mg/dL Random Glucose 120 H (70-110) mg/dL Calcium 7.4 L (8.4-10.5) mg/dL Phosphorus 2.8 (2.5-4.5) mg/dL Magnesium 1.6 L (1.7-2.2) mg/dL Total Bilirubin 0.5 (0.2-1.3) mg/dL AST 17 (15-39) U/L ALT 21 (7-56) U/L Alkaline Phosphatase 56 (38-133) U/L Total Protein 6.4 (5.8-8.3) g/dL Albumin 2.9 L (3.0-4.8) g/dL Globulin 3.5 gm/dL Albumin/Globulin Ratio 0.8 L (1.1-1.8) Beta-Hydroxybutyric Acd mcg/mL 10/25/16 Range/Units 13:50 WBC (4.5-11.0) 10^3/ul RBC (3.5-6.1) 10^6/uL Hgb (12.0-16.0) gm/dL Hct (36.0-48.0) % MCV (80.0-105.0) fL MCH (25.0-35.0) pg MCHC (31.0-37.0) g/dl RDW (11.5-14.5) % Plt Count (120.0-450.0) 10^3/uL MPV (7.0-11.0) fl Gran % (50.0-68.0) % Lymph % (Auto) (22.0-35.0) % Teller % (Auto) (1.0-6.0) % Eos % (Auto) (1.5-5.0) % Baso % (Auto) (0.0-3.0) % Gran # (1.4-6.5) Lymph # (1.2-3.4) Teller # (0.1-0.6) Eos # (0.0-0.7) Baso # (0.0-2.0) K/mm3 pCO2 (35-45) mm/Hg pO2 (80-100) mm/Hg HCO3 (21-28) mmol/L ABG pH (7.35-7.45) ABG Total CO2 (22-28) mmol.L ABG O2 Saturation (95-98) % ABG O2 Content (15-23) ML/dl ABG Base Excess (-2.0-3.0) mmol/L ABG Hemoglobin (11.7-17.4) g/dL ABG Carboxyhemoglobin (0.5-1.5) % POC ABG HHb (Measured) (0-5) % ABG Methemoglobin (0.0-3.0) % ABG O2 Capacity (16-24) mL/dl Hgb O2 Saturation (95.0-98.0) % FiO2 % Sodium (132-148) mmol/L Potassium (3.6-5.0) mmol/L Chloride (98-107) mmol/L Carbon Dioxide (21-33) mmol/L Anion Gap (10-20) BUN (7-21) mg/dL Creatinine (0.5-1.4) mg/dL Est GFR ( Amer) Est GFR (Non-Af Amer) POC Glucose (mg/dL) (65-110) mg/dL Random Glucose (70-110) mg/dL Calcium (8.4-10.5) mg/dL Phosphorus (2.5-4.5) mg/dL Magnesium (1.7-2.2) mg/dL Total Bilirubin (0.2-1.3) mg/dL AST (15-39) U/L ALT (7-56) U/L Alkaline Phosphatase (38-133) U/L Total Protein (5.8-8.3) g/dL Albumin (3.0-4.8) g/dL Globulin gm/dL Albumin/Globulin Ratio (1.1-1.8) Beta-Hydroxybutyric Acd 38 H mcg/mL Laboratory Results - last 24 hr 10/25/16 10/28/16 10/28/16 13:50 13:07 16:31 WBC RBC Hgb Hct MCV MCH MCHC RDW Plt Count MPV Gran % Lymph % (Auto) Teller % (Auto) Eos % (Auto) Baso % (Auto) Gran # Lymph # Teller # Eos # Baso # pCO2 pO2 HCO3 ABG pH ABG Total CO2 ABG O2 Saturation ABG O2 Content ABG Base Excess ABG Hemoglobin ABG Carboxyhemoglobin POC ABG HHb (Measured) ABG Methemoglobin ABG O2 Capacity Hgb O2 Saturation FiO2 Sodium 142 Potassium 3.8 Chloride 111 H Carbon Dioxide 20 L Anion Gap 15 BUN 22 H Creatinine 1.2 Est GFR ( Amer) 58 Est GFR (Non-Af Amer) 48 POC Glucose (mg/dL) 135 H Random Glucose 120 H Calcium 7.4 L Phosphorus 2.8 Magnesium 1.6 L Total Bilirubin 0.5 AST 17 ALT 21 Alkaline Phosphatase 56 Total Protein 6.4 Albumin 2.9 L Globulin 3.5 Albumin/Globulin Ratio 0.8 L Beta-Hydroxybutyric Acd 38 H 10/29/16 10/29/16 10/29/16 00:23 05:30 05:30 WBC 15.4 H D RBC 3.40 L Hgb 10.2 L Hct 31.3 L MCV 92.1 MCH 30.0 MCHC 32.6 RDW 14.0 Plt Count 271 MPV 11.1 H Gran % 71.1 H Lymph % (Auto) 20.3 L Teller % (Auto) 6.5 H Eos % (Auto) 1.2 L Baso % (Auto) 0.9 Gran # 10.95 H Lymph # 3.1 Teller # 1.0 H Eos # 0.2 Baso # 0.14 pCO2 33 L pO2 44.0 L* HCO3 20.0 L ABG pH 7.39 ABG Total CO2 21.0 L ABG O2 Saturation 81.8 L ABG O2 Content 14.7 L ABG Base Excess -4.1 L ABG Hemoglobin 13.0 ABG Carboxyhemoglobin 1.2 POC ABG HHb (Measured) 17.9 H ABG Methemoglobin 0.4 ABG O2 Capacity 18.0 Hgb O2 Saturation 80.6 L FiO2 28.0 Sodium Potassium Chloride Carbon Dioxide Anion Gap BUN Creatinine Est GFR ( Amer) Est GFR (Non-Af Amer) POC Glucose (mg/dL) 113 H Random Glucose Calcium Phosphorus Magnesium Total Bilirubin AST ALT Alkaline Phosphatase Total Protein Albumin Globulin Albumin/Globulin Ratio Beta-Hydroxybutyric Acd 10/29/16 05:30 WBC RBC Hgb Hct MCV MCH MCHC RDW Plt Count MPV Gran % Lymph % (Auto) Teller % (Auto) Eos % (Auto) Baso % (Auto) Gran # Lymph # Teller # Eos # Baso # pCO2 pO2 HCO3 ABG pH ABG Total CO2 ABG O2 Saturation ABG O2 Content ABG Base Excess ABG Hemoglobin ABG Carboxyhemoglobin POC ABG HHb (Measured) ABG Methemoglobin ABG O2 Capacity Hgb O2 Saturation FiO2 Sodium 142 Potassium 3.6 Chloride 110 H Carbon Dioxide 19 L Anion Gap 17 BUN 18 Creatinine 1.0 Est GFR ( Amer) > 60 Est GFR (Non-Af Amer) 59 POC Glucose (mg/dL) Random Glucose 95 Calcium 7.6 L Phosphorus 2.9 Magnesium 1.3 L Total Bilirubin 0.4 AST 20 ALT 24 Alkaline Phosphatase 58 Total Protein 6.2 Albumin 2.9 L Globulin 3.4 Albumin/Globulin Ratio 0.9 L Beta-Hydroxybutyric Acd Critical Care Progress Note - Nutrition Nutrition: Nutrition Category Date Time Status Liquid Diet [DIET] Diets 10/29/16 Breakfast Ordered Attending/Attestation - Attestation I have personally seen and examined this patient.: Yes I have fully participated in the care of the patient.: Yes I have reviewed all pertinent clinical information: Yes Notes (Text): 10/29/16 09:45 51 y/o F s/p Extubation 24hrs ago. PNA/COPD [place] on Sputum x 1. ON Meropenum . Respiratory status stable on NC 3-4L. COPD hx need to watch for co2 retention . On B-agonists and Chest PT needed. ICS needed. DM/DKA On Insuin protocol to keep BS 140-180. No diet yet due to high output per NGT ( surgical team aware) S/P Hernia repair Surgical follow up daily. Anxiety Previously on Precedex Changed to Ativan PRN Will start Zyprexa ODT, since p.o can not be given. Pain control w/ narcotics as needed conservatively dvt P Heparin sq tid Venous dopplers pending. cc time 45 min
[2016-10-29] MEDS: OLANZapine 5 mg Disintegrating Tab PO SCH (09:01)
[2016-10-29] MEDS: Meropenem 1g/NS 100mL IVPB 100 ML IVPB SCH ×2 (09:01→22:03)
[2016-10-29] MEDS: Linezolid 600 mg in D5W 300 ml 300 ML IVPB SCH (09:02)
--- NOTE | 2016-10-29 09:41 | PN ---
DATE: 10/29/2016 REASON FOR CONSULTATION AND FOLLOWUP: Cardiac evaluation, status post respiratory failure, intubated , coronary artery disease status post stent in the past, admitted with diabetic ketoacidosis, lactic acidosis, respiratory failure, status post extubated, now with small bowel obstruction. BRIEF CLINICAL HISTORY: This is a 51-year-old morbidly obese female with a past medical history sign ificant for coronary artery disease status post a stent in 2008 and repeat catheterization 01/24/2014 , patent stent, preserved LV function; history of gammaglobulinemia deficiency, on maintenance IV rolando maglobulin every 3 weeks; recently had a ventral hernia repair, admitted with DKA, lactic acidosis, b eing intubated, now extubated. Now patient has small bowel obstruction. NPO; NG tube in place. PHYSICAL EXAMINATION: VITAL SIGNS: Temperature afebrile, heart rate 105, blood pressure 177/97. HEENT: PERRLA. Extraocular muscles intact. NECK: Supple. No carotid bruits. No thyromegaly. CHEST: Clear to auscultation. HEART: S1, S2 regular. ABDOMEN: Soft. EXTREMITIES: Clubbing and cyanosis negative. BLOOD WORKUP: WBC ____.4, hemoglobin 10.____, hematocrit 31.3, platelet count 271. Chemistry shows sodium 140, potassium 3.6, chloride 110, carbon dioxide 19, anion gap of 19, BUN 18, creatinine 1.0. IMPRESSION: Small bowel obstruction, intubated; diabetic ketoacidosis, severe acidosis, status post respiratory failure, history of coronary artery disease, status post stent in 2008, status post repe at catheterization on 01/24/2014, patent stent in left anterior descending, medical treatment recomme nded; hypertension, small bowel obstruction, now successfully extubated, nasogastric tube in place, g luis a globulin deficiency, on intravenous gamma globulin supplementation. RECOMMENDATION: Keep n.p.o., start IV Lopressor to control the blood pressure, p.r.n. hydralazine as long as patient is n.p.o. Once the patient has started p.o., will change to p.o. medication. We wi ll follow with you. Should the patient need to go to OR, the patient is okay from cardiology point o f view to go for OR. Will follow with you. Thank you, Dr. Torres, for providing the opportunity in taking care of this patient. Will mango w with you. Shasta Guillen MD cc: [phone] TT: 10/29/2016 09:41:24 Confirmation # [id number] Dictation # [id number] mn
--- NOTE | 2016-10-29 09:59 | RAD ---
HISTORY: intubated COMPARISON: No prior. FINDINGS: LUNGS: Minimal atelectasis at the right lung base PLEURA: No significant pleural effusion identified, no pneumothorax apparent. CARDIOVASCULAR: Normal. OSSEOUS STRUCTURES: No significant abnormalities. VISUALIZED UPPER ABDOMEN: Nasogastric tube is in satisfactory position. OTHER FINDINGS: Right-sided Port-A-Cath IMPRESSION: No active disease.
--- NOTE | 2016-10-29 10:09 | PN ---
DATE: 10/29/2016 The patient is seen this morning in room 128, bed 3. She is extubated and she is comfortable and she is awake and alert. PHYSICAL EXAMINATION: VITAL SIGNS: The patient's temperature is 98, blood pressure is 170/90. HEENT: Unremarkable. NECK: Supple. LUNGS: Have decreased breath sounds. HEART: Normal S1, S2. ABDOMEN: Soft. LABORATORY EXAMINATION: Reveals a white count of 15,400, hemoglobin of 10, platelets of 71. Coagula tion is noted. Chemistries: BUN of 18, creatinine of 1.0. Microbiology reveals Klebsiella pneumoni ae from the sputum culture, sensitive Klebsiella. The patient had a chest x-ray yesterday, atelectas is. progress note is reviewed. Review of the x-ray this morning reveals the patient's x-ray re port is not available from this morning. Dr. Zhang's note is reviewed. Review of the orders reve als the patient to be on meropenem, on linezolid. ASSESSMENT AND PLAN: A 51-year-old female with a history of hypogammaglobulinemia in the past with a history of also admitted with severe sepsis with hypoxia, ventilatory dependent respiratory failure, acute renal failure, bilateral lower lobe healthcare-associated pneumonia with Klebsiella pneumoniae , diabetic ketoacidosis and hypertensive, coronary artery disease, history of percutaneous coronary i ntervention and chronic obstructive lung disease and depression, venous insufficiency, history of lap aroscopic ventral hernia repair. On day #5 of meropenem. Will discontinue the Zyvox and complete a short course of antibiotics. The patient's last procalcitonin was 36. We will repeat a procalcitoni n. Tobin Lott MD cc: [phone] TT: 10/29/2016 10:08:44 Confirmation # [id number] Dictation # [id number]
[2016-10-29] MEDS: Insulin Lispro (humaLOG) LOW Coverage SC SCH ×3 (11:37→22:04)
--- NOTE | 2016-10-29 12:05 | PN ---
DATE: 10/28/2016 This is the patient's hospital visit in intensive care unit. For Dr. Campa. SUBJECTIVE: The patient is a 51-year-old female seen lying awake, extubated after she pulled her bharti t tube earlier today. Feeling better, in no acute distress. The patient is now being treated for re spiratory failure, DKA, questionable pneumonia with recent ventral hernia repair. PHYSICAL EXAMINATION: VITAL SIGNS: Temperature is 97.9, pulse 67, respirations 32, blood pressure 142/73, pulse ox 100%. HEENT: Kem complexion. Unremarkable. NECK: Supple. HEART: Tachy rate, regular rhythm. LUNGS: Scattered rhonchi. ABDOMEN: Obese, soft, nontender, status post ventral hernia repair. EXTREMITIES: +1 edema. NEUROLOGIC: Awake and alert. SKIN: Warm, dry and clear except as above. LABORATORY DATA: The patient's labs were done. White blood cell count of 11.6, hemoglobin 10.1, hem atocrit 30.8, platelet count of 216,000 with a chem metabolic panel within normal limits except for B UN of 22, creatinine 1.2, nonfasting glucose of 120, calcium 7.4, magnesium 1.6. The patient had a chest x-ray. It was read as reposition nasogastric ____, centrilobular and bibasil ar subsegmental atelectasis. The patient's Gram stain showed Klebsiella pneumoniae. ASSESSMENT: Severe sepsis, hypoxemia; respiratory failure on ventilator, now extubated; acute renal failure, diabetic ketoacidosis, hypogammaglobulinemia, atherosclerotic cardiovascular disease, chroni c intractable pain. PLAN: After conversation with Dr. Campa, is to continue with present medical regimen with ICU prot ocols. Infectious disease to continue with the patient to be monitored clinically and with labs. Manfred Torres MD cc: [phone] TT: 10/29/2016 12:04:50 Confirmation # [id number] Dictation # [id number] mn
--- NOTE | 2016-10-29 12:26 | CP.PCM.CON ---
<Olivia Schroeder - Last Filed: 10/29/16 12:21> History of Present Illness - History of Present Illness History of Present Illness: 51 y/o female w/ PMH of HTN, dyslipidemia, CAD S/P PCI, common variable immune deficiency, asthma, seizure disorder, depression, COPD, chronic venous insufficiency, DM S/P laparoscopic ventral hernia repair 2016, S/P cholecystectomy, seen at bedside in CCU after podiatry consultation. patient is well known to Dr. Vasques and sees her regularly in the office. She states that she has an upcoming appointment with Dr. Vasques for this week. patient denies any pain in her feet. She states that she cannot feel her feet due to neuropathy. Patient denies any n/v/f/c/d Review of Systems - Constitutional Constitutional: As Per HPI Past Patient History - Infectious Disease Hx of Infectious Diseases: None - Tetanus Immunizations Tetanus Immunization: Unknown - Past Social History Smoking Status: Former Smoker - CARDIAC Hx Cardiac Disorders: Yes (mi 2014) Hx Hypercholesterolemia: Yes Hx Pacemaker: No Hx Peripheral Edema: Yes (ble +1) Other/Comment: leaky valve - PULMONARY Hx Asthma: Yes - NEUROLOGICAL Hx Seizures: Yes (frontal lobe) Other/Comment: neuropathy - HEENT Hx HEENT Problems: Yes Hx Cataracts: Yes (b/l sx) Other/Comment: nasal cavity tumor, b/l myringotomy, multiple nasal cauterizations - RENAL Hx Chronic Kidney Disease: (sluggish kidney) - ENDOCRINE/METABOLIC Hx Diabetes Mellitus Type 2: Yes - HEMATOLOGICAL/ONCOLOGICAL Hx Cancer: Yes (colon) Other/Comment: osteopenia, hemoglobulin anemia, common variable immune deficiency, recurrent infections - INTEGUMENTARY Other/Comment: right lower leg bruise - MUSCULOSKELETAL/RHEUMATOLOGICAL Hx Musculoskeletal Disorders: Yes Hx Falls: Yes Hx Unsteady Gait: Yes Other/Comment: b/l hip injections - GASTROINTESTINAL Hx Gastrointestinal Disorders: Yes (obese) Other/Comment: Colon CA - PSYCHIATRIC Hx Emotional Abuse: No Hx Physical Abuse: No - SURGICAL HISTORY Hx Cholecystectomy: Yes Hx Coronary Stent: Yes (ptca 2008) Other/Comment: multiple nose cauterization, ovarian cystectomies, breast surgery (tumor removal), b/l breast biopsies, laparoscopic ventral/incisional hernia repair 10/19/2016, pac x 3 insertion and removal colon resection , stent. - ANESTHESIA Hx Anesthesia Reactions: Yes (HEADACHES) Hx Malignant Hyperthermia: No Meds Allergies/Adverse Reactions: Allergies Allergy/AdvReac Type Severity Reaction Status Date / Time diazepam [From Valium] Allergy Intermediate AGITATION Verified 10/25/16 08:43 diphenhydramine HCl Allergy Intermediate AGITATION Verified 10/25/16 08:43 [From Benadryl] meperidine HCl [From Demerol] Allergy Intermediate AGITATION Verified 10/25/16 08:43 Sulfa (Sulfonamide Allergy Intermediate RASH Verified 10/25/16 08:43 Antibiotics) fentanyl AdvReac Severe HEADACHE Verified 10/25/16 08:43 - Medications Medications: Current Medications Heparin Sodium (Porcine) (Heparin) 5,000 units SC Q12 JOSH PRN Reason: Protocol Last Admin: 10/29/16 09:00 Dose: 5,000 units Hydralazine HCl (Apresoline) 10 mg IVP Q6 PRN PRN Reason: For SBP>170 & Diastolic>100 Meropenem 1g/NS 100mL IVPB (Meropenem 1g/Ns 100ml Ivpb) 100 mls @ 100 mls/hr IVPB Q12 JOSH PRN Reason: Protocol Stop: 11/01/16 22:01 Last Admin: 10/29/16 09:01 Dose: 100 mls/hr Dexmedetomidine HCl (Precedex 4 Mcg/Ml (100 Ml)) 400 mcg in 100 mls @ 5.216 mls /hr IV .[id number] PRN; Protocol; 0.2 MCG/KG/HR PRN Reason: Agitation Last Admin: 10/28/16 15:47 Dose: 1.5 mcg/kg/hr, 39.122 mls/hr Magnesium Sulfate 2 gm/ Sodium (Chloride) 104 mls @ 102 mls/hr IVPB ONCE ONE Stop: 10/29/16 14:01 Insulin Detemir (Levemir) 15 unit SC HS JOSH Insulin Human Lispro (Humalog Low) 0 units SC ACHS JOSH PRN Reason: Protocol Last Admin: 10/29/16 11:37 Dose: Not Given Lorazepam (Ativan) 1 mg PO TID JOSH PRN Reason: Protocol Lorazepam (Ativan) 0.5 mg PO Q6H PRN; Protocol PRN Reason: Agitation Metoprolol Tartrate (Lopressor) 5 mg IVP Q6H JOSH Last Admin: 10/29/16 11:50 Dose: 5 mg Morphine Sulfate (Morphine) 2 mg IVP Q3H PRN PRN Reason: Pain, moderate (4-7) Last Admin: 10/29/16 07:23 Dose: 2 mg Olanzapine (Zyprexa Zydis) 5 mg PO DAILY [facility] PRN Reason: Protocol Last Admin: 10/29/16 09:01 Dose: 5 mg Pantoprazole Sodium (Protonix Inj) 40 mg IVP DAILY [facility] [place] Last Admin: 10/29/16 09:01 Dose: 40 mg Saliva Substitute (Saliva Substitute) 0 ml PO Q2 PRN PRN Reason: Dry mouth Physical Exam - Constitutional Appears: Well, Non-toxic, No Acute Distress - Extremities Exam Additional comments: vasc: nonpalpable pedal pulses b/l, TG wnl, CFT < 4 sec to all digits, nonpitting edema neuro; grossly diminished derm: nonpitting edema, no erythema, no open lesions, no acute clinical signs of infection, no interdigital maceration, nails are cut to hygienic length ortho: muscle power4/5, diminished ankle, STJ, 1st ray ROM - Neurological Exam Neurological exam: Alert, Oriented x3 - Psychiatric Exam Psychiatric exam: Normal Affect, Normal Mood Results - Vital Signs Recent Vital Signs: Last Vital Signs Temp 98.3 F 10/29/16 11:36 Pulse 91 H 10/29/16 11:50 Resp 31 H 10/29/16 10:00 BP 186/98 H 10/29/16 11:50 Pulse Ox 100 10/29/16 10:00 - Labs Result Diagrams: 10/29/16 05:30 10/29/16 05:30 Labs: Laboratory Results - last 24 hr 10/25/16 10/28/16 10/28/16 13:50 13:07 16:31 WBC RBC Hgb Hct MCV MCH MCHC RDW Plt Count MPV Gran % Lymph % (Auto) Bowman % (Auto) Eos % (Auto) Baso % (Auto) Gran # Lymph # Bowman # Eos # Baso # pCO2 pO2 HCO3 ABG pH ABG Total CO2 ABG O2 Saturation ABG O2 Content ABG Base Excess ABG Hemoglobin ABG Carboxyhemoglobin POC ABG HHb (Measured) ABG Methemoglobin ABG O2 Capacity Hgb O2 Saturation FiO2 Sodium 142 Potassium 3.8 Chloride 111 H Carbon Dioxide 20 L Anion Gap 15 BUN 22 H Creatinine 1.2 Est GFR ( Amer) 58 Est GFR (Non-Af Amer) 48 POC Glucose (mg/dL) 135 H Random Glucose 120 H Calcium 7.4 L Phosphorus 2.8 Magnesium 1.6 L Total Bilirubin 0.5 AST 17 ALT 21 Alkaline Phosphatase 56 Total Protein 6.4 Albumin 2.9 L Globulin 3.5 Albumin/Globulin Ratio 0.8 L Beta-Hydroxybutyric Acd 38 H 10/29/16 10/29/16 10/29/16 00:23 05:30 05:30 WBC 15.4 H D RBC 3.40 L Hgb 10.2 L Hct 31.3 L MCV 92.1 MCH 30.0 MCHC 32.6 RDW 14.0 Plt Count 271 MPV 11.1 H Gran % 71.1 H Lymph % (Auto) 20.3 L Bowman % (Auto) 6.5 H Eos % (Auto) 1.2 L Baso % (Auto) 0.9 Gran # 10.95 H Lymph # 3.1 Bowman # 1.0 H Eos # 0.2 Baso # 0.14 pCO2 33 L pO2 44.0 L* HCO3 20.0 L ABG pH 7.39 ABG Total CO2 21.0 L ABG O2 Saturation 81.8 L ABG O2 Content 14.7 L ABG Base Excess -4.1 L ABG Hemoglobin 13.0 ABG Carboxyhemoglobin 1.2 POC ABG HHb (Measured) 17.9 H ABG Methemoglobin 0.4 ABG O2 Capacity 18.0 Hgb O2 Saturation 80.6 L FiO2 28.0 Sodium Potassium Chloride Carbon Dioxide Anion Gap BUN Creatinine Est GFR ( Amer) Est GFR (Non-Af Amer) POC Glucose (mg/dL) 113 H Random Glucose Calcium Phosphorus Magnesium Total Bilirubin AST ALT Alkaline Phosphatase Total Protein Albumin Globulin Albumin/Globulin Ratio Beta-Hydroxybutyric Acd 10/29/16 05:30 WBC RBC Hgb Hct MCV MCH MCHC RDW Plt Count MPV Gran % Lymph % (Auto) Bowman % (Auto) Eos % (Auto) Baso % (Auto) Gran # Lymph # Bowman # Eos # Baso # pCO2 pO2 HCO3 ABG pH ABG Total CO2 ABG O2 Saturation ABG O2 Content ABG Base Excess ABG Hemoglobin ABG Carboxyhemoglobin POC ABG HHb (Measured) ABG Methemoglobin ABG O2 Capacity Hgb O2 Saturation FiO2 Sodium 142 Potassium 3.6 Chloride 110 H Carbon Dioxide 19 L Anion Gap 17 BUN 18 Creatinine 1.0 Est GFR ( Amer) > 60 Est GFR (Non-Af Amer) 59 POC Glucose (mg/dL) Random Glucose 95 Calcium 7.6 L Phosphorus 2.9 Magnesium 1.3 L Total Bilirubin 0.4 AST 20 ALT 24 Alkaline Phosphatase 58 Total Protein 6.2 Albumin 2.9 L Globulin 3.4 Albumin/Globulin Ratio 0.9 L Beta-Hydroxybutyric Acd Assessment & Plan - Assessment and Plan (Free Text) Assessment: 51 y/o female seen at bedside for diabetic foot evaluation Plan: patient evaluated and chart reviewed discussed in detail with attending Dr. Pyle labs and vitals reviewed; WBC 15.4, afebrile continue IV abx as per ID US shows no evidence of DVT podiatry will continue to monitor while patient remains in house Rx multipodus boots to offload heels <Pablo Pyle - Last Filed: 10/29/16 15:26> Meds - Medications Medications: Current Medications Heparin Sodium (Porcine) (Heparin) 5,000 units SC Q12 JOSH PRN Reason: Protocol Last Admin: 10/29/16 09:00 Dose: 5,000 units Hydralazine HCl (Apresoline) 10 mg IVP Q6 PRN PRN Reason: For SBP>170 & Diastolic>100 Meropenem 1g/NS 100mL IVPB (Meropenem 1g/Ns 100ml Ivpb) 100 mls @ 100 mls/hr IVPB Q12 JOSH PRN Reason: Protocol Stop: 11/01/16 22:01 Last Admin: 10/29/16 09:01 Dose: 100 mls/hr Dexmedetomidine HCl (Precedex 4 Mcg/Ml (100 Ml)) 400 mcg in 100 mls @ 5.216 mls /hr IV .[id number] PRN; Protocol; 0.2 MCG/KG/HR PRN Reason: Agitation Last Admin: 10/28/16 15:47 Dose: 1.5 mcg/kg/hr, 39.122 mls/hr Insulin Detemir (Levemir) 15 unit SC HS JOSH Insulin Human Lispro (Humalog Low) 0 units SC ACHS JOSH PRN Reason: Protocol Last Admin: 10/29/16 11:37 Dose: Not Given Lorazepam (Ativan) 1 mg PO TID JOSH PRN Reason: Protocol Last Admin: 10/29/16 14:57 Dose: 1 mg Lorazepam (Ativan) 0.5 mg PO Q6H PRN; Protocol PRN Reason: Agitation Metoprolol Tartrate (Lopressor) 5 mg IVP Q6H JOSH Last Admin: 10/29/16 11:50 Dose: 5 mg Morphine Sulfate (Morphine) 2 mg IVP Q3H PRN PRN Reason: Pain, moderate (4-7) Last Admin: 10/29/16 07:23 Dose: 2 mg Olanzapine (Zyprexa Zydis) 5 mg PO DAILY JOSH PRN Reason: Protocol Last Admin: 10/29/16 09:01 Dose: 5 mg Pantoprazole Sodium (Protonix Inj) 40 mg IVP DAILY [facility] [place] Last Admin: 10/29/16 09:01 Dose: 40 mg Saliva Substitute (Saliva Substitute) 0 ml PO Q2 PRN PRN Reason: Dry mouth Results - Vital Signs Recent Vital Signs: Last Vital Signs Temp 98.3 F 10/29/16 11:36 Pulse 91 H 10/29/16 11:50 Resp 31 H 10/29/16 10:00 BP 186/98 H 10/29/16 11:50 Pulse Ox 100 10/29/16 10:00 - Labs Result Diagrams: 10/29/16 05:30 10/29/16 05:30 Labs: Laboratory Results - last 24 hr 10/25/16 10/28/16 10/29/16 13:50 16:31 00:23 WBC RBC Hgb Hct MCV MCH MCHC RDW Plt Count MPV Gran % Lymph % (Auto) Bowman % (Auto) Eos % (Auto) Baso % (Auto) Gran # Lymph # Bowman # Eos # Baso # pCO2 pO2 HCO3 ABG pH ABG Total CO2 ABG O2 Saturation ABG O2 Content ABG Base Excess ABG Hemoglobin ABG Carboxyhemoglobin POC ABG HHb (Measured) ABG Methemoglobin ABG O2 Capacity Hgb O2 Saturation FiO2 Sodium Potassium Chloride Carbon Dioxide Anion Gap BUN Creatinine Est GFR ( Amer) Est GFR (Non-Af Amer) POC Glucose (mg/dL) 135 H 113 H Random Glucose Calcium Phosphorus Magnesium Total Bilirubin AST ALT Alkaline Phosphatase Total Protein Albumin Globulin Albumin/Globulin Ratio Beta-Hydroxybutyric Acd 38 H 10/29/16 10/29/16 10/29/16 05:30 05:30 05:30 WBC 15.4 H D RBC 3.40 L Hgb 10.2 L Hct 31.3 L MCV 92.1 MCH 30.0 MCHC 32.6 RDW 14.0 Plt Count 271 MPV 11.1 H Gran % 71.1 H Lymph % (Auto) 20.3 L Bowman % (Auto) 6.5 H Eos % (Auto) 1.2 L Baso % (Auto) 0.9 Gran # 10.95 H Lymph # 3.1 Bowman # 1.0 H Eos # 0.2 Baso # 0.14 pCO2 33 L pO2 44.0 L* HCO3 20.0 L ABG pH 7.39 ABG Total CO2 21.0 L ABG O2 Saturation 81.8 L ABG O2 Content 14.7 L ABG Base Excess -4.1 L ABG Hemoglobin 13.0 ABG Carboxyhemoglobin 1.2 POC ABG HHb (Measured) 17.9 H ABG Methemoglobin 0.4 ABG O2 Capacity 18.0 Hgb O2 Saturation 80.6 L FiO2 28.0 Sodium 142 Potassium 3.6 Chloride 110 H Carbon Dioxide 19 L Anion Gap 17 BUN 18 Creatinine 1.0 Est GFR ( Amer) > 60 Est GFR (Non-Af Amer) 59 POC Glucose (mg/dL) Random Glucose 95 Calcium 7.6 L Phosphorus 2.9 Magnesium 1.3 L Total Bilirubin 0.4 AST 20 ALT 24 Alkaline Phosphatase 58 Total Protein 6.2 Albumin 2.9 L Globulin 3.4 Albumin/Globulin Ratio 0.9 L Beta-Hydroxybutyric Acd Attending/Attestation - Attestation I have personally seen and examined this patient.: Yes I have fully participated in the care of the patient.: Yes I have reviewed all pertinent clinical information: Yes
[2016-10-29] MEDS ORDERED: Magnesium Sulfate 2 GM in Sodium Chloride 0.9% 100 ML IVPB ONE (13:00)
--- NOTE | 2016-10-29 14:14 | CP.PCM.PN ---
<Maged Ordaz - Last Filed: 10/29/16 14:14> Subjective - Date & Time of Evaluation Date of Evaluation: 10/29/16 Time of Evaluation: 14:13 - Subjective Subjective: Surgery: Dr. Reagan Pt seen and examined. Resting comfortably in bed. Pt is extubated. No complaints of pain. Wants NGT D/C. Objective - Vital Signs/Intake and Output Vital Signs (last 24 hours): Temp Pulse Resp BP Pulse Ox 98.3 F 91 H 31 H 186/98 H 100 10/29/16 11:36 10/29/16 11:50 10/29/16 10:00 10/29/16 11:50 10/29/16 10:00 Intake and Output: 10/29/16 10/29/16 06:59 18:59 Intake Total 3810 Output Total 1000 Balance 2810 - Medications Medications: Current Medications Heparin Sodium (Porcine) (Heparin) 5,000 units SC Q12 JOSH PRN Reason: Protocol Last Admin: 10/29/16 09:00 Dose: 5,000 units Hydralazine HCl (Apresoline) 10 mg IVP Q6 PRN PRN Reason: For SBP>170 & Diastolic>100 Meropenem 1g/NS 100mL IVPB (Meropenem 1g/Ns 100ml Ivpb) 100 mls @ 100 mls/hr IVPB Q12 JOSH PRN Reason: Protocol Stop: 11/01/16 22:01 Last Admin: 10/29/16 09:01 Dose: 100 mls/hr Dexmedetomidine HCl (Precedex 4 Mcg/Ml (100 Ml)) 400 mcg in 100 mls @ 5.216 mls /hr IV .[id number] PRN; Protocol; 0.2 MCG/KG/HR PRN Reason: Agitation Last Admin: 10/28/16 15:47 Dose: 1.5 mcg/kg/hr, 39.122 mls/hr Insulin Detemir (Levemir) 15 unit SC HS JOSH Insulin Human Lispro (Humalog Low) 0 units SC ACHS JOSH PRN Reason: Protocol Last Admin: 10/29/16 11:37 Dose: Not Given Lorazepam (Ativan) 1 mg PO TID JOSH PRN Reason: Protocol Lorazepam (Ativan) 0.5 mg PO Q6H PRN; Protocol PRN Reason: Agitation Metoprolol Tartrate (Lopressor) 5 mg IVP Q6H [facility] Last Admin: 10/29/16 11:50 Dose: 5 mg Morphine Sulfate (Morphine) 2 mg IVP Q3H PRN PRN Reason: Pain, moderate (4-7) Last Admin: 10/29/16 07:23 Dose: 2 mg Olanzapine (Zyprexa Zydis) 5 mg PO DAILY JOSH PRN Reason: Protocol Last Admin: 10/29/16 09:01 Dose: 5 mg Pantoprazole Sodium (Protonix Inj) 40 mg IVP DAILY [facility] Last Admin: 10/29/16 09:01 Dose: 40 mg Saliva Substitute (Saliva Substitute) 0 ml PO Q2 PRN PRN Reason: Dry mouth - Labs Labs: 10/29/16 05:30 10/29/16 05:30 PT 13.0 Seconds (9.9-11.8) H 10/25/16 09:10 INR 1.20 (0.93-1.08) H 10/25/16 09:10 APTT 26.7 Seconds (23.7-30.8) 10/25/16 09:10 - Constitutional Appears: Non-toxic, No Acute Distress - Head Exam Head Exam: ATRAUMATIC, NORMOCEPHALIC - Eye Exam Eye Exam: EOMI - ENT Exam ENT Exam: Mucous Membranes Moist - Neck Exam Neck Exam: Full ROM - Respiratory Exam Respiratory Exam: NORMAL BREATHING PATTERN. absent: Accessory Muscle Use, Respiratory Distress - GI/Abdominal Exam GI & Abdominal Exam: Soft. absent: Distended, Firm, Guarding, Rigid, Tenderness , Rebound - Extremities Exam Extremities Exam: absent: Calf Tenderness, Pedal Edema Assessment and Plan - Assessment and Plan (Free Text) Assessment: 51F s/p laparoscopic ventral hernia repair on 10/19/16 in ICU w. DKA, sepsis, and SBO resolving -D/C NGT -CLD -Monitor bowel fxn, ADAT -serial abd exams -d/w attending Sushma PGY2 <Tee Reagan - Last Filed: 02/01/17 22:54> Objective - Vital Signs/Intake and Output Vital Signs (last 24 hours): Temp Pulse Resp BP Pulse Ox 97.7 F 93 H 17 116/60 93 L 11/01/16 06:00 11/01/16 08:15 05/01/17 06:00 11/01/16 08:15 11/01/16 06:00 - Labs Labs: 11/01/16 06:00 11/01/16 06:00 PT 13.0 Seconds (9.9-11.8) H 10/25/16 09:10 INR 1.20 (0.93-1.08) H 10/25/16 09:10 APTT 26.7 Seconds (23.7-30.8) 10/25/16 09:10 Assessment and Plan - Assessment and Plan (Free Text) Plan: Patient was seen and examined by me. I agree with assessment and plan as per resident's note.
--- NOTE | 2016-10-29 14:28 | PN ---
DATE: 10/29/2016 This is the patient's hospital visit in the intensive care unit. For Dr. Campa. SUBJECTIVE: The patient is a 51-year-old female, seen lying awake in bed, very uncomfortable, dishev eled, status post extubation with the patient reporting she was able to sleep last night despite Ativ an being given along with her narcotic analgesics. With this, the patient is now status post extubat ion for respiratory distress, admitted for DKA with unknown recent ventral hernia repair. She is in no acute distress at this visit. OBJECTIVE: PHYSICAL EXAMINATION: VITAL SIGNS: Temperature 98.3, pulse 91, respirations 31, pulse ox 100%, blood pressure 186/98. HEENT: Kem complexion. NECK: Unremarkable. Supple. HEART: Tachy rate, regular rhythm. LUNGS: Occasional rhonchi. ABDOMEN: Obese, soft, nontender, status post ventral repair of a hernia. EXTREMITIES: Faint +1 edema. SKIN: Warm, dry and clear except as above. NEUROLOGIC: Awake, alert, and oriented x 3. With this, the patient's physical exam is otherwise negative except as above. LABORATORY DATA: The patient's labs were done, white blood cell count of 15.4, hemoglobin 10.2, aram tocrit 31.3, platelet count of 271,000. A chem metabolic panel within normal range except for a carb on dioxide of 19. Calcium 7.6, magnesium 1.3. Otherwise, normal chem metabolic panel with blood gas showing a pO2 of 44, which will be repeated one more time in the a.m. Otherwise we will stop doing ABGs on this patient at this time. The patient did have a Doppler ultrasound of the lower extremities. It has not been read yet. A ches t x-ray done earlier today, read as no active disease, minimal atelectasis right lung base. ASSESSMENT: Respiratory failure, status post intubation, now extubated, diabetic ketoacidosis resolv ed, severe sepsis, hypoxemia, lower lobe pneumonia, acute renal failure improved, arteriosclerotic ca rdiovascular disease, chronic intractable pain, hypogammaglobulinemia, status post ventral hernia rep air, chronic anxiety. PLAN: After conversation with Dr. Mason, Dr. Mckeon, towboat captain, we will recommend for the cassidy ent to be transferred to the telemetry floor, out of bed to chair, slow increase of activities with d iet as per Dr. Reagan with her Ativan restarted in a tablet form as she is used to taking with c ontinuation of present medical regimen. Prognosis for this patient is guarded. We will monitor clin ically and with labs. Manfred Torres MD cc: [phone] TT: 10/29/2016 14:26:49 Confirmation # [id number] Dictation # [id number] rn
--- NOTE | 2016-10-29 14:47 | PN ---
DATE: 10/29/2016 Seen and examined at the bedside earlier today. She was extubated yesterday. She has nasal cannula on with no respiratory distress. She is awake and alert and interactive. No complaints of any nause a, no vomiting, no complaints of abdominal pain. No reports of any acute overnight events. Her NG t ube was discontinued earlier this morning. So far she is tolerating her clear liquid diet. VITAL SIGNS: Temperature 98.3, blood pressure is 186/98, pulse 91, respirations 22, 100 on nasal can nula. LABORATORY DATA: WBC is 15.4, H and H is 10.2 and 31.3, platelets are 271. Sodium 142, K is 3.6, BU N 18, creatinine is 1.0, magnesium is 1.3. The patient received magnesium replacement this morning. Her LFTs are within normal limits. She had a chest x-ray earlier this morning which showed no acute findings. Also had complaints of bilateral calf pain and Dopplers were done, which is pending offic ial report. PHYSICAL EXAMINATION: HEENT: Sclerae are anicteric. NECK: Supple. CARDIAC: S1, S2. LUNGS: With scattered rhonchi, no wheezing. ABDOMEN: With bowel sounds, softly obese, did not palpate any tenderness, no rebound or guarding. EXTREMITIES: Lower extremities positive edema. NEUROLOGIC: Awake and alert. ASSESSMENT: This is a 51-year-old female with severe sepsis, hypoxemia and respiratory failure, was on ventilator. She is now extubated. Had recent ventral hernia repair, status post small-bowel obst ruction. The patient also went into diabetic ketoacidosis. Has history of hypogammaglobulinemia, at herosclerotic cardiovascular disease, hypomagnesia and obesity. Other comorbidity is chronic obstruc tive pulmonary disease. PLAN: The patient is on a clear liquid diet. Continue GI prophylaxis. She is on Protonix. The pat ient is also on IV antibiotics as per ID. On DVT prophylaxis of heparin. The patient is also being followed by surgery, renal and ID, as well as hematology. We will continue to follow. The patient was seen and case discussed with Dr. Weston. Nina ARORA cc: [id number] TT: 10/29/2016 14:46:39 Confirmation # [id number] Dictation # [id number] kyle
--- NOTE | 2016-10-29 16:56 | US ---
HISTORY: Leg pain and swelling. Evaluate for DVT PHYSICIAN(S): Abel Schneider MD. TECHNIQUE: Duplex sonography and color-flow Doppler with graded compression were used to evaluate the deep venous systems of both lower extremities. The exam is limited by body habitus and edema FINDINGS: The visualized deep venous systems of both lower extremities are sonographically normal and compressible. Normal wave forms and augmentation are seen. There is no sonographic evidence for deep venous thrombosis in the visualized segments of both lower extremities. IMPRESSION: No sonographic evidence for deep venous thrombosis in the visualized segments of both lower extremities.
[2016-10-29] MEDS: Insulin Detemir 100 units/ml Vial (Levemir) SC SCH (22:04)
--- NOTE | 2016-10-30 02:04 | CP.PCM.PN ---
Subjective - Date & Time of Evaluation Date of Evaluation: 10/30/16 Time of Evaluation: 00:20 - Subjective Subjective: responded to code fleming pt is aggitated ,transferred from [facility] , has multiple medical problems including ,cad,cvid, pneumonia.pt states she wants to sign AMA.and is asking for lu from dr gregorio office. Objective - Vital Signs/Intake and Output Vital Signs (last 24 hours): Temp Pulse Resp BP Pulse Ox 98.4 F 102 H 20 119/92 H 98 10/30/16 01:06 10/30/16 01:06 10/30/16 01:06 10/30/16 01:06 10/30/16 01:06 Intake and Output: 10/29/16 10/30/16 18:59 06:59 Intake Total 2200 Output Total 1200 Balance 1000 - Medications Medications: Current Medications Heparin Sodium (Porcine) (Heparin) 5,000 units SC Q12 JOSH PRN Reason: Protocol Last Admin: 10/29/16 22:04 Dose: 5,000 units Hydralazine HCl (Apresoline) 10 mg IVP Q6 PRN PRN Reason: For SBP>170 & Diastolic>100 Meropenem 1g/NS 100mL IVPB (Meropenem 1g/Ns 100ml Ivpb) 100 mls @ 100 mls/hr IVPB Q12 JOSH PRN Reason: Protocol Stop: 11/01/16 22:01 Last Admin: 10/29/16 22:03 Dose: 100 mls/hr Dexmedetomidine HCl (Precedex 4 Mcg/Ml (100 Ml)) 400 mcg in 100 mls @ 5.216 mls /hr IV .[id number] PRN; Protocol; 0.2 MCG/KG/HR PRN Reason: Agitation Last Admin: 10/28/16 15:47 Dose: 1.5 mcg/kg/hr, 39.122 mls/hr Insulin Detemir (Levemir) 15 unit SC HS JOSH Last Admin: 10/29/16 22:04 Dose: 15 unit Insulin Human Lispro (Humalog Low) 0 units SC ACHS JOSH PRN Reason: Protocol Last Admin: 10/29/16 22:04 Dose: Not Given Lorazepam (Ativan) 1 mg PO TID JOSH PRN Reason: Protocol Last Admin: 10/29/16 20:08 Dose: 1 mg Lorazepam (Ativan) 0.5 mg PO Q6H PRN; Protocol PRN Reason: Agitation Last Admin: 10/29/16 23:54 Dose: 0.5 mg Metoprolol Tartrate (Lopressor) 5 mg IVP Q6H [facility] Last Admin: 10/29/16 22:14 Dose: 5 mg Morphine Sulfate (Morphine) 2 mg IVP Q3H PRN PRN Reason: Pain, moderate (4-7) Last Admin: 10/29/16 22:20 Dose: 2 mg Olanzapine (Zyprexa Zydis) 5 mg PO DAILY JOSH PRN Reason: Protocol Last Admin: 10/29/16 09:01 Dose: 5 mg Pantoprazole Sodium (Protonix Inj) 40 mg IVP DAILY [facility] Last Admin: 10/29/16 09:01 Dose: 40 mg Saliva Substitute (Saliva Substitute) 0 ml PO Q2 PRN PRN Reason: Dry mouth - Labs Labs: 10/29/16 05:30 10/29/16 05:30 PT 13.0 Seconds (9.9-11.8) H 10/25/16 09:10 INR 1.20 (0.93-1.08) H 10/25/16 09:10 APTT 26.7 Seconds (23.7-30.8) 10/25/16 09:10 - Constitutional Appears: No Acute Distress - Head Exam Head Exam: NORMOCEPHALIC - Eye Exam Eye Exam: Normal appearance - ENT Exam ENT Exam: Mucous Membranes Moist - Neck Exam Neck Exam: Full ROM - Respiratory Exam Respiratory Exam: Clear to Ausculation Bilateral - Cardiovascular Exam Cardiovascular Exam: RRR - GI/Abdominal Exam GI & Abdominal Exam: Soft, Normal Bowel Sounds - Rectal Exam Rectal Exam: Deferred - Extremities Exam Extremities Exam: Full ROM - Neurological Exam Neurological Exam: Alert, Awake, Oriented x3 - Psychiatric Exam Psychiatric exam: Agitated - Skin Skin Exam: Dry, Normal Color, Warm Assessment and Plan - Assessment and Plan (Free Text) Assessment: aggitaion. hx of cvid. hx of anxiety. Plan: ativan 1mg x1 stat. lu came to see the pt and pt calmed down. went to see pt told by nurse pt has small amount of blood per rectum pt is sleeping .will do cbc and type and cross for 2 units of prbc.
--- NOTE | 2016-10-30 05:50 | PN ---
DATE: 10/29/2016 ADDENDUM This is an addendum to the GI progress report dictated by LALO Case. The patient was seen and evaluated earlier and discussed. NG tube was removed. The patient is on a liquid diet, tolerating. No vomiting. Discussed with the surgeon. The plan is to slowly advance the diet and consider UGI series as an out patient. Thank you for allowing me to participate in the care of the patient. Berhane Weston MD cc: [id number] TT: 10/30/2016 05:50:48 Confirmation # [id number] Dictation # [id number] gopal PENA
[2016-10-30] MEDS: Metoprolol 1 mg/ml Inj IVP SCH (06:40)
[2016-10-30 07:46] LABS: ADD MANUAL DIFF? NO
[2016-10-30 07:54] LABS: BASO # 0.18 K/mm3 (0.0-2.0); BASO % 0.9 % (0.0-3.0); EOS # 0.3 (0.0-0.7); EOS % 1.3 % (1.5-5.0); GRAN # 14.24 (1.4-6.5); GRAN % 70.2 % (50.0-68.0); HEMATOCRIT 35.1 % (36.0-48.0); LYMPH # 4.2 (1.2-3.4); LYMPH % 20.7 % (22.0-35.0); MEAN CELL VOLUME 89.5 fL (80.0-105.0); MEAN CORPUSCULAR HEMOGLOBIN 30.1 pg (25.0-35.0); MEAN CORPUSCULAR HGB CONC 33.6 g/dl (31.0-37.0); MEAN PLATELET VOLUME 10.3 fl (7.0-11.0); MONO # 1.4 (0.1-0.6); MONO % 6.9 % (1.0-6.0); PLATELET COUNT 473 10^3/uL (120.0-450.0); RED CELL DISTRIBUTION WIDTH 13.8 % (11.5-14.5); WHITE BLOOD COUNT 20.3 10^3/ul (4.5-11.0)
[2016-10-30 08:04] LABS: ALKALINE PHOSPHATASE 77 U/L (38-133); ALT/SGPT 28 U/L (7-56); AST/SGOT 25 U/L (15-39); BILIRUBIN,TOTAL 0.3 mg/dL (0.2-1.3); BLOOD UREA NITROGEN 12 mg/dL (7-21); CALCIUM 9.2 mg/dL (8.4-10.5); CARBON DIOXIDE 20 mmol/L (21-33); CHLORIDE 106 mmol/L (95-110); GFR AFRICAN-AMERICAN > 60; GLUCOSE,RANDOM 123 mg/dL (70-110); MAGNESIUM 1.7 mg/dL (1.7-2.2); PHOSPHOROUS 3.3 mg/dL (2.5-4.5); POTASSIUM 3.3 mmol/L (3.6-5.0); SODIUM 138 mmol/L (132-148); TOTAL PROTEIN 6.7 g/dL (5.8-8.3)
--- NOTE | 2016-10-30 08:44 | PN ---
DATE: 10/30/2016 PULMONARY FOLLOWUP: The patient is now out of the ICU, and I will resume the pulmonary care at this point in time. I did discuss the patient with Dr. Mckeon at length. SUBJECTIVE: The patient appears comfortable this morning. She is not short of breath at rest. PHYSICAL EXAMINATION: VITAL SIGNS: Temperature is 97.0, pulse on the monitor is 92, respiratory rate 18/20, blood pressure 133/72. Oxygen saturation on nasal cannula is 96-98%. HEENT: Normocephalic, atraumatic. No JVD. CARDIOVASCULAR: Positive S1, S2. No S3. LUNGS: Slight decreased breath sounds at the bases. No rhonchi. No wheezing. EXTREMITIES: Mild edema. No cyanosis, no clubbing. Calves are nontender to palpation. GASTROINTESTINAL: Abdomen is soft, nontender, nondistended. Bowel sounds are positive. The patient is status post ventral hernia repair. SKIN: No acute rash. NEUROLOGIC: Limited at the present time. PERTINENT LABORATORY DATA: Chest x-ray was repeated yesterday and reviewed. There is minimal atelectasis at the right lung base. Otherwise, the film is substantially improved -- compared to last week. IMPRESSION: 1. Status post respiratory failure. 2. Status post diabetic ketoacidosis. 3. Aspiration pneumonia -- resolving. 4. Status post ventral hernia repair. 5. Mild anemia. PLAN: The patient appears very comfortable this morning. She is not short of breath at rest. She states she is feeling much, much better overall. I did discuss the case with the night nurse at length. The night nurse stated that the patient does have periods of anxiety, but overall, she is doing very well. I did review the x-ray as above. The last x-ray shows just minimal atelectasis at the right base. The last x-ray is significantly improved from the x-rays of last week. On physical exam, there is no significant bronchospasm noted. In addition, there is no significant alveolar arterial gradient. I would continue with the GI and surgical evaluations. Inputs are noted. I would continue with the antibiotic coverage as per infectious disease. Temperatures have resolved. Repeat a.m. labs are pending. Clinical status of the patient appears significantly improved -- compared to the initial presentation. I have also advised the patient to get out of bed as much as possible. Again, I did discuss the above with Dr. Mckeon at length last night. I will also discuss the above with the attending physician. Werner Mason MD cc: [phone] TT: 10/30/2016 08:43:06 Confirmation # [id number] Dictation # [id number] stacia PENA
[2016-10-30] MEDS ORDERED: Potassium Chloride 20 mEq ER Tab PO ONE (10:09)
[2016-10-30] MEDS: OLANZapine 5 mg Disintegrating Tab PO SCH (10:20)
[2016-10-30] MEDS: Metoprolol Succinate 50 mg XL Tab PO SCH (10:33)
[2016-10-30] MEDS: Meropenem 1g/NS 100mL IVPB 100 ML IVPB SCH (10:34)
[2016-10-30] MEDS: Insulin Lispro (humaLOG) LOW Coverage SC SCH ×4 (10:35→22:00)
--- NOTE | 2016-10-30 10:57 | PN ---
DATE: 10/30/2016 REASON FOR CONSULTATION AND FOLLOWUP: Cardiac evaluation, status post respiratory failure, intubated , successfully extubated, history of coronary artery disease, status post stent in the past, admitted with DKA, lactic acidosis improved, status post small-bowel obstruction, improved. BRIEF CLINICAL HISTORY: A 51-year-old morbidly obese female, ex-smoker past medical history signific ant for coronary artery disease status post PTCA 2008, repeat catheterization 01/24/2014, patent sten t, preserved LV function, history of gammaglobulinemia and gammaglobulin deficiency on maintenance ga mmaglobulin every [address] Campa who recently had a ventral hernia repair done, admitted with DKA, lactic acidosis, small-bowel obstruction, intubated, now patient successfully extubated, now is tolerating full liquid. Denies any chest pain, shortness of breath, any palpitation. On telemetry, bed #272, bed 2. PHYSICAL EXAMINATION: VITAL SIGNS: Temperature afebrile, heart rate 100, blood pressure 133/72. HEENT: PERRLA. Extraocular muscles intact. NECK: Supple. No carotid bruit or thyromegaly. CHEST: Clear to auscultation. HEART: S1, S2 regular. ABDOMEN: Soft. EXTREMITIES: Clubbing and cyanosis negative. LABORATORY DATA: Blood workup as follows: WBC 20.3, hemoglobin 11.8, hematocrit 35.1, platelet coun t ____ . Chemistry shows sodium 138, potassium 3.3, chloride 106, carbon dioxide 20, anion gap of 15 , BUN 12, creatinine 0.8. IMPRESSION: Hypokalemia, status post intubated, status post sepsis, diabetic ketoacidosis, lactic ac idosis, history of coronary artery disease 2008, status post repeat catheterization, patent stent. N o evidence of acute coronary syndrome, no evidence of myocardial infarction. Status post ventral her su repair, history of gammaglobulin deficiency, uncontrolled diabetes, small-bowel obstruction relie odilia. RECOMMENDATION: Continue with diet as tolerated. Supplement potassium, continue DVT prophylaxis. W as on IV metoprolol will changed to p.o. since the patient started p.o. We will follow with you. If remains stable, possibly in a day or two, we will discontinue telemetry. Thank you, Dr. Campa, for providing the opportunity in taking care of the patient. Yesterday, pota ssium was supplemented. Potassium is still low, we will supplement again. Shasta Guillen MD cc:Reuben Campa MD [id number] TT: 10/30/2016 10:56:39 Confirmation # [id number] Dictation # [id number] jn
--- NOTE | 2016-10-30 14:17 | PN ---
DATE: 10/30/2016 This is the patient's hospital visit on the telemetry floor. For Dr. Campa. SUBJECTIVE: The patient is a 51-year-old female seen sitting up at the bedside with her healthcare p sophia, Ms. Rice, also at the bedside who has been with her since last night as the patient had signific antly increased agitation for which a cold fleming was called with Ativan given. The patient reports sh e is anxious to go home to take care of her dog and to get pajamas even though her healthcare proxy, Ms. Rice, was willing to do these things for her. However, I suspect the patient may also want to smo ke cigarettes which increases her agitation? She is seen now in no acute distress with Doppler ultra sound of her legs done yesterday reported as negative. The patient now extubated with her blood suga rs significantly better controlled with a psych consult now requested; however, it is reported that t he psychiatrist will not see the patient until tomorrow. Until then, she is unsafe discharge and the patient is now willing to stay. In the interim, we will adjust her medications as indicated. Again , she is in no acute distress at this time. OBJECTIVE PHYSICAL EXAMINATION: VITAL SIGNS: Temperature 97.4, pulse 75, respirations 20, blood pressure 134/55, pulse ox 96%. HEENT: Kem complexion. Oxygen is on. NECK: Supple. HEART: Regular rate. LUNGS: Clear. ABDOMEN: Obese, soft, nontender, status post procedure. EXTREMITIES: Faint +1 edema. NEUROLOGIC: Awake and alert. SKIN: Otherwise, warm, dry and clear. LABORATORY DATA: The patient's labs were done. White blood cell count of 20.3, hemoglobin 11.8, hem atocrit 35.1, platelet count of 473,000 with a chem metabolic panel showing a potassium of 3.3, carbo n dioxide of 20, nonfasting glucose of 148 with a procalcitonin of 1.38. She had refused her labs in itially and then they were done and reported as above. However, ABG was not done. ASSESSMENT: Hypokalemia to be addressed, status post intubation for respiratory failure, now extubat ed, status post sepsis, pneumonia, diabetic ketoacidosis, lactic acidosis, arteriosclerotic cardiovas cular disease, history of seizure disorder, status post ventral hernia repair, hypogammaglobulinemia, small bowel obstruction, relieved. The patient did have a bowel movement. PLAN: After conversation with Dr. Campa is to allow the patient to shower today with her IV access covered. We will also decrease her fingerstick blood sugars to twice a day. We will transfer her t o the 3rd floor, oncology. We will adjust her medications with the patient's labs to be monitored an d the patient to be monitored clinically. The prognosis for this patient is guarded. We will also a sk for a psych consult with Dr. Levin and reconsult with Drs. Leyva and Jonathon, neurology. Manfred Torres MD cc: [phone] TT: 10/30/2016 14:16:47 Confirmation # [id number] Dictation # [id number] tn
--- NOTE | 2016-10-30 18:42 | CP.PCM.PN ---
Subjective - Date & Time of Evaluation Date of Evaluation: 10/30/16 Time of Evaluation: 18:38 - Subjective Subjective: Surgery: Dr. Munoz covering for Dr. Reagan Pt seen and examined. Resting comfortably in bed. Pain resolved. Tolerating CLD. No N/V. +Flatus/BM. Pt would like diet advanced. Objective - Vital Signs/Intake and Output Vital Signs (last 24 hours): Temp Pulse Resp BP Pulse Ox 97.4 F L 108 H 20 137/85 97 10/30/16 16:16 10/30/16 16:16 10/30/16 16:16 10/30/16 16:16 10/30/16 16:16 Intake and Output: 10/30/16 10/30/16 06:59 18:59 Intake Total 100 Balance 100 - Medications Medications: Current Medications Famotidine (Pepcid) 40 mg PO DAILY JOSH Gabapentin (Neurontin) 300 mg PO TID JOSH PRN Reason: Protocol Last Admin: 10/30/16 14:47 Dose: 300 mg Heparin Sodium (Porcine) (Heparin) 5,000 units SC Q12 JOSH PRN Reason: Protocol Last Admin: 10/30/16 10:19 Dose: 5,000 units Hydralazine HCl (Apresoline) 10 mg IVP Q6 PRN PRN Reason: For SBP>170 & Diastolic>100 Meropenem 1g/NS 100mL IVPB (Meropenem 1g/Ns 100ml Ivpb) 100 mls @ 100 mls/hr IVPB Q12 JOSH PRN Reason: Protocol Stop: 11/01/16 22:01 Last Admin: 10/30/16 10:34 Dose: 100 mls/hr Insulin Detemir (Levemir) 15 unit SC HS JOSH Last Admin: 10/29/16 22:04 Dose: 15 unit Insulin Human Lispro (Humalog Low) 0 units SC ACHS JOSH PRN Reason: Protocol Last Admin: 10/30/16 12:46 Dose: 1 units Levetiracetam (Keppra) 500 mg PO BID JOSH Lorazepam (Ativan) 1 mg PO TID JOSH PRN Reason: Protocol Last Admin: 10/30/16 10:57 Dose: 1 mg Lorazepam (Ativan) 0.5 mg PO Q6H PRN; Protocol PRN Reason: Agitation Last Admin: 10/30/16 14:47 Dose: 0.5 mg Metoprolol Succinate (Toprol Xl) 50 mg PO BRK [facility] Last Admin: 10/30/16 10:33 Dose: 50 mg Morphine Sulfate (Morphine) 2 mg IVP Q3H PRN PRN Reason: Pain, moderate (4-7) Last Admin: 10/29/16 22:20 Dose: 2 mg Olanzapine (Zyprexa Zydis) 5 mg PO DAILY JOSH PRN Reason: Protocol Last Admin: 10/30/16 10:20 Dose: 5 mg Oxycodone HCl (Oxycontin Extended Release Tab) 10 mg PO DAILY [facility] Stop: 11/03/16 10:01 Saliva Substitute (Saliva Substitute) 0 ml PO Q2 PRN PRN Reason: Dry mouth Spironolactone (Aldactone) 50 mg PO DAILY [facility] Last Admin: 10/30/16 10:57 Dose: 50 mg Topiramate (Topamax) 25 mg PO DAILY JOSH PRN Reason: Protocol Last Admin: 10/30/16 14:50 Dose: 25 mg - Labs Labs: 10/30/16 07:10 10/30/16 07:10 PT 13.0 Seconds (9.9-11.8) H 10/25/16 09:10 INR 1.20 (0.93-1.08) H 10/25/16 09:10 APTT 26.7 Seconds (23.7-30.8) 10/25/16 09:10 - Constitutional Appears: Non-toxic, No Acute Distress - Head Exam Head Exam: ATRAUMATIC, NORMOCEPHALIC - Eye Exam Eye Exam: EOMI. absent: Scleral icterus - ENT Exam ENT Exam: Mucous Membranes Moist, Normal External Ear Exam - Neck Exam Neck Exam: Full ROM - Respiratory Exam Respiratory Exam: NORMAL BREATHING PATTERN. absent: Accessory Muscle Use, Respiratory Distress - GI/Abdominal Exam GI & Abdominal Exam: Soft. absent: Distended, Firm, Guarding, Rigid, Tenderness , Rebound - Extremities Exam Extremities Exam: absent: Calf Tenderness, Pedal Edema - Neurological Exam Neurological Exam: Alert, Awake, Oriented x3 - Skin Skin Exam: Normal Color, Warm Assessment and Plan - Assessment and Plan (Free Text) Assessment: 51F s/p DKA and sepsis 2/2 PNA and SBO, resolving -will start FLD, ADAT -serial abd exams -c/w abx -No plans for surgery at this time -will continue to follow -sharad attending Sushma PGY2
--- NOTE | 2016-10-30 20:14 | PN ---
DATE: 10/30/2016 The patient seen in room 372, bed 2. No fevers and no chills. PHYSICAL EXAMINATION: VITAL SIGNS: Temperature is 97, blood pressure is 130/80, respiratory rate of 20, heart rate of 108. HEENT: Unremarkable. NECK: Supple. LUNGS: Have decreased breath sounds. HEART: Normal S1, S2. ABDOMEN: Soft. LABORATORY DATA: Reveals a white count of 20,000, hemoglobin of 13, platelets of 473. The patient's BUN of 12, creatinine of 0.8, procalcitonin yesterday was 1.38, which is greatly improved from the 5 3 down to 36. Microbiology reveals the trach culture is Klebsiella pneumoniae, pansensitive. Review of the orders reveals the patient to be on meropenem. ASSESSMENT AND PLAN: The patient is a 51-year-old female seen earlier this morning in room 272, bed 2, with a history of hypogammaglobulinemia, history of depression. On this admission, admitted with s evere sepsis, hypoxia, ventilatory-dependent respiratory failure, acute renal failure, bilateral lowe r lobe healthcare-associated pneumonia with Klebsiella pneumoniae, diabetic ketoacidosis and hyperten fausto with coronary artery disease, history of percutaneous coronary intervention and chronic obstruct benoit lung disease, depression, day #6 of meropenem with improvement in procalcitonin. Now patient is afebrile, however, is tachycardic and with an increase in white count of 20,000. Will discontinue me ropenem. The patient is on heparin. Etiology of the systemic inflammatory response syndrome is not entirely clear. We will repeat ross cultures, blood x 2, urinalysis, urine cultures, sputum culture, stool for Clostridium difficile if there is any diarrhea. Since the patient, as of this morning, is clinically nontoxic, we will hold off any antibiotics since she is on day #6 of meropenem with increa se in white count and improvement in procalcitonin. We will also order a repeat procalcitonin. Revi ew of Dr. Maged Ordaz' note, review of Dr. Manfred Torres's note and Dr. Guillen's note is review ed from today. Dr. Mason's note is reviewed. We will order a chest x-ray, PA and lateral, 2 views . We will make further recommendations based on our repeat workup. Tobin Lott MD cc: [id number] TT: 10/30/2016 20:13:49 Confirmation # [id number] Dictation # [id number] rn
--- NOTE | 2016-10-30 21:27 | PN ---
DATE: 10/30/2016 SUBJECTIVE: This patient was seen and evaluated earlier today. The patient is tolerating the liquid diet, comfortable, no vomiting. Did have a bowel movement also. He feels improved. PHYSICAL EXAMINATION: VITAL SIGNS: Temperature is 97.4, pulse , blood pressure 137/85. HEENT: Atraumatic, anicteric. NECK: Supple. HEART: S1, S2 heard. LUNGS: Bilateral air entry present. ABDOMEN: Softly distended, bowel sounds present. EXTREMITIES: No cyanosis, no clubbing. LABORATORY DATA: WBC count went up to 20.3, hemoglobin 11.8, hematocrit 35.1, platelets. 473. Chem istry is essentially unremarkable. Potassium 3.3. IMPRESSION: This is a 51-year-old patient admitted with small-bowel obstruction, status post diabeti c ketoacidosis, sepsis and has bilateral pneumonia. The patient had orogastric tube decompression, w hich was removed, on a liquid diet, tolerating, had a bowel movement. The concern is now increasing WBC count. RECOMMENDATIONS: 1. It is reasonable to consider the stool for C. difficile since the patient had a bowel movement. 2. Follow up the chest x-ray ordered by Dr. Lott. 3. Will consider repeating the CT with oral contrast if there is any further significant increasing WBC count after reviewing the above workup. Thank you very much for allowing me to participate in the care of the patient. Berhane Weston MD cc: [id number] TT: 10/30/2016 21:26:34 Confirmation # [id number] Dictation # [id number] dn
[2016-10-30] MEDS: Insulin Detemir 100 units/ml Vial (Levemir) SC SCH (21:55)
[2016-10-31] MEDS ORDERED: Pantoprazole 40 mg EC Tab PO SCH (06:30)
--- NOTE | 2016-10-31 08:19 | CP.PCM.PN ---
Subjective - Date & Time of Evaluation Date of Evaluation: 10/31/16 Time of Evaluation: 08:15 - Subjective Subjective: Surgery: Dr. Munoz covering for Dr. Cantu Pt seen and examined. Resting comfortably in bed. No complaints. Tolerating diet. Wants to go home. Objective - Vital Signs/Intake and Output Vital Signs (last 24 hours): Temp Pulse Resp BP Pulse Ox 97.4 F L 108 H 20 137/85 97 10/30/16 16:16 10/30/16 16:16 10/30/16 16:16 10/30/16 16:16 10/30/16 16:16 Intake and Output: 10/31/16 10/31/16 06:59 18:59 Intake Total 720 Balance 720 - Medications Medications: Current Medications Famotidine (Pepcid) 40 mg PO DAILY [facility] Gabapentin (Neurontin) 300 mg PO TID JOSH PRN Reason: Protocol Last Admin: 10/30/16 18:58 Dose: 300 mg Heparin Sodium (Porcine) (Heparin) 5,000 units SC Q12 JOSH PRN Reason: Protocol Last Admin: 10/30/16 21:53 Dose: 5,000 units Hydralazine HCl (Apresoline) 10 mg IVP Q6 PRN PRN Reason: For SBP>170 & Diastolic>100 Insulin Detemir (Levemir) 15 unit SC HS [facility] Last Admin: 10/30/16 21:55 Dose: 15 unit Insulin Human Lispro (Humalog Low) 0 units SC ACHS JOSH PRN Reason: Protocol Last Admin: 10/30/16 22:00 Dose: Not Given Levetiracetam (Keppra) 500 mg PO BID [facility] Last Admin: 10/30/16 18:58 Dose: 500 mg Lorazepam (Ativan) 1 mg PO TID JOSH PRN Reason: Protocol Last Admin: 10/30/16 16:15 Dose: 1 mg Lorazepam (Ativan) 0.5 mg PO Q6H PRN; Protocol PRN Reason: Agitation Last Admin: 10/30/16 23:30 Dose: 0.5 mg Metoprolol Succinate (Toprol Xl) 50 mg PO BRK [facility] Last Admin: 10/30/16 10:33 Dose: 50 mg Morphine Sulfate (Morphine) 2 mg IVP Q3H PRN PRN Reason: Pain, moderate (4-7) Last Admin: 10/29/16 22:20 Dose: 2 mg Olanzapine (Zyprexa Zydis) 5 mg PO DAILY JOSH PRN Reason: Protocol Last Admin: 10/30/16 10:20 Dose: 5 mg Oxycodone HCl (Oxycontin Extended Release Tab) 10 mg PO DAILY [facility] Stop: 11/03/16 10:01 Saliva Substitute (Saliva Substitute) 0 ml PO Q2 PRN PRN Reason: Dry mouth Spironolactone (Aldactone) 50 mg PO DAILY [facility] Last Admin: 10/30/16 10:57 Dose: 50 mg Topiramate (Topamax) 25 mg PO DAILY JOSH PRN Reason: Protocol Last Admin: 10/30/16 14:50 Dose: 25 mg - Labs Labs: 10/30/16 07:10 10/30/16 07:10 PT 13.0 Seconds (9.9-11.8) H 10/25/16 09:10 INR 1.20 (0.93-1.08) H 10/25/16 09:10 APTT 26.7 Seconds (23.7-30.8) 10/25/16 09:10 - Constitutional Appears: Non-toxic, No Acute Distress - Head Exam Head Exam: ATRAUMATIC, NORMOCEPHALIC - Eye Exam Eye Exam: EOMI - ENT Exam ENT Exam: Mucous Membranes Moist - Neck Exam Neck Exam: Full ROM - Respiratory Exam Respiratory Exam: NORMAL BREATHING PATTERN. absent: Accessory Muscle Use, Respiratory Distress - GI/Abdominal Exam GI & Abdominal Exam: Soft. absent: Distended, Firm, Guarding, Rigid, Tenderness - Extremities Exam Extremities Exam: absent: Calf Tenderness, Pedal Edema - Neurological Exam Neurological Exam: Alert, Awake, Oriented x3 Assessment and Plan - Assessment and Plan (Free Text) Assessment: 51F w. DKA and SBO resolved and persistent leukocytosis likely 2/2 PNA -Will advance diet to regular -monitor bowel fxn -serial abd exams -no plans for surgical intervention -will sharad attending Zemaitis PGY2
[2016-10-31] MEDS: Insulin Lispro (humaLOG) LOW Coverage SC SCH ×4 (08:26→22:10)
[2016-10-31] MEDS: Metoprolol Succinate 50 mg XL Tab PO SCH (08:33)
[2016-10-31 08:49] LABS: ADD MANUAL DIFF? NO
[2016-10-31 09:08] LABS: BASO # 0.13 K/mm3 (0.0-2.0); BASO % 0.7 % (0.0-3.0); EOS # 0.3 (0.0-0.7); EOS % 1.3 % (1.5-5.0); GRAN % 63.9 % (50.0-68.0); HEMATOCRIT 34.9 % (36.0-48.0); LYMPH # 5.3 (1.2-3.4); LYMPH % 26.7 % (22.0-35.0); MEAN CELL VOLUME 89.7 fL (80.0-105.0); MEAN CORPUSCULAR HEMOGLOBIN 29.8 pg (25.0-35.0); MEAN CORPUSCULAR HGB CONC 33.2 g/dl (31.0-37.0); MEAN PLATELET VOLUME 10.6 fl (7.0-11.0); MONO # 1.5 (0.1-0.6); MONO % 7.4 % (1.0-6.0); PLATELET COUNT 517 10^3/uL (120.0-450.0); RED CELL DISTRIBUTION WIDTH 13.7 % (11.5-14.5); WHITE BLOOD COUNT 19.9 10^3/ul (4.5-11.0)
[2016-10-31 09:10] VITALS: RESP 17
[2016-10-31 09:21] LABS: ALKALINE PHOSPHATASE 64 U/L (38-133); ALT/SGPT 34 U/L (7-56); AST/SGOT 28 U/L (15-39); BILIRUBIN,TOTAL 0.5 mg/dL (0.2-1.3); BLOOD UREA NITROGEN 11 mg/dL (7-21); CALCIUM 9.4 mg/dL (8.4-10.5); CARBON DIOXIDE 22 mmol/L (21-33); CHLORIDE 105 mmol/L (98-107); GFR AFRICAN-AMERICAN > 60; GLUCOSE,RANDOM 152 mg/dL (70-110); MAGNESIUM 1.4 mg/dL (1.7-2.2); PHOSPHOROUS 4.1 mg/dL (2.5-4.5); SODIUM 137 mmol/L (132-148); TOTAL PROTEIN 6.4 g/dL (5.8-8.3)
[2016-10-31] MEDS: OLANZapine 5 mg Disintegrating Tab PO SCH (09:26)
[2016-10-31] MEDS ORDERED: oxyCODONE 10 mg ER Tab (oxyCONTIN) PO SCH (10:00)
[2016-10-31] MEDS ORDERED: Magnesium Sulfate 2 GM in Sodium Chloride 0.9% 100 ML IVPB ONE (10:51)
[2016-10-31] MEDS ORDERED: Potassium Chloride 20 mEq ER Tab PO ONE ×3 (10:52→18:00)
--- NOTE | 2016-10-31 11:09 | PN ---
DATE: 10/31/2016 REASON FOR CONSULTATION AND FOLLOWUP: Cardiac evaluation, status post respiratory failure, intubated , successfully extubated, history of coronary artery disease, status post stent, admitted with DKA, l actic acidosis, improved, status post small bowel obstruction, improved. BRIEF CLINICAL HISTORY: A 51-year-old morbidly obese female with a past medical history significant for coronary artery disease, status post a stent in 2008, repeat catheterization in 2013, 01/24/2014, patent stent, preserved left ventricular function, history of gammaglobulin deficiency, on gammaglobu melia IV. Admitted with acute abdomen, small bowel obstruction, intubated, DKA. Now, patient successf ully extubated. Lying flat. Denies any chest pain, shortness of breath, any palpitation. PHYSICAL EXAMINATION: VITAL SIGNS: Temperature afebrile, heart rate 89, blood pressure 137/85. HEENT: PERRLA. Extraocular muscles intact. NECK: Supple. No carotid bruits. No thyromegaly. CHEST: Clear to auscultation. HEART: S1, S2 regular. ABDOMEN: Soft. EXTREMITIES: Clubbing, cyanosis negative. BLOOD WORKUP: WBC 19.9, hemoglobin 11.9, hematocrit 34.9, platelet count 517. Chemistry shows sodiu m 130, potassium 3, chloride 105, carbon dioxide , anion gap of 13, BUN 11, creatinine 0.9, magn esium 1.9. IMPRESSION: Hypomagnesemia, hypokalemia, status post sepsis, status post septic, diabetic ketoacidos is, lactic acidosis, small bowel obstruction, resolved, coronary artery disease, patent stents last c atheterization. RECOMMENDATION: Continue aggressive supplement potassium. Continue IV gammaglobulin. Continue beta jennifer. We will follow with you. Thank you, Dr. Campa, for providing us the opportunity in taking care of the patient. Shasta Guillen MD cc: [id number] TT: 10/31/2016 11:08:33 Confirmation # [id number] Dictation # [id number] en
[2016-10-31] MEDS ORDERED: Morphine 2 mg/ml ISec IVP PRN (14:08)
[2016-10-31] MEDS ORDERED: oxyCODONE 10 mg ER Tab (oxyCONTIN) PO PRN (14:09)
--- NOTE | 2016-10-31 15:19 | PN ---
DATE: 10/31/2016 This is the patient's hospital visit on the medical floor. SUBJECTIVE: The patient is a 51-year-old female, seen lying in bed after threatening to sign out aga [facility] medical advice as she needs to see her dog she reports home with the patient known to suffer fro m a seizure disorder for which medicines were restarted yesterday, await neurologic consult. She als o had significant anxiety issues for which psychiatry consult was called also. With this, the patien t is now recuperating after being intubated for respiratory failure and pneumonia. She is status pos t abdominal procedure approximately 2 weeks prior with the patient now unable to ambulate without a w alker and is in need of assistance in that respect, with physiotherapy consulted for gait training wi th a walker. All of these issues with the patient now also continuing DKA follow up protocols with h er fingersticks cut back to twice a day as her sugars have been under control with her diet now incre ased as per Dr. Weston to low residue, low fiber soft diet with discharge planning recommended for tomorrow if she is stable. Her potassium continues to be a problem with the most recent potassium of 3.0 for which replenishment was done with her white blood cell count continuing to be elevated. The patient's present medical regimen has been reviewed with her respiratory status improved and antibio tics discontinued after 6 days of meropenem, discontinued by Dr. Lott, with a repeat procalcito hector and chest x-ray recommended. With this, the patient was persuaded to continue her hospitalizatio n pending antibiotic review and impression from Dr. Елена Levin, psychiatrist, with advancement of her diet as above. We will check her labs in the morning. PHYSICAL EXAMINATION: VITAL SIGNS: Temperature 98.7, pulse 89, respirations 17, blood pressure 159/86, pulse ox 97%. Weig ht is 229 pounds. HEENT: Unremarkable, ang complexion. NECK: Supple. HEART: Regular rate. LUNGS: Clear. ABDOMEN: Obese, soft and nontender post ventral hernia repair. EXTREMITIES: Faint +1 edema. NEUROLOGIC: Awake and alert. SKIN: Warm, dry and clear otherwise. LABORATORY DATA: The patient's labs were done. White blood cell count of 19.9, hemoglobin 11.6, hem atocrit 34.0, platelet count of 517,000, probably reactive thrombocytosis. Her chem panel was normal except for potassium of 3.0 with a magnesium of 1.4 for which she is having magnesium replenished to day. Chest x-ray was ordered; it was not read yet. ASSESSMENT: Sepsis, hypoxemia, acute renal failure, respiratory failure status post intubation, bila teral lower lobe pneumonia Klebsiella, diabetic ketoacidosis, hypertension, arteriosclerotic cardiova scular disease, chronic obstructive pulmonary disease, depression, anxiety, hypogammaglobulinemia, ga it disturbance (the patient ambulates with a walker), hypokalemia, history of seizure disorder, post ventral hernia repair, small-bowel obstruction, obesity. PLAN: After conversation with Dr. Campa and Dr. Weston, plan is to advance her diet to soft low residue, low fiber. Await psychiatry impression with Dr. Levin, replenish her potassium, ask f or physiotherapy to ambulate the patient assist with the walker and to be out of bed to chair daily. We will reconsult with Dr. Leyva, neurology, regarding her medications; seizure medications were re started yesterday, with discharge planning with antibiotics as per Dr. Lott. Check her chest x -ray and her procalcitonin level. We will monitor clinically and check her labs again in the morning with possible discharge home if she is stable as per consultants' recommendations. The patient was advised of this and is complying with medical recommendations at this point with her diet to see if i t is tolerated with physiotherapy to begin. Manfred Torres MD cc: [phone] TT: 10/31/2016 15:18:23 Confirmation # [id number] Dictation # [id number] gopal
--- NOTE | 2016-10-31 16:27 | RAD ---
HISTORY: inc wbc of 20k COMPARISON: 10/29/2016 TECHNIQUE: Chest PA and lateral FINDINGS: LUNGS: Interval removal NGT. No change right IJ Port-A-Cath with tip in the SVC. Poor inspiration with low lung volumes, mild crowded bronchovascular markings and mild bibasilar atelectasis right greater than left ; right lower lobe infiltrate to be excluded with followup radiographs. PLEURA: No significant pleural effusion identified. No pneumothorax apparent. CARDIOVASCULAR: Borderline/mild cardiomegaly. OSSEOUS STRUCTURES: No significant abnormalities. VISUALIZED UPPER ABDOMEN: Normal. OTHER FINDINGS: None. IMPRESSION: Interval removal NGT. Poor inspiration with low lung volumes, mild crowded bronchovascular markings and mild bibasilar atelectasis right greater than left ; right lower lobe infiltrate to be excluded with followup radiographs.
--- NOTE | 2016-10-31 17:22 | PN ---
DATE: 10/31/2016 The patient is in bed in no acute distress. PHYSICAL EXAMINATION: VITAL SIGNS: Temperature is 98, blood pressure is 150/80, respiratory rate 20, heart rate of 104. HEENT: Unremarkable. NECK: Supple. LUNGS: Have decreased breath sounds. HEART: Normal S1, S2. ABDOMEN: Soft, nontender. LABORATORY DATA: Reveals a white count of 19,900, hemoglobin of 11, platelets of 517. Chemistries r eveal the BUN of 11 and creatinine of 0.9. Procalcitonin is down to 0.65. Microbiology reveals the Klebsiella species from the trach. Review of the orders reveals the patient to be off of antibiotics and meropenem was discontinued. ASSESSMENT AND PLAN: This is a 51-year-old female who was seen earlier this morning with a history o f hypogammaglobulinemia, history of depression who was admitted with severe sepsis, hypoxia, ventilat or dependent respiratory failure, acute renal failure, bilateral lower healthcare-associated pneumoni a with Klebsiella pneumoniae, diabetic ketoacidosis, hypertension, coronary artery disease, history o f percutaneous coronary intervention, chronic obstructive lung disease, depression, had received 6 da ys of meropenem with improvement in procalcitonin and now with tachycardia, leukocytosis and systemic inflammatory response syndrome and off of antibiotics; however, the patient does have a white count of 19,900. The patient is clinically stable and nontoxic as of this morning. Dr. Manfred Torres's note is reviewed. Dr. Guillen's note is reviewed from today. Will follow up CBC, a white count in a.m . The patient is nontoxic. Will keep her off the antibiotics for now. Dr. Munoz's note is also r gigiwedar. The patient also had a chest x-ray yesterday, which revealed poor inspiration with lung vol umes. Will follow closely with you. Tobin Lott MD cc: [phone] TT: 10/31/2016 17:21:47 Confirmation # [id number] Dictation # [id number] gopal
[2016-10-31] MEDS ORDERED: Magnesium Sulfate 2 GM in Sodium Chloride 0.9% 100 ML IV ONE (18:00)
[2016-10-31] MEDS: Insulin Detemir 100 units/ml Vial (Levemir) SC SCH (22:19)
[2016-11-01 00:23] LABS: URINE BILIRUBIN NEGATIVE (NEGATIVE); URINE BLOOD TRACE-INTACT (NEGATIVE); URINE GLUCOSE (UA) NEGATIVE (NEGATIVE); URINE KETONE 15 mg/dL (NEGATIVE); URINE LEUKOCYTE ESTERASE NEGATIVE Leu/uL (NEGATIVE); URINE PROTEIN 30 mg/dL (<30 mg/dL); URINE UROBILINOGEN 0.2 E.U./dL (<1 E.U./dL)
[2016-11-01 00:29] LABS: URINE APPEARANCE SL CLOUDY (CLEAR); URINE COLOR YELLOW (YELLOW)
[2016-11-01 00:33] LABS: URINE RBC 0 - 2 /hpf (0-2)
[2016-11-01 06:32] LABS: ADD MANUAL DIFF? NO
[2016-11-01 07:16] LABS: ALKALINE PHOSPHATASE 63 U/L (38-133); ALT/SGPT 35 U/L (7-56); AST/SGOT 32 U/L (15-39); BILIRUBIN,TOTAL 0.4 mg/dL (0.2-1.3); BLOOD UREA NITROGEN 9 mg/dL (7-21); CALCIUM 8.6 mg/dL (8.4-10.5); CARBON DIOXIDE 20 mmol/L (21-33); CHLORIDE 109 mmol/L (95-110); GFR AFRICAN-AMERICAN > 60; GLUCOSE,RANDOM 124 mg/dL (70-110); MAGNESIUM 1.9 mg/dL (1.7-2.2); PHOSPHOROUS 3.9 mg/dL (2.5-4.5); POTASSIUM 3.7 mmol/L (3.6-5.0); SODIUM 139 mmol/L (132-148); TOTAL PROTEIN 6.1 g/dL (5.8-8.3)
[2016-11-01 07:30] LABS: BASO # 0.11 K/mm3 (0.0-2.0); BASO % 0.7 % (0.0-3.0); EOS # 0.2 (0.0-0.7); EOS % 1.5 % (1.5-5.0); GRAN # 10.04 (1.4-6.5); GRAN % 66.8 % (50.0-68.0); HEMATOCRIT 30.9 % (36.0-48.0); LYMPH # 3.6 (1.2-3.4); LYMPH % 24.1 % (22.0-35.0); MEAN CELL VOLUME 90.4 fL (80.0-105.0); MEAN CORPUSCULAR HEMOGLOBIN 30.4 pg (25.0-35.0); MEAN CORPUSCULAR HGB CONC 33.7 g/dl (31.0-37.0); MONO % 6.9 % (1.0-6.0); PLATELET COUNT 370 10^3/uL (120.0-450.0); RED CELL DISTRIBUTION WIDTH 13.6 % (11.5-14.5)
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
[2016-11-01] MEDS: Metoprolol Succinate 50 mg XL Tab PO SCH (08:15)
[2016-11-01] MEDS: Insulin Lispro (humaLOG) LOW Coverage SC SCH ×2 (08:16→11:30)
[2016-11-01 08:17] VITALS: BP 116/60; PULSE 93
--- NOTE | 2016-11-01 08:36 | PN ---
DATE: 11/01/2016 PULMONARY NOTE SUBJECTIVE: The patient appears very comfortable this morning. She is not short of breath at rest. PHYSICAL EXAMINATION: VITAL SIGNS: (Last noted in the computer): Temperature is 98.7. Pulse this morning is approximately 80, respirations 16/18, blood pressure 159/86. Oxygen saturation on room air is 97%. HEENT: Normocephalic, atraumatic. No JVD. CARDIOVASCULAR: Positive S1, S2. No S3. LUNGS: Clear bilaterally. EXTREMITIES: Mild edema. No cyanosis, no clubbing. Calves are nontender to palpation. GASTROINTESTINAL: Abdomen is soft, nontender, nondistended. Bowel sounds are positive. The patient is status post ventral hernia repair. SKIN: No acute rash. NEUROLOGIC: Limited at the present time. PERTINENT LABORATORY DATA: Chest x-ray was repeated on 10/30/16 and reviewed. There are very minimal bibasilar changes. Otherwise, the lungs are clear. IMPRESSION: 1. Status post respiratory failure. 2. Status post diabetic ketoacidosis. 3. Aspiration pneumonia - resolving. 4. Status post ventral hernia repair. 5. Mild anemia. PLAN: The patient appears very comfortable this morning. She is not short of breath at rest. She states she is feeling much, much better overall, and is asking to go home. On physical exam, her lungs are now clear. Oxygen saturation on room air is 97%. I have advised the patient to continue her incentive spirometer and be out of bed as much as possible. Inputs by GI, cardiology, and infectious disease are noted. Clinical status of the patient is significantly improved - compared to the initial presentation. I will discuss the above with the attending physician. Werner Mason MD cc: [phone] TT: 11/01/2016 08:35:24 Confirmation # [id number] Dictation # [id number] [id number]
--- NOTE | 2016-11-01 08:36 | PN ---
DATE: 11/01/2016 SUBJECTIVE: The patient has no complaints of any headaches or dizziness. She says she feels well. PHYSICAL EXAMINATION: VITAL SIGNS: Temperature is 98.7, pulse of 89, blood pressure 159/86, respirations 17. GENERAL: The patient comfortable, in no acute distress. HEENT: Anicteric sclerae. Moist mucosa. NECK: No JVD or adenopathy. CARDIAC: S1/S2. No murmurs. No rubs. Regular. RESPIRATORY: Clear to auscultation bilaterally. No wheezes, rales, or rhonchi. Good air entry. ABDOMEN: Bowel sounds are positive, soft, nontender, and nondistended. EXTREMITIES: No edema. Has 1+ pulses. LABORATORY DATA: White count of 15, hemoglobin 10.4, creatinine 0.9. ASSESSMENT: 1. Hypomagnesemia, improved. 2. Hypophosphatemia, improved. 3. Acute kidney injury, improved. 4. Diabetic ketoacidosis, resolved. 5. Dyslipidemia. 6. Horseshoe kidney. 7. Hypogammaglobulinemia. 8. Obesity with a body mass index of 38. PLAN: The patient is currently comfortable. She is on Aldactone. The patient is going to be on Ati van as needed. She is on heparin for DVT prophylaxis. She is on Keppra and this will be continued. She is receiving morphine for pain. She is on oxycodone. She is going to be on Toradol for pain. Christoph Zhang MD cc: [id number] TT: 11/01/2016 08:36:25 Confirmation # [id number] Dictation # [id number] mn
--- NOTE | 2016-11-01 08:40 | CP.PCM.PN ---
<James Daniels - Last Filed: 11/01/16 08:35> Subjective - Date & Time of Evaluation Date of Evaluation: 11/01/16 Time of Evaluation: 08:36 - Subjective Subjective: General Surgery Progress note Patient seen and evaluated at bedside. No acute events overnight. Tolerating GI/ hepatic diet. Patient remains afebrile. She is steadily clinically improving. Notes multiple BM's over 24hrs. Objective - Vital Signs/Intake and Output Vital Signs (last 24 hours): Temp Pulse Resp BP Pulse Ox 98.7 F 93 H 17 116/60 97 10/31/16 06:00 11/01/16 08:15 10/31/16 06:00 11/01/16 08:15 10/31/16 06:00 Intake and Output: 11/01/16 11/01/16 06:59 18:59 Intake Total 840 Balance 840 - Medications Medications: Current Medications Famotidine (Pepcid) 40 mg PO DAILY [facility] Last Admin: 10/31/16 09:30 Dose: 40 mg Gabapentin (Neurontin) 300 mg PO TID [facility] PRN Reason: Protocol Last Admin: 10/31/16 18:07 Dose: 300 mg Heparin Sodium (Porcine) (Heparin) 5,000 units SC Q12 [facility] PRN Reason: Protocol Last Admin: 10/31/16 22:20 Dose: 5,000 units Hydralazine HCl (Apresoline) 10 mg IVP Q6 PRN PRN Reason: For SBP>170 & Diastolic>100 Insulin Detemir (Levemir) 15 unit SC HS [facility] Last Admin: 10/31/16 22:19 Dose: 15 unit Insulin Human Lispro (Humalog Low) 0 units SC ACHS [facility] PRN Reason: Protocol Last Admin: 11/01/16 08:16 Dose: 1 units Levetiracetam (Keppra) 500 mg PO BID [facility] Last Admin: 10/31/16 18:06 Dose: 500 mg Lorazepam (Ativan) 1 mg PO TID [facility] PRN Reason: Protocol Last Admin: 10/31/16 18:06 Dose: 1 mg Lorazepam (Ativan) 0.5 mg PO Q6H PRN; Protocol PRN Reason: Agitation Last Admin: 10/30/16 23:30 Dose: 0.5 mg Metoprolol Succinate (Toprol Xl) 50 mg PO BRK [facility] Last Admin: 11/01/16 08:15 Dose: 50 mg Morphine Sulfate (Morphine) 2 mg IVP Q6H PRN PRN Reason: Pain, moderate (4-7) Olanzapine (Zyprexa Zydis) 5 mg PO DAILY [facility] PRN Reason: Protocol Last Admin: 10/31/16 09:26 Dose: 5 mg Oxycodone HCl (Oxycontin Extended Release Tab) 10 mg PO Q12 PRN PRN Reason: Pain, severe (8-10) Stop: 11/03/16 22:01 Potassium Chloride (K-Dur 20 Meq Er Tab) 40 meq PO DAILY [facility] Saliva Substitute (Saliva Substitute) 0 ml PO Q2 PRN PRN Reason: Dry mouth Spironolactone (Aldactone) 50 mg PO DAILY [facility] Last Admin: 10/31/16 09:29 Dose: 50 mg Topiramate (Topamax) 25 mg PO DAILY [facility] PRN Reason: Protocol Last Admin: 10/31/16 09:30 Dose: 25 mg - Labs Labs: 11/01/16 06:00 11/01/16 06:00 PT 13.0 Seconds (9.9-11.8) H 10/25/16 09:10 INR 1.20 (0.93-1.08) H 10/25/16 09:10 APTT 26.7 Seconds (23.7-30.8) 10/25/16 09:10 - Constitutional Appears: Non-toxic, No Acute Distress - Head Exam Head Exam: ATRAUMATIC, NORMOCEPHALIC - Eye Exam Eye Exam: EOMI, PERRL - ENT Exam ENT Exam: Mucous Membranes Moist - Neck Exam Neck Exam: Full ROM, Normal Inspection - Respiratory Exam Respiratory Exam: Clear to Ausculation Bilateral. absent: Rales, Rhonchi, Wheezes - Cardiovascular Exam Cardiovascular Exam: REGULAR RHYTHM - GI/Abdominal Exam GI & Abdominal Exam: Soft, Normal Bowel Sounds. absent: Guarding - Extremities Exam Extremities Exam: absent: Calf Tenderness, Pedal Edema - Neurological Exam Neurological Exam: Alert, Awake, Oriented x3 - Psychiatric Exam Psychiatric exam: Normal Affect, Normal Mood - Skin Skin Exam: Normal Color, Warm Assessment and Plan - Assessment and Plan (Free Text) Assessment: 51F w. DKA and SBO which is now resolved. Patient continues to have leukocytosis likely 2/2 pneumonia. -tolerating GI/hep diet. -bowel function restored -no plans for surgical intervention -continue abx per ID recommendations as patien still exhibits leukocytosis - will continue to follow patient peripherally. -will dDagow attending <Tee Reagan - Last Filed: 02/01/17 22:56> Objective - Vital Signs/Intake and Output Vital Signs (last 24 hours): Temp Pulse Resp BP Pulse Ox 97.7 F 93 H 17 116/60 93 L 11/01/16 06:00 11/01/16 08:15 11/01/16 06:00 11/01/16 08:15 11/01/16 06:00 - Labs Labs: 11/01/16 06:00 11/01/16 06:00 PT 13.0 Seconds (9.9-11.8) H 10/25/16 09:10 INR 1.20 (0.93-1.08) H 10/25/16 09:10 APTT 26.7 Seconds (23.7-30.8) 10/25/16 09:10 Assessment and Plan - Assessment and Plan (Free Text) Plan: Patient was seen and examined by me. I agree with assessment and plan as per resident's note.
--- NOTE | 2016-11-01 08:46 | PN ---
DATE: 10/31/2016 SUBJECTIVE: The patient has no complaints of any headaches or dizziness. She says she is feeling we ll. PHYSICAL EXAMINATION: VITAL SIGNS: Temperature is 98.7, pulse of 89, blood pressure 159/86, respirations 17. GENERAL: The patient comfortable, in no acute distress. HEENT: Anicteric sclerae. Moist mucosa. NECK: No JVD or adenopathy. CARDIAC: S1/S2. No murmurs. No rubs. Regular. RESPIRATORY: Clear to auscultation bilaterally. No wheezes, rales, or rhonchi. Good air entry. ABDOMEN: Bowel sounds are positive, soft, nontender, and nondistended. EXTREMITIES: No edema. Has 1+ pulses. LABS: White count of 19.9, hemoglobin 11.6, creatinine is 3.0, potassium ____. ASSESSMENT: 1. Hypomagnesemia. 2. Hypokalemia. 3. Hypophosphatemia, improved. 4. Dyslipidemia. 5. Acute kidney injury. 6. Diabetic ketoacidosis. 7. Horseshoe kidney. 8. Hypogammaglobulinemia. 9. Obesity with a body mass index of 37. PLAN: The patient is clinically improving. She says she is feeling better. She is on Aldactone for her hypokalemia. The patient is on heparin for DVT prophylaxis. She did receive potassium today. She is on Keppra. The patient is on Ativan. Will repeat the patient's blood work tomorrow. She did have a low magnesium. I will give her magnesium replacement. Christoph Zhang MD cc: [id number] TT: 10/31/2016 18:24:13 Confirmation # [id number] Dictation # [id number] wv 11/01/2016 07:44:49
--- NOTE | 2016-11-01 08:49 | PN ---
DATE: 10/31/2016 SUBJECTIVE: This patient was seen and evaluated earlier today. The patient is now tolerating the li quid diet. PHYSICAL EXAMINATION: VITAL SIGNS: Afebrile, blood pressure is 159/86, pulse is 89. HEENT: Atraumatic, anicteric. NECK: Supple. HEART: S1, S2 heard. LUNGS: Bilateral air entry present. ABDOMEN: Soft. Bowel sounds are present. LABORATORY DATA: WBC count is 19,000, hemoglobin 11, platelet 17. IMPRESSION: This 51-year-old patient with history of hypogammaglobulinemia, admitted with sepsis, sm all-bowel obstruction, DTA, found to have bleeding. The patient, in the remote past, has had b ilateral , bilateral pneumonia. Clinically, the patient had a ventral hernia done recentl y. The patient's other comorbidities include acute kidney injury, coronary artery disease status pos t PCI, chronic obstructive pulmonary disease. RECOMMENDATION: 1. Continue the antibiotics. 2. Supplement potassium. 3. The patient's low residue soft diet. Will continue to monitor closely. 4. The patient may need a small bowel series as an outpatient if he is tolerating the diet and compl eted the antibiotics as per ID. Thank you for allowing us to participate in the care of the patient. I did have a detailed discussio n with the patient and also the patient's family. Berhane Weston MD cc: [phone] TT: 10/31/2016 23:50:20 Confirmation # [id number] Dictation # [id number] mn
[2016-11-01] MEDS ORDERED: Potassium Chloride 20 mEq ER Tab PO SCH (10:00)
[2016-11-01] MEDS: OLANZapine 5 mg Disintegrating Tab PO SCH (10:03)
--- NOTE | 2016-11-01 10:52 | PN ---
DATE: 11/01/2016 The patient is in room 372, bed 2. REASON FOR CONSULTATION AND FOLLOWUP: Status post respiratory failure, intubated, successfully extub ated, history of coronary artery disease status post stent, admitted with DKA, lactic acidosis, impro odilia, status post small-bowel obstruction which also improved. HISTORY OF PRESENT ILLNESS: A 51-year-old morbidly obese female with past medical history significan t for coronary artery disease status post stent in 2008. Repeat catheterization 01/24/2014 showed pre served LV function, patent stent. The patient has history of hypogammaglobulin deficiency on gamma g lobulin IV, was admitted with acute abdomen, small-bowel obstruction, intubated. Now the patient's c ondition improved. The patient was successfully extubated. Denies any chest pain, shortness of breath, or palpitations. The patient is lying comfortably in bed at present. PHYSICAL EXAMINATION: VITAL SIGNS: Blood pressure 116/60; yesterday was 159/86. Respirations 18, pulse 93, temperature 98 .7. HEAD: Normocephalic. EYES: Pupils are normal. Conjunctivae are slightly pale. NECK: JVP low. Carotids equal. THORAX: AP diameter normal. LUNGS: Clear. CARDIOVASCULAR: S1, S2. ABDOMEN: Soft. No organomegaly. EXTREMITIES: No clubbing, no cyanosis. LABORATORY DATA: WBC 15.0, hemoglobin 10.4, hematocrit 30.9, platelets 370. Sodium 139, potassium 3 .7, BUN 9, creatinine 0.9, random glucose 124, calcium 8.6, phosphorus 3.9, magnesium 1.9. AST and A LT normal. Total protein 6.1, albumin 3.0. DIAGNOSES: Status post sepsis, status post diabetic ketoacidosis, lactic acidosis, small-bowel obstr uction, respiratory distress, ____, stable coronary artery disease, patent stent on last catheterizat ion. The patient is on Aldactone 50 mg p.o. daily, heparin 5000 units subQ q. 12 hours, potassium 40 mg p. o. daily, Keppra 500 mg p.o. b.i.d., insulin as ordered, Neurontin 300 mg p.o. t.i.d., Pepcid 40 mg p .o. daily, Topamax 25 mg p.o. daily, Toprol XL 50 mg p.o. daily. We will continue present therapy, and we will follow with you. Shasta Hernandez MD cc: [phone] TT: 11/01/2016 10:52:19 Confirmation # [id number] Dictation # [id number] stacia
[2016-11-01 11:14] VITALS: TEMP 97.7; O2SAT 93
--- NOTE | 2016-11-01 13:17 | CP.PCM.PN ---
<Roxy Kay - Last Filed: 11/01/16 13:13> Subjective - Date & Time of Evaluation Date of Evaluation: 11/01/16 Time of Evaluation: 13:13 - Subjective Subjective: 51 year old female with PMH of HTN, dyslipidemia, CAD S/P PCI, common variable immune deficiency, asthma, seizure disorder, depression, COPD, chronic venous insufficiency, DM S/P laparoscopic ventral hernia repair 2016, S/P cholecystectomy, seen at bedside with attending, Dr. Vasques. She admits to pain on her right big toe. Patient denies any n/v/f/c/d Objective - Vital Signs/Intake and Output Vital Signs (last 24 hours): Temp Pulse Resp BP Pulse Ox 97.7 F 93 H 17 116/60 93 L 11/01/16 06:00 11/01/16 08:15 11/01/16 06:00 11/01/16 08:15 11/01/16 06:00 Intake and Output: 11/01/16 11/01/16 06:59 18:59 Intake Total 840 Balance 840 - Medications Medications: Current Medications Famotidine (Pepcid) [address] [facility] Last Admin: 11/01/16 10:02 Dose: 40 mg Gabapentin (Neurontin) 300 mg PO TID [facility] PRN Reason: Protocol Last Admin: 11/01/16 10:01 Dose: 300 mg Heparin Sodium (Porcine) (Heparin) 5,000 units SC Q12 [facility] PRN Reason: Protocol Last Admin: 11/01/16 10:01 Dose: 5,000 units Hydralazine HCl (Apresoline) 10 mg IVP Q6 PRN PRN Reason: For SBP>170 & Diastolic>100 Insulin Detemir (Levemir) [address] [facility] Last Admin: 10/31/16 22:19 Dose: 15 unit Insulin Human Lispro (Humalog Low) 0 units SC ACHS [facility] PRN Reason: Protocol Last Admin: 11/01/16 11:30 Dose: 2 units Levetiracetam (Keppra) [address] [facility] Last Admin: 11/01/16 10:02 Dose: 500 mg Lorazepam (Ativan) 1 mg PO TID [facility] PRN Reason: Protocol Last Admin: 11/01/16 10:02 Dose: 1 mg Lorazepam (Ativan) 0.5 mg PO Q6H PRN; Protocol PRN Reason: Agitation Last Admin: 10/30/16 23:30 Dose: 0.5 mg Metoprolol Succinate (Toprol Xl) [address] [facility] Last Admin: 11/01/16 08:15 Dose: 50 mg Morphine Sulfate (Morphine) 2 mg IVP Q6H PRN PRN Reason: Pain, moderate (4-7) Olanzapine (Zyprexa Zydis) [address] [facility] PRN Reason: Protocol Last Admin: 11/01/16 10:03 Dose: 5 mg Oxycodone HCl (Oxycontin Extended Release Tab) 10 mg PO Q12 PRN PRN Reason: Pain, severe (8-10) Stop: 11/03/16 22:01 Potassium Chloride (K-Dur 20 Meq Er Tab) [address] [facility] Last Admin: 11/01/16 10:04 Dose: 40 meq Saliva Substitute (Saliva Substitute) 0 ml PO Q2 PRN PRN Reason: Dry mouth Spironolactone (Aldactone) [address] [facility] Last Admin: 11/01/16 10:03 Dose: 50 mg Topiramate (Topamax) [address] [facility] PRN Reason: Protocol Last Admin: 11/01/16 10:04 Dose: 25 mg - Labs Labs: 11/01/16 06:00 11/01/16 06:00 PT 13.0 Seconds (9.9-11.8) H 10/25/16 09:10 INR 1.20 (0.93-1.08) H 10/25/16 09:10 APTT 26.7 Seconds (23.7-30.8) 10/25/16 09:10 - Constitutional Appears: Well, Non-toxic, No Acute Distress - Extremities Exam Additional comments: Right lower extremity focused exam: Vasc: Non-palpable pedal pulses b/l, TG wnl, CFT < 4 sec to all digits Neuro: Gross sensation diminished b/l. Derm: nonpitting edema, no erythema, no open lesions, no acute clinical signs of infection, no interdigital maceration, nails are cut to hygienic length. Right distal tip of hallux is noted to have an area of fresh skin. Ortho: muscle power4/5, diminished ankle, STJ, 1st ray ROM - Neurological Exam Neurological Exam: Alert, Awake, Oriented x3 - Psychiatric Exam Psychiatric exam: Normal Affect, Normal Mood Assessment and Plan - Assessment and Plan (Free Text) Assessment: 51 year old female seen at bedside for diabetic foot evaluation Plan: Patient examined and evaluated with attending, Dr. Vasques labs and vitals reviewed; WBC 15.0, afebrile continue IV abx as per ID US shows no evidence of DVT Rx multipodus boots to offload heels Patient is stable from a podiatry standpoint Patient to follow up with Dr. Vasques upon discharge <Faith Vasques - Last Filed: 11/07/16 14:16> Objective - Vital Signs/Intake and Output Vital Signs (last 24 hours): Temp Pulse Resp BP Pulse Ox 97.7 F 93 H 17 116/60 93 L 11/01/16 06:00 11/01/16 08:15 11/01/16 06:00 11/01/16 08:15 11/01/16 06:00 - Labs Labs: 11/01/16 06:00 11/01/16 06:00 PT 13.0 Seconds (9.9-11.8) H 10/25/16 09:10 INR 1.20 (0.93-1.08) H 10/25/16 09:10 APTT 26.7 Seconds (23.7-30.8) 10/25/16 09:10 Attending/Attestation - Attestation I have personally seen and examined this patient.: Yes I have fully participated in the care of the patient.: Yes I have reviewed all pertinent clinical information, including history, physical exam and plan: Yes
--- NOTE | 2016-11-01 16:23 | DS ---
For Dr. Campa. SUBJECTIVE: The patient is a 51-year-old female admitted by the Emergency Room status post intubatio n and extubation for respiratory failure, DKA, with treatment for pneumonia, COPD, now significantly improved. Anxious for discharge home, which we will do today for her. She is in no acute distress. Feels well today. Her diet was advanced, as per Dr. Reagan, with the patient ambulating with assist. PHYSICAL EXAMINATION: VITAL SIGNS: Temperature 97.7, pulse 93, respirations 17, blood pressure 116/60, pulse ox 93%. HEENT: Unremarkable, with ang complexion. NECK: Supple. HEART: Regular rate. LUNGS: Clear. ABDOMEN: Obese, soft, nontender. EXTREMITIES: +1 edema of the lower extremities of a chronic nature. SKIN: She is status post ventral hernia repair. Skin is otherwise warm, dry, and clear. NEUROLOGIC: Awake, alert, and oriented x 3. LABORATORY DATA: The patient's labs were done. White blood cell count of 15.0; hemoglobin 10.4; hem atocrit 30.9; platelet count of 370,000. A chem metabolic panel completely within normal range excep t for a carbon dioxide of 20, nonfasting glucose 124. ASSESSMENT: For this patient is that of pneumonia/sepsis, respiratory failure, status post intubatio n, hypogammaglobulinemia, hypoxemia, acute renal failure, improved, diabetic ketoacidosis, arterioscl erotic cardiovascular disease, hypertension, chronic obstructive pulmonary disease, depression, histo ry of bowel small-bowel obstruction, partial, gait disturbance, the patient ambulates with a walker, history of seizure disorder, obesity, horseshoe kidney, electrolyte imbalance. PLAN: For this patient is to be discharged home today on a carb-restricted diet. Her medications wi ll include ranitidine, aspirin, Lipitor, meclizine p.r.n., Topamax, OxyContin, Glucophage, Aldactone, Pamelor, Lopressor, Keppra, gabapentin, Ativan, Fioricet p.r.n. After conversation with Dr. Campa, we will continue present medical regimen. Her activities are ho me for approximately 2 days and slow increase to ad ilana, with followup in the office in approximately 5 days' time or earlier. Manfred Melissa SKINNER cc: [phone] TT: 11/01/2016 16:22:20 dn
--- NOTE | 2016-11-02 08:12 | PN ---
DATE: 11/01/2016 The patient is in bed in no acute distress, nontoxic. PHYSICAL EXAMINATION: VITAL SIGNS: Temperature is 97, blood pressure is 116/60, respiratory rate of 16. HEENT: Unremarkable. NECK: Supple. LUNGS: Have decreased breath sounds. HEART: Normal S1, S2. ABDOMEN: Soft, nontender. LABORATORY DATA: Reveals a white count of 15,000, hemoglobin of 10, platelets of 370, BUN of 9, cre atinine of 0.9. Urinalysis is noted. Microbiology is noted. ASSESSMENT AND PLAN: This is a 51-year-old female who was seen earlier this morning and a history of hypogammaglobulinemia, depression, admitted with severe sepsis, hypoxia, ventilator dependent respir atory failure, acute renal failure bilateral, healthcare-associated pneumonia with Klebsiella pneumon iae, diabetic ketoacidosis, hypertension, coronary artery disease and PCI, chronic obstructive lung d isease, depression currently and off of antibiotics and with WBC count down to 15,000 clinically the patient is stable. Will follow. Tobin Lott MD cc: [phone] TT: 11/01/2016 17:49:54 Confirmation # [id number] Dictation # [id number] mn
== END 2016-11-01 16:09 | disposition home health service (06) | DRG 871 ==
LOC: ED 08:31 → ERH 12:35 → CCU 13:22 → 2RNO 10-29 20:43 → CCU 10-29 21:05 → 2RNO 10-29 21:09 → 2RSO 10-30 00:17 → 3RSO 10-30 13:43
PROVIDERS: ADMIT Family Medicine; ATTEND Family Medicine
PROC: 5A1945Z Respiratory Ventilation, 24-96 Consecutive Hours (ICD-10-PCS; principal; 2016-10-25)
PROC: 0BH17EZ Insertion of Endotracheal Airway into Trachea, Via Natural or Artificial Opening (ICD-10-PCS; 2016-10-25)
PROC: 0D9670Z Drainage of Stomach with Drainage Device, Via Natural or Artificial Opening (ICD-10-PCS; 2016-10-25)
DX: A41.9 Sepsis, unspecified organism (principal); J96.01 Acute respiratory failure with hypoxia; J96.02 Acute respiratory failure with hypercapnia; J69.0 Pneumonitis due to inhalation of food and vomit; E13.10 Other specified diabetes mellitus with ketoacidosis without coma; J15.0 Pneumonia due to Klebsiella pneumoniae; K56.60 Unspecified intestinal obstruction; E87.3 Alkalosis; N17.9 Acute kidney failure, unspecified; D80.1 Nonfamilial hypogammaglobulinemia; D83.8 Other common variable immunodeficiencies; E87.1 Hypo-osmolality and hyponatremia; N18.3 Chronic kidney disease, stage 3 (moderate); E11.21 Type 2 diabetes mellitus with diabetic nephropathy; E11.22 Type 2 diabetes mellitus with diabetic chronic kidney disease; R65.20 Severe sepsis without septic shock; J44.9 Chronic obstructive pulmonary disease, unspecified; I25.10 Atherosclerotic heart disease of native coronary artery without angina pectoris; E11.40 Type 2 diabetes mellitus with diabetic neuropathy, unspecified; G40.909 Epilepsy, unspecified, not intractable, without status epilepticus; F32.9 Major depressive disorder, single episode, unspecified; E78.00 Pure hypercholesterolemia, unspecified; I12.9 Hypertensive chronic kidney disease with stage 1 through stage 4 chronic kidney disease, or unspecified chronic kidney disease; J45.909 Unspecified asthma, uncomplicated; E78.5 Hyperlipidemia, unspecified; I87.2 Venous insufficiency (chronic) (peripheral); D64.9 Anemia, unspecified; E87.6 Hypokalemia; F17.210 Nicotine dependence, cigarettes, uncomplicated; F43.22 Adjustment disorder with anxiety; F41.0 Panic disorder [episodic paroxysmal anxiety]; E83.42 Hypomagnesemia; E66.01 Morbid (severe) obesity due to excess calories; G89.29 Other chronic pain; E83.39 Other disorders of phosphorus metabolism; Y95 Nosocomial condition; Z68.38 Body mass index [BMI] 38.0-38.9, adult; Q63.1 Lobulated, fused and horseshoe kidney; Z91.81 History of falling; Z85.038 Personal history of other malignant neoplasm of large intestine; Z95.5 Presence of coronary angioplasty implant and graft; Z79.84 Long term (current) use of oral hypoglycemic drugs; Z90.49 Acquired absence of other specified parts of digestive tract; Z79.82 Long term (current) use of aspirin